=== PATIENT | male | born 1950 | race Caucasian/White ===

== ENCOUNTER → 2016-07-04 | Outpatient (CLI) | payer OTHER ==
[2016-07-04 14:18] LABS: ALT/SGPT 39 U/L (12-78); AST/SGOT 19 U/L (15-37); BLOOD UREA NITROGEN 15 mg/dl (7-18); BUN/CREATININE RATIO 15.9 (10-20); CALCIUM 9.5 mg/dl (8.5-10.1); CARBON DIOXIDE 29 mmol/L (21-32); CHLORIDE 103 mmol/L (98-107); CREATININE 0.92 mg/dl (0.60-1.40); GLUCOSE 145 mg/dl (70-99); POTASSIUM 3.9 mmol/L (3.5-5.1); SODIUM 138 mmol/L (136-145)
[2016-07-04 14:21] LABS: ALB/GLOB RATIO 1.3 (0.9-2); ALKALINE PHOSPHATASE 90 U/L (45-117); CHOLESTEROL 151 mg/dl (0-200); CHOLESTEROL/HDL RATIO 4.6; HDL CHOLESTEROL 33 mg/dl; LDL CHOLESTEROL CALCULATED 83 mg/dl; TRIGLYCERIDES 177 mg/dl (0-150); VERY LOW DENSITY LIPOPROT CALC 35 mg/dl
[2016-07-04 15:00] LABS: ESTIMATED AVERAGE GLUCOSE 143 mg/dl; HA1C FLAG Normal (Normal)
--- NOTE | 2016-07-09 12:24 | CODING QUERY MEDICAL NECESSITY ---
SUPPORTING DIAGNOSIS NEEDED A supporting diagnosis is required for the test/procedure performed on this patient in order for us to be reimbursed by the patient's insurance. Please provide a supporting diagnosis for the following test/procedure listed below next to the test name along with your signature. *If there is no additional diagnosis for this patient that would support the following test/procedure please document that below next to the test/procedure. Test(s)/Procedure(s) that require a supporting diagnosis: DOS 07/04 * Hba1c DIAGNOSIS: * Lipids DIAGNOSIS: Provider Signature: Date: Thank you Breann Quesada [facility] Information Management Once completed, please kindly fax back to [phone] For questions please call [phone]
== END | disposition home or self-care (01) ==
LOC: C.LABBC 10:52
PROVIDERS: ATTEND Internal Medicine
DX: J45.909 Unspecified asthma, uncomplicated (principal); E11.9 Type 2 diabetes mellitus without complications; E78.5 Hyperlipidemia, unspecified

== ENCOUNTER → 2016-08-23 | Outpatient (CLI) | payer OTHER ==
[~2016-08-23] MED LIST: GADAVIST IV PRN
--- NOTE | 2016-08-23 09:17 | DIAGNOSTIC IMAGING REPORT ---
MRI OF THE BRAIN WITHOUT AND WITH IV CONTRAST CLINICAL HISTORY: Asymmetric sensorineural hearing loss. LEFT-SIDED COMPARISON STUDY: No previous studies for comparison. TECHNIQUE: MRI of the brain was performed from the vertex to the skull base utilizing various T1 and T2 weighted sequences. Following the IV administration of 13.5 mL of Gadavist contrast, additional enhanced images were obtained. FINDINGS: Sagittal T1, axial diffusion, proton density and T2 weighted axial, coronal FLAIR, and pre and post axial T1-weighted images were acquired. These were supplemented with post gadolinium coronal T1 weighted images. No intra or extra-axial mass lesions are visualized. Axial diffusion-weighted images reveal no evidence of acute or subacute infarction. There is no evidence of ventricular dilatation. Proton density T2-weighted and FLAIR images reveal no significant intraparenchymal signal abnormalities. There are no abnormal flow voids. There is no evidence of pathologic enhancement. The 7th and 8th nerve complexes appear normal. There is no pathologic enhancement. IMPRESSION: Normal MRI of the brain for age. Electronically signed by: Venkata Amato M.D. 08/23/2016 9:16 AM Dictated Date/Time: 08/23/2016 9:03 AM
== END | disposition home or self-care (01) ==
LOC: C.MRIBC 07:50
DX: H90.42 Sensorineural hearing loss, unilateral, left ear, with unrestricted hearing on the contralateral side (principal)

== ENCOUNTER → 2017-01-04 | Outpatient (CLI) | payer OTHER ==
[2017-01-04 14:43] LABS: ALT/SGPT 35 U/L (12-78); BLOOD UREA NITROGEN 15 mg/dl (7-18); BUN/CREATININE RATIO 16.8 (10-20); CALCIUM 9.3 mg/dl (8.5-10.1); CARBON DIOXIDE 28 mmol/L (21-32); CHLORIDE 103 mmol/L (98-107); CHOLESTEROL 145 mg/dl (0-200); GLUCOSE 143 mg/dl (70-99); POTASSIUM 4.1 mmol/L (3.5-5.1); SODIUM 138 mmol/L (136-145)
[2017-01-04 14:47] LABS: ALB/GLOB RATIO 1.2 (0.9-2); ALKALINE PHOSPHATASE 80 U/L (45-117); AST/SGOT 22 U/L (15-37); CHOLESTEROL/HDL RATIO 4.7; HDL CHOLESTEROL 31 mg/dl; LDL CHOLESTEROL CALCULATED 77 mg/dl; PROSTATE SPECIFIC ANTIGEN 0.327 ng/ml (0.000-4.000); TRIGLYCERIDES 183 mg/dl (0-150); VERY LOW DENSITY LIPOPROT CALC 37 mg/dl
[2017-01-04 15:07] LABS: ESTIMATED AVERAGE GLUCOSE 146 mg/dl; HA1C FLAG Normal (Normal)
--- NOTE | 2017-01-10 13:25 | CODING QUERY MEDICAL NECESSITY ---
SUPPORTING DIAGNOSIS NEEDED A supporting diagnosis is required for the test/procedure performed on this patient in order for us to be reimbursed by the patient's insurance. Please provide a supporting diagnosis for the following test/procedure listed below next to the test name along with your signature. *If there is no additional diagnosis for this patient that would support the following test/procedure please document that below next to the test/procedure. Test(s)/Procedure(s) that require a supporting diagnosis: * HEMOGLOBIN A1C DIAGNOSIS: * PSA DIAGNOSIS: Provider Signature: Date: Thank you Lorraine Lebron [employer] Information Management Once completed, please kindly fax back to [phone] For questions please call [phone]
== END | disposition home or self-care (01) ==
LOC: C.LABBC 09:17
PROVIDERS: ATTEND Internal Medicine
DX: J45.909 Unspecified asthma, uncomplicated (principal); E11.9 Type 2 diabetes mellitus without complications; Z12.5 Encounter for screening for malignant neoplasm of prostate

== ENCOUNTER → 2017-08-16 | Outpatient (CLI) | payer OTHER ==
[2017-08-16 11:00] LABS: BASO % 0.4 %; BASO ABS # 0.04 K/uL (0-0.2); EOS % 2.3 %; EOS ABS # 0.21 K/uL (0-0.5); HEMATOCRIT 42.7 % (42-52); HEMOGLOBIN 15.5 g/dL (14.0-18.0); IG# 0.02 K/uL (0.00-0.02); LYMPH % 27.7 %; LYMPH ABS # 2.49 K/uL (1.2-3.4); MEAN CELL VOLUME 85.7 fL (80-100); MEAN CORPUSCULAR HEMOGLOBIN 31.1 pg (25-34); MEAN CORPUSCULAR HGB CONC 36.3 g/dl (32-36); MONO % 7.4 %; MONO ABS # 0.67 K/uL (0.11-0.59); NEUT ABS # 5.57 K/uL (1.4-6.5); PLATELET COUNT 211 K/uL (130-400); RED CELL DISTRIBUTION WIDTH CV 12.8 % (11.5-14.5); RED CELL DISTRIBUTION WIDTH SD 40.1 fL (36.4-46.3)
[2017-08-16 11:07] LABS: ALT/SGPT 46 U/L (12-78); AST/SGOT 20 U/L (15-37); BLOOD UREA NITROGEN 17 mg/dl (7-18); CARBON DIOXIDE 26 mmol/L (21-32); CREATININE 0.96 mg/dl (0.60-1.40); GLUCOSE 147 mg/dl (70-99); POTASSIUM 4.1 mmol/L (3.5-5.1); SODIUM 137 mmol/L (136-145)
[2017-08-16 11:10] LABS: ALKALINE PHOSPHATASE 89 U/L (45-117); CHOLESTEROL 129 mg/dl (0-200); LDL CHOLESTEROL CALCULATED 72 mg/dl; TOTAL PROTEIN 7.6 gm/dl (6.4-8.2)
[2017-08-16 11:35] LABS: HEMOGLOBIN A1C 6.7 % (4.5-5.6)
== END | disposition home or self-care (01) ==
LOC: C.LABBC 08:54
PROVIDERS: ATTEND Physician Assistant Medical
DX: E11.9 Type 2 diabetes mellitus without complications (principal); I10 Essential (primary) hypertension; E78.5 Hyperlipidemia, unspecified

== ENCOUNTER → 2017-11-13 | Outpatient (CLI) | payer OTHER ==
--- NOTE | 2017-11-13 16:19 | DIAGNOSTIC IMAGING REPORT ---
TWO VIEW CHEST CLINICAL HISTORY: Cough and chest congestion. FINDINGS: PA and lateral chest radiographs are obtained. No prior studies are available for comparison at the time of dictation. The heart is enlarged and there is atherosclerotic calcification of the thoracic aorta. The pulmonary vasculature is noncongested. Nonspecific interstitial thickening is likely chronic. There is mild elevation of the right hemidiaphragm and bibasilar atelectasis. No airspace consolidation is seen typical for pneumonia and there is no pleural effusion. There is biapical scarring, asymmetrically greater on the right. There is no pneumothorax. The skeletal structures are osteopenic. Degenerative change is noted throughout the thoracic spine. IMPRESSION: 1. Cardiac enlargement with no acute cardiopulmonary abnormality. 2. There is asymmetric right apical density/scarring as compared to the left. Follow-up with a contrast-enhanced chest CT is recommended for further assessment and to exclude apical mass lesion. Electronically signed by: Yony Sinha M.D. 11/13/2017 4:18 PM Dictated Date/Time: 11/13/2017 4:16 PM
== END | disposition home or self-care (01) ==
LOC: C.RADBC 15:34
PROVIDERS: ATTEND Nurse Practitioner Adult Health
DX: J45.909 Unspecified asthma, uncomplicated (principal); R05 Cough; I51.7 Cardiomegaly

== ENCOUNTER → 2018-02-10 | Outpatient (CLI) | payer OTHER ==
[2018-02-10 10:57] LABS: BASO % 0.6 %; BASO ABS # 0.05 K/uL (0-0.2); EOS % 2.2 %; HEMATOCRIT 44.2 % (42-52); HEMOGLOBIN 15.5 g/dL (14.0-18.0); IG# 0.02 K/uL (0.00-0.02); LYMPH % 23.4 %; LYMPH ABS # 2.12 K/uL (1.2-3.4); MEAN CELL VOLUME 86.3 fL (80-100); MEAN CORPUSCULAR HEMOGLOBIN 30.3 pg (25-34); MEAN CORPUSCULAR HGB CONC 35.1 g/dl (32-36); MONO % 8.1 %; MONO ABS # 0.73 K/uL (0.11-0.59); NEUT % 65.5 %; NEUT ABS # 5.93 K/uL (1.4-6.5); PLATELET COUNT 245 K/uL (130-400); RED CELL DISTRIBUTION WIDTH CV 12.7 % (11.5-14.5); RED CELL DISTRIBUTION WIDTH SD 40.6 fL (36.4-46.3); WHITE BLOOD COUNT 9.05 K/uL (4.8-10.8)
[2018-02-10 11:34] LABS: ALBUMIN 3.9 gm/dl (3.4-5.0); ALKALINE PHOSPHATASE 86 U/L (45-117); ALT/SGPT 36 U/L (12-78); AST/SGOT 18 U/L (15-37); BLOOD UREA NITROGEN 14 mg/dl (7-18); CALCIUM 8.8 mg/dl (8.5-10.1); CARBON DIOXIDE 26 mmol/L (21-32); CHOLESTEROL 118 mg/dl (0-200); CREATININE 0.85 mg/dl (0.60-1.40); GLUCOSE 146 mg/dl (70-99); LDL CHOLESTEROL CALCULATED 52 mg/dl; POTASSIUM 3.9 mmol/L (3.5-5.1); SODIUM 135 mmol/L (136-145); TOTAL PROTEIN 7.4 gm/dl (6.4-8.2)
[2018-02-10 11:38] LABS: HEMOGLOBIN A1C 6.7 % (4.5-5.6)
== END | disposition home or self-care (01) ==
LOC: C.LABBC 09:02
PROVIDERS: ATTEND Internal Medicine
DX: E11.9 Type 2 diabetes mellitus without complications (principal); I10 Essential (primary) hypertension; E78.5 Hyperlipidemia, unspecified; Z11.59 Encounter for screening for other viral diseases

== ENCOUNTER 2020-02-10 14:04 | Inpatient (IN) ==
[2020-02-10] MEDS ORDERED: DEXAMETHASONE SOD INJ 10 MG/ML VIAL IV ONE (14:11)
[2020-02-10] MEDS ORDERED: LORazepam 1 MG/2 ML VIAL IV STA (14:12)
[2020-02-10 14:33] LABS: Basophils # (auto) 0.03 K/uL (0-0.2); Basophils % (auto) 0.3 %; Hematocrit (blood only) 43.6 % (42-52); Hemoglobin 15.3 g/dL (14.0-18.0); Immature Granulocytes # (auto) 0.02 K/uL (0.00-0.02); Immature Granulocytes % (auto) 0.2 %; Lymphocytes # (auto) 1.59 K/uL (1.2-3.4); Lymphocytes % (auto) 15.4 %; Mean Corpuscular Hemoglobin 30.7 pg (25-34); Mean Corpuscular Hgb Conc 35.1 g/dL (32-36); Mean Corpuscular Volume 87.6 fL (80-100); Mean Platelet Volume 9.1 fL (7.4-10.4); Monocytes # (auto) 0.19 K/uL (0.11-0.59); Monocytes % (auto) 1.8 %; Neutrophils # (auto) 8.51 K/uL (1.4-6.5); Neutrophils % (auto) 82.3 %; Platelet Count 309 K/uL (130-400); RDW Coefficient of Variation 12.9 % (11.5-14.5); RDW Standard Deviation 41.5 fL (36.4-46.3); Red Blood Count 4.98 M/uL (4.7-6.1); White Blood Count 10.34 K/uL (4.8-10.8)
--- NOTE | 2020-02-10 14:36 | Emergency Department Note ---
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 I received a prehospital notification medic command call about this patient. The patient apparently started having seizure activity in his left upper extremity and left face at approximately 130 today. The patient denies having any headache or falls. He has been having left upper extremity weakness over the last few months and had an outpatient MRI by his primary care physician which showed a mass in the right parietal lobe. There was vasogenic edema and the patient was started on Decadron. He took his last dose of Decadron this morning. He is set to see a neurosurgeon at [facility] next week for possible work-up. The patient started noticing uncontrollable seizure activity with his left upper extremity and left face. The seizure has been ongoing since onset at 1:30 PM. He is noticing no chest pain or difficulty breathing. The patient was not started on an antiseizure medication. The patient symptoms are mildly improved upon arrival as he received 1 mg of Ativan prior to arrival. The patient has no history of previous brain tumor. He has no known metastatic disease but does have a history of malignant melanoma in the past. ROS: See above HPI for pertinent positives & negatives. A total of 10 systems reviewed and were otherwise negative. PAST MEDICAL HISTORY: See Below PAST SURGICAL HISTORY: See Below FAMILY HISTORY: See Below SOCIAL HISTORY: See Below HOME MEDICATIONS: See Below ALLERGIES: See Below VITALS: See Below PHYSICAL EXAMINATION: GENERAL: The patient is awake and alert. He is somewhat anxious appearing. He is actively seizing with his left upper extremity and left face. EYES: The conjunctivae are clear. The pupils are round and reactive. EARS, NOSE, MOUTH AND THROAT: The nose is without any evidence of any deformity. Mucous membranes are moist. NECK: The neck is nontender and supple. RESPIRATORY: Normal respiratory effort is noted there is no evidence of wheezing rhonchi or rales CARDIOVASCULAR: Tachycardic rate with regular rhythm was noted. There was no definite murmur. GASTROINTESTINAL: The abdomen is soft. Abdomen is nontender. MUSCULOSKELETAL/EXTREMITIES: There is no evidence of gross deformity full range of motion is noted in the hips and shoulders. SKIN: There is no obvious evidence of any rash. There are no petechiae, pallor or cyanosis noted. NEUROLOGIC: Patient is awake alert and oriented x3 strength is symmetric patellar reflexes are 2+ bilaterally MEDICAL DECISION MAKING: The patient is a 69-year-old male who presented to the emergency department for an evaluation of seizure. The patient was diagnosed yesterday with an intracranial mass with associated cerebral edema. He was started on Decadron and scheduled for follow-up with neurosurgery at [facility]. Unfortunately the patient developed a seizure episode this evening. The seizure was focal and limited to the left side of the face and the left upper extremity. The seizure was ongoing for many hours. He was treated with multiple antiseizure medications at multiple times. I discussed the patient's laboratory and radiographic studies with him. At the patient's request I did discuss this case with the neurosurgical group at [facility]. At this time and I do not feel the patient would require emergent transfer for neurosurgery but they did feel the patient seizure should be more controlled and then the patient can follow-up as an outpatient for neurosurgical intervention unless her another problem would arise. CT did not reveal any signs of intracranial bleeding at this time. For this reason I discussed this case with the [facility] hospitalist as well as the [facility] neurologist. They will follow along with the patient for further management. Triage Nursing notes reviewed. Prior medical records reviewed Vital Signs: reviewed and remarkable for elevated blood pressure. Differential diagnosis: Epilepsy, infection, hypoglycemia, electrolyte abnormalities, cardiac sources, intracerebral event, trauma, toxicologic, neurologic, syncope, as well as other pathologies. ER treatment provided: See below Diagnostics interpreted by me: ECG: EKG was obtained in the emergency department. My interpretation is normal sinus rhythm at 100 bpm. There is no ectopy. Incomplete right bundle branch block pattern was noted. This was compared to a tracing from December 27, 2018. No significant changes were noted. Cardiac Monitoring: An order was placed for continuous cardiac monitoring. The monitor shows a rate of 105 with sinus tach rhythm. Laboratory studies: As stated above and show below. Imaging studies: See below Consultation(s): 1650: I discussed this case with Dr. Bullard who is on for neurosurgery at [facility]. 1744: I discussed this case with Dr. Rivera. He will evaluate patient in consultation. 1809: I discussed this case with Dr. Otoole. He will evaluate the patient in the emergency department for further inpatient management and disposition. ED COURSE: Procedures: none PDMP:reviewed and no issues Critical Care: I have personally spent greater than 60 minutes of critical care time in the direct management of this patient. This includes bedside care, interpretation of diagnostic studies, and testing, discussion with consultants, patient, and family members, and other required patient management activities. This 60 minutes is in excess of all separately billable procedures. Past Med/Surg History Medical History History of melanoma Hx of skin cancer, basal cell Tubular adenoma of colon Surgical History Anal fistula REPAIRED History of colonoscopy History of tonsillectomy History of tooth extraction Family History Mother Family history of diabetes mellitus Alzheimer disease Metastatic lung cancer (metastasis from lung to other site) Father Lung disease FH: deafness or hearing loss Brother Lung disease Denies family history of Ovarian cancer Prostate cancer Breast cancer Lung cancer Colorectal cancer Social History Smoking Status: Never smoker Second Hand Exposure: No; Hx Alcohol Use: Yes Alcohol type: beer and hard liquor Hx Substance Use: No Preferred Language: Lebanese Communication Ability: Effective Visual Impairment: Limited Hearing Ability: Use of Hearing Aid 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 Beliefs That Will Affect Care: None marital status: Current Living Situation: Spouse Current Living Situation Comment: 44 years 2019 current occupational status: retired 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 Feels Safe at Home: Yes Childhood Exposure to Second-Hand Smoke: Yes Dental Care, Regularly: Yes Physical Activity Frequency: Does not Exercise Seatbelt Use: always Sunscreen Use: Yes Allergies Allergies Allergy/AdvReac Type Severity Reaction Status Date / Time grass pollen Allergy Mild Verified 02/10/20 15:05 cat dander AdvReac Intermediate Hives Verified 02/10/20 15:05 dog dander AdvReac Intermediate WELTS Verified 02/10/20 15:05 dexamethasone AdvReac Seizure Unverified 02/10/20 15:10 Home Meds Home Medications Medication Instructions Recorded Confirmed albuterol sulfate 90 mcg/actuation 2 puffs INH Q6H PRN 10/07/19 02/10/20 aerosol inhaler amlodipine 5 mg tablet 2.5 mg PO QAM tab 02/03/20 02/10/20 cinnamon bark 500 mg capsule 1,000 mg PO QAM cap 02/09/20 02/10/20 aspirin [Aspirin Low Dose] 81 mg PO QAM 02/10/20 02/10/20 Previous Rx's Medication Instructions Recorded metformin 500 mg tablet 1,000 mg PO BID #360 tab 02/16/19 lisinopril 20 mg tablet 20 mg PO QAM #90 tab 11/03/19 lisinopril 20 1 tab PO QAM #90 tab 11/03/19 mg-hydrochlorothiazide 25 mg tablet potassium chloride 20 mEq 20 meq PO DAILY #90 tab 11/03/19 tablet,extended release dexamethasone 4 mg tablet 4 mg PO DAILY #30 tab 02/09/20 Results & Data (ED) Vital Signs Vital Signs - 24 hr 02/10/20 14:05 02/10/20 14:08 02/10/20 14:14 Temperature 37.0 C Temperature Source Oral Pulse Rate 142 H 139 H 138 H Pulse Rate from SpO2 Sensor 141 H 138 H Respiratory Rate 20 37 H 33 H Respiratory Effort / Characteristics Non-Labored Respiratory Depth Normal Blood Pressure 173/112 H 173/112 H 190/100 H Blood Pressure Mean 132 125 127 Pulse Oximetry 94 95 96 Oxygen Delivery Method Room Air Room Air Room Air Oxygen Flow Rate Sepsis Recent Fever Within 48 Hours No Sepsis New/Unexplained Change in Mental Status N/A Sepsis Action Taken by Nursing No Action Required 02/10/20 14:15 02/10/20 14:21 02/10/20 14:26 Temperature Temperature Source Pulse Rate 138 H 128 H Pulse Rate from SpO2 Sensor 138 H 130 H Respiratory Rate 37 H 32 H Respiratory Effort / Characteristics Respiratory Depth Blood Pressure Blood Pressure Mean Pulse Oximetry 96 95 Oxygen Delivery Method Room Air Room Air Room Air Oxygen Flow Rate Sepsis Recent Fever Within 48 Hours Sepsis New/Unexplained Change in Mental Status Sepsis Action Taken by Nursing 02/10/20 14:30 02/10/20 14:40 02/10/20 14:51 Temperature Temperature Source Pulse Rate 122 H 120 H 116 H Pulse Rate from SpO2 Sensor 123 H 120 H 116 H Respiratory Rate 33 H 21 27 H Respiratory Effort / Characteristics Respiratory Depth Blood Pressure Blood Pressure Mean Pulse Oximetry 94 94 92 Oxygen Delivery Method Room Air Room Air Room Air Oxygen Flow Rate Sepsis Recent Fever Within 48 Hours Sepsis New/Unexplained Change in Mental Status Sepsis Action Taken by Nursing 02/10/20 15:00 02/10/20 15:19 02/10/20 15:21 Temperature Temperature Source Pulse Rate 111 H 104 H 105 H Pulse Rate from SpO2 Sensor 111 H 104 H 105 H Respiratory Rate 22 Respiratory Effort / Characteristics Respiratory Depth Blood Pressure 122/69 117/67 Blood Pressure Mean 84 105 Pulse Oximetry 92 90 93 Oxygen Delivery Method Room Air Room Air Room Air Oxygen Flow Rate Sepsis Recent Fever Within 48 Hours Sepsis New/Unexplained Change in Mental Status Sepsis Action Taken by Nursing 02/10/20 15:30 02/10/20 15:40 02/10/20 15:45 Temperature Temperature Source Pulse Rate 107 H 109 H 106 H Pulse Rate from SpO2 Sensor 110 H 109 H 106 H Respiratory Rate Respiratory Effort / Characteristics Respiratory Depth Blood Pressure 141/74 H 133/67 Blood Pressure Mean 96 94 Pulse Oximetry 93 92 92 Oxygen Delivery Method Room Air Room Air Room Air Oxygen Flow Rate Sepsis Recent Fever Within 48 Hours Sepsis New/Unexplained Change in Mental Status Sepsis Action Taken by Nursing 02/10/20 15:51 02/10/20 15:55 02/10/20 16:00 Temperature Temperature Source Pulse Rate 104 H 97 H Pulse Rate from SpO2 Sensor 104 H 97 H Respiratory Rate Respiratory Effort / Characteristics Respiratory Depth Blood Pressure 124/78 Blood Pressure Mean 100 Pulse Oximetry 95 96 Oxygen Delivery Method Room Air Nasal Cannula Nasal Cannula Oxygen Flow Rate 2 2 Sepsis Recent Fever Within 48 Hours Sepsis New/Unexplained Change in Mental Status Sepsis Action Taken by Nursing 02/10/20 16:02 02/10/20 16:10 02/10/20 16:15 Temperature Temperature Source Pulse Rate 98 H 99 H 103 H Pulse Rate from SpO2 Sensor 99 H 98 H 102 H Respiratory Rate Respiratory Effort / Characteristics Respiratory Depth Blood Pressure 140/74 Blood Pressure Mean 85 Pulse Oximetry 98 97 98 Oxygen Delivery Method Nasal Cannula Nasal Cannula Nasal Cannula Oxygen Flow Rate 2 2 2 Sepsis Recent Fever Within 48 Hours Sepsis New/Unexplained Change in Mental Status Sepsis Action Taken by Nursing 02/10/20 16:20 02/10/20 16:30 02/10/20 16:31 Temperature Temperature Source Pulse Rate 100 H 101 H 101 H Pulse Rate from SpO2 Sensor 100 H 101 H 101 H Respiratory Rate Respiratory Effort / Characteristics Respiratory Depth Blood Pressure 122/70 Blood Pressure Mean 82 Pulse Oximetry 97 98 98 Oxygen Delivery Method Nasal Cannula Nasal Cannula Nasal Cannula Oxygen Flow Rate 2 2 2 Sepsis Recent Fever Within 48 Hours Sepsis New/Unexplained Change in Mental Status Sepsis Action Taken by Nursing 02/10/20 16:40 02/10/20 16:45 02/10/20 16:50 Temperature Temperature Source Pulse Rate 101 H 101 H 101 H Pulse Rate from SpO2 Sensor 101 H 102 H 101 H Respiratory Rate Respiratory Effort / Characteristics Respiratory Depth Blood Pressure 135/72 Blood Pressure Mean 104 Pulse Oximetry 98 97 98 Oxygen Delivery Method Nasal Cannula Nasal Cannula Nasal Cannula Oxygen Flow Rate 2 2 2 Sepsis Recent Fever Within 48 Hours Sepsis New/Unexplained Change in Mental Status Sepsis Action Taken by Nursing 02/10/20 17:00 02/10/20 17:01 02/10/20 17:10 Temperature Temperature Source Pulse Rate 105 H 99 H 102 H Pulse Rate from SpO2 Sensor 104 H 99 H 102 H Respiratory Rate Respiratory Effort / Characteristics Respiratory Depth Blood Pressure 140/67 Blood Pressure Mean 74 Pulse Oximetry 98 98 98 Oxygen Delivery Method Nasal Cannula Nasal Cannula Nasal Cannula Oxygen Flow Rate 2 2 2 Sepsis Recent Fever Within 48 Hours Sepsis New/Unexplained Change in Mental Status Sepsis Action Taken by Nursing 02/10/20 17:15 02/10/20 17:20 02/10/20 17:30 Temperature Temperature Source Pulse Rate 101 H 99 H 103 H Pulse Rate from SpO2 Sensor 102 H 100 H 103 H Respiratory Rate Respiratory Effort / Characteristics Respiratory Depth Blood Pressure 142/69 H 151/80 H Blood Pressure Mean 105 99 Pulse Oximetry 98 98 99 Oxygen Delivery Method Nasal Cannula Nasal Cannula Nasal Cannula Oxygen Flow Rate 2 2 2 Sepsis Recent Fever Within 48 Hours Sepsis New/Unexplained Change in Mental Status Sepsis Action Taken by Nursing 02/10/20 17:31 02/10/20 17:40 02/10/20 17:45 Temperature Temperature Source Pulse Rate 97 H 98 H 102 H Pulse Rate from SpO2 Sensor 97 H 99 H 101 H Respiratory Rate Respiratory Effort / Characteristics Respiratory Depth Blood Pressure 131/78 Blood Pressure Mean 92 Pulse Oximetry 98 98 98 Oxygen Delivery Method Nasal Cannula Nasal Cannula Nasal Cannula Oxygen Flow Rate 2 2 2 Sepsis Recent Fever Within 48 Hours Sepsis New/Unexplained Change in Mental Status Sepsis Action Taken by Nursing 02/10/20 17:50 02/10/20 18:00 02/10/20 18:01 Temperature Temperature Source Pulse Rate 99 H 99 H 99 H Pulse Rate from SpO2 Sensor 98 H 99 H 99 H Respiratory Rate Respiratory Effort / Characteristics Respiratory Depth Blood Pressure 136/85 Blood Pressure Mean 113 Pulse Oximetry 98 99 99 Oxygen Delivery Method Nasal Cannula Nasal Cannula Nasal Cannula Oxygen Flow Rate 2 2 2 Sepsis Recent Fever Within 48 Hours Sepsis New/Unexplained Change in Mental Status Sepsis Action Taken by Nursing 02/10/20 18:10 02/10/20 18:16 02/10/20 18:20 Temperature Temperature Source Pulse Rate 99 H 100 H 97 H Pulse Rate from SpO2 Sensor 99 H 100 H 97 H Respiratory Rate Respiratory Effort / Characteristics Respiratory Depth Blood Pressure 131/69 Blood Pressure Mean 81 Pulse Oximetry 99 99 99 Oxygen Delivery Method Nasal Cannula Nasal Cannula Nasal Cannula Oxygen Flow Rate 2 2 2 Sepsis Recent Fever Within 48 Hours Sepsis New/Unexplained Change in Mental Status Sepsis Action Taken by Nursing 02/10/20 18:30 02/10/20 18:41 02/10/20 18:45 Temperature Temperature Source Pulse Rate 98 H 99 H 95 H Pulse Rate from SpO2 Sensor 98 H 102 H 96 H Respiratory Rate Respiratory Effort / Characteristics Respiratory Depth Blood Pressure 139/71 134/87 Blood Pressure Mean 100 107 Pulse Oximetry 99 100 99 Oxygen Delivery Method Nasal Cannula Nasal Cannula Nasal Cannula Oxygen Flow Rate 2 2 2 Sepsis Recent Fever Within 48 Hours Sepsis New/Unexplained Change in Mental Status Sepsis Action Taken by Nursing 02/10/20 18:50 02/10/20 19:00 02/10/20 19:11 Temperature Temperature Source Pulse Rate 96 H 92 H 91 H Pulse Rate from SpO2 Sensor 95 H 92 H 92 H Respiratory Rate Respiratory Effort / Characteristics Respiratory Depth Blood Pressure 129/69 Blood Pressure Mean 94 Pulse Oximetry 99 99 98 Oxygen Delivery Method Nasal Cannula Nasal Cannula Nasal Cannula Oxygen Flow Rate 2 2 2 Sepsis Recent Fever Within 48 Hours Sepsis New/Unexplained Change in Mental Status Sepsis Action Taken by Nursing 02/10/20 19:15 02/10/20 19:20 02/10/20 19:30 Temperature Temperature Source Pulse Rate 91 H 91 H 92 H Pulse Rate from SpO2 Sensor 92 H 91 H 91 H Respiratory Rate Respiratory Effort / Characteristics Respiratory Depth Blood Pressure 120/62 118/62 Blood Pressure Mean 90 94 Pulse Oximetry 99 99 98 Oxygen Delivery Method Nasal Cannula Nasal Cannula Nasal Cannula Oxygen Flow Rate 2 2 2 Sepsis Recent Fever Within 48 Hours Sepsis New/Unexplained Change in Mental Status Sepsis Action Taken by Nursing 02/10/20 19:41 02/10/20 19:45 02/10/20 19:50 Temperature Temperature Source Pulse Rate 105 H 104 H 103 H Pulse Rate from SpO2 Sensor 105 H 103 H 103 H Respiratory Rate Respiratory Effort / Characteristics Respiratory Depth Blood Pressure 140/85 Blood Pressure Mean 103 Pulse Oximetry 98 100 99 Oxygen Delivery Method Nasal Cannula Nasal Cannula Nasal Cannula Oxygen Flow Rate 2 2 2 Sepsis Recent Fever Within 48 Hours Sepsis New/Unexplained Change in Mental Status Sepsis Action Taken by Nursing 02/10/20 20:00 Temperature Temperature Source Pulse Rate 93 H Pulse Rate from SpO2 Sensor 93 H Respiratory Rate Respiratory Effort / Characteristics Respiratory Depth Blood Pressure 145/79 H Blood Pressure Mean 110 Pulse Oximetry 99 Oxygen Delivery Method Nasal Cannula Oxygen Flow Rate 2 Sepsis Recent Fever Within 48 Hours Sepsis New/Unexplained Change in Mental Status Sepsis Action Taken by Residential Medications Current Medication List: was personally reviewed by me Laboratory Data Attestation: I reviewed the patient's lab results. Result diagrams: 02/10/20 14:20 02/10/20 14:20 Lab Results 02/10/20 02/10/20 02/10/20 Range/Units 14:20 14:20 14:20 WBC 10.34 (4.8-10.8) K/uL RBC 4.98 (4.7-6.1) M/uL Hgb 15.3 (14.0-18.0) g/dL Hct 43.6 (42-52) % MCV 87.6 (80-100) fL MCH 30.7 (25-34) pg MCHC 35.1 (32-36) g/dL RDW Std Deviation 41.5 (36.4-46.3) fL RDW Coeff of Vicki 12.9 (11.5-14.5) % Plt Count 309 (130-400) K/uL MPV 9.1 (7.4-10.4) fL Immature Gran % (Auto) 0.2 % Neut % (Auto) 82.3 % Lymph % (Auto) 15.4 % [place] % (Auto) 1.8 % Eos % (Auto) 0.0 % Baso % (Auto) 0.3 % Neut # (Auto) 8.51 H (1.4-6.5) K/uL Lymph # (Auto) 1.59 (1.2-3.4) K/uL [place] # (Auto) 0.19 (0.11-0.59) K/uL Eos # (Auto) 0.00 (0-0.5) K/uL Baso # (Auto) 0.03 (0-0.2) K/uL Immature Gran # (Auto) 0.02 (0.00-0.02) K/uL PT 10.8 (9.0-12.0) Seconds INR 1.0 (0.9-1.1) APTT 25.1 (21.0-31.0) Seconds PTT Ratio 0.9 Sodium 136 (136-145) mmol/L Potassium 4.2 (3.5-5.1) mmol/L Chloride 102 (98-107) mmol/L Carbon Dioxide 20 L (21-32) mmol/L Anion Gap 14.0 H (3-11) BUN 23 H (7-18) mg/dl Creatinine 1.45 H (0.6-1.4) mg/dl Est Cr Clr Drug Dosing 63.9 ml/min Est GFR ( Amer) 56.1 Est GFR (Non-Af Amer) 48.4 BUN/Creatinine Ratio 15.7 (10-20) Glucose 189 H (70-99) mg/dl Calcium 9.9 (8.5-10.1) mg/dl Magnesium 1.9 (1.8-2.4) mg/dl Total Bilirubin 0.6 (0.2-1) mg/dl AST 15 (15-37) U/L ALT 25 (12-78) U/L Alkaline Phosphatase 77 (45-117) U/L Troponin I < 0.015 (0-0.045) ng/ml Total Protein 7.9 (6.4-8.2) gm/dl Albumin 4.4 (3.4-5.0) gm/dl Globulin 3.5 (2.5-4.0) gm/dl Albumin/Globulin Ratio 1.2 (0.9-2) TSH 0.574 (0.300-4.500) uIu/ml Administered Medications Discontinued Medications Dexamethasone (Dexamethasone Sod Inj 10 Mg/Ml Vial) 10 mg IV NOW ONE Stop: 02/10/20 14:12 Last Admin: 02/10/20 14:42 Dose: 10 mg Documented by: [id number] Levetiracetam 2,000 mg/ Sodium (Chloride) 270 mls @ 999 mls/hr IV NOW STA Stop: 02/10/20 14:27 Last Infusion: 02/10/20 14:44 Dose: 0 mls/hr Documented by: [id number] Admin: 02/10/20 14:23 Dose: 999 mls/hr Documented by: [id number] Lorazepam (Ativan) 1 mg in 2 mls @ 2 mls/min IV NOW STA Stop: 02/10/20 14:13 Last Admin: 02/10/20 14:43 Dose: 2 mls/min Documented by: [id number] Valproic Acid 2,000 mg/ (Dextrose) 70 mls @ 55 mls/hr IV NOW STA Stop: 02/10/20 16:24 Last Infusion: 02/10/20 16:52 Dose: 0 mls/hr Documented by: [id number] Admin: 02/10/20 15:29 Dose: 55 mls/hr Documented by: [id number] Sodium Chloride (Nss 1000ml) 500 mls @ 999 mls/hr IV .Q31M ONE Stop: 02/10/20 16:33 Last Infusion: 02/10/20 17:23 Dose: 0 mls/hr Documented by: [id number] Admin: 02/10/20 16:42 Dose: 999 mls/hr Documented by: [id number] Valproic Acid 1,000 mg/ (Dextrose) 60 mls @ 55 mls/hr IV NOW STA Stop: 02/10/20 19:03 Last Infusion: 02/10/20 19:53 Dose: 0 mls/hr Documented by: [id number] Admin: 02/10/20 18:19 Dose: 55 mls/hr Documented by: [id number] Levetiracetam 2,000 mg/ Sodium (Chloride) 270 mls @ 999 mls/hr IV NOW STA Stop: 02/10/20 18:14 Last Infusion: 02/10/20 18:36 Dose: 0 mls/hr Documented by: [id number] Admin: 02/10/20 18:19 Dose: 999 mls/hr Documented by: [id number] Imaging Data Radiologist's Impression: HEAD CT NONCONTRAST CT DOSE: 614.27 mGy.cm HISTORY: Seizure. TECHNIQUE: Multiaxial CT images of the head were performed without the use of intravenous contrast. Automated exposure control was utilized for this study. A dose lowering technique was utilized adhering to the principles of ALARA. Comparison: Brain MRI 02/09/2020. Findings: The paranasal sinuses and mastoid air cells are clear. The calvarium and skull base are intact. Redemonstration of the 2.5 cm right parietal lobe mass best seen on axial image 23. There is mild surrounding the second edema. No significant slight shift. The ventricles are normal in size. No hematoma or acute infarct identified. Impression: 1. No significant change in the 2.5 cm right parietal lobe mass with surrounding vasogenic edema. No midline shift. 2. No acute infarct or intracranial hemorrhage identified. ACT 112: Negative or not required by law. Electronically signed by: Matt Tran M.D. 02/10/2020 3:27 PM Dictated: 02/10/20 1523 Transcribed: 02/10/20 1523 XR chest 1V portable HISTORY: 69 years-old Male weakness acute weakness with seizure COMPARISON: Chest radiograph and CTA chest 12/28/2018 TECHNIQUE: Portable AP view of the chest FINDINGS: Cardiac silhouette is enlarged. No pneumothorax, pleural effusion or overt pulmonary edema. Mild chronic interstitial coarsening of the lung bases. Degenerative changes of the shoulders and spine. IMPRESSION: No acute process. ACT 112: Negative or not required by law. The above report was generated using voice recognition software. It may contain grammatical, syntax or spelling errors. Electronically signed by: Edwin Lion M.D. 02/10/2020 3:30 PM Dictated: 02/10/20 1529 Transcribed: 02/10/20 1529 Blood Pressure Blood Pressure Findings: Elevated blood pressure Blood Pressure Disposition: further management by hospitalist Discharge Plan Visit Data Chief Complaint: Seizure ED Provider: Warren Burgess Discharge Problem: Cerebral mass, Cerebral edema, Partial motor seizures Patient Disposition: Being Evaluated by Hospitalist Condition: Good Forms Stand Alone Forms: [facility] Prescriptions Prescriptions: No Action metformin 500 mg tablet 1,000 mg PO BID Qty: 360 RF: 3 albuterol sulfate [ProAir HFA] 90 mcg/actuation HFA aerosol inhaler 2 puffs INH Q6H PRN (Reason: Shortness Of Breath) RF: 0 lisinopril-hydrochlorothiazide 20-25 mg tablet 1 tab PO QAM Qty: 90 RF: 3 lisinopril 20 mg tablet 20 mg PO QAM Qty: 90 RF: 3 potassium chloride 20 mEq tablet extended release 20 meq PO DAILY Qty: 90 RF: 3 dexamethasone [Decadron] 4 mg tablet 4 mg PO DAILY Qty: 30 RF: 3 amlodipine 5 mg tablet 2.5 mg PO QAM RF: 0 cinnamon bark 500 mg capsule 1,000 mg PO QAM RF: 0 aspirin [Aspirin Low Dose] 81 mg Tablet,Delayed Release (Dr/Ec) 81 mg PO QAM RF: 0 Referrals Referrals: Isaac Branham MD [Primary Care Provider] -
[2020-02-10 14:46] LABS: Partial Thromboplastin Ratio 0.9; Partial Thromboplastin Time 25.1 Seconds (21.0-31.0); Prothrombin Time 10.8 Seconds (9.0-12.0)
[2020-02-10 14:53] LABS: Alanine Aminotransferase 25 U/L (12-78); Albumin Level 4.4 gm/dl (3.4-5.0); Aspartate Aminotransferase 15 U/L (15-37); BUN Creatinine Ratio 15.7 (10-20); Blood Urea Nitrogen 23 mg/dl (7-18); Calcium 9.9 mg/dl (8.5-10.1); Carbon Dioxide 20 mmol/L (21-32); Chloride 102 mmol/L (98-107); Creatinine Clr Calc Pharmacy 63.9 ml/min; Est GFR (African American) 56.1; Est GFR (Non-African American) 48.4; Glucose 189 mg/dl (70-99); Magnesium 1.9 mg/dl (1.8-2.4); Potassium 4.2 mmol/L (3.5-5.1); Sodium 136 mmol/L (136-145)
[2020-02-10 15:04] LABS: Albumin Globulin Ratio 1.2 (0.9-2); Alkaline Phosphatase 77 U/L (45-117); Bilirubin,Total 0.6 mg/dl (0.2-1); Globulin 3.5 gm/dl (2.5-4.0); Thyroid Stimulating Hormone 0.574 uIu/ml (0.300-4.500); Total Protein 7.9 gm/dl (6.4-8.2); Troponin I < 0.015 ng/ml (0-0.045)
[2020-02-10] MEDS ORDERED: DEXTROSE 5% IV STA (15:08)
[2020-02-10] MEDS ORDERED: VALPROATE SOD IV STA (15:08)
--- NOTE | 2020-02-10 15:28 | CT Scan Report ---
HEAD CT NONCONTRAST CT DOSE: 614.27 mGy.cm HISTORY: Seizure. TECHNIQUE: Multiaxial CT images of the head were performed without the use of intravenous contrast. A utomated exposure control was utilized for this study. A dose lowering technique was utilized adheri ng to the principles of ALARA. Comparison: Brain MRI 02/09/2020. Findings: The paranasal sinuses and mastoid air cells are clear. The calvarium and skull base are int act. Redemonstration of the 2.5 cm right parietal lobe mass best seen on axial image 23. There is mil d surrounding the second edema. No significant slight shift. The ventricles are normal in size. No he matoma or acute infarct identified. Impression: 1. No significant change in the 2.5 cm right parietal lobe mass with surrounding vasogenic edema. No midline shift. 2. No acute infarct or intracranial hemorrhage identified. ACT 112: Negative or not required by law. Electronically signed by: Matt Tran M.D. 02/10/2020 3:27 PM
--- NOTE | 2020-02-10 15:32 | XRay Report ---
XR chest 1V portable HISTORY: 69 years-old Male weakness acute weakness with seizure COMPARISON: Chest radiograph and CTA chest 12/28/2018 TECHNIQUE: Portable AP view of the chest FINDINGS: Cardiac silhouette is enlarged. No pneumothorax, pleural effusion or overt pulmonary edema. 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 Degenerative changes of the shoulders and spine. IMPRESSION: No acute process. ACT 112: Negative or not required by law. The above report was generated using voice recognition software. It may contain grammatical, syntax o r spelling errors. Electronically signed by: Edwin Lion M.D. 02/10/2020 3:30 PM
[2020-02-10] MEDS ORDERED: SODIUM CHLORIDE 0.9% 1000ML 500 ML IV ONE (16:03)
--- NOTE | 2020-02-10 16:34 | Electrocardiogram Report ---
Test Reason : Blood Pressure : / mmHG Vent. Rate : 100 BPM Atrial Rate : 100 BPM P-R Int : 184 ms QRS Dur : 094 ms QT Int : 348 ms P-R-T Axes : 063 006 039 degrees QTc Int : 448 ms Normal sinus rhythm Low voltage QRS Borderline ECG When compared with ECG of 27-DEC-2018 23:52, No significant change was found Confirmed by Warren Daniel ([id number]) on 02/10/2020 4:34:22 PM Referred By: REFERRED SELF Confirmed By:Warren Daniel
[2020-02-10] MEDS ORDERED: VALPROATE SOD 1,000 MG in DEXTROSE 5% 50 ML IV STA (17:58)
[2020-02-10] MEDS ORDERED: LACTATED RINGER'S 1,000 ML IV ONE (19:32)
[2020-02-10] MEDS ORDERED: ACETAMINOPHEN 325 MG TAB PO PRN (21:27)
[2020-02-10] MEDS ORDERED: ALBUTEROL HFA 8 GM INHALER INH PRN (21:41)
--- NOTE | 2020-02-10 22:02 | History & Physical Report ---
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 Focal seizure activity did not break with x2 1mg Ativan IV (one given prior to ER), Keppra 2g IV and valproate 2g IV. Ongoing seizure activity therefore additional 2g Keppra IV given with 1g IV valproate. No ongoing seizure activity when seen. No acute intracranial hemorrhage on CT. Continue anti-seizure medication with Keppra 1g BID + Valproate 500mg Q6H (approx 15mg/kg) Consult neurology (2) Cerebral mass: Cause of focal partial seizures as above Decadron 10mg (3) Cerebral edema: Decadron as above (4) Asthma: No current exacerbation ALbuterol PRN (5) Elevated serum creatinine: IV fluids overnight. Repeat BMP with AM labs (6) Type 2 diabetes mellitus: HbA1C with AM labs Novolog correction and carb coverage (7) Hypertension: Elevated earlier in ER but now appears much better controlled with seizure activity. Will hold HCTZ given elevated Cr as above. Continue lisinopril 40mg PO daily and amlodipine 2.5mg PO daily Admission and Anticipated Discharge Date Admission Date: February 10, 2020 History of Present Illness Chief Complaint: Focal motor seizure Primary Care Provider: Isaac Branham MD Lonnie Rincon is a 69 year old right handed male who presents to the ER with ongoing focal seizure-like activity in his left hand and face since 1:30pm today. 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 The only symptom he was having that prompted this evaluation was curling of his left hand fingers which he could overcome but would continue to do this at rest. After the MRI results he was started on 4mg PO Decadron which he took the first dose of this morning. He was not on any anti-seizure medication prior to today. At 1:30pm he was fully conscious but could not stop his left arm from shaking uncontrollably. The left side of his face then twitched uncontrollably. Prior to arrival in ER he received 1mg Ativan IV with improvement in his symptoms but ongoing seizure like activity. In the ER he had additional Ativan 1mg IV and loaded with Keppra 2g IV and valproate 2g IV. Despite this he had ongoing seizure activity therefore additional 2g Keppra IV given with 1g IV valproate. When admitted the patient had no ongoing seizure activity. CT head showed no intracranial hemorrhage. Dr Burgess discussed with neurosurgery @ [place] and did not feel emergent transfer was required at this time and [facility] neurology and recommend admission under medicine for improved seizure control. He has a notable history of malignant melanoma in the past. Allergies Allergy/AdvReac Type Severity Reaction Status Date / Time grass pollen Allergy Mild Verified 02/10/20 15:05 cat dander AdvReac Intermediate Hives Verified 02/10/20 15:05 dog dander AdvReac Intermediate WELTS Verified 02/10/20 15:05 dexamethasone AdvReac Seizure Unverified 02/10/20 15:10 Home Medications Home Medications Medication Instructions Recorded Confirmed Type metformin 500 mg tablet 1,000 mg PO BID #360 tab 02/16/19 02/10/20 Rx albuterol sulfate 90 mcg/actuation 2 puffs INH Q6H PRN 10/07/19 02/10/20 History aerosol inhaler lisinopril 20 mg tablet 20 mg PO QAM #90 tab 11/03/19 02/10/20 Rx lisinopril 20 1 tab PO QAM #90 tab 11/03/19 02/10/20 Rx mg-hydrochlorothiazide 25 mg tablet potassium chloride 20 mEq 20 meq PO DAILY #90 tab 11/03/19 02/10/20 Rx tablet,extended release amlodipine 5 mg tablet 2.5 mg PO QAM tab 02/03/20 02/10/20 History cinnamon bark 500 mg capsule 1,000 mg PO QAM cap 02/09/20 02/10/20 History dexamethasone 4 mg tablet 4 mg PO DAILY #30 tab 02/09/20 02/10/20 Rx aspirin [Aspirin Low Dose] 81 mg PO QAM 02/10/20 02/10/20 History Past Med/Surg History Medical History Asthma Dyslipidemia History of melanoma Hx of skin cancer, basal cell Hypertension Tubular adenoma of colon Type 2 diabetes mellitus Surgical History Anal fistula REPAIRED History of colonoscopy History of tonsillectomy History of tooth extraction Family History Mother , age 84 of metastatic lung cancer Family history of diabetes mellitus Alzheimer disease Metastatic lung cancer (metastasis from lung to other site) Father , age 85 of "failure to thrive" Lung disease FH: deafness or hearing loss Brother Lung disease Denies family history of Ovarian cancer Prostate cancer Breast cancer Lung cancer Colorectal cancer Social History Smoking Status: Never smoker Second Hand Exposure: No; Do You Dip or Chew Tobacco: No; Tobacco Cessation Education Requested by Patient: No Hx Alcohol Use: Yes Alcohol type: beer Alcohol Intake Frequency Comment: 1-2 beers per week Hx Substance Use: No Preferred Language: P[place] Communication Ability: Effective Visual Impairment: Limited Hearing Ability: Use of Hearing Aid [employer] Information [employer] Officer Required: No Beliefs That Will Affect Care: None marital status: Current Living Situation: Spouse Current Living Situation Comment: House current occupational status: 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59 Feels Safe at Home: Yes Safety Concerns: Feels Safe At This Time Childhood Exposure to Second-Hand Smoke: Yes Dental Care, Regularly: Yes Physical Activity Frequency: Does not Exercise Seatbelt Use: always Sunscreen Use: Yes Review of Systems Review of Systems: All systems reviewed & are unremarkable except as noted in HPI & below Physical Exam Constitutional: well developed, well nourished and + obese; no acute distress Eyes: PERRL, conjunctivae normal, anicteric sclerae ENMT: external ear and nose normal, oropharynx normal Neck: trachea midline, no thyromegaly Respiratory: normal respiratory effort, lungs clear to auscultation Cardiovascular: RRR, no murmur, no edema Gastrointestinal (Abdomen): normal bowel sounds, soft, nontender, no hepatosplenomegaly Musculoskeletal: no cyanosis or clubbing, extremities motor strength 5/5 Skin: no rashes, warm and dry Neurologic: moves all extremities, + focal motor deficit (Left hand/finger generalized weakness 3/5, left elbow extension 3/5) and awake (to voice); not confused Speech / Cognition: normal speech Motor/Sensory: + pronator drift (left sided, unable to fully extend his arm); no tremor Cranial Nerves: PERRL, EOM intact bilaterally, normal hearing, able to rotate head bilaterally, able to elevate shoulders bilaterally, no nystagmus and symmetric palate elevation; + abnormal facial strength (left eyelid dropping when he becomes more tired) Psychiatric: A+Ox3, euthymic affect Genitourinary: no CVA tenderness Lymphatic: no cervical or axillary lymphadenopathy Results & Data Results & Data ([facility]) Vital Signs (Past 12 Hours) Vital Signs Temp Pulse Pulse Resp BP BP Pulse Ox 02/10/20 20:58 36.4 C L 94 H 18 149/76 H 100 02/10/20 20:30 92 H 147/75 H 98 02/10/20 20:20 95 H 98 02/10/20 20:15 96 H 146/73 H 99 02/10/20 20:11 97 H 98 02/10/20 20:00 93 H 145/79 H 99 02/10/20 19:50 103 H 99 02/10/20 19:45 104 H 140/85 100 02/10/20 19:41 105 H 98 02/10/20 19:30 92 H 118/62 98 02/10/20 19:20 91 H 99 02/10/20 19:15 91 H 120/62 99 02/10/20 19:11 91 H 98 02/10/20 19:00 92 H 129/69 99 02/10/20 18:50 96 H 99 02/10/20 18:45 95 H 134/87 99 02/10/20 18:41 99 H 100 02/10/20 18:30 98 H 139/71 99 02/10/20 18:20 97 H 99 02/10/20 18:16 100 H 131/69 99 02/10/20 18:10 99 H 99 02/10/20 18:01 99 H 99 20 18:00 99 H 136/85 99 02/10/20 17:50 99 H 98 20 17:45 102 H 131/78 98 02/10/20 17:40 98 H 98 02/10/20 17:31 97 H 98 02/10/20 17:30 103 H 151/80 H 99 02/10/20 17:20 99 H 98 02/10/20 17:15 101 H 142/69 H 98 02/10/20 17:10 102 H 98 02/10/20 17:01 99 H 98 02/10/20 17:00 105 H 140/67 98 02/10/20 16:50 101 H 98 02/10/20 16:45 101 H 135/72 97 02/10/20 16:40 101 H 98 02/10/20 16:31 101 H 98 02/10/20 16:30 101 H 122/70 98 02/10/20 16:20 100 H 97 02/10/20 16:15 103 H 140/74 98 02/10/20 16:10 99 H 97 02/10/20 16:02 98 H 98 02/10/20 16:00 97 H 124/78 96 02/10/20 15:51 104 H 95 02/10/20 15:45 106 H 133/67 92 02/10/20 15:40 109 H 92 02/10/20 15:30 107 H 141/74 H 93 02/10/20 15:21 105 H 93 02/10/20 15:19 104 H 117/67 90 02/10/20 15:00 111 H 22 122/69 92 02/10/20 14:51 116 H 27 H 92 02/10/20 14:40 120 H 21 94 02/10/20 14:30 122 H 33 H 94 02/10/20 14:21 128 H 32 H 95 02/10/20 14:15 138 H 37 H 96 02/10/20 14:14 138 H 33 H 190/100 H 96 02/10/20 14:08 139 H 37 H 173/112 H 95 02/10/20 14:05 37.0 C 142 H 20 173/112 H 94 Diagnostic Findings XR chest 1V portable IMPRESSION: No acute process. HEAD CT NONCONTRAST Impression: 1. No significant change in the 2.5 cm right parietal lobe mass with surrounding vasogenic edema. No midline shift. 2. No acute infarct or intracranial hemorrhage identified. ECG Indication: altered mental status Rate (beats per minute): 100 Rhythm: normal sinus Findings: no acute ischemic change Comparison ECG Date: from (December 27/2019) Code Status & VTE Plan Code Status Full VTE Prophylaxis Plan VTE Prophylaxis will be ordered: Yes PG Care Time/CCT Total # of Minutes Spent Total Time Spent with Patient: Total time spent is greater than 50% in coordination of care (as documented) at patient's floor/unit and/or counseling patient: Coding Level of Care Code 10406 Initial Inpt Care Lvl 3 Diagnoses Partial motor seizures G40.109 Cerebral mass G93.89 Cerebral edema G93.6 Asthma J45.909 Elevated serum creatinine R79.89 Type 2 diabetes mellitus E11.9 Hypertension I10
[2020-02-10] MEDS ORDERED: LORazepam 1 MG/2 ML VIAL IV PRN (22:06)
[2020-02-10] MEDS ORDERED: CARBOHYDRATES FOR HYPOGLYCEMIA PO PRN (22:15)
[2020-02-10] MEDS ORDERED: GLUCAGON FOR INJ 1 MG VIAL SQ PRN (22:15)
[2020-02-10] MEDS ORDERED: GLUCOSE 40% GEL 15 GM TUBE PO PRN (22:15)
[2020-02-10] MEDS ORDERED: DEXTROSE 50% 50 ML SYRINGE IV PRN (22:15)
[2020-02-10] MEDS ORDERED: GLUCOSE 10 TABS/TUBE PO PRN (22:15)
[2020-02-10] MEDS: LACTATED RINGER'S 1,000 ML IV SCH (22:53)
[2020-02-10] MEDS: DEXAMETHASONE SOD PHOSPHATE 4 MG in SYRINGE 0 ML IV SCH (22:53)
[2020-02-10] MEDS: VALPROATE SOD 500 MG in DEXTROSE 5% 50 ML IV SCH (23:03)
[2020-02-11 01:19] LABS: Appearance Urine Cloudy (Clear); Bacteria Urine Automated Negative (Negative); Bilirubin Urine Negative (Negative); Blood Urine Negative (Negative); Color Urine Yellow; Glucose Urine UA Negative (Negative); Ketones Urine 2+ (Negative); Leukocyte Esterase Urine Negative (Negative); Nitrite Urine Negative (Negative); Protein Urine 1+ (Negative); RBC Urine Automated 0-4 /hpf (0-4); Specific Gravity Urine 1.024 (1.000-1.030); Urobilinogen Urine Negative (Negative)
[2020-02-11] MEDS: DEXAMETHASONE SOD PHOSPHATE 4 MG in SYRINGE 0 ML IV SCH ×4 (04:00→23:16)
[2020-02-11] MEDS: LACTATED RINGER'S 1,000 ML IV SCH ×3 (05:22→21:11)
[2020-02-11] MEDS: VALPROATE SOD 500 MG in DEXTROSE 5% 50 ML IV SCH ×3 (05:27→18:40)
[2020-02-11 05:59] LABS: Basophils # (auto) 0.01 K/uL (0-0.2); Basophils % (auto) 0.1 %; Hematocrit (blood only) 41.3 % (42-52); Hemoglobin 14.3 g/dL (14.0-18.0); Immature Granulocytes # (auto) 0.02 K/uL (0.00-0.02); Immature Granulocytes % (auto) 0.2 %; Lymphocytes # (auto) 1.38 K/uL (1.2-3.4); Lymphocytes % (auto) 10.4 %; Mean Corpuscular Hemoglobin 30.6 pg (25-34); Mean Corpuscular Hgb Conc 34.6 g/dL (32-36); Mean Corpuscular Volume 88.2 fL (80-100); Monocytes % (auto) 2.3 %; Neutrophils # (auto) 11.58 K/uL (1.4-6.5); Platelet Count 241 K/uL (130-400); RDW Standard Deviation 41.4 fL (36.4-46.3); Red Blood Count 4.68 M/uL (4.7-6.1); White Blood Count 13.29 K/uL (4.8-10.8)
[2020-02-11 06:40] LABS: BUN Creatinine Ratio 21.5 (10-20); Calcium 9.1 mg/dl (8.5-10.1); Creatinine Clr Calc Pharmacy 78.9 ml/min; Est GFR (African American) 72.8; Est GFR (Non-African American) 62.8
[2020-02-11 07:25] LABS: Estimated Average Glucose 111 mg/dl; Hemoglobin A1C 5.5 % (4.5-5.6)
--- NOTE | 2020-02-11 08:04 | Neurology Consultation ---
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 This morning his seizures are controlled on valproic acid, levetiracetam, and intermittent small doses of IV Ativan. He is therefore neurologically stabilized. On examination this morning he has significant weakness of the left upper extremity ( distal greater than proximal) with sensory deficits in that limb of a similar pattern. He has no other focal deficits on examination currently. He has been on Decadron since yesterday morning. The patient has longstanding history of hypertension and diabetes. His blood pressure was markedly elevated which could add to cerebral irritation and lower seizure threshold. Blood pressure is 139/76 currently. Recommendations: 1. Continue IV valproic acid 500 mg q.6 hours. This can be converted to p.o. depending on his clinical course and adjust according to his level. 2. Check a Depakote level today. 3. continue levetiracetam for now. I would give 500 mg IV Q 6 hours, but if convert to p.o. then 1 g twice a day is reasonable. Eventually he should be able to be controlled on monotherapy but he should stay on both in the short-t erm. 4. Continue Decadron as ordered. 5. this patient needs to see a neurosurgeon and I would transfer him today to a [facility] for this care . 6. Avoid excessive lorazepam usage. Use the anticonvulsants ordered, following levels and adjusting accordingly, instead of benzodiazepines which will give him more significant mental status changes. Fortunately, his mental status is good currently. Overall, I spent a total of 70 minutes with this case including review of records, review of MRI films, direct evaluation of patient at bedside, and discussion of the case with the patient and RN at bedside as well as Dr. Jackson including differential diagnosis and treatment options. History of Present Illness Reason for Consultation: Patient is a 69-year-old, who I was asked to see at the request of Dr. Otoole, for neurologic consultation regarding seizures and brain mass Requesting Physician: Dr. Otoole Attending Physician: Linwood Jackson, DO History of Present Illness this patient has a 10 year history of diabetes and hypertension. He also has a history of skin cancers including melanoma and basal cell. The patient says he was doing well until approximately a week ago ( he claims that prior to week ago he was doing fine ). Patient noted clumsiness and weakness of the left hand which slowly became a left arm weakness. There was numbness and dysesthesias in the left upper extremity a little worse in the hand than the upper arm. He was not having any numbness or tingling in the face, he had no facial droop, and he had no weakness or numbness in the left leg. Right side was normal. He had no headache or mentation issue. He had no dizziness were gait disturbance. There was no incontinence of urine. He saw his primary care physician on February 02 who decided to obtain MRI of the brain and cervical spine with and without contrast. On February 08 MRI of the cervical spine without contrast showed multilevel degenerative disc and bone with some relatives narrowing at C3-4 and C5-6 without cord impingement. I reviewed these films. MRI of the brain with without contrast February 08 revealed a 25 mm enhancing right parietal mass with surrounding edema. He had no other abnormalities seen and I reviewed these MRI films. He was started on Decadron 4 mg a day and took his 1st dose at 0700 on February 09. Starting around 1330 he noted left hand twitching which progressed up his arm and some left face twitching. It did not involve the leg. There was increased weakness in the left arm. He was perfectly awake and alert and knew what was going on. He had no speech issues or balance problems. EMS was called and was given 1 mg of Ativan on route to the hospital. This helped his twitching. He arrived to the emergency room on February 09 at 1405 with a temperature of 37.0, pulse of 140, respiratory rate 20, blood pressure 173/112, and O2 saturation 94%. Clinically , he had twitching in seizure activity noted in the left face and left upper extremity. Left upper extremity was weak. He was alert and had no other focal neurologic findings. CBC was unremarkable. Chem profile noted a creatinine of 1.45, glucose of 189, and TSH of 0.5. CT scan of the head revealed a 2.5 cm parietal mass with edema and no hemorrhage. Chest x-ray was unremarkable. In the emergency room he ended up being given a total of 2 g IV levetiracetam and 2 g IV valproic acid. This dampen his seizure activity considerably but he still had some occasional twitching in the evening. He did well overnight and around 0500 this morning ( February 10) he had some very mild coarse twitching of his left upper extremity and face. He was given 1 mg of Ativan IV by the nurse. This stops the activity and has had none since. I saw the patient between 0730 and 0800. He had no seizure activity at all. He felt a little tired but was otherwise without headache, pain, dizziness, face numbness, leg numbness or weakness, or incontinence. His left upper extremity is weak and numb particularly in the hand. Allergies Allergy/AdvReac Type Severity Reaction Status Date / Time grass pollen Allergy Mild Verified 02/10/20 15:05 cat dander AdvReac Intermediate Hives Verified 02/10/20 15:05 dog dander AdvReac Intermediate WELTS Verified 02/10/20 15:05 dexamethasone AdvReac Seizure Unverified 02/10/20 15:10 Home Medications Home Medications Medication Instructions Recorded Confirmed Type metformin 500 mg tablet 1,000 mg PO BID #360 tab 02/16/19 02/10/20 Rx albuterol sulfate 90 mcg/actuation 2 puffs INH Q6H PRN 10/07/19 02/10/20 History aerosol inhaler lisinopril 20 mg tablet 20 mg PO QAM #90 tab 11/03/19 02/10/20 Rx lisinopril 20 1 tab PO QAM #90 tab 11/03/19 02/10/20 Rx mg-hydrochlorothiazide 25 mg tablet potassium chloride 20 mEq 20 meq PO DAILY #90 tab 11/03/19 02/10/20 Rx tablet,extended release amlodipine 5 mg tablet 2.5 mg PO QAM tab 02/03/20 02/10/20 History cinnamon bark 500 mg capsule 1,000 mg PO QAM cap 02/09/20 02/10/20 History dexamethasone 4 mg tablet 4 mg PO DAILY #30 tab 02/09/20 02/10/20 Rx aspirin [Aspirin Low Dose] 81 mg PO QAM 02/10/20 02/10/20 History Patient History Medical History Asthma Dyslipidemia History of melanoma Hx of skin cancer, basal cell Hypertension Tubular adenoma of colon Type 2 diabetes mellitus Surgical History Anal fistula REPAIRED History of colonoscopy History of tonsillectomy History of tooth extraction Family History Mother , age 84 of metastatic lung cancer Family history of diabetes mellitus Alzheimer disease Metastatic lung cancer (metastasis from lung to other site) Father , age 85 of "failure to thrive" Lung disease FH: deafness or hearing loss Brother Lung disease Denies family history of Ovarian cancer Prostate cancer Breast cancer Lung cancer Colorectal cancer Social History Smoking Status: Never smoker Second Hand Exposure: No; Do You Dip or Chew Tobacco: No; Tobacco Cessation Education Requested by Patient: No Hx Alcohol Use: Yes Alcohol type: beer Alcohol Intake Frequency Comment: 1-2 beers per week Hx Substance Use: No Preferred Language: German Communication Ability: Effective Visual Impairment: Limited Hearing Ability: Use of Hearing Aid Soda Worker Required: No Beliefs That Will Affect Care: None marital status: Current Living Situation: Spouse Current Living Situation Comment: House current occupational status: 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59 Feels Safe at Home: Yes Safety Concerns: Feels Safe At This Time Childhood Exposure to Second-Hand Smoke: Yes Dental Care, Regularly: Yes Physical Activity Frequency: Does not Exercise Seatbelt Use: always Sunscreen Use: Yes Review of Systems Constitutional: + fatigue; no fever and no weakness Eyes: no diplopia, no eye pain and no worsening vision Ear, Nose, Mouth, Throat: + hearing loss; no ear pain, no tinnitus, no dizziness, no hoarseness and no dysphagia Respiratory: no cough and no dyspnea Cardiovascular: no chest pain, no palpitations and no lightheadedness Gastrointestinal: no abdominal pain, no nausea and no vomiting Genitourinary: no dysuria and no urinary incontinence Musculoskeletal: no back pain, no neck pain, no radicular pain, no joint pain and no myalgia Integumentary: + lesions; no rash Neurologic: + localized weakness, + numbness and + abnormal movements; no gait abnormality, no generalized weakness, no tingling, no tremor(s), no headache(s), no abnormal speech, no confusion and no memory loss Psychiatric: no depression, no irritability, no anxiety, no difficulty concentrating, no confusion and no hallucinations Endocrine: no fatigue and no flushing Hematologic / Lymphatic: no easy bleeding and no easy bruising Allergy / Immunological: no urticaria and no problem reported Exam (Neuro) Physical Exam: The patient is right-handed. The patient is awake, alert, and attentive. Speech is normal without any aphasia or dysarthria. he can name objects, repeat phrases, and has normal spontaneous speech. despite given Ativan several hours ago, Mentation and thought processes are intact, with orientation to person, place and time, and normal fund of knowledge. Attention and concentration are normal. Mood and affect are normal and appropriate. General appearance and grooming are normal. Short and long-term memory are intact to conversation. The discs are sharp with positive venous pulsations bilaterally. There are no exudates, hemorrhages, or blood vessel changes seen. Pupils are 4 mm bilaterally and reactive to light. Extraocular eye muscles are intact without nystagmus. Visual acuity and visual colon seem normal grossly to confrontation. There are no deficits to sensation in the face in all 3 distributions of the fifth cranial nerve bilaterally. Corneal reflexes are positive bilaterally. Fa cial strength and symmetry was normal bilaterally. Hearing is mildly impaired bilaterally. Palate moves well without asymmetry. There is normal sternocleidomastoid and trapezius (shoulder shrug) strength bilaterally. Tongue is midline with good strength bilaterally. Neck has a full range of motion without discomfort. There are no cervical bruits bilaterally. There are no cranial or ocular bruits. Heart is without murmur. There is a regular rhythm and rate. Cervical, thoracic, and lumbar spine are nontender to palpation. Gait is not tested but stance sitting up in bed is good. With outstretched arms there is a considerable drift on the left. There are no resting, postural, or action tremors. there is no seizure activity of the face or left upper extremity. There is no ataxia with finger to nose testing. There is significant decreased facility in the left hand. No other abnormal involuntary movements are noted. The right side is normal. strength is 4/5 in the deltoid, biceps, and triceps in the left arm. Automation Test Engineer, finger extension, and wrist flexion and extension are 2/5 On the right. Motor strength is 5/5 diffusely in the right upper extremity including deltoids, bicep s, triceps, brachioradialis, wrist flexors and extensors, risk mgr, and intrinsic hand muscles. Motor strength is 5/5 diffusely in the legs bilaterally including hip flexors, quadriceps, hamstrings, gastrocnemius, tibialis anterior, tibialis posterior, and Peroneii muscles. Toe extensors are normal and there is good bulk in the extensor digitorum brevis muscles bilaterally. The left upper extremity has decreased tone. The other limbs have normal tone. There is no atrophy noted in the muscles. Muscle bulk is normal, there is no tenderness to palpation, no myotonia to percussion, and no fasciculations seen. Sensory examination is decrease to pin and touch in the left upper extremity worse distally than proximally. The left face and leg are spared. The left body is spared. The right side is normal. Reflexes are 2/4 in the biceps, triceps, brachioradialis, quadriceps, and Achilles tendons bilaterally. There is no clonus bilaterally. Toes are downgoing with plantar stimulation bilaterally. Peripheral pulses are present and of normal quality distally in all 4 limbs. There is no peripheral edema noted in the limbs. Results & Data ([facility]) Vital Signs (Past 12 Hours) Vital Signs Temp Pulse Pulse Resp BP BP Pulse Ox 02/11/20 07:55 36.7 C 88 18 139/76 99 02/11/20 03:53 36.8 C 96 H 20 142/76 H 97 02/10/20 23:03 36.5 C 94 H 18 146/77 H 99 02/10/20 20:58 36.4 C L 94 H 18 149/76 H 100 02/10/20 20:30 92 H 147/75 H 98 02/10/20 20:20 95 H 98 02/10/20 20:15 96 H 146/73 H 99 02/10/20 20:11 97 H 98 Diagnostic Findings MRI OF THE BRAIN WITHOUT AND WITH IV CONTRAST CLINICAL HISTORY: R20.2 - Paresthesia of skin COMPARISON STUDY: August 23, 2016 TECHNIQUE: MRI of the brain was performed from the vertex to the skull base utilizing various T1 and T2 weighted sequences. Following the IV administration of 12 mL of Gadavist contrast, additional enhanced images were obtained. FINDINGS: Sagittal T1, axial diffusion, proton density and T2 weighted axial, coronal FLAIR, and pre and post axial T1-weighted images were acquired. These were supplemented with post gadolinium coronal T1 weighted images. There is a 25 mm right parietal lobe enhancing mass with surrounding vasogenic edema. No additional enhancing lesions are visualized. Axial diffusion-weighted images reveal no evidence of acute or subacute infarction. There is no evidence of ventricular dilatation. Proton density T2-weighted and FLAIR images reveal vasogenic edema surrounding the right parietal lobe mass. There are no abnormal flow voids. There is intense enhancement of a 25 mm right parietal lobe mass. No additional enhancing lesions are visualized. IMPRESSION: 1. Interval development of a 25 mm enhancing right parietal lobe mass with surrounding vasogenic edema. This lesion should be presumed neoplastic (high- grade glioma versus metastatic disease) until proven otherwise. 2. No additional mass lesions identified 3. No evidence of acute or subacute infarction ACT 112: Negative or not required by law. Electronically signed by: Venkata Amato M.D. 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
[2020-02-11] MEDS: INSULIN ASPART 100 UNITS/ML 3 ML PEN SC SCH ×4 (08:05→21:08)
[2020-02-11] MEDS: lisinopriL 40 MG TAB PO SCH (08:08)
[2020-02-11] MEDS: AMLODIPINE BESYLATE 5 MG TAB PO SCH (08:09)
[2020-02-11] MEDS: ASPIRIN 81 MG ECTAB PO SCH (08:09)
[2020-02-11] MEDS: POTASSIUM CHLORIDE 20 MEQ TABCR PO SCH (08:13)
[2020-02-11] MEDS ORDERED: lisinopriL 20 MG TAB PO SCH (09:00)
[2020-02-11] MEDS ORDERED: levETIRAcetam 1,000 MG in 0.9 % SODIUM CHLORIDE 100 ML IV SCH (09:00)
[2020-02-11] MEDS ORDERED: LISINOPRIL/HCTZ 20/25MG 1 TAB PO SCH (09:00)
[2020-02-11] MEDS ORDERED: CINNAMON BARK 1000 MG PO SCH (09:00)
--- NOTE | 2020-02-11 16:00 | Hospitalist Progress Note ---
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 Focal seizure activity did not break with x2 1mg Ativan IV (one given prior to ER), Keppra 2g IV and valproate 2g IV. Ongoing seizure activity therefore additional 2g Keppra IV given with 1g IV valproate. No ongoing seizure activity since he was loaded with anti-convulsants No acute intracranial hemorrhage on CT. Continue anti-seizure medication with Keppra 1g BID + Valproate 500mg Q6H (approx 15mg/kg) Consult neurology, appreciate their input, agrees with dosing of Keppra and Valproic acid, (2) Cerebral mass: Cause of focal partial seizures as above Decadron 4 q6 mass seen on MRI outpatient, 25mm with edema in right parietal lobe plan to stabilize patient over the weekend, if he is doing well, discharge to home for follow up at [facility]surgery on Saturday (3) Cerebral edema: Decadron as above (4) Asthma: No current exacerbation ALbuterol PRN (5) Elevated serum creatinine: IV fluids overnight. Repeat BMP with AM labs (6) Type 2 diabetes mellitus: HbA1C with AM labs Novolog correction and carb coverage (7) Hypertension: Elevated earlier in ER but now appears much better controlled with seizure activity. Will hold HCTZ given elevated Cr as above. Continue lisinopril 40mg PO daily and amlodipine 2.5mg PO daily Admission and Anticipated Discharge Date Admission Date: February 10, 2020 Subjective patient doing well this morning, was a little drowsy after Ativan for some left hand twitching he has some weakness in the left hand and arm he is slightly confused at times but for the most part he knows what is going on his is at the bedside, we discussed placing a call to [facility] to discuss the situation talked with Dr. Rivera with neurology, he recommended to continue decadron, Keppra, Valproic acid he recommended trying to transfer patient I placed a call to [facility] to discuss plan, what they would recommend surgeon said that if patient was transferred down he would just be in the hospital on anti epileptics until stable and then discharged with follow up no need for emergent transfer plan will be to watch patient 24-48 hours more, if stable on anti-epileptics then d/c to home he will follow up with Dr. Stanford at [facility] on Saturday talked with patient and his about this plan, they are in agreement Review of Systems Review of Systems: All systems reviewed & are unremarkable except as noted in Subjective Constitutional: + weakness; no fever, no sweats and no fatigue Respiratory: no cough and no dyspnea Cardiovascular: no chest pain, no syncope and no edema Gastrointestinal: no abdominal pain, no nausea, no vomiting, no constipation and no diarrhea/loose stools Musculoskeletal: + joint pain Neurologic: + localized weakness (left arm), + paresthesia (left arm and hand), + seizure-like activity (yesterday, none tody) and + confusion; no syncope, no headache(s), no abnormal speech and no memory loss Psychiatric: as per Subjective / HPI Physical Exam Constitutional: WD/WN, vitals as above Eyes: PERRL, conjunctivae normal, anicteric sclerae ENMT: external ear and nose normal, oropharynx normal Neck: trachea midline, no thyromegaly Respiratory: normal respiratory effort, lungs clear to auscultation Cardiovascular: RRR, no murmur, no edema Gastrointestinal (Abdomen): normal bowel sounds, soft, nontender, no hepatos plenomegaly Musculoskeletal: Head/Neck/Chest: normocephalic, head atraumatic and neck supple Extremities: extremities normal to inspection and + abnormal strength (left arm/hand 4 out of 5); full ROM of extremities and no joint enlargement Skin: no rashes, warm and dry Neurologic: patellar DTR's 2+ bilat, sensation intact and PERRL, EOMI, accommodation nl, no face palsy, no dysarthria Psychiatric: A+Ox3, euthymic affect Lymphatic: no cervical or axillary lymphadenopathy Results & Data Results & Data ([facility]) Vital Signs (Past 12 Hours) Vital Signs Temp Pulse Pulse Resp BP Pulse Ox 02/11/20 15:22 36.5 C 91 H 17 139/73 94 02/11/20 11:51 36.8 C 93 H 16 135/71 98 02/11/20 08:00 92 H 02/11/20 07:55 36.7 C 88 18 139/76 99 Laboratory Results Laboratory Results - last 24 hr 02/11/20 02/11/20 02/11/20 01:00 05:41 05:41 WBC 13.29 H RBC 4.68 L Hgb 14.3 Hct 41.3 L MCV 88.2 MCH 30.6 MCHC 34.6 RDW Std Deviation 41.4 RDW Coeff of Vicki 13.0 Plt Count 241 MPV 9.0 Immature Gran % (Auto) 0.2 Neut % (Auto) 87.0 Lymph % (Auto) 10.4 [place] % (Auto) 2.3 Eos % (Auto) 0.0 Baso % (Auto) 0.1 Neut # (Auto) 11.58 H Lymph # (Auto) 1.38 [place] # (Auto) 0.30 Eos # (Auto) 0.00 Baso # (Auto) 0.01 Immature Gran # (Auto) 0.02 Sodium Potassium Chloride Carbon Dioxide Anion Gap BUN Creatinine Est Cr Clr Drug Dosing Est GFR ( Amer) Est GFR (Non-Af Amer) BUN/Creatinine Ratio Glucose POC Glucose Estimat Average Glucose 111 Hemoglobin A1c 5.5 Calcium Urine Color Yellow Urine Appearance Cloudy A Urine pH 5.0 Ur Specific [place] 1.024 Urine Protein 1+ H Urine Glucose (UA) Negative Urine Ketones 2+ H Urine Blood Negative Urine Nitrite Negative Urine Bilirubin Negative Urine Urobilinogen Negative Ur Leukocyte Esterase Negative Urine WBC (Auto) 1-5 Urine RBC (Auto) 0-4 U Hyaline Cast (Auto) 5-10 H U Epithel Cells (Auto) 5-10 H Urine Bacteria (Auto) Negative 02/11/20 02/11/20 02/11/20 05:41 07:38 11:34 WBC RBC Hgb Hct MCV MCH MCHC RDW Std Deviation RDW Coeff of Vicki Plt Count MPV Immature Gran % (Auto) Neut % (Auto) Lymph % (Auto) [place] % (Auto) Eos % (Auto) Baso % (Auto) Neut # (Auto) Lymph # (Auto) [place] # (Auto) Eos # (Auto) Baso # (Auto) Immature Gran # (Auto) Sodium 141 Potassium 4.0 Chloride 108 H Carbon Dioxide 22 Anion Gap 11.0 BUN 25 H Creatinine 1.17 Est Cr Clr Drug Dosing 78.9 Est GFR ( Amer) 72.8 Est GFR (Non-Af Amer) 62.8 BUN/Creatinine Ratio 21.5 H Glucose 148 H POC Glucose 163 H 144 H Estimat Average Glucose Hemoglobin A1c Calcium 9.1 Urine Color Urine Appearance Urine pH Ur Specific [place] Urine Protein Urine Glucose (UA) Urine Ketones Urine Blood Urine Nitrite Urine Bilirubin Urine Urobilinogen Ur Leukocyte Esterase Urine WBC (Auto) Urine RBC (Auto) U Hyaline Cast (Auto) U Epithel Cells (Auto) Urine Bacteria (Auto) Medications Administered Current Inpatient Medications Acetaminophen (Acetaminophen 325 Mg Tab) 650 mg PO Q4H PRN PRN Reason: Pain or Fever Stop: 03/11/20 21:26 Albuterol (Albuterol Hfa 8 Gm Inhaler) 2 puffs INH Q6H PRN PRN Reason: Shortness Of Breath Stop: 03/11/20 21:40 Amlodipine Besylate (Amlodipine Besylate 5 Mg Tab) [facility] Stop: 03/12/20 08:59 Last Admin: 02/11/20 08:09 Dose: 2.5 mg Documented by: Aspirin (Aspirin 81 Mg Ectab) 81 mg PO QAM [facility] Stop: 03/12/20 08:59 Last Admin: 02/11/20 08:09 Dose: 81 mg Documented by: Dextrose (Dextrose 50% 50 Ml Syringe) 25 - 50 ml IV UD PRN; Protocol PRN Reason: Hypoglycemia Protocol Stop: 03/11/20 22:14 Glucagon (Glucagon For Inj 1 Mg Vial) 1 mg SQ UD PRN; Protocol PRN Reason: Hypoglycemia Protocol Stop: 03/11/20 22:14 Glucose (Glucose 10 Tabs/Tube) 4 - 8 tabs PO UD PRN; Protocol PRN Reason: Hypoglycemia Protocol Stop: 03/11/20 22:14 Glucose (Glucose 40% Gel 15 Gm Tube) 15 - 30 gm PO UD PRN; Protocol PRN Reason: Hypoglycemia Protocol Stop: 03/11/20 22:14 Lorazepam (Ativan) 1 mg in 2 mls @ 0.5 mls/min IV UD PRN PRN Reason: Seizure activity > 4 mins Stop: 03/11/20 22:05 Last Admin: 02/11/20 05:18 Dose: 0.5 mls/min Documented by: Dexamethasone Sodium Phosphate (4 mg/ Syringe) 1 mls @ 1 mls/min IV Q6H [facility] Stop: 03/11/20 22:29 Last Admin: 02/11/20 11:39 Dose: 1 mls/min Documented by: Lactated Ringer's (Lr) 1,000 mls @ 100 mls/hr IV .Q10H [facility] Stop: 03/11/20 22:29 Last Admin: 02/11/20 11:37 Dose: 100 mls/hr Documented by: Valproic Acid 500 mg/ Dextrose 55 mls @ 55 mls/hr IV Q6H [facility] Stop: 03/12/20 00:00 Last Infusion: 02/11/20 12:51 Dose: Infused Documented by: Insulin Aspart (Insulin Aspart 100 Units/Ml 3 Ml Pen) 0 units SC ACHS [facility] Stop: 03/12/20 07:29 Last Admin: 02/11/20 11:37 Dose: 4 units Documented by: Levetiracetam (Levetiracetam 500 Mg Tab) 1,000 mg PO BID [facility] Stop: 03/12/20 20:59 Lisinopril (Lisinopril 40 Mg Tab) 40 mg PO QAM [facility] Stop: 03/12/20 08:59 Last Admin: 02/11/20 08:08 Dose: 40 mg Documented by: Miscellaneous (Carbohydrates For Hypoglycemia ) 15 - 30 gm PO UD PRN PRN Reason: Hypoglycemia Protocol Stop: 03/11/20 22:14 Potassium Chloride (Potassium Chloride 20 Meq Tabcr) 20 meq PO DAILY [facility] Stop: 03/12/20 08:59 Last Admin: 02/11/20 08:13 Dose: 20 meq Documented by: PG Care Time/CCT Total # of Minutes Spent Total Time Spent: 44 Total Time Spent with Patient: Total time spent is greater than 50% in coordination of care (as documented) at patient's floor/unit and/or counseling patient: 30 minutes total on hold and then speaking with neurosurgery at [facility] three separate visits with patient and his spoke with Dr Rivera twice Coding Level of Care Code 15774 Subseq Hosp Care Lvl 3 Diagnoses Partial motor seizures G40.109 Cerebral mass G93.89 Cerebral edema G93.6 Asthma J45.909 Elevated serum creatinine R79.89 Type 2 diabetes mellitus E11.9 Hypertension I10
[2020-02-11] MEDS: levETIRAcetam 500 MG TAB PO SCH (20:25)
[2020-02-12] MEDS: VALPROATE SOD 500 MG in DEXTROSE 5% 50 ML IV SCH ×3 (01:00→12:54)
[2020-02-12] MEDS: DEXAMETHASONE SOD PHOSPHATE 4 MG in SYRINGE 0 ML IV SCH ×4 (05:00→22:30)
[2020-02-12] MEDS: lisinopriL 40 MG TAB PO SCH (08:03)
[2020-02-12] MEDS: levETIRAcetam 500 MG TAB PO SCH ×2 (08:03→20:08)
[2020-02-12] MEDS: AMLODIPINE BESYLATE 5 MG TAB PO SCH (08:03)
[2020-02-12] MEDS: ASPIRIN 81 MG ECTAB PO SCH (08:04)
[2020-02-12] MEDS: INSULIN ASPART 100 UNITS/ML 3 ML PEN SC SCH ×4 (08:04→20:09)
[2020-02-12] MEDS: POTASSIUM CHLORIDE 20 MEQ TABCR PO SCH (08:10)
--- NOTE | 2020-02-12 10:22 | Neurology Progress Note ---
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 he has had no seizures over the last 24 hours on IV valproic acid and oral levetiracetam. He is also on dexamethasone. On examination this morning he has weakness of the left upper extremity ( distal greater than proximal) With mild improvement compared to yesterday. He has no other focal deficits on examination currently. The patient has longstanding history of hypertension and diabetes. His blood pressure was markedly elevated which could add to cerebral irritation and lower seizure threshold. Blood pressure is 139/76 currently. Recommendations: 1. check a trough valproic acid level later this morning. Adjust IV valproic acid accordingly and convert to p.o. 2. Check a Depakote level each morning 3. continue levetiracetam 1000 milligrams p.o. b.i.d.. Eventually he should be able to be controlled on monotherapy but he should stay on both in the short- term. 4. Continue Decadron as ordered. 5. Apparently the patient is going to be seeing a neurosurgeon early next week. 6. Avoid excessive lorazepam usage. Use the anticonvulsants ordered, following levels and adjusting accordingly, instead of benzodiazepines which will give him more significant mental status changes. Fortunately, his mental status is good currently. Overall, I spent a total of 35 minutes with this case including review of records, review of MRI films, direct evaluation of patient at bedside, and discussion of the case with the patient and RN at bedside as well as Dr. Jackson including differential diagnosis and treatment options. Admission and Anticipated Discharge Date Admission Date: February 10, 2020 Subjective pain or headaches. He has had no further twitches or seizures since in the hospital. Nursing reports no seizures. Blood pressure is 148/76. Results & Data ([facility]) Vital Signs (Past 12 Hours) Vital Signs Temp Pulse Pulse Resp BP Pulse Ox 02/12/20 07:40 36.8 C 70 18 148/76 H 96 02/12/20 04:00 37.0 C 86 19 146/76 H 97 02/12/20 00:00 69 02/11/20 23:32 36.9 C 74 19 136/66 94 Exam (Neuro) Physical Exam: He is sitting up in the chair and moving his left upper extremity but better than yesterday. Extraocular eye muscles are intact without nystagmus. There is no facial droop. He stance is good in the chair and coordination is normal in right arm. There is no tremor or ataxia bilaterally. Strength is 4/5 diffusely in the left arm. The right arm and both legs are 5/5. 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
--- NOTE | 2020-02-12 19:48 | Hospitalist Progress Note ---
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 Focal seizure activity did not break with x2 1mg Ativan IV (one given prior to ER), Keppra 2g IV and valproate 2g IV. Ongoing seizure activity therefore additional 2g Keppra IV given with 1g IV valproate. No ongoing seizure activity since he was loaded with anti-convulsants, seizure free for nearly 48 hours No acute intracranial hemorrhage on CT. convert Keppra to 1gm PO BID, Depakote delayed release 750mg BID Decadron 4mg PO TID starting tomorrow monitor for any breakthrough seizure activity over the weekend, make sure he is stable prior to discharge, plan for Saturday (2) Cerebral mass: Cause of focal partial seizures as above Decadron 4 q6 -- convert to 4mg PO TID mass seen on MRI outpatient, 25mm with edema in right parietal lobe plan to stabilize patient over the weekend, if he is doing well, discharge to home for follow up at [facility] on Saturday (3) Cerebral edema: Decadron as above (4) Asthma: No current exacerbation ALbuterol PRN (5) Elevated serum creatinine: IV fluids overnight. Repeat BMP with AM labs (6) Type 2 diabetes mellitus: HbA1C with AM labs Novolog correction and carb coverage (7) Hypertension: Elevated earlier in ER but now appears much better controlled with seizure activity. Will hold HCTZ Continue lisinopril 40mg PO daily and amlodipine 2.5mg PO daily Admission and Anticipated Discharge Date Admission Date: February 10, 2020 Subjective patient doing well, no focal seizure activity since admission still very weak and poor coordination in left hand and arm but a little better than yesterday eating well, ambulating with walker no chest pain, no dyspnea, no fever/chills, no nausea, no headache discussed with Dr. Rivera, will get stat depakote level -- 80 which is normal, therapeutic on Keppra 1000mg BID, will change Depakote to PO and Dexamethasone to PO updated patient and at the bedside, established plan, will keep patient in hospital over the weekend to make sure he is okay will establish that he is stable on oral medications plan to d/c to home on Saturday as long as he is stable and follow up closely with neurosurgery at [facility] Saturday Review of Systems Review of Systems: All systems reviewed & are unremarkable except as noted in Subjective Neurologic: + localized weakness (left hand/arm), + tingling, + paresthesia (left hand/arm) and + lack of coordination (left hand); no seizure-like activity, no headache(s) and no confusion Physical Exam Constitutional: WD/WN, vitals as above Eyes: PERRL, conjunctivae normal, anicteric sclerae ENMT: external ear and nose normal, oropharynx normal Neck: trachea midline, no thyromegaly Respiratory: normal respiratory effort, lungs clear to auscultation Cardiovascular: RRR, no murmur, no edema Gastrointestinal (Abdomen): normal bowel sounds, soft, nontender, no hepatosplenomegaly Musculoskeletal: Head/Neck/Chest: normocephalic, head atraumatic and neck supple Extremities: extremities normal to inspection and + abnormal strength (left arm/hand 4 out of 5); full ROM of extremities and no joint enlargement Skin: no rashes, warm and dry Neurologic: CN's II-XI intact bilaterally, deep tendon reflexes 2+ bilaterally, + focal motor deficit (left hand weak, left arm weak) and awake Motor/Sensory: no tremor Coordination: + abnormal [id number] test (left hand) Psychiatric: A+Ox3, euthymic affect Lymphatic: no cervical or axillary lymphadenopathy Results & Data Results & Data ([facility]) Vital Signs (Past 12 Hours) Vital Signs Temp Pulse Pulse Resp BP Pulse Ox 02/12/20 19:39 36.6 C 76 19 151/70 H 96 02/12/20 15:26 36.5 C 72 19 142/77 H 98 02/12/20 12:09 36.9 C 71 20 155/74 H 95 02/12/20 08:00 86 Laboratory Results Laboratory Results - last 24 hr 02/11/20 02/12/20 02/12/20 20:54 07:20 11:31 POC Glucose 157 H 150 H 170 H Valproic Acid 02/12/20 02/12/20 12:00 16:24 POC Glucose 141 H Valproic Acid 80 Medications Administered Current Inpatient Medications Acetaminophen (Acetaminophen 325 Mg Tab) 650 mg PO Q4H PRN PRN Reason: Pain or Fever Stop: 03/11/20 21:26 Albuterol (Albuterol Hfa 8 Gm Inhaler) 2 puffs INH Q6H PRN PRN Reason: Shortness Of Breath Stop: 03/11/20 21:40 Amlodipine Besylate (Amlodipine Besylate 5 Mg Tab) 2.5 mg PO QAM [facility] Stop: 03/12/20 08:59 Last Admin: 02/12/20 08:03 Dose: 2.5 mg Documented by: Aspirin (Aspirin 81 Mg Ectab) 81 mg PO QAM [facility] Stop: 03/12/20 08:59 Last Admin: 02/12/20 08:04 Dose: 81 mg Documented by: Dexamethasone (Dexamethasone 4 Mg Tab) 4 mg PO TID [facility] Stop: 03/14/20 08:59 Dextrose (Dextrose 50% 50 Ml Syringe) 25 - 50 ml IV UD PRN; Protocol PRN Reason: Hypoglycemia Protocol Stop: 03/11/20 22:14 Divalproex Sodium (Divalproex Delay Release 250 Mg Tabec) 750 mg PO Q12 EMD Stop: 03/13/20 20:59 Glucagon (Glucagon For Inj 1 Mg Vial) 1 mg SQ UD PRN; Protocol PRN Reason: Hypoglycemia Protocol Stop: 03/11/20 22:14 Glucose (Glucose 10 Tabs/Tube) 4 - 8 tabs PO UD PRN; Protocol PRN Reason: Hypoglycemia Protocol Stop: 03/11/20 22:14 Glucose (Glucose 40% Gel 15 Gm Tube) 15 - 30 gm PO UD PRN; Protocol PRN Reason: Hypoglycemia Protocol Stop: 03/11/20 22:14 Lorazepam (Ativan) 1 mg in 2 mls @ 0.5 mls/min IV UD PRN PRN Reason: Seizure activity > 4 mins Stop: 03/11/20 22:05 Last Admin: 02/11/20 05:18 Dose: 0.5 mls/min Documented by: Dexamethasone Sodium Phosphate (4 mg/ Syringe) 1 mls @ 1 mls/min IV Q6H [facility] Stop: 02/12/20 23:59 Last Admin: 02/12/20 16:49 Dose: 1 mls/min Documented by: Insulin Aspart (Insulin Aspart 100 Units/Ml 3 Ml Pen) 0 units SC ACHS [facility] Stop: 03/12/20 07:29 Last Admin: 02/12/20 16:49 Dose: 3 units Documented by: Levetiracetam (Levetiracetam 500 Mg Tab) 1,000 mg PO BID [facility] Stop: 03/12/20 20:59 Last Admin: 02/12/20 08:03 Dose: 1,000 mg Documented by: Lisinopril (Lisinopril 40 Mg Tab) 40 mg PO QAM [facility] Stop: 03/12/20 08:59 Last Admin: 02/12/20 08:03 Dose: 40 mg Documented by: Miscellaneous (Carbohydrates For Hypoglycemia ) 15 - 30 gm PO UD PRN PRN Reason: Hypoglycemia Protocol Stop: 03/11/20 22:14 Potassium Chloride (Potassium Chloride 20 Meq Tabcr) 20 meq PO DAILY [facility] Stop: 03/12/20 08:59 Last Admin: 02/12/20 08:10 Dose: 20 meq Documented by: PG Care Time/CCT Total # of Minutes Spent Total Time Spent: 37 Total Time Spent with Patient: Total time spent is greater than 50% in coordination of care (as documented) at patient's floor/unit and/or counseling patient: two separate discussions with Dr. Rivera two visits to patient's room, first with patient and then with patient and his reviewed chart, labs discussed dosing with pharmacy over the phone for Depakote Coding Level of Care Code 74801 Subseq Hosp Care Lvl 3 Diagnoses Partial motor seizures G40.109 Cerebral mass G93.89 Cerebral edema G93.6 Asthma J45.909 Elevated serum creatinine R79.89 Type 2 diabetes mellitus E11.9 Hypertension I10
[2020-02-12] MEDS: DIVALPROEX DELAY RELEASE 250 MG TABEC PO SCH (20:08)
[2020-02-13 07:27] LABS: Hematocrit (blood only) 42.3 % (42-52); Hemoglobin 14.5 g/dL (14.0-18.0); Mean Corpuscular Hemoglobin 31.2 pg (25-34); Mean Corpuscular Hgb Conc 34.3 g/dL (32-36); Platelet Count 242 K/uL (130-400); RDW Coefficient of Variation 13.1 % (11.5-14.5); RDW Standard Deviation 43.6 fL (36.4-46.3); Red Blood Count 4.65 M/uL (4.7-6.1); White Blood Count 16.19 K/uL (4.8-10.8)
[2020-02-13 07:42] LABS: BUN Creatinine Ratio 25.8 (10-20); Calcium 9.2 mg/dl (8.5-10.1); Est GFR (African American) 77.6; Est GFR (Non-African American) 66.9; Potassium 4.3 mmol/L (3.5-5.1)
[2020-02-13] MEDS: INSULIN ASPART 100 UNITS/ML 3 ML PEN SC SCH ×4 (08:00→20:15)
[2020-02-13] MEDS: AMLODIPINE BESYLATE 5 MG TAB PO SCH (08:03)
[2020-02-13] MEDS: DIVALPROEX DELAY RELEASE 250 MG TABEC PO SCH ×2 (08:03→20:15)
[2020-02-13] MEDS: ASPIRIN 81 MG ECTAB PO SCH (08:03)
[2020-02-13] MEDS: lisinopriL 40 MG TAB PO SCH (08:03)
[2020-02-13] MEDS: dexAMETHasone 4 MG TAB PO SCH ×3 (08:03→20:15)
[2020-02-13] MEDS: levETIRAcetam 500 MG TAB PO SCH ×2 (08:03→20:15)
[2020-02-13] MEDS: POTASSIUM CHLORIDE 20 MEQ TABCR PO SCH (10:58)
--- NOTE | 2020-02-13 11:41 | Hospitalist Progress Note ---
Date of Service February 13, 2020 Assessment & Plan (1) 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 Focal seizure activity did not break with x2 1mg Ativan IV (one given prior to ER), Keppra 2g IV and valproate 2g IV. Ongoing seizure activity therefore additional 2g Keppra IV given with 1g IV valproate. No ongoing seizure activity since he was loaded with anti-convulsants, seizure free for nearly 48 hours No acute intracranial hemorrhage on CT. 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 Cause of focal partial seizures as above Decadron 4 q6 -- convert to 4mg PO TID mass seen on MRI outpatient, 25mm with edema in right parietal lobe plan to stabilize patient over the weekend, if he is doing well, discharge to home for follow up at [facility] Neurosurgery on Saturday (3) Cerebral edema: Decadron as above (4) Asthma: No current exacerbation ALbuterol PRN (5) Elevated serum creatinine: IV fluids, Cr is down to 1.1 so it is improved stop fluids (6) Type 2 diabetes mellitus: [facility] monitor for hyperglycemia with Decadron use (7) Hypertension: Elevated earlier in ER but now appears much better controlled with seizure activity. Will hold HCTZ Continue lisinopril 40mg PO daily and amlodipine 2.5mg PO daily Admission and Anticipated Discharge Date Admission Date: February 10, 2020 Subjective patient doing well he said he had two brief episodes of left hand shaking this morning, did not last long he said that the RN helped him back to bed and when he straightened out the arm the shaking went away he is eating well, making urine did well with therapy, ambulated in the room without a walker I told he and his that I am okay with him walking in the hallway with the walker, want to stay active reviewed labs, WBC up with steroids, Cr is normal, electrolytes stable Review of Systems Review of Systems: All systems reviewed & are unremarkable except as noted in Subjective Neurologic: + localized weakness (left hand), + paresthesia (left hand) and + lack of coordination (left hand); no seizure-like activity Physical Exam Constitutional: WD/WN, vitals as above Eyes: PERRL, conjunctivae normal, anicteric sclerae ENMT: external ear and nose normal, oropharynx normal Neck: trachea midline, no thyromegaly Respiratory: normal respiratory effort, lungs clear to auscultation Cardiovascular: RRR, no murmur, no edema Gastrointestinal (Abdomen): normal bowel sounds, soft, nontender, no hepatosplenomegaly Musculoskeletal: Head/Neck/Chest: normocephalic, head atraumatic and neck supple Extremities: extremities normal to inspection and + abnormal strength (left arm/hand 4 out of 5); full ROM of extremities and no joint enlargement Skin: no rashes, warm and dry Neurologic: patellar DTR's 2+ bilat, sensation intact and PERRL, EOMI, acco mmodation nl, no face palsy, no dysarthria CN's II-XI intact bilaterally, deep tendon reflexes 2+ bilaterally, + focal motor deficit (left hand weak, left arm weak) and awake Motor/Sensory: no tremor Coordination: + abnormal [id number] test (left hand) Psychiatric: A+Ox3, euthymic affect Lymphatic: no cervical or axillary lymphadenopathy Results & Data Results & Data ([facility]) Vital Signs (Past 12 Hours) Vital Signs Temp Pulse Pulse Resp BP Pulse Ox 02/13/20 11:32 36.6 C 64 18 142/71 H 94 02/13/20 07:50 36.9 C 59 L 71 20 145/78 H 94 02/13/20 04:16 36.5 C 81 16 146/74 H 95 02/13/20 00:00 63 Laboratory Results Laboratory Results - last 24 hr 02/12/20 02/12/20 02/12/20 12:00 16:24 20:06 WBC RBC Hgb Hct MCV MCH MCHC RDW Std Deviation RDW Coeff of Vicki Plt Count MPV Sodium Potassium Chloride Carbon Dioxide Anion Gap BUN Creatinine Est Cr Clr Drug Dosing Est GFR ( Amer) Est GFR (Non-Af Amer) BUN/Creatinine Ratio Glucose POC Glucose 141 H 178 H Calcium Valproic Acid 80 02/13/20 02/13/20 02/13/20 07:12 07:12 07:21 WBC 16.19 H RBC 4.65 L Hgb 14.5 Hct 42.3 MCV 91.0 MCH 31.2 MCHC 34.3 RDW Std Deviation 43.6 RDW Coeff of Vicki 13.1 Plt Count 242 MPV 9.0 Sodium 140 Potassium 4.3 Chloride 105 Carbon Dioxide 28 Anion Gap 6.0 BUN 29 H Creatinine 1.11 Est Cr Clr Drug Dosing 84.0 Est GFR ( Amer) 77.6 Est GFR (Non-Af Amer) 66.9 BUN/Creatinine Ratio 25.8 H Glucose 140 H POC Glucose 129 H Calcium 9.2 Valproic Acid 02/13/20 11:33 WBC RBC Hgb Hct MCV MCH MCHC RDW Std Deviation RDW Coeff of Vicki Plt Count MPV Sodium Potassium Chloride Carbon Dioxide Anion Gap BUN Creatinine Est Cr Clr Drug Dosing Est GFR ( Amer) Est GFR (Non-Af Amer) BUN/Creatinine Ratio Glucose POC Glucose 157 H Calcium Valproic Acid Medications Administered Current Inpatient Medications Acetaminophen (Acetaminophen 325 Mg Tab) 650 mg PO Q4H PRN PRN Reason: Pain or Fever Stop: 03/11/20 21:26 Albuterol (Albuterol Hfa 8 Gm Inhaler) 2 puffs INH Q6H PRN PRN Reason: Shortness Of Breath Stop: 03/11/20 21:40 Amlodipine Besylate (Amlodipine Besylate 5 Mg Tab) 2.5 mg PO QAM [facility] Stop: 03/12/20 08:59 Last Admin: 02/13/20 08:03 Dose: 2.5 mg Documented by: Aspirin (Aspirin 81 Mg Ectab) 81 mg PO QAM [facility] Stop: 03/12/20 08:59 Last Admin: 02/13/20 08:03 Dose: 81 mg Documented by: Dexamethasone (Dexamethasone 4 Mg Tab) 4 mg PO TID [facility] Stop: 03/14/20 08:59 Last Admin: 02/13/20 08:03 Dose: 4 mg Documented by: Dextrose (Dextrose 50% 50 Ml Syringe) 25 - 50 ml IV UD PRN; Protocol PRN Reason: Hypoglycemia Protocol Stop: 03/11/20 22:14 Divalproex Sodium (Divalproex Delay Release 250 Mg Tabec) 750 mg PO Q12 [facility] Stop: 03/13/20 20:59 Last Admin: 02/13/20 08:03 Dose: 750 mg Documented by: Glucagon (Glucagon For Inj 1 Mg Vial) 1 mg SQ UD PRN; Protocol PRN Reason: Hypoglycemia Protocol Stop: 03/11/20 22:14 Glucose (Glucose 10 Tabs/Tube) 4 - 8 tabs PO UD PRN; Protocol PRN Reason: Hypoglycemia Protocol Stop: 03/11/20 22:14 Glucose (Glucose 40% Gel 15 Gm Tube) 15 - 30 gm PO UD PRN; Protocol PRN Reason: Hypoglycemia Protocol Stop: 03/11/20 22:14 Lorazepam (Ativan) 1 mg in 2 mls @ 0.5 mls/min IV UD PRN PRN Reason: Seizure activity > 4 mins Stop: 03/11/20 22:05 Last Admin: 02/11/20 05:18 Dose: 0.5 mls/min Documented by: Insulin Aspart (Insulin Aspart 100 Units/Ml 3 Ml Pen) 0 units SC ACHS [facility] Stop: 03/12/20 07:29 Last Admin: 02/13/20 08:00 Dose: 2 units Documented by: Levetiracetam (Levetiracetam 500 Mg Tab) 1,000 mg PO BID [facility] Stop: 03/12/20 20:59 Last Admin: 02/13/20 08:03 Dose: 1,000 mg Documented by: Lisinopril (Lisinopril 40 Mg Tab) 40 mg PO QAM [facility] Stop: 03/12/20 08:59 Last Admin: 02/13/20 08:03 Dose: 40 mg Documented by: Miscellaneous (Carbohydrates For Hypoglycemia ) 15 - 30 gm PO UD PRN PRN Reason: Hypoglycemia Protocol Stop: 03/11/20 22:14 Potassium Chloride (Potassium Chloride 20 Meq Tabcr) 20 meq PO DAILY [facility] Stop: 03/12/20 08:59 Last Admin: 02/13/20 10:58 Dose: 20 meq Documented by: PG Care Time/CCT Total # of Minutes Spent Total Time Spent with Patient: Total time spent is greater than 50% in coordination of care (as documented) at patient's floor/unit and/or counseling patient: Coding Level of Care Code 99195 Subseq Hosp Care Lvl 2 Diagnoses Partial motor seizures G40.109 Cerebral mass G93.89 Cerebral edema G93.6 Asthma J45.909 Elevated serum creatinine R79.89 Type 2 diabetes mellitus E11.9 Hypertension I10
[2020-02-14] MEDS: INSULIN ASPART 100 UNITS/ML 3 ML PEN SC SCH ×2 (08:12→12:38)
[2020-02-14] MEDS: ASPIRIN 81 MG ECTAB PO SCH (08:13)
[2020-02-14] MEDS: levETIRAcetam 500 MG TAB PO SCH (08:13)
[2020-02-14] MEDS: DIVALPROEX DELAY RELEASE 250 MG TABEC PO SCH (08:13)
[2020-02-14] MEDS: AMLODIPINE BESYLATE 5 MG TAB PO SCH (08:13)
[2020-02-14] MEDS: dexAMETHasone 4 MG TAB PO SCH (08:14)
[2020-02-14] MEDS: lisinopriL 40 MG TAB PO SCH (08:14)
--- NOTE | 2020-02-14 09:35 | Neurology Progress Note ---
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 Although he has had no overt or prolonged seizures over the last 48 hours on oral levetiracetam and Depakote, he has had some occasional twitches involuntarily of the left hand yesterday. He is also on dexamethasone. Depakote level was 74. On examination this morning he has weakness and numbness of the left upper extremity (distal greater than proximal), improved compared to 48 hours ago. He has no other focal deficits on examination currently. The patient has longstanding history of hypertension and diabetes. His blood pressure was markedly elevated which could add to cerebral irritation and lower seizure threshold. Recommendations: 1. Increase Depakote to 1000 mg p.o. twice daily. 2. Check a Depakote level later this week 3. Continue levetiracetam 1000 milligrams p.o. b.i.d.. Eventually he should be able to be controlled on monotherapy but he should stay on both in the short- term. 4. Continue Decadron as ordered. 5. Apparently the patient is going to be seeing a neurosurgeon at [place] early next week. 6. I can follow up as an outpatient after he sees neurosurgery at [place]. Overall, I spent a total of 35 minutes with this case including review of records, direct evaluation of patient at bedside, and discussion of the case with the patient and RN at bedside as well as Dr. Jackson including differential diagnosis and treatment options. Admission and Anticipated Discharge Date Admission Date: February 10, 2020 Subjective The patient had a few "twitches" in his left upper extremity / hand yesterday on a sporadic basis. These did not persist. The RN did not witness any but did note that once it happened when the patient had a blood pressure cuff on his arm. The patient has had no abnormal involuntary movements this morning. When I entered the room, he was getting occupational therapy and doing much better with his left hand. He still has some dysesthesias / numbness in his left upper extremity and hand as before. He does not have any symptoms in his legs, right arm, or face bilaterally. Blood pressure is 143/68. White count is elevated but he is on Decadron. Depakote level was 74 yesterday. Results & Data ([facility]) Vital Signs (Past 12 Hours) Vital Signs Temp Pulse Pulse Resp BP BP Pulse Ox 02/14/20 08:04 36.5 C 66 22 143/68 H 96 02/14/20 06:59 62 02/14/20 04:38 36.8 C 73 20 165/86 H 97 02/13/20 23:35 58 L 02/13/20 23:24 36.4 C L 65 18 137/72 96 Exam (Neuro) Physical Exam: He is awake and alert. Speech is without aphasia or dysarthria. Mood is normal and affect is appropriate. He is pleasant and cooperative and is thought processes seem reasonable to conversation. Extraocular eye muscles are intact without nystagmus. There is no facial droop. Sensation is normal in the face bilaterally. Tongue is midline. With outstretched arms, there is drift on the left. He has decreased facility on the left but not as prominent as it was 2 days ago. He is much more dextrous that he was previous and can now brain picker items with his left hand. Strength is considered 4/5 proximally and distally. Leg strength is 5/5 diffusely as is the right upper extremity. Sensory examination reveals some decrease sensation to pin and touch diffusely in the left hand and forearm. 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
[2020-02-14] MEDS: POTASSIUM CHLORIDE 20 MEQ TABCR PO SCH (10:40)
--- NOTE | 2020-02-14 11:49 | Discharge Summary ---
Date of Service February 14, 2020 Admission HPI Per Admitting Provider Lonnie Rincon is a 69 year old right handed male who presents to the ER with ongoing focal seizure-like activity in his left hand and face since 1:30pm today. 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 The only symptom he was having that prompted this evaluation was curling of his left hand fingers which he could overcome but would continue to do this at rest. After the MRI results he was started on 4mg PO Decadron which he took the first dose of this morning. He was not on any anti-seizure medication prior to today. At 1:30pm he was fully conscious but could not stop his left arm from shaking uncontrollably. The left side of his face then twitched uncontrollably. Prior to arrival in ER he received 1mg Ativan IV with improvement in his symptoms but ongoing seizure like activity. In the ER he had additional Ativan 1mg IV and loaded with Keppra 2g IV and valproate 2g IV. Despite this he had ongoing seizure activity therefore additional 2g Keppra IV given with 1g IV valproate. When admitted the patient had no ongoing seizure activity. CT head showed no intracranial hemorrhage. Dr Burgess discussed with neurosurgery @ [place] and did not feel emergent transfer was required at this time and [facility] [place] and recommend admission under medicine for improved seizure control. He has a notable history of malignant melanoma in the past. 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, causing focal seizure of left upper extremity Discharge Exam Constitutional WD/WN, vitals as above Eyes PERRL, conjunctivae normal, anicteric sclerae ENMT external ear and nose normal, oropharynx normal Neck trachea midline, no thyromegaly Respiratory normal respiratory effort, lungs clear to auscultation Cardiovascular RRR, no murmur, no edema Gastrointestinal (Abdomen) normal bowel sounds, soft, nontender, no hepatosplenomegaly Musculoskeletal Head/Neck/Chest: normocephalic, head atraumatic and neck supple Extremities: extremities normal to inspection and + abnormal strength (left arm/hand 4 out of 5); full ROM of extremities and no joint enlargement Skin no rashes, warm and dry Neurologic patellar DTR's 2+ bilat, sensation intact and PERRL, EOMI, accommodation nl, no face palsy, no dysarthria CN's II-XI intact bilaterally, deep tendon reflexes 2+ bilaterally, + focal motor deficit (left hand weak, left arm weak) and awake Motor/Sensory: no tremor Coordination: + abnormal [id number] test (left hand) Psychiatric A+Ox3, euthymic affect Lymphatic no cervical or axillary lymphadenopathy Discharge Data Allergies Allergy/AdvReac Type Severity Reaction Status Date / Time grass pollen Allergy Mild Verified 02/10/20 15:05 cat dander AdvReac Intermediate Hives Verified 02/10/20 15:05 dog dander AdvReac Intermediate WELTS Verified 02/10/20 15:05 Consultations 02/10/20 18:04 Consult Neurology Stat ED Decision to Admit Stat Ordered Studies 02/10/20 14:11 CT head/brain wo con Stat Hospital Course (1) 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 Focal seizure activity did not break with x2 1mg Ativan IV (one given prior to ER), Keppra 2g IV and valproate 2g IV. Ongoing seizure activity therefore additional 2g Keppra IV given with 1g IV valproate. No ongoing seizure activity since he was loaded with anti-convulsants, seizure free for nearly 72 hours No acute intracranial hemorrhage on CT. 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 Stanford (3) Cerebral edema: Decadron as above (4) Asthma: No current exacerbation ALbuterol PRN (5) Elevated serum creatinine: IV fluids, Cr is down to 1.1 so it is improved stop fluids (6) Type 2 diabetes mellitus: [employer] monitor for hyperglycemia with Decadron use (7) Hypertension: Elevated earlier in ER but now appears much better controlled with seizure activity. Continue lisinopril 40mg PO daily and amlodipine 2.5mg PO daily Total Time Total Time Spent Total Time Spent (In Minutes): 35 minutes Total Time Includes: Examination of the Patient, Discharge Planning, Medication Reconciliation, Communication With Other Providers (Dr. Rivera, neurology) and Other (long discussion with patient's at the bedside) Discharge Plan Discharge Items Patient Disposition: Home - Self-Care Reason For Visit: BRAIN MASS, PARTIAL SEIZURES Discharge Diagnosis: Right parietal lobe 2.5cm mass with edema Partial focal seizure of left upper extremity Condition on Discharge: Good Goals: continue Keppra and Depakote to control seizure activity continue Decadron to control swelling around tumor follow up closely with neurosurgery at [place] tomorrow Activity: Per Instructions section Bathing: No limitations Sexual Activity: Wait until after follow-up appointment Exercise/Sports: As tolerated Exercise Comment: ok to walk, nothing more strenuous Driving/Machine Use: no driving at all with brain tumor and seizures Weightbearing: Full weightbearing Non-emergency contact: Primary Care Provider and Surgeon Call non-emergency contact if: you have any medication questions and your symptoms worsen Follow-up/Referrals: Isaac Branham MD [Primary Care Provider] - (one week) Diet: Carb Consistent or DM2 Addtl Attending Provider Instructions: Medications: - KEPPRA: 1000mg twice a day, continue to take until told to stop by neurosurgery - DEPAKOTE: 1000mg twice a day, continue to take until told to stop by neurosurgery - DECADRON: 4mg twice a day to control brain swelling Right parietal brain tumor causing partial focal seizures seizures controlled on Keppra and Depakote and Decadron follow up closely with neurosurgery tomorrow in [place] keep active but no strenuous activity, no driving stay well hydrated and well nourished Pending Studies at Discharge: No Stand-Alone Forms: [email or web address], Smoking Cessation Medications and DC Order Prescriptions: New levetiracetam [Keppra] 500 mg Tablet 1,000 mg PO BID 30 Days Qty: 120 RF: 1 divalproex [Depakote] 500 mg tablet,delayed release (DR/EC) 1,000 mg PO Q12H 30 Days Qty: 120 RF: 1 Continued metformin 500 mg tablet 1,000 mg PO BID Qty: 360 RF: 3 albuterol sulfate [ProAir HFA] 90 mcg/actuation HFA aerosol inhaler 2 puffs INH Q6H PRN (Reason: Shortness Of Breath) RF: 0 lisinopril-hydrochlorothiazide 20-25 mg tablet 1 tab PO QAM Qty: 90 RF: 3 lisinopril 20 mg tablet 20 mg PO QAM Qty: 90 RF: 3 potassium chloride 20 mEq tablet extended release 20 meq PO DAILY Qty: 90 RF: 3 amlodipine 5 mg tablet 2.5 mg PO QAM RF: 0 cinnamon bark 500 mg capsule 1,000 mg PO QAM RF: 0 aspirin [Aspirin Low Dose] 81 mg Tablet,Delayed Release (Dr/Ec) 81 mg PO QAM RF: 0 Changed dexamethasone [Decadron] 4 mg tablet 4 mg PO BID 30 Days Qty: 60 RF: 3 Discharge Orders: Discharge Order (Routine); Ordered 02/14/20 Ordered By: Linwood Wong/Other Patient Handouts: Anatomy of the Brain, What Is a Partial Seizure?, Medicines for Partial Seizures, Partial Seizures: Know What to Do, Partial Seizures: Staying Healthy Admission Data Admit Date/Time: 02/10/20 19:35 Attending Provider: Linwood Jackson Admit Provider: Oscar Otoole Primary Care Provider: Isaac Branham Other Providers: Benny Rivera ; Oscar Otoole Other Interventions: Discharge Summary Assessment (RN) Last Done: 02/14/20 12:43 Coding Level of Care Code D/C Day Management >30 mins Diagnoses Partial motor seizures G40.109 Cerebral mass G93.89 Cerebral edema G93.6 Asthma J45.909 Elevated serum creatinine R79.89 Type 2 diabetes mellitus E11.9 Hypertension I10
== END 2020-02-14 13:52 | disposition home or self-care (01) | DRG 54 ==
LOC: ED 14:04 → 2E 19:35 → SUATTDRO 19:35 → 2E 20:21

== ENCOUNTER 2020-03-11 03:57 | Observation (INO) ==
[2020-03-11] MEDS ORDERED: LORazepam 1 MG/2 ML VIAL IV STA (04:15)
--- NOTE | 2020-03-11 04:25 | Emergency Department Note ---
Impression & Plan Focal seizure, Acute dehydration ED Provider Note NAME: TD DAVILA AGE: 69 SEX: M ARRIVES VIA: Ambulance INFORMANT: Patient his ED PROVIDER(S): Eli Zee DO CHIEF COMPLAINT: Focal seizure PLAN: Disposition: Admitted to the [facility]ist service Condition: Stable MEDICAL DECISION MAKING: This is a 69-year-old male patient who presents to the emergency department with a focal seizure. The patient underwent neurosurgery at [place] on February 22 for glioblastoma. The patient has done well since that time. Prior to going to [facility], the patient developed a twitching in his left thigh and a rhythmic motion to his left forearm and hand which is consistent with his pr evious focal seizures. Laboratory testing here reveals some evidence of dehydration. Depakote level was therapeutic. Keppra level is pending. The patient was scheduled to have outpatient follow-up at the [facility] on Saturday with oncology to start chemotherapy and radiation. I discussed the case with the [facility]ist and they will evaluate for further management. Triage Nursing notes reviewed and agree them. Additional history obtained from the patient's who is at the bedside Prior medical records reviewed Vital Signs: reviewed and unremarkable Differential diagnosis: Intracranial hemorrhage status post neurosurgery; recurrent seizure; electrolyte abnormality; status epilepticus ER treatment provided: IV Ativan x2 Diagnostics interpreted by me: ECG: Normal sinus rhythm at a rate of 82. There is no ST segment elevation or signs of ischemia. There is no ectopy Cardiac Monitoring: None Laboratory studies: See below Imaging studies: As per stat rad CT head: Impression: No evidence of intracranial hemorrhage. There is evidence of right parietal craniotomy. Postoperative pneumocephalus seen over the right parietal lobe, at the site of the previously seen focal parietal lesion. HPI: 69/M arrives for evaluation of focal seizure. The patient was laying in bed when he developed and are about his left arm. He then noted that his left eye began to twitch and he started to have rhythmic movement of his left forearm and hand which is consistent with his typical focal seizure to the left upper extremity. The patient was diagnosed with a brain tumor in January and underwent surgical resection on February 22 at [place]. ROS: See above HPI for pertinent positives & negatives. A total of 10 systems reviewed and were otherwise negative. PAST MEDICAL HISTORY:Glioblastoma PAST SURGICAL HISTORY:See Below FAMILY HISTORY:See Below SOCIAL HISTORY:See Below HOME MEDICATIONS:See list ALLERGIES:See list VITALS:See Below PHYSICAL EXAMINATION: HEENT: Head -normocephalic with surgical incision noted to the right side of his scalp. Pupils are equal, round, and reactive to light. Extraocular eye muscles are intact and sclera are anicteric. Ears - bilaterally patent canals with noninjected tympanic membranes and no evidence of hemotympanum. Nose - moist nasal mucosa without discharge. Mouth - moist buccal mucosa. Oropharynx is nonerythematous and there is no tonsillar exudate or edema noted. Neck: Supple; no JVD, nuchal rigidity, cervical lymphadenopathy. Heart: Regular rate and rhythm. There is a normal S1 and S2 with no murmurs, clicks, or gallops appreciated. Lungs: Clear to auscultation bilaterally with no wheezes, rales, or rhonchi. Abdomen: Soft, completely nontender, nondistended, with good bowel sounds. There are no palpable pulsatile masses or hepatosplenomegaly. There is no guarding, rigidity, or rebound noted. Extremities: No evidence of cyanosis, clubbing, or edema. There are easily palpable peripheral pulses. Neuro:The patient is awake and alert, oriented to day, time, and place. Muscle strength is 5/5 in all 4 extremities. The patient has a rhythmic movement to his left upper extremity at the elbow. He also has twitching of the left eye ED COURSE:0405: The patient was evaluated in room before. A complete history and physical was performed. An order was placed for continuous cardiac monitoring. The patient was in a normal sinus rhythm at a rate of 86. Seizure precautions were taken. A twelve-lead EKG was obtained. The patient was given a milligram of IV Ativan Patient's med list was reviewed. 0515: The patient was reevaluated at this time and continues to have slight movement to the left forearm. The left eye is no longer twitching. The patient will receive an additional 0.5 mg of IV Ativan. The patient will receive IV normal saline solution 0530: I reviewed the results of the CT scan and laboratory studies with the nickie ent and his . I discussed the case with the [facility] hospitalist and they will evaluate for further management. Eli Zee DO Past Med/Surg History Medical History (Updated 03/11/20 @ 06:10 by Eli Zee DO) Asthma Dyslipidemia History of melanoma Hx of skin cancer, basal cell Hypertension Tubular adenoma of colon Type 2 diabetes mellitus Surgical History Anal fistula REPAIRED History of colonoscopy History of tonsillectomy History of tooth extraction Family History Mother , age 84 of metastatic lung cancer Family history of diabetes mellitus Alzheimer disease Metastatic lung cancer (metastasis from lung to other site) Father , age 85 of "failure to thrive" Lung disease FH: deafness or hearing loss Brother Lung disease Denies family history of Ovarian cancer Prostate cancer Breast cancer Lung cancer Colorectal cancer Social History Smoking Status: Never smoker Second Hand Exposure: No; Hx Alcohol Use: Yes Alcohol type: beer Alcohol Intake Frequency Comment: 1-2 beers per week Hx Substance Use: No Preferred Language: [place] Citizen Communication Ability: Effective Visual Impairment: Limited Hearing Ability: Use of Hearing Aid Review Manager Required: No Beliefs That Will Affect Care: None marital status: Current Living Situation: Spouse Current Living Situation Comment: House current occupational status: 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59 Feels Safe at Home: Yes Childhood Exposure to Second-Hand Smoke: Yes Dental Care, Regularly: Yes Physical Activity Frequency: Does not Exercise Seatbelt Use: always Sunscreen Use: Yes Allergies Allergies Allergy/AdvReac Type Severity Reaction Status Date / Time grass pollen Allergy Mild Congested Verified 03/11/20 04:23 cat dander AdvReac Intermediate Hives Verified 03/11/20 04:23 dog dander AdvReac Intermediate WELTS Verified 03/11/20 04:23 Home Meds Home Medications Medication Instructions Recorded Confirmed albuterol sulfate 90 mcg/actuation 2 puffs INH Q6H PRN 10/07/19 03/11/20 aerosol inhaler amlodipine 5 mg tablet 2.5 mg PO QAM tab 02/03/20 03/11/20 cinnamon bark 500 mg capsule 1,000 mg PO QAM cap 02/09/20 03/11/20 cholecalciferol (vitamin D3) 50 50 mcg PO DAILY 02/18/20 03/11/20 mcg (2,000 unit) capsule acetaminophen 325 mg capsule 325 mg PO Q4H PRN 02/26/20 03/11/20 famotidine 20 mg tablet 20 mg PO BID 02/26/20 03/11/20 potassium chloride 20 mEq 20 meq PO BID 02/26/20 03/11/20 tablet,extended release dexamethasone 2 mg tablet See Rx Instructions PO .COMPLEX 03/03/20 03/11/20 Previous Rx's Medication Instructions Recorded metformin 500 mg tablet 1,000 mg PO BID #360 tab 02/16/19 lisinopril 20 mg tablet 20 mg PO QAM #90 tab 11/03/19 lisinopril 20 1 tab PO QAM #90 tab 11/03/19 mg-hydrochlorothiazide 25 mg tablet divalproex [Depakote] 1,000 mg PO Q12H 30 Days #120 tab 02/14/20 levetiracetam [Keppra] 1,000 mg PO BID 30 Days #120 tab 02/14/20 Results & Data (ED) Vital Signs Vital Signs - 24 hr 03/11/20 04:12 03/11/20 04:30 03/11/20 05:02 Temperature 36.6 C Temperature Source Oral Pulse Rate 89 86 76 Pulse Rate from SpO2 Sensor 80 76 Respiratory Rate 17 17 14 Respiratory Effort / Characteristics Non-Labored Spontaneous Respiratory Depth Normal Blood Pressure 145/76 H 108/62 Blood Pressure Mean 99 76 Pulse Oximetry 95 94 93 Oxygen Delivery Method Room Air Room Air Room Air Sepsis New/Unexplained Change in Mental Status N/A Sepsis Action Taken by Nursing No Action Required 03/11/20 05:03 03/11/20 05:30 03/11/20 06:00 Temperature Temperature Source Pulse Rate 75 78 74 Pulse Rate from SpO2 Sensor 75 78 74 Respiratory Rate 14 19 19 Respiratory Effort / Characteristics Respiratory Depth Blood Pressure 108/66 Blood Pressure Mean 96 Pulse Oximetry 93 95 98 Oxygen Delivery Method Room Air Room Air Room Air Sepsis New/Unexplained Change in Mental Status Sepsis Action Taken by Nursing Laboratory Data Result diagrams: 03/11/20 04:25 03/11/20 04:25 Lab Results 03/11/20 03/11/20 03/11/20 Range/Units 04:25 04:25 04:25 WBC 10.78 (4.8-10.8) K/uL RBC 4.65 L (4.7-6.1) M/uL Hgb 14.2 (14.0-18.0) g/dL Hct 40.9 L (42-52) % MCV 88.0 (80-100) fL MCH 30.5 (25-34) pg MCHC 34.7 (32-36) g/dL RDW Std Deviation 42.0 (36.4-46.3) fL RDW Coeff of Vicki 13.2 (11.5-14.5) % Plt Count 143 (130-400) K/uL MPV 8.2 (7.4-10.4) fL Immature Gran % (Auto) 0.6 % Neut % (Auto) 74.7 % Lymph % (Auto) 15.2 % Leake % (Auto) 8.7 % Eos % (Auto) 0.7 % Baso % (Auto) 0.1 % Neut # (Auto) 8.04 H (1.4-6.5) K/uL Lymph # (Auto) 1.64 (1.2-3.4) K/uL Leake # (Auto) 0.94 H (0.11-0.59) K/uL Eos # (Auto) 0.08 (0-0.5) K/uL Baso # (Auto) 0.01 (0-0.2) K/uL Immature Gran # (Auto) 0.07 H (0.00-0.02) K/uL Sodium 134 L (136-145) mmol/L Potassium 4.6 (3.5-5.1) mmol/L Chloride 97 L (98-107) mmol/L Carbon Dioxide 30 (21-32) mmol/L Anion Gap 7.0 (3-11) BUN 32 H (7-18) mg/dl Creatinine 0.85 (0.6-1.4) mg/dl Est Cr Clr Drug Dosing 106.4 ml/min Est GFR ( Amer) 102.3 Est GFR (Non-Af Amer) 88.3 BUN/Creatinine Ratio 37.4 H (10-20) Glucose 99 (70-99) mg/dl Calcium 8.8 (8.5-10.1) mg/dl Total Bilirubin 0.4 (0.2-1) mg/dl AST 17 (15-37) U/L ALT 47 (12-78) U/L Alkaline Phosphatase 39 L (45-117) U/L Total Protein 6.1 L (6.4-8.2) gm/dl Albumin 3.1 L (3.4-5.0) gm/dl Globulin 3.0 (2.5-4.0) gm/dl Albumin/Globulin Ratio 1.0 (0.9-2) Valproic Acid 84 (50-100) mcg/ml Administered Medications Discontinued Medications Lorazepam (Ativan) 1 mg in 2 mls @ 2 mls/min IV NOW STA Stop: 03/11/20 04:16 Last Admin: 03/11/20 04:18 Dose: 2 mls/min Documented by: [id number] Sodium Chloride (Nss) 500 mls @ 999 mls/hr IV .Q31M ONE Stop: 03/11/20 05:45 Last Infusion: 03/11/20 05:59 Dose: 0 mls/hr Documented by: [id number] Admin: 03/11/20 05:21 Dose: 999 mls/hr Documented by: [id number] Lorazepam (Ativan) 0.5 mg in 1 mls @ 1 mls/min IV NOW STA Stop: 03/11/20 05:16 Last Admin: 03/11/20 05:24 Dose: 1 mls/min Documented by: [id number] Discharge Plan Visit Data Chief Complaint: Seizure ED Provider: Eli Zee Discharge Problem: Focal seizure, Acute dehydration Forms Stand Alone Forms: [facility] Prescriptions Prescriptions: No Action metformin 500 mg tablet 1,000 mg PO BID Qty: 360 RF: 3 albuterol sulfate [ProAir HFA] 90 mcg/actuation HFA aerosol inhaler 2 puffs INH Q6H PRN (Reason: Shortness Of Breath) RF: 0 lisinopril-hydrochlorothiazide 20-25 mg tablet 1 tab PO QAM Qty: 90 RF: 3 lisinopril 20 mg tablet 20 mg PO QAM Qty: 90 RF: 3 amlodipine 5 mg tablet 2.5 mg PO QAM RF: 0 cholecalciferol (vitamin D3) 50 mcg (2,000 unit) capsule 50 mcg PO DAILY RF: 0 potassium chloride 20 mEq tablet extended release 20 meq PO BID RF: 0 acetaminophen 325 mg capsule 325 mg PO Q4H PRN (Reason: Pain) RF: 0 famotidine 20 mg tablet 20 mg PO BID RF: 0 dexamethasone 2 mg tablet See Rx Instructions PO .COMPLEX RF: 0 cinnamon bark 500 mg capsule 1,000 mg PO QAM RF: 0 levetiracetam [Keppra] 500 mg Tablet 1,000 mg PO BID 30 Days Qty: 120 RF: 1 divalproex [Depakote] 500 mg tablet,delayed release (DR/EC) 1,000 mg PO Q12H 30 Days Qty: 120 RF: 1
[2020-03-11 04:53] LABS: Basophils # (auto) 0.01 K/uL (0-0.2); Basophils % (auto) 0.1 %; Eosinophils # (auto) 0.08 K/uL (0-0.5); Eosinophils % (auto) 0.7 %; Hematocrit (blood only) 40.9 % (42-52); Hemoglobin 14.2 g/dL (14.0-18.0); Immature Granulocytes # (auto) 0.07 K/uL (0.00-0.02); Immature Granulocytes % (auto) 0.6 %; Lymphocytes # (auto) 1.64 K/uL (1.2-3.4); Lymphocytes % (auto) 15.2 %; Mean Corpuscular Hemoglobin 30.5 pg (25-34); Mean Corpuscular Hgb Conc 34.7 g/dL (32-36); Mean Platelet Volume 8.2 fL (7.4-10.4); Monocytes # (auto) 0.94 K/uL (0.11-0.59); Monocytes % (auto) 8.7 %; Neutrophils # (auto) 8.04 K/uL (1.4-6.5); Neutrophils % (auto) 74.7 %; Platelet Count 143 K/uL (130-400); RDW Coefficient of Variation 13.2 % (11.5-14.5); Red Blood Count 4.65 M/uL (4.7-6.1); White Blood Count 10.78 K/uL (4.8-10.8)
[2020-03-11 05:11] LABS: Albumin Level 3.1 gm/dl (3.4-5.0); BUN Creatinine Ratio 37.4 (10-20); Calcium 8.8 mg/dl (8.5-10.1); Creatinine Clr Calc Pharmacy 106.4 ml/min; Est GFR (African American) 102.3; Est GFR (Non-African American) 88.3; Potassium 4.6 mmol/L (3.5-5.1)
[2020-03-11 05:14] LABS: Bilirubin,Total 0.4 mg/dl (0.2-1); Total Protein 6.1 gm/dl (6.4-8.2)
[2020-03-11] MEDS ORDERED: LORazepam 0.5 MG/1 ML VIAL IV STA (05:15)
[2020-03-11] MEDS ORDERED: SODIUM CHLORIDE 0.9% 500 ML IV ONE (05:15)
[2020-03-11] MEDS ORDERED: LORazepam 1 MG/2 ML VIAL IV PRN (06:07)
--- NOTE | 2020-03-11 06:14 | History & Physical Report ---
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 every 12 hours, with therapeutic valproic acid level of 84. Continue levetiracetam 1000 mg p.o. twice daily, with level pending. CT of brain does not suggest any acute process such as edema or hemorrhage. We will order an EEG. We will order an MRI of the brain with and without contrast, once seizure activity is under better control for better imaging Change Decadron from 2 mg p.o. twice daily to 4 mg IV every 12 hours, for possible edema and for adrenal insufficiency Lorazepam 1 mg IV every 15 minutes as needed seizure activity to a maximum dose of 3. We will consult neurology. Present on Admission?: Yes (2) Cerebral mass: Patient family reports that this was a glioblastoma. We have no records yet from [facility] regarding specific procedure and diagnosis. We will consult Dr. Nichole from radiation oncology, whom the patient has an appoi ntment with in 4 days. His reports that he used to be starting a oral chemotherapy, the night before radiation treatment. Present on Admission?: Yes (3) Hypertension: The patient is relatively hypotensive at this time with systolic 104. We will hold lisinopril/HCTZ, lisinopril and amlodipine. Present on Admission?: Yes (4) Type 2 diabetes mellitus: Hold metformin Place on Accu-Cheks before meals and at bedtime with NovoLog coverage for scale Present on Admission?: Yes History of Present Illness Chief Complaint: The patient presents to the emergency department with a recurrence of his focal left sided facial and left upper extremity seizures, that began after he had gotten up to go the bathroom at 230 this morning Primary Care Provider: Isaac Branham MD The patient is a 69-year-old male with a past medical history including refractory simple partial seizure with motor dysfunction, dyslipidemia, diabetes mellitus type 2, hypertension, asthma, glioblastoma status post surgery, cerebral edema and pulmonary nodules. Patient was initially admitted to [facility] from 02/09-02/13 after having an outpatient MRI with intracranial mass suspected to be high-grade glioma versus metastatic disease. During that admission he was placed on Keppra and Depakote for seizure control. He underwent gamma knife radiosurgery to the lesion at [facility], and had not had any seizure activity since that time until today. He does have a pending appointment with radiation oncology next week at [facility]. In the emergency department tonight, he was given a total of 1/2 mg of Ativan IV, with improvement in his left facial spasm and left arm twitching. Allergies Allergy/AdvReac Type Severity Reaction Status Date / Time grass pollen Allergy Mild Congested Verified 03/11/20 04:23 cat dander AdvReac Intermediate Hives Verified 03/11/20 04:23 dog dander AdvReac Intermediate WELTS Verified 03/11/20 04:23 Home Medications Home Medications Medication Instructions Recorded Confirmed Type metformin 500 mg tablet 1,000 mg PO BID #360 tab 02/16/19 03/11/20 Rx albuterol sulfate 90 mcg/actuation 2 puffs INH Q6H PRN 10/07/19 03/11/20 History aerosol inhaler lisinopril 20 mg tablet 20 mg PO QAM #90 tab 11/03/19 03/11/20 Rx lisinopril 20 1 tab PO QAM #90 tab 11/03/19 03/11/20 Rx mg-hydrochlorothiazide 25 mg tablet amlodipine 5 mg tablet 2.5 mg PO QAM tab 02/03/20 03/11/20 History cinnamon bark 500 mg capsule 1,000 mg PO QAM cap 02/09/20 03/11/20 History divalproex [Depakote] 1,000 mg PO Q12H 30 Days #120 tab 02/14/20 03/11/20 Rx levetiracetam [Keppra] 1,000 mg PO BID 30 Days #120 tab 02/14/20 03/11/20 Rx cholecalciferol (vitamin D3) 50 50 mcg PO DAILY 02/18/20 03/11/20 History mcg (2,000 unit) capsule acetaminophen 325 mg capsule 325 mg PO Q4H PRN 02/26/20 03/11/20 History famotidine 20 mg tablet 20 mg PO BID 02/26/20 03/11/20 History potassium chloride 20 mEq 20 meq PO BID 02/26/20 03/11/20 History tablet,extended release dexamethasone 2 mg tablet See Rx Instructions PO .COMPLEX 03/03/20 03/11/20 History Past Med/Surg History Medical History (Updated 03/11/20 @ 06:10 by Eli Zee DO) Asthma Dyslipidemia History of melanoma Hx of skin cancer, basal cell Hypertension Tubular adenoma of colon Type 2 diabetes mellitus Surgical History Anal fistula REPAIRED History of colonoscopy History of tonsillectomy History of tooth extraction Family History Mother , age 84 of metastatic lung cancer Family history of diabetes mellitus Alzheimer disease Metastatic lung cancer (metastasis from lung to other site) Father , age 85 of "failure to thrive" Lung disease FH: deafness or hearing loss Brother Lung disease Denies family history of Ovarian cancer Prostate cancer Breast cancer Lung cancer Colorectal cancer Social History Smoking Status: Never smoker Second Hand Exposure: No; Hx Alcohol Use: Yes Alcohol type: beer Alcohol Intake Frequency Comment: 1-2 beers per week Hx Substance Use: No Preferred Language: [place] Communication Ability: Effective Visual Impairment: Limited Hearing Ability: Use of Hearing Aid Can Filling And Closing Machine Tender Required: No Beliefs That Will Affect Care: None marital status: Current Living Situation: Spouse Current Living Situation Comment: House 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 occupational status: 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59 Feels Safe at Home: Yes Childhood Exposure to Second-Hand Smoke: Yes Dental Care, Regularly: Yes Physical Activity Frequency: Does not Exercise Seatbelt Use: always Sunscreen Use: Yes Review of Systems Review of Systems: The patient denies chest pain, palpitations, shortness of breath, dyspnea on exertion, cough, lower extremity swelling, sore throat, fevers, chills, sweats, nausea, vomiting, diarrhea , constipation, abdominal pain, pelvic pain, blood in urine or stool, dysuria, urinary frequency or urgency, rash, abnormal bruising or bleeding, generalized arthralgias or myalgias, back or neck pain, or night sweats. The review of systems is otherwise negative other than for that already noted above, and at least 10 systems have been reviewed. Physical Exam Physical Exam: The patient is awake, alert and oriented 3, has well-healing incision right parieto-occipital area, lying in bed, with episodic left sided facial spasm and left arm twitching. HEENT--PERRL, EOMI, mucous membranes and oropharynx dry. Neck--supple. No JVD. No bruits. Thyroid normal, trachea midline, no adenopathy. Heart--normal S1 and S2. No murmurs, rubs or gallops. Lungs--clear bilaterally, no respiratory distress, no accessory muscle use. Abdomen--normal bowel sounds and soft. Nontender. Nondistended. Extremities--no cyanosis or clubbing. No edema. Dermatologic--normal skin turgor, normal color, no abnormal lymph nodes, no rash. Neurologic--examination limited by seizure activity Rheumatologic--limited exam Psychiatric--normal affect. Results & Data Results & Data ([facility]) Vital Signs (Past 12 Hours) Vital Signs Temp Pulse Resp BP Pulse Ox 03/11/20 06:00 74 19 108/66 98 03/11/20 05:30 78 19 95 03/11/20 05:03 75 14 93 03/11/20 05:02 76 14 108/62 93 03/11/20 04:30 86 17 94 03/11/20 04:12 97.9 F 89 17 145/76 H 95 Laboratory Results Laboratory Results WBC 10.78 K/uL (4.8-10.8) 03/11/20 04:25 RBC 4.65 M/uL (4.7-6.1) L 03/11/20 04:25 Hgb 14.2 g/dL (14.0-18.0) 03/11/20 04:25 Hct 40.9 % (42-52) L 03/11/20 04:25 MCV 88.0 fL (80-100) 03/11/20 04:25 MCH 30.5 pg (25-34) 03/11/20 04:25 MCHC 34.7 g/dL (32-36) 03/11/20 04:25 RDW Std Deviation 42.0 fL (36.4-46.3) 03/11/20 04:25 RDW Coeff of Vicki 13.2 % (11.5-14.5) 03/11/20 04:25 Plt Count 143 K/uL (130-400) 03/11/20 04:25 MPV 8.2 fL (7.4-10.4) 03/11/20 04:25 Immature Gran % (Auto) 0.6 % 03/11/20 04:25 Neut % (Auto) 74.7 % 03/11/20 04:25 Lymph % (Auto) 15.2 % 03/11/20 04:25 Louisa % (Auto) 8.7 % 03/11/20 04:25 Eos % (Auto) 0.7 % 03/11/20 04:25 Baso % (Auto) 0.1 % 03/11/20 04:25 Neut # (Auto) 8.04 K/uL (1.4-6.5) H 03/11/20 04:25 Lymph # (Auto) 1.64 K/uL (1.2-3.4) 03/11/20 04:25 Louisa # (Auto) 0.94 K/uL (0.11-0.59) H 03/11/20 04:25 Eos # (Auto) 0.08 K/uL (0-0.5) 03/11/20 04:25 Baso # (Auto) 0.01 K/uL (0-0.2) 03/11/20 04:25 Immature Gran # (Auto) 0.07 K/uL (0.00-0.02) H 03/11/20 04:25 Sodium 134 mmol/L (136-145) L 03/11/20 04:25 Potassium 4.6 mmol/L (3.5-5.1) 03/11/20 04:25 Chloride 97 mmol/L (98-107) L 03/11/20 04:25 Carbon Dioxide 30 mmol/L (21-32) 03/11/20 04:25 Anion Gap 7.0 (3-11) 03/11/20 04:25 BUN 32 mg/dl (7-18) H 03/11/20 04:25 Creatinine 0.85 mg/dl (0.6-1.4) 03/11/20 04:25 Est Cr Clr Drug Dosing 106.4 ml/min 03/11/20 04:25 Est GFR ( Amer) 102.3 03/11/20 04:25 Est GFR (Non-Af Amer) 88.3 03/11/20 04:25 BUN/Creatinine Ratio 37.4 (10-20) H 03/11/20 04:25 Glucose 99 mg/dl (70-99) 03/11/20 04:25 Calcium 8.8 mg/dl (8.5-10.1) 03/11/20 04:25 Total Bilirubin 0.4 mg/dl (0.2-1) 03/11/20 04:25 AST 17 U/L (15-37) 03/11/20 04:25 ALT 47 U/L (12-78) 03/11/20 04:25 Alkaline Phosphatase 39 U/L (45-117) L 03/11/20 04:25 Total Protein 6.1 gm/dl (6.4-8.2) L 03/11/20 04:25 Albumin 3.1 gm/dl (3.4-5.0) L 03/11/20 04:25 Globulin 3.0 gm/dl (2.5-4.0) 03/11/20 04:25 Albumin/Globulin Ratio 1.0 (0.9-2) 03/11/20 04:25 Valproic Acid 84 mcg/ml (50-100) 03/11/20 04:25 Diagnostic Findings [facility] Patient: TD DAVILA (Male) : 48 Status: ER Date: 03/11/20 05:01 Room #: History: HAD TUMOR IN BRAIN REMOVED 02-23-20, NOW IS HAVING SEIZURE LIKE ACTIVITY TWITCH IN LEFT EYE AND LEFT ARM SPASM R/O BLEED Slices: 66 Priors: Tech: Buck Nieto @ [phone] Exams: CT HEAD Contrast: Accession Numbers: [id number] Preliminary Findings Only See Final Report For Complete Findings CT HEAD: Impression: No evidence of intracranial hemorrhage There is evidence of right parietal craniotomy. Postoperative pneumocephalus seen over the right parietal lobe, at the site of the previously seen focal parietal lesion. Radiologist: Almas Corado MD Study ready at 05:06 and initial results transmitted at 05:11 *This report constitutes a preliminary interpretation only. Non-acute findings felt to be unrelated to the clinical presentation may not be discussed in this report. The study will be interpreted and a final report will be generated by the local Radiologist the following shift. To reach the hospital radiology department call [phone]. If a discrepancy is found between the preliminary and final interpretations of this study, please notify us via our Client Portal at [email or web address] can also fax this report with a description of the discrepancy, or include the final report, to our daytime fax number [phone].If faxing, please indicate the severity of discrepancy using one of the following categories: [ ] 1 - Agree/Informational [ ] 2 - Unlikely to Affect Management [ ] 3 - Possible Eventual Change of Management [ ] 4 - Probable Immediate Change of Management For all other patient related information, please fax us at [phone]. 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
[2020-03-11] MEDS ORDERED: DEXAMETHASONE SOD INJ 4 MG/ML VIAL IV STA (06:29)
[2020-03-11] MEDS: DIVALPROEX DELAY RELEASE 500 MG TAB PO SCH ×3 (06:35→20:53)
--- NOTE | 2020-03-11 06:58 | CT Scan Report ---
CT head/brain wo con CLINICAL HISTORY: Seizure-like activity. Patient status post surgery for intracranial neoplasm resect ion COMPARISON STUDY: February 10, 2020 TECHNIQUE: Axial CT of the brain is performed from the vertex to the skull base. IV contrast was not administered for this examination. A dose lowering technique was utilized adhering to the principles of ALARA. CT DOSE: 614.27 mGy.cm FINDINGS: There are postsurgical changes of a right parietal craniotomy. There is a gas collection subjacent to the surgical site which is felt to be postsurgical. This is likely extra-axial. There is a focus of right parietal encephalomalacia likely related to the biopsy. There is no evidence of acute hemorrhag e. There is minimal right hemispheric edema with subtle cortical effacement, likely postsurgical. There are patchy white matter hypodensities likely on a small vessel basis. There is no evidence of pathologic ventricular dilatation. There is no evidence of acute sinusitis IMPRESSION: Postsurgical changes status post right parietal craniotomy and tumor resection. Postopera tive gas is subjacent to the craniotomy site. ACT 112: Negative or not required by law. Electronically signed by: Venkata Amato M.D. 03/11/2020 6:57 AM
[2020-03-11] MEDS ORDERED: GLUCOSE 40% GEL 15 GM TUBE PO PRN (07:15)
[2020-03-11] MEDS ORDERED: GLUCOSE 10 TABS/TUBE PO PRN (07:15)
[2020-03-11] MEDS ORDERED: ONDANSETRON INJ 2 MG/ML 2 ML VIAL IV PRN (07:15)
[2020-03-11] MEDS ORDERED: GLUCAGON FOR INJ 1 MG VIAL SQ PRN (07:15)
[2020-03-11] MEDS ORDERED: CARBOHYDRATES FOR HYPOGLYCEMIA PO PRN (07:15)
[2020-03-11] MEDS ORDERED: ACETAMINOPHEN 325 MG TAB PO PRN (07:15)
[2020-03-11] MEDS ORDERED: DEXTROSE 50% 50 ML SYRINGE IV PRN (07:15)
[2020-03-11] MEDS ORDERED: SODIUM CHLORIDE 0.9% 1000ML 1,000 ML IV SCH (07:15)
[2020-03-11] MEDS: FAMOTIDINE 20 MG TAB PO SCH ×2 (08:22→20:52)
[2020-03-11] MEDS: CHOLECALCIFEROL 1,000 UNITS 25 MCG TAB PO SCH (08:22)
[2020-03-11] MEDS: POTASSIUM CHLORIDE 20 MEQ TABCR PO SCH (08:23)
--- NOTE | 2020-03-11 08:43 | Electrocardiogram Report ---
Test Reason : Blood Pressure : / mmHG Vent. Rate : 082 BPM Atrial Rate : 082 BPM P-R Int : 154 ms QRS Dur : 084 ms QT Int : 346 ms P-R-T Axes : 020 -06 031 degrees QTc Int : 404 ms Sinus rhythm with Premature atrial complexes Otherwise normal ECG When compared with ECG of 10-FEB-2020 15:51, Premature atrial complexes are now Present Confirmed by Ye Chamberlain ([id number]) on 03/11/2020 8:43:21 AM Referred By: REFERRED SELF Confirmed By:Ye Chamberlain
[2020-03-11] MEDS ORDERED: levETIRAcetam 500 MG TAB PO SCH (09:00)
[2020-03-11] MEDS: INSULIN ASPART 100 UNITS/ML 3 ML PEN SC SCH ×4 (09:22→21:16)
[2020-03-11] MEDS ORDERED: levETIRAcetam 500 MG in 0.9 % SODIUM CHLORIDE 100 ML IV STA (09:27)
--- NOTE | 2020-03-11 10:06 | Radiation OncologyConsultation ---
Date of Consultation March 11, 2020 Assessment & Plan (1) Glioblastoma multiforme of brain: Assessment: Mr. Rincon is a 69-year-old gentleman who presents with glioblastoma of the right frontoparietal region of the brain status post subtotal resection by Dr. Stanford. The patient has been seen by Dr. Gonzalez from neuro-oncology who is recommended adjuvant chemotherapy and radiation therapy followed by further chemotherapy. The patient was planned to be seen in the outpatient setting however he was admitted to the hospital due to seizure activity. I am now seeing the patient in the inpatient setting to discuss the role of radiation therapy. Recommendation: Conventional fractionated radiation therapy (30 fractions) with concurrent chemotherapy. Plan: 1. CT simulation for treatment planning for radiation therapy in the outpatient setting. Patient's will be called to schedule appointment. 2. Coordinate chemotherapy with radiation therapy. 3. Neurology inpatient consultation recommendations appreciated. 4. Continue all other primary medical management as per primary team. 5. Patient and family encouraged to call us with any further questions or concerns. Rationale/Explanation of Treatment: I explained the indications, alternatives, benefits, risks and side effects of external beam radiation therapy. I explain the most common side effects including but not limited to skin erythema, skin break down, hair loss, radiation necrosis, fatigue, short-term memory loss, decreased neurocognitive performance, cerebral edema, hearing loss, damage to cochlea structures, seizures, loss of sensory and or motor function. I explained the treatment planning process and what to expect before during and after treatment. The patient understands and would be willing to consent to treatment. The patient and had multiple questions which were answered to their full satisfaction. Thank you for allowing us to participate in the care of this patient. This chart was completed in part utilizing mth sense Speech Voice Recognition software. Attempts were made to minimize the grammatical errors, random word insertions, pronoun errors and incomplete sentences. Any formal questions or concerns about the content, text or information contained within the body of this dictation should be directly addressed to the provider for clarification. Bernardino Nichole MD Department of Radiation Oncology [facility] Present on Admission?: Yes History of Present Illness Attending Physician: Linwood Jackson, DO History of Present Illness 01/2020. Patient presents with weakness in the left hand as well as numbness. Patient does have previous history of melanoma. 02/09/2020. MRI brain. IMPRESSION: 1. Interval development of a 25 mm enhancing right parietal lobe mass with surrounding vasogenic edema. This lesion should be presumed neoplastic (high-grade glioma versus metastatic disease) until proven otherwise. 2. No additional mass lesions identified. 3. No evidence of acute or subacute infarction. 02/10/2020. CT of head. Impression: 1. No significant change in the 2.5 cm right parietal lobe mass with surrounding vasogenic edema. No midline shift. 2. No acute infarct or intracranial hemorrhage identified. 02/15/2020. CT of chest/abdomen/pelvis. Impression: There is a 6 mm nodule in the right middle lobe. This is indeterminate and unlikely to be the cause of metastatic brain disease. This require short-term follow-up in [address] evidence of malignancy within the chest, abdomen or pelvis. 02/23/2020. Right frontal craniotomy with subtotal resection of right parietal tumor by Dr. Stanford. Glioblastoma, WHO grade IV. 03/11/2020. Patient admitted to hospital due to seizure activity. 03/11/2020. CT of head. IMPRESSION: Postsurgical changes status post right parietal craniotomy and tumor resection. Postoperative gas is subjacent to the craniotomy site. According to patient and , patient was seen by Dr. Gonzalez from neuro- oncology who recommended definitive chemotherapy and radiation therapy followed by adjuvant chemotherapy. Currently, the patient is doing better overall. He has no significant complaints at this point. Allergies Allergy/AdvReac Type Severity Reaction Status Date / Time grass pollen Allergy Mild Congested Verified 03/11/20 04:23 cat dander AdvReac Intermediate Hives Verified 03/11/20 04:23 dog dander AdvReac Intermediate WELTS Verified 03/11/20 04:23 Home Medications Home Medications Medication Instructions Recorded Confirmed Type metformin 500 mg tablet 1,000 mg PO BID #360 tab 02/16/19 03/11/20 Rx albuterol sulfate 90 mcg/actuation 2 puffs INH Q6H PRN 10/07/19 03/11/20 History aerosol inhaler lisinopril 20 mg tablet 20 mg PO QAM #90 tab 11/03/19 03/11/20 Rx lisinopril 20 1 tab PO QAM #90 tab 11/03/19 03/11/20 Rx mg-hydrochlorothiazide 25 mg tablet amlodipine 5 mg tablet 2.5 mg PO QAM tab 02/03/20 03/11/20 History cinnamon bark 500 mg capsule 1,000 mg PO QAM cap 02/09/20 03/11/20 History divalproex [Depakote] 1,000 mg PO Q12H 30 Days #120 tab 02/14/20 03/11/20 Rx levetiracetam [Keppra] 1,000 mg PO BID 30 Days #120 tab 02/14/20 03/11/20 Rx cholecalciferol (vitamin D3) 50 50 mcg PO DAILY 02/18/20 03/11/20 History mcg (2,000 unit) capsule acetaminophen 325 mg capsule 325 mg PO Q4H PRN 02/26/20 03/11/20 History famotidine 20 mg tablet 20 mg PO BID 02/26/20 03/11/20 History potassium chloride 20 mEq 20 meq PO BID 02/26/20 03/11/20 History tablet,extended release dexamethasone 2 mg tablet See Rx Instructions PO .COMPLEX 03/03/20 03/11/20 History Patient History Medical History (Updated 03/11/20 @ 10:19 by Bernardino Nichole MD) Asthma Dyslipidemia Glioblastoma multiforme of brain History of melanoma Hx of skin cancer, basal cell Hypertension Tubular adenoma of colon Type 2 diabetes mellitus Surgical History Anal fistula REPAIRED History of colonoscopy History of tonsillectomy History of tooth extraction Family History Mother , age 84 of metastatic lung cancer Family history of diabetes mellitus Alzheimer disease Metastatic lung cancer (metastasis from lung to other site) Father , age 85 of "failure to thrive" Lung disease FH: deafness or hearing loss Brother Lung disease Denies family history of Ovarian cancer Prostate cancer Breast cancer Lung cancer Colorectal cancer Social History Smoking Status: Never smoker Second Hand Exposure: No; Hx Alcohol Use: Yes Alcohol type: beer Alcohol Intake Frequency Comment: 1-2 beers per week Hx Substance Use: No Preferred Language: Frisian Communication Ability: Effective Visual Impairment: Limited Hearing Ability: Use of Hearing Aid Lockstitch Waistline Joiner Required: No Beliefs That Will Affect Care: None marital status: Current Living Situation: Spouse Current Living Situation Comment: House 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 Incision is well-healed. Neck: trachea midline, no thyromegaly Respiratory: normal respiratory effort, lungs clear to auscultation Cardiovascular: RRR, no murmur, no edema Gastrointestinal (Abdomen): normal bowel sounds, soft, nontender, no hepatosplenomegaly Musculoskeletal: no cyanosis or clubbing, extremities motor strength 5/5 Skin: no rashes, warm and dry Neurologic: patellar DTR's 2+ bilat, sensation intact and PERRL, EOMI, accommodation nl, no face palsy, no dysarthria Psychiatric: A+Ox3, euthymic affect Time Spent Attending I spent 15 minutes in preparation for this consultation including reviewing all the clinical records, reviewing laboratory studies, pathology reports and imaging results. I spent 35 minutes with direct face to face interaction with the patient and/or family including performing a physical exam and answering all questions. I spent 10 minutes documenting this patient's visit.
--- NOTE | 2020-03-11 13:02 | Neurology Consultation ---
Date of Consultation March 11, 2020 Assessment & Plan (1) Glioblastoma multiforme of brain: (2) Focal seizure: Lonnie Rincon is a 69 yo man w/ PMH of asthma, HTN, HLD, DM, colon cancer, h/o melanoma and BC skin cancer, and recent diagnosis of GBM after new onset seizures s/p craniotomy with resection on 02/23/20 with decadron taper/tylenol and oxy for pain management and depakote/keppra for ongoing seizure prophylaxis. Neurology consulted for recurrence of left facial/LUE focal motor seizures. # Focal motor seizure: possibly c/b focal status that improved with ativan and increased keppra - AEDs: keppra increased to 1500mg bid, continue depakote 1000mg bid - recommend prescription for ativan 1mg PO prn for to be taken for seizures that last longer than 5 minutes or for 2 or more seizures in 24 hours - if seizures recur in the future, load vimpat 200mg IV and start vimpat 100mg bid - sent for UA to r/o infectious source of breakthrough seizure - recommend re-check of valproic acid (free and total levels) and ammonia in 2 weeks prior to follow up appt - f/u with neurology (ETIENNE Benites) in 2-3 weeks to check in on seizure control Thank you for this interesting consult. Plan of care discussed with primary team. Please call or text with questions. History of Present Illness Attending Physician: Linwood Jackson, DO History of Present Illness Lonnie Rincon is a 69 yo man w/ PMH of asthma, HTN, HLD, DM, colon cancer, h/o melanoma and BC skin cancer, and recent diagnosis of GBM after new onset seizures s/p craniotomy with resection on 02/23/20 with decadron taper/tylenol and oxy for pain management and depakote/keppra for ongoing seizure prophylaxis. Neurology consulted for recurrence of left facial/LUE focal motor seizures. He presented to the ED initially after developing his typical focal motor seizure involving left eye twitching and rhythmic movements of the left hand and forearm. In the ED, he was afebrile, BP 145/76, heart rate 89, respiratory rate 17, satting 95% on room air. Labs show WBC 10.78, hemoglobin 14.2, platelets 143, sodium low 134, potassium 4.6, chloride low at 97, BUN elevated 32, creatinine 0.5, glucose 99, LFTs within normal, albumin mildly low at 3.1, total Depakote level 84. Keppra level pending. Imaging independently reviewed. CT head shows right parietal craniotomy site with expected postoperative pneumocephalus and trace residual tumor versus right posterior frontal stroke, trace vasogenic edema. EEG showed stimulus induced generalized discharges and expected changes from GBM. On examination today, reports that he was in his normal state of health until approximately 2:21 PM on 03/10 when he had acute onset of left hand and forearm twitching associated with new onset of left eye and neck twitching. She tried to massage his hand with no improvement. After 1 hour of ongoing twitching, she called the outside neurologist who recommended presentation to the ED. Reports that he received Ativan in the ambulance as well as in the ED, with ongoing twitching noted until this morning after increased dose of Keppra. He was loaded with an extra 500mg IV keppra and keppra dose increased to 1500mg bid. Denies any recent cough, cold, fever, dysuria or other infectious symptoms. Denies any missed doses of medication or sleep deprivation. reports that he does not have loss of consciousness with seizures, will have a sensory aura prior to the event, seizures usually last 1 to 2 minutes and self terminate, and there is no associated tongue biting/automatisms/loss of bowel or bladder. He follows with [facility] neuro-[facility]. Allergies Allergy/AdvReac Type Severity Reaction Status Date / Time grass pollen Allergy Mild Congested Verified 03/11/20 04:23 cat dander AdvReac Intermediate Hives Verified 03/11/20 04:23 dog dander AdvReac Intermediate WELTS Verified 03/11/20 04:23 Home Medications Home Medications Medication Instructions Recorded Confirmed Type metformin 500 mg tablet 1,000 mg PO BID #360 tab 02/16/19 03/11/20 Rx albuterol sulfate 90 mcg/actuation 2 puffs INH Q6H PRN 10/07/19 03/11/20 History aerosol inhaler lisinopril 20 mg tablet 20 mg PO QAM #90 tab 11/03/19 03/11/20 Rx lisinopril 20 1 tab PO QAM #90 tab 05/12/20 09/18/20 Rx mg-hydrochlorothiazide 25 mg tablet amlodipine 5 mg tablet 2.5 mg PO QAM tab 02/03/20 03/11/20 History cinnamon bark 500 mg capsule 1,000 mg PO QAM cap 02/09/20 03/11/20 History divalproex [Depakote] 1,000 mg PO Q12H 30 Days #120 tab 02/14/20 03/11/20 Rx levetiracetam [Keppra] 1,000 mg PO BID 30 Days #120 tab 02/14/20 03/11/20 Rx cholecalciferol (vitamin D3) 50 50 mcg PO DAILY 02/18/20 03/11/20 History mcg (2,000 unit) capsule acetaminophen 325 mg capsule 325 mg PO Q4H PRN 02/26/20 03/11/20 History famotidine 20 mg tablet 20 mg PO BID 02/26/20 03/11/20 History potassium chloride 20 mEq 20 meq PO BID 02/26/20 03/11/20 History tablet,extended release dexamethasone 2 mg tablet See Rx Instructions PO .COMPLEX 03/03/20 03/11/20 History Patient History Medical History Asthma Dyslipidemia Glioblastoma multiforme of brain History of melanoma Hx of skin cancer, basal cell Hypertension Tubular adenoma of colon Type 2 diabetes mellitus Surgical History Anal fistula REPAIRED History of colonoscopy History of tonsillectomy History of tooth extraction Family History Mother , age 84 of metastatic lung cancer Family history of diabetes mellitus Alzheimer disease Metastatic lung cancer (metastasis from lung to other site) Father , age 85 of "failure to thrive" Lung disease FH: deafness or hearing loss Brother Lung disease Denies family history of Ovarian cancer Prostate cancer Breast cancer Lung cancer Colorectal cancer Social History Smoking Status: Never smoker Second Hand Exposure: No; Hx Alcohol Use: Yes Alcohol type: beer Alcohol Intake Frequency Comment: 1-2 beers per week Hx Substance Use: No Preferred Language: Mosotho Communication Ability: Effective Visual Impairment: Limited Hearing Ability: Use of Hearing Aid [employer] Required: No Beliefs That Will Affect Care: None marital status: Current Living Situation: Spouse Current Living Situation Comment: House 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 Exam (Neuro) Physical Exam: General Exam: GEN: NAD, sitting in chair. HEENT: No conjunctival injection, no rhinorrhea. CV: RRR, no peripheral edema PULM: Nonlabored respirations on room air. Neuro Exam: MS: Awake and Alert. Oriented to person, place, and date. Speech fluent and appropriate without dysarthria or paraphasic errors. Language intact including naming, comprehension, repetition. Cognition and memory grossly intact. Attention intact. No neglect. CN: Visual colon full. No extinction to double simultaneous stimuli. No optic disc edema on fundoscopic exam. PERRLA OU. EOMI without nystagmus. Facial sensation intact to LT. Facial muscles full and symmetric. Hearing intact to conversation. Uvula midline with symmetric palatal elevation. Shoulder shrug nor mal. Tongue midline. MOTOR: Normal bulk and tone. No pronator drift. RUE strength 5/5 at deltoids, biceps, triceps, wrist flexors and extensors, and hand grasp. LUE strength 5/5 at deltoids, biceps, triceps, 4/5 wrist flexors and extensors, and 4/5 hand grasp. BLE strength 5/5 at iliopsoas, hamstrings, quadriceps, tibialis anterior, and gastrocnemius bilaterally. REFLEXES: 1+ at biceps, triceps, brachioradialis, 1+ patella and absent Achilles bilaterally. Flexor plantar responses bilaterally. SENSORY: Intact to LT without extinction to double simultaneous stimuli. Vibration intact throughout. COORDINATION: No dysmetria or ataxia on [id number] bilaterally (difficult to perform in LUE 2/2 baseline weakness). Normal Prabhu in RUE, difficulty performing finger taps in left hand. GAIT: Normal gait and arm swing. Normal Romberg. Results & Data ([facility]) Vital Signs (Past 12 Hours) Vital Signs Temp Pulse Pulse Resp BP BP Pulse Ox 03/11/20 10:54 36.6 C 72 20 105/67 94 03/11/20 06:56 36.6 C 76 18 113/72 95 03/11/20 06:30 70 12 95 03/11/20 06:01 74 18 96 03/11/20 06:00 74 19 108/66 98 03/11/20 05:30 78 19 95 03/11/20 05:03 75 14 93 03/11/20 05:02 76 14 108/62 93 03/11/20 04:30 86 17 94 03/11/20 04:12 36.6 C 89 17 145/76 H 95 PG Care Time/CCT Total # of Minutes Spent Total Time Spent with Patient: Total time spent is greater than 50% in coordination of care (as documented) at patient's floor/unit and/or counseling patient: Coding Level of Care Code 09286 Initial Inpt Care Lvl 3 Diagnoses Glioblastoma multiforme of brain C71.9 Focal seizure R56.9
[2020-03-11] MEDS ORDERED: Nursing to Pharmacy Communication SCH (14:00)
--- NOTE | 2020-03-11 14:18 | Electroencephalogram ---
EEG Procedure Note Date of Service March 11, 2020 Start / End Times Start Time: 7:19am End Time: 7:39am Referring Physician Dereje Pereira History seizure Home Medication List Home Medications Medication Instructions Recorded Confirmed Type metformin 500 mg tablet 1,000 mg PO BID #360 tab 02/16/19 03/11/20 Rx albuterol sulfate 90 mcg/actuation 2 puffs INH Q6H PRN 10/07/19 03/11/20 History aerosol inhaler lisinopril 20 mg tablet 20 mg PO QAM #90 tab 11/03/19 03/11/20 Rx lisinopril 20 1 tab PO QAM #90 tab 11/03/19 03/11/20 Rx mg-hydrochlorothiazide 25 mg tablet amlodipine 5 mg tablet 2.5 mg PO QAM tab 02/03/20 03/11/20 History cinnamon bark 500 mg capsule 1,000 mg PO QAM cap 02/09/20 03/11/20 History divalproex [Depakote] 1,000 mg PO Q12H 30 Days #120 tab 02/14/20 03/11/20 Rx levetiracetam [Keppra] 1,000 mg PO BID 30 Days #120 tab 02/14/20 03/11/20 Rx cholecalciferol (vitamin D3) 50 50 mcg PO DAILY 02/18/20 03/11/20 History mcg (2,000 unit) capsule acetaminophen 325 mg capsule 325 mg PO Q4H PRN 02/26/20 03/11/20 History famotidine 20 mg tablet 20 mg PO BID 02/26/20 03/11/20 History potassium chloride 20 mEq 20 meq PO BID 02/26/20 03/11/20 History tablet,extended release dexamethasone 2 mg tablet See Rx Instructions PO .COMPLEX 03/03/20 03/11/20 History Inpatient Medication List Divalproex Sodium (Divalproex Delay Release 500 Mg Tab) 500 mg PO Q12 MED Stop: 04/10/20 06:29 Last Admin: 03/11/20 06:35 Dose: 500 mg Documented by: [id number] Famotidine (Famotidine 20 Mg Tab) 20 mg PO BID MED Stop: 04/10/20 08:59 Last Admin: 03/11/20 08:22 Dose: 20 mg Documented by: [id number] Sodium Chloride (Nss 1000ml) 1,000 mls @ 80 mls/hr IV .[id number] MED Stop: 04/10/20 07:14 Last Admin: 03/11/20 08:35 Dose: 80 mls/hr Documented by: [id number] Potassium Chloride (Potassium Chloride 20 Meq Tabcr) 20 meq PO DAILY MED Stop: 04/10/20 08:59 Last Admin: 03/11/20 08:23 Dose: 20 meq Documented by: [id number] Vitamin D (Cholecalciferol 1,000 Units 25 Mcg Tab) 2,000 units PO DAILY MED Stop: 04/10/20 08:59 Last Admin: 03/11/20 08:22 Dose: 2,000 units Documented by: [id number] Discontinued Medications Dexamethasone (Dexamethasone Sod Inj 4 Mg/Ml Vial) 4 mg IV ONE STA Stop: 03/11/20 06:30 Last Admin: 03/11/20 06:38 Dose: 4 mg Documented by: [id number] Lorazepam (Ativan) 1 mg in 2 mls @ 2 mls/min IV NOW STA Stop: 03/11/20 04:16 Last Admin: 03/11/20 04:18 Dose: 2 mls/min Documented by: [id number] Sodium Chloride (Nss) 500 mls @ 999 mls/hr IV .Q31M ONE Stop: 03/11/20 05:45 Last Infusion: 03/11/20 05:59 Dose: 0 mls/hr Documented by: [id number] Admin: 03/11/20 05:21 Dose: 999 mls/hr Documented by: [id number] Lorazepam (Ativan) 0.5 mg in 1 mls @ 1 mls/min IV NOW STA Stop: 03/11/20 05:16 Last Admin: 03/11/20 05:24 Dose: 1 mls/min Documented by: [id number] Levetiracetam 500 mg/ Sodium (Chloride) 105 mls @ 440 mls/hr IV NOW STA Stop: 03/11/20 09:41 Last Infusion: 03/11/20 10:31 Dose: 0 mls/hr Documented by: [id number] Admin: 03/11/20 10:04 Dose: 440 mls/hr Documented by: [id number] Insulin Aspart (Insulin Aspart 100 Units/Ml 3 Ml Pen) 0 units SC Q6 MED Stop: 04/10/20 07:29 Last Admin: 03/11/20 12:18 Dose: 4 units Documented by: [id number] Cosigned by: [id number] Admin: 03/11/20 09:22 Dose: Not Given Documented by: [id number] Cosigned by: [id number] Levetiracetam (Levetiracetam 500 Mg Tab) 1,000 mg PO BID MED Stop: 04/10/20 08:59 Last Admin: 03/11/20 08:22 Dose: 1,000 mg Documented by: [id number] Description This is a 21 electrode EEG with a single channel dedicated to limited EKG. The electrodes were placed in accordance with the International 10-20 system. History: GBM c/b focal motor seizure Rx: depakote, keppra, ativan Start/Stop: 7:19am/7:39am Attending reading: Amie Lomeli EEG Description: EEG background: Background showed symmetric alpha rhythm with occasional left parietal focal slowing. +breach rhythm present. A brief poorly formed 8-9 Hz posterior dominant rhythm was observed. The EEG is continuous. There is elsa iability and reactivity present. Activation and reactivity: Photic stimulation performed without any abnormalities noted. No photic driving observed. Hyperventilation was not performed. Sleep: Patient was briefly drowsy. Stages I and II of sleep were recorded with normal vertex waves and sleep spindles noted. Epileptiform discharges: No epileptiform discharges were observed. Rhythmic and periodic patterns: Frequent stimulus-induced generalized 1 Hz spike and wave discharges lasting 1-8 seconds in duration in relation to a stimulus Seizures: No definitive EEG correlate noted with left facial/arm twitching noted (did have twitches without any clear change to the EEG background) Impression: This was an abnormal EEG given stimulus induced generalized discharges and focal slowing, likely 2/2 known GBM with recent resection. No clear seizures or epileptiform discharges were seen. [facility] EEG Procedure Codes Indication for Procedure (1) Glioblastoma multiforme of brain: (2) Focal seizure: Neurology Neurology: [id number] EEG include record awake & sleepy
--- NOTE | 2020-03-11 16:02 | History & Physical Bridge Note ---
Date of Service March 11, 2020 History & Physical Bridge Note I have examined the patient, reviewed the History & Physical and in the interval since the performance of the History & Physical I have noted the following changes of clinical significance: no further seizure activity, patient feels weak overall discussed with Dr. Lomeli, she recommends increasing Keppra to 1500mg BID, gave 500mg IV this morning could discharge to home tomorrow with a PRN Ativan will aske PT/OT to see him discussed with his , most likely for home tomorrow
[2020-03-11 16:36] LABS: Appearance Urine Clear (Clear); Bilirubin Urine Negative (Negative); Blood Urine Negative (Negative); Color Urine Yellow; Glucose Urine UA Negative (Negative); Ketones Urine Trace (Negative); Leukocyte Esterase Urine Negative (Negative); Nitrite Urine Negative (Negative); Protein Urine Negative (Negative); Specific Gravity Urine 1.012 (1.000-1.030); Urobilinogen Urine Negative (Negative); pH Urine 6.5 (4.5-7.5)
[2020-03-11] MEDS: dexAMETHasone 4 MG in SYRINGE 0 ML IV SCH (17:11)
[2020-03-11] MEDS: levETIRAcetam 500 MG TAB PO SCH (20:53)
[2020-03-12] MEDS: DIVALPROEX DELAY RELEASE 500 MG TAB PO SCH ×3 (05:34→08:09)
[2020-03-12] MEDS: dexAMETHasone 4 MG in SYRINGE 0 ML IV SCH (05:34)
[2020-03-12 07:01] LABS: Estimated Average Glucose 131 mg/dl; Hemoglobin A1C 6.2 % (4.5-5.6)
[2020-03-12 07:25] VITALS: TEMP 97.3
[2020-03-12] MEDS: INSULIN ASPART 100 UNITS/ML 3 ML PEN SC SCH ×2 (08:03→12:01)
[2020-03-12] MEDS: POTASSIUM CHLORIDE 20 MEQ TABCR PO SCH (08:07)
[2020-03-12] MEDS: FAMOTIDINE 20 MG TAB PO SCH (08:07)
[2020-03-12] MEDS: CHOLECALCIFEROL 1,000 UNITS 25 MCG TAB PO SCH (08:08)
[2020-03-12] MEDS: levETIRAcetam 500 MG TAB PO SCH (08:08)
[2020-03-12 11:14] VITALS: BP 115/68; PULSE 66; O2SAT 95
--- NOTE | 2020-03-12 14:38 | Discharge Summary ---
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 Patient was initially admitted to [facility] from 02/09-02/13 after having an outpatient MRI with intracranial mass suspected to be high-grade glioma versus metastatic disease. During that admission he was placed on Keppra and Depakote for seizure control. He underwent gamma knife radiosurgery to the lesion at [facility], and had not had any seizure activity since that time until today. He does have a pending appointment with radiation oncology next week at [facility]. In the emergency department tonight, he was given a total of 1/2 mg of Ativan IV, with improvement in his left facial spasm and left arm twitching. Principal Diagnosis seizure Discharge Exam Constitutional WD/WN, vitals as above Respiratory normal respiratory effort, lungs clear to auscultation Cardiovascular RRR, no murmur, no edema Gastrointestinal (Abdomen) normal bowel sounds, soft, nontender, no hepatosplenomegaly Musculoskeletal no cyanosis or clubbing, extremities motor strength 5/5 Skin no rashes, warm and dry Neurologic CN's II-XI intact bilaterally, moves all extremities and awake left arm and left facial twitching, weak left hand grasp Psychiatric A+Ox3, euthymic affect Discharge Data Allergies Allergy/AdvReac Type Severity Reaction Status Date / Time grass pollen Allergy Mild Congested Verified 03/11/20 04:23 cat dander AdvReac Intermediate Hives Verified 03/11/20 04:23 dog dander AdvReac Intermediate WELTS Verified 03/11/20 04:23 Consultations 03/11/20 05:33 ED Decision to Admit Stat 03/11/20 06:51 Consult Radiation Oncology Routine 03/11/20 07:15 Consult Case Management - Discharge Planning Routine Consult Neurology Routine Ordered Studies 03/11/20 04:17 CT head/brain wo con Urgent Hospital Course (1) Refractory simple partial seizure with motor dysfunction: Continue divalproex 1000 mg p.o. every 12 hours, with therapeutic valproic acid level of 84. Continue levetiracetam 1000 mg p.o. twice daily, with level pending. CT of brain does not suggest any acute process such as edema or hemorrhage. Abnormal EEG given stimulus induced generalized discharges and focal slowing, likely 2/2 known GBM with recent resection. No clear seizures or epileptiform discharges were seen Changed Decadron from 2 mg p.o. twice daily to 4 mg IV every 12 hours, for possible edema and for adrenal insufficiency - return to 2mg for home Lorazepam 1 mg IV every 15 minutes as needed seizure activity to a maximum dose of 3. Consulted neurology - discussed ongoing left sided twitching with neurology - could add Vimpat but this may be sedating with his other medications. Additional changes to regimen should be made by neuro oncologist to avoid interactions wtih chemo. Patient and in agreement that his symptoms are tolerable and so are ok with holding off on adding anything further. Additionally, as there was no seizure activity on EEG these symptoms may be sequelae of his surgery rather than true seizure activity. Please see Dr. Lomeli's note if adding Vimpat is needed when following up outpatient. (2) Cerebral mass: Patient family reports that this was a glioblastoma. Per discharge note from [facility] patient had a resection and biopsy on 02/[address] Nichole from radiation oncology - will follow up on Saturday for CT His reports that he used to be starting a oral chemotherapy, the night before radiation treatment. (3) Hypertension: BPs acceptable Can resume home lisinopril/HCTZ but will dc amlodipine for lower normal pressures. (4) Type 2 diabetes mellitus: Resume metformin at discharge Placed on Accu-Cheks before meals and at bedtime with NovoLog coverage for scale Total Time Total Time Spent Total Time Spent (In Minutes): greater than 30 minutes Discharge Plan Discharge Items Patient Disposition: Home - Self-Care Reason For Visit: SEIZURE ACTIVITY, S/P GLIOBLASTOMA SURGERY Discharge Diagnosis: Focal motor seizure Glioblastoma s/p surgical resection Condition on Discharge: Good Goals: control seizures with increased Keppra and Ativan as needed follow up with neurology in 2-3 weeks follow up with radiation oncology next week Activity: Resume your previous activity Driving/Machine Use: no driving Weightbearing: Full weightbearing Non-emergency contact: Primary Care Provider and Neurologist Call non-emergency contact if: you have any medication questions and your symptoms worsen Follow-up/Referrals: Isaac Branham MD [Primary Care Provider] - (one week) Bernardino Nichole MD [Physician] - (next week) Case,Meri Villatoro PA-C [Physician Log Marker] - (2-3 weeks) Diet: Carb Consistent or DM2 Addtl Attending Provider Instructions: Medications: - KEPPRA: increased to 1500mg twice a day, new script sent - LORAZEPAM: 1mg tablet, take as need for seizures lasting longer than 5 minutes OR two seizures in 24 hour period Focal seizure in setting of recent surgery for glioblastoma EEG was abnormal with findings likely due to glioblastoma with recent resection. No clear seizures or epileptiform discharges were seen Dr. Lomeli recommends increasing Keppra to 1500mg twice a day use Ativan as needed continue Decadron at 2mg twice a day follow up with neurology clinic in 2-3 weeks if you have repeated seizures that do not respond to Ativan or happening frequently you can return to hospital Pending Studies at Discharge: No Stand-Alone Forms: [facility], Smoking Cessation Medications and DC Order Prescriptions: New levetiracetam [Keppra] 500 mg Tablet 1,500 mg PO BID 30 Days Qty: 180 RF: 3 lorazepam [Ativan] 1 mg tablet 1 mg PO DAILY PRN (Reason: seizure activity) Qty: 30 RF: 0 Continued metformin 500 mg tablet 1,000 mg PO BID Qty: 360 RF: 3 albuterol sulfate [ProAir HFA] 90 mcg/actuation HFA aerosol inhaler 2 puffs INH Q6H PRN (Reason: Shortness Of Breath) RF: 0 lisinopril-hydrochlorothiazide 20-25 mg tablet 1 tab PO QAM Qty: 90 RF: 3 lisinopril 20 mg tablet 20 mg PO QAM Qty: 90 RF: 3 amlodipine 5 mg tablet 2.5 mg PO QAM RF: 0 cholecalciferol (vitamin D3) 50 mcg (2,000 unit) capsule 50 mcg PO DAILY RF: 0 potassium chloride 20 mEq tablet extended release 20 meq PO BID RF: 0 acetaminophen 325 mg capsule 325 mg PO Q4H PRN (Reason: Pain) RF: 0 famotidine 20 mg tablet 20 mg PO BID RF: 0 dexamethasone 2 mg tablet See Rx Instructions PO .COMPLEX RF: 0 cinnamon bark 500 mg capsule 1,000 mg PO QAM RF: 0 divalproex [Depakote] 500 mg tablet,delayed release (DR/EC) 1,000 mg PO Q12H 30 Days Qty: 120 RF: 1 Discontinued levetiracetam [Keppra] 500 mg Tablet 1,000 mg PO BID 30 Days Qty: 120 RF: 1 Discharge Orders: Discharge Order (Routine); Ordered 03/12/20 Ordered By: Marge Wong/Other Patient Handouts: Managing Type 2 Diabetes Admission Data Admit Date/Time: 03/11/20 06:07 Attending Provider: Linwood Jackson Admit Provider: Dereje Pereira Primary Care Provider: Isaac Branham Other Providers: Dereje Pereira ; Bernardino Nichole ; Benny Rivera ; [facility] Other Interventions: Discharge Summary Assessment (RN) Last Done: 03/12/20 15:37 Supervising Physician Co-Signing Physician Notes Patient seen and examined within 24 hours of discharge. I agree with the discharge summary by Marge COOK. I have reviewed the chart including labs, imaging and plans for discharge. patient doing better, having some twitching of left arm and left face may not constitute a seizure at all, possible that neurons that innervate the left upper extremity and left face were partially removed with surgery - Focal seizure, breakthrough discharge home on increased dose of Keppra 1500mg BID and Depakote 1000mg BID use Ativan PRN for seizure > 5 minutes or two seizures in 24 hours follow up with neurology - Glioblastoma, s/p resection follow up with radiation oncology this week continue Decadron 2mg PO BID Coding Level of Care Code D/C Day Management >30 mins Diagnoses Refractory simple partial seizure with motor dysfunction G40.119 Cerebral mass G93.89 Hypertension I10 Type 2 diabetes mellitus E11.9
== END 2020-03-12 15:30 | disposition home or self-care (01) ==
LOC: ED 03:57 → 2E 06:07 → SUATTDRO 06:07 → INTOOBSV 06:07 → 2E 06:40

== ENCOUNTER 2020-07-21 01:24 | Inpatient (IN) ==
[2020-07-21] MEDS ORDERED: ONDANSETRON INJ 2 MG/ML 2 ML VIAL ONE (02:11)
[2020-07-21 03:11] LABS: Eosinophils # (auto) 0.01 K/uL (0-0.5); Eosinophils % (auto) 0.3 %; Hematocrit (blood only) 37.4 % (42-52); Immature Granulocytes # (auto) 0.02 K/uL (0.00-0.02); Immature Granulocytes % (auto) 0.5 %; Lymphocytes # (auto) 0.16 K/uL (1.2-3.4); Lymphocytes % (auto) 4.4 %; Mean Corpuscular Hgb Conc 34.8 g/dL (32-36); Mean Corpuscular Volume 97.9 fL (80-100); Mean Platelet Volume 8.4 fL (7.4-10.4); Monocytes # (auto) 0.03 K/uL (0.11-0.59); Monocytes % (auto) 0.8 %; Neutrophils # (auto) 3.43 K/uL (1.4-6.5); Platelet Count 144 K/uL (130-400); RDW Coefficient of Variation 14.8 % (11.5-14.5); RDW Standard Deviation 52.7 fL (36.4-46.3); Red Blood Count 3.82 M/uL (4.7-6.1); White Blood Count 3.65 K/uL (4.8-10.8)
[2020-07-21 03:15] LABS: iSTAT Creatinine 0.6 mg/dl (0.6-1.3); iSTAT Hemoglobin 11.9 g/dl (14.0-18.0); iSTAT Ionized Calcium 1.17 mmol/l (1.12-1.32); iSTAT Potassium 3.2 mmol/L (3.3-5.0)
--- NOTE | 2020-07-21 03:22 | Emergency Department Note ---
History of Present Illness General Chief complaint: Shortness of Breath/Dyspnea Stated complaint: SHORT OF BREATH Time Seen by Provider: 07/21/20 01:35 Source: patient and family Mode of arrival: EMS Limitations: altered mental status History of Present Illness Provider complaint: Shortness of breath Onset (ago): hour(s) 3 Exacerbated By: + movement Associated symptoms: + confusion, + nausea/vomiting and + shortness of breath; no cough and no fever/chills This is a 70-year-old male who presents via EMS from home after complaining of shortness of breath earlier in the evening to his . Patient states he has a history of asthma and did try his inhaler. Patient denies use of oxygen at home. Patient denies any recent cough or cold symptoms. Patient states he is currently taking chemotherapy for a brain tumor. Patient denies any swelling in his legs. Patient denies any history of heart problems. Patient states this is the second cycle of this chemotherapy. He denies having any trouble breathing during the first cycle of the same medication. Patient denies any known sick contacts or exposure to coronavirus. He states his is not sick. Patient is a difficult historian, gets distracted during questioning and forgets the question or his train of thought. Patient intermittently mumbling. EMS stated on their arrival patient's oxygen saturations were in the 80s so he was placed on 2 L via nasal cannula and came up into the low 90s. Patient did vomit once for EMS in route, and vomited once here on arrival. I did discuss with the patient's condition and what happened at home. She states he seemed in his usual state of health earlier today, and then this jade briceño began complaining of shortness of breath. She states she did try giving him his inhaler at home and that did not seem to help so she contacted 911. She states he does not wear home oxygen. She states his mild confusion and difficulty concentrating is normal for him taking this current chemotherapy cycle and he had this previously. She states that has been unchanged. She denies that he has had any headaches, fevers, vomiting, diarrhea. She denies he has any other cardiac history or history of congestive heart failure. He states his oncologist is at [facility]. Pt seen during a time of high acuity and national emergency pandemic while wearing PPE. Home Medications Medication Instructions Recorded Confirmed Type albuterol sulfate 90 mcg/actuation 2 puffs INH Q6H PRN 10/07/19 07/21/20 History aerosol inhaler cinnamon bark 500 mg capsule 1,000 mg PO QAM cap 02/09/20 07/21/20 History cholecalciferol (vitamin D3) 50 50 mcg PO DAILY 02/18/20 07/21/20 History mcg (2,000 unit) capsule levetiracetam [Keppra] 1,500 mg PO BID 30 Days #180 tab 03/11/20 07/21/20 Rx lorazepam 1 mg tablet 1 mg PO DAILY PRN tab 04/04/20 07/21/20 History metformin 500 mg tablet 1,000 mg PO BID #360 tab 04/11/20 07/21/20 Rx rivaroxaban 10 mg tablet 10 mg PO DAILY #45 tab 05/10/20 07/21/20 Rx amlodipine 2.5 mg tablet 2.5 mg PO QAM #90 tab 05/11/20 07/21/20 Rx clonazepam 0.5 mg tablet 0.5 mg PO BID tab 05/11/20 07/21/20 History dexamethasone 2 mg tablet 2 mg PO QAM tab 05/11/20 07/21/20 History nystatin-triamcinolone 100,000 1 applic TOPICAL BID #30 g 05/11/20 07/21/20 Rx unit/g-0.1 % topical cream lisinopril 40 mg tablet 40 mg PO QAM #90 tab 07/04/20 07/21/20 Rx ondansetron HCl 8 mg PO Q8 PRN 07/21/20 07/21/20 History potassium chloride 20 meq PO DAILY 07/21/20 07/21/20 History Allergies Allergy/AdvReac Type Severity Reaction Status Date / Time grass pollen Allergy Mild Congested Verified 07/21/20 01:37 cat dander AdvReac Intermediate Hives Verified 07/21/20 01:37 dog dander AdvReac Intermediate WELTS Verified 07/21/20 01:37 Past Med/Surg History Medical History (Updated 07/21/20 @ 06:33 by Nadia De La Vega DO) Acute dehydration Asthma Deep vein thrombosis (DVT) of left lower extremity Dyslipidemia Focal seizure Glioblastoma multiforme of brain History of melanoma Hx of skin cancer, basal cell Hypertension Superficial thrombophlebitis Tubular adenoma of colon Type 2 diabetes mellitus Surgical History Anal fistula REPAIRED H/O brain surgery Sherine 01/23/2020 History of colonoscopy History of tonsillectomy History of tooth extraction Family History Mother , age 84 of metastatic lung cancer Family history of diabetes mellitus Alzheimer disease Metastatic lung cancer (metastasis from lung to other site) Father , age 85 of "failure to thrive" Lung disease FH: deafness or hearing loss Brother Lung disease Denies family history of Ovarian cancer Prostate cancer Breast cancer Lung cancer Colorectal cancer Social History Smoking Status: Never smoker Second Hand Exposure: No; Hx Alcohol Use: Yes Alcohol type: beer Alcohol Intake Frequency: 2-4 x/Month Alcohol Intake Frequency Comment: 1-2 beers per week Hx Substance Use: No Preferred Language: Romansh Communication Ability: Effective Visual Impairment: Limited Hearing Ability: Use of Hearing Aid Camera Technician Required: No Beliefs That Will Affect Care: None marital status: Current Living Situation: Spouse Current Living Situation Comment: House current occupational status: retired 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 and A total of 10 systems reviewed and were otherwise negative Physical Exam Vital Signs Vital Signs - 24 hr 07/21/20 01:33 07/21/20 01:36 07/21/20 01:38 Temperature 37.3 C Temperature Source Oral Pulse Rate 145 H 143 H 144 H Pulse Rate from SpO2 Sensor 145 H Respiratory Rate 6 L 22 16 Respiratory Effort / Characteristics Non-Labored Spontaneous Respiratory Depth Normal Respiratory Pattern Regular Blood Pressure 104/57 L 104/57 L Blood Pressure Mean 72 72 Pulse Oximetry 92 93 Oxygen Delivery Method Nasal Cannula Oxygen Flow Rate 3 Sepsis Recent Fever Within 48 Hours No Sepsis New/Unexplained Change in Mental Status No Sepsis Action Taken by Nursing Physician Notified Oxygen Flow Rate - Titration Pulse Oximetry Post Tiitration 07/21/20 01:40 07/21/20 01:42 07/21/20 01:50 Temperature Temperature Source Pulse Rate 143 H 135 H Pulse Rate from SpO2 Sensor 143 H 135 H Respiratory Rate 3 L 10 L Respiratory Effort / Characteristics Respiratory Depth Respiratory Pattern Blood Pressure Blood Pressure Mean Pulse Oximetry 93 93 94 Oxygen Delivery Method Nasal Cannula Oxygen Flow Rate 3 Sepsis Recent Fever Within 48 Hours Sepsis New/Unexplained Change in Mental Status Sepsis Action Taken by Nursing Oxygen Flow Rate - Titration 3 Pulse Oximetry Post Tiitration 93 07/21/20 02:00 07/21/20 02:10 07/21/20 02:20 Temperature Temperature Source Pulse Rate 126 H 150 H 128 H Pulse Rate from SpO2 Sensor 127 H 150 H 128 H Respiratory Rate 5 L 23 15 Respiratory Effort / Characteristics Respiratory Depth Respiratory Pattern Blood Pressure Blood Pressure Mean Pulse Oximetry 92 93 93 Oxygen Delivery Method Oxygen Flow Rate Sepsis Recent Fever Within 48 Hours Sepsis New/Unexplained Change in Mental Status Sepsis Action Taken by Nursing Oxygen Flow Rate - Titration Pulse Oximetry Post Tiitration 07/21/20 02:24 07/21/20 02:30 07/21/20 02:35 Temperature Temperature Source Pulse Rate 122 H 113 H 96 H Pulse Rate from SpO2 Sensor 122 H 113 H 96 H Respiratory Rate 15 18 21 Respiratory Effort / Characteristics Respiratory Depth Respiratory Pattern Blood Pressure 87/45 L 52/35 L Blood Pressure Mean 59 40 Pulse Oximetry 93 93 93 Oxygen Delivery Method Oxygen Flow Rate Sepsis Recent Fever Within 48 Hours Sepsis New/Unexplained Change in Mental Status Sepsis Action Taken by Nursing Oxygen Flow Rate - Titration Pulse Oximetry Post Tiitration 07/21/20 02:37 07/21/20 02:40 07/21/20 02:42 Temperature Temperature Source Pulse Rate 97 H 99 H 97 H Pulse Rate from SpO2 Sensor 98 H 97 H 98 H Respiratory Rate 25 H 21 13 Respiratory Effort / Characteristics Respiratory Depth Respiratory Pattern Blood Pressure 59/36 L 66/40 L Blood Pressure Mean 43 48 Pulse Oximetry 93 94 93 Oxygen Delivery Method Oxygen Flow Rate Sepsis Recent Fever Within 48 Hours Sepsis New/Unexplained Change in Mental Status Sepsis Action Taken by Nursing Oxygen Flow Rate - Titration Pulse Oximetry Post Tiitration 07/21/20 02:46 07/21/20 02:50 07/21/20 02:58 Temperature Temperature Source Pulse Rate 101 H 104 H 112 H Pulse Rate from SpO2 Sensor 101 H 105 H 112 H Respiratory Rate 23 20 21 Respiratory Effort / Characteristics Respiratory Depth Respiratory Pattern Blood Pressure 70/39 L 69/33 L 105/55 L Blood Pressure Mean 49 45 71 Pulse Oximetry 93 95 95 Oxygen Delivery Method Oxygen Flow Rate Sepsis Recent Fever Within 48 Hours Sepsis New/Unexplained Change in Mental Status Sepsis Action Taken by Nursing Oxygen Flow Rate - Titration Pulse Oximetry Post Tiitration 07/21/20 03:00 07/21/20 03:01 07/21/20 03:17 Temperature Temperature Source Pulse Rate 113 H 113 H 116 H Pulse Rate from SpO2 Sensor 113 H 114 H 115 H Respiratory Rate 19 20 18 Respiratory Effort / Characteristics Respiratory Depth Respiratory Pattern Blood Pressure 98/51 L Blood Pressure Mean 66 Pulse Oximetry 95 95 95 Oxygen Delivery Method Oxygen Flow Rate Sepsis Recent Fever Within 48 Hours Sepsis New/Unexplained Change in Mental Status Sepsis Action Taken by Nursing Oxygen Flow Rate - Titration Pulse Oximetry Post Tiitration 07/21/20 03:18 07/21/20 03:20 07/21/20 03:30 Temperature Temperature Source Pulse Rate 117 H 116 H 117 H Pulse Rate from SpO2 Sensor 117 H 117 H 117 H Respiratory Rate 17 34 H 16 Respiratory Effort / Characteristics Respiratory Depth Respiratory Pattern Blood Pressure 97/57 L 100/48 L Blood Pressure Mean 70 65 Pulse Oximetry 99 98 99 Oxygen Delivery Method Oxygen Flow Rate Sepsis Recent Fever Within 48 Hours Sepsis New/Unexplained Change in Mental Status Sepsis Action Taken by Nursing Oxygen Flow Rate - Titration Pulse Oximetry Post Tiitration 07/21/20 03:31 07/21/20 03:40 07/21/20 03:50 Temperature Temperature Source Pulse Rate 119 H 116 H 121 H Pulse Rate from SpO2 Sensor 119 H 116 H 120 H Respiratory Rate 22 20 33 H Respiratory Effort / Characteristics Respiratory Depth Respiratory Pattern Blood Pressure Blood Pressure Mean Pulse Oximetry 99 100 100 Oxygen Delivery Method Oxygen Flow Rate Sepsis Recent Fever Within 48 Hours Sepsis New/Unexplained Change in Mental Status Sepsis Action Taken by Nursing Oxygen Flow Rate - Titration Pulse Oximetry Post Tiitration 07/21/20 04:00 07/21/20 04:10 07/21/20 04:20 Temperature Temperature Source Pulse Rate 117 H 116 H 116 H Pulse Rate from SpO2 Sensor 117 H 115 H 115 H Respiratory Rate 31 H 15 25 H Respiratory Effort / Characteristics Respiratory Depth Respiratory Pattern Blood Pressure 103/48 L Blood Pressure Mean 66 Pulse Oximetry 100 100 100 Oxygen Delivery Method Oxygen Flow Rate Sepsis Recent Fever Within 48 Hours Sepsis New/Unexplained Change in Mental Status Sepsis Action Taken by Nursing Oxygen Flow Rate - Titration Pulse Oximetry Post Tiitration 07/21/20 04:30 07/21/20 04:40 07/21/20 05:00 Temperature Temperature Source Pulse Rate 114 H 115 H 109 H Pulse Rate from SpO2 Sensor 114 H 114 H 110 H Respiratory Rate 20 33 H 9 L Respiratory Effort / Characteristics Respiratory Depth Respiratory Pattern Blood Pressure 95/50 L 100/58 L Blood Pressure Mean 65 72 Pulse Oximetry 100 100 100 Oxygen Delivery Method Oxygen Flow Rate Sepsis Recent Fever Within 48 Hours Sepsis New/Unexplained Change in Mental Status Sepsis Action Taken by Nursing Oxygen Flow Rate - Titration Pulse Oximetry Post Tiitration 07/21/20 05:09 07/21/20 05:11 07/21/20 05:20 Temperature Temperature Source Pulse Rate 111 H 109 H 107 H Pulse Rate from SpO2 Sensor 111 H 110 H 107 H Respiratory Rate 29 H 20 33 H Respiratory Effort / Characteristics Respiratory Depth Respiratory Pattern Blood Pressure 111/69 Blood Pressure Mean 83 Pulse Oximetry 98 99 99 Oxygen Delivery Method Oxygen Flow Rate Sepsis Recent Fever Within 48 Hours Sepsis New/Unexplained Change in Mental Status Sepsis Action Taken by Nursing Oxygen Flow Rate - Titration Pulse Oximetry Post Tiitration 07/21/20 05:30 07/21/20 05:31 07/21/20 05:40 Temperature Temperature Source Pulse Rate 114 H 110 H 109 H Pulse Rate from SpO2 Sensor 114 H 110 H 110 H Respiratory Rate 5 L 8 L 19 Respiratory Effort / Characteristics Respiratory Depth Respiratory Pattern Blood Pressure 100/55 L Blood Pressure Mean 70 Pulse Oximetry 97 97 98 Oxygen Delivery Method Oxygen Flow Rate Sepsis Recent Fever Within 48 Hours Sepsis New/Unexplained Change in Mental Status Sepsis Action Taken by Nursing Oxygen Flow Rate - Titration Pulse Oximetry Post Tiitration GENERAL: alert, unwell appearing, well nourished, no distress, non-toxic EYE EXAM: normal conjunctiva, PERRL and EOM's grossly intact OROPHARYNX: no exudate, no erythema, lips, buccal mucosa, and tongue normal and mucous membranes are moist NECK: supple, no nuchal rigidity, no adenopathy, non-tender LUNGS: Clear to auscultation. Normal chest wall mechanics, no w/r/r HEART: no murmurs, S1 normal and S2 normal, sinus tachycardia on telemetry at 135 ABDOMEN: abdomen soft, non-tender, normo-active bowel sounds, no masses, no rebound or guarding. BACK: Back is symmetrical on inspection and there is no deformity, no midline tenderness, no CVA tenderness. SKIN: no rashes and no bruising UPPER EXTREMITIES: upper extremities are grossly normal. FROM, nml pulses b/l. LOWER EXTREMITIES: No pitting edema. FROM, nml pulses b/l. NEURO EXAM: Patient is awake, can provide some questions of orientation, however confused to timing and chronology of events cranial nerves II-XII grossly intact, normal speech, no gross weakness of arms, no gross weakness of legs. Gross sensation intact. Course Course 015: BP now lower. IVF opened to bolus. 2010: BP much lower, additional IV fluids hung. Patient still arousable and will answer simple questions, no cyanosis or mottling noted, heart rate improved to the upper 90s. 0235: Multiple attempts to obtain an improved BP with fluids running, patient still hypotensive although still awake and will answer simple questions. Portable chest x-ray performed at bedside given patient too unstable to go to CT. 0302: Blood pressure now improved, will attempt to send patient for CT. 0327: Pt still answers simple questions, SBP upper 90's. No hypoxia. 0425: Updated , Ivette. 0511: Discussed with Dr. Pereira. Administered Medications Sodium Chloride (Nss) 500 mls @ 125 mls/hr IV .Q4H MED Stop: 08/20/20 01:59 Last Admin: 07/21/20 04:06 Dose: Not Given Documented by: [id number] Discontinued Medications Cefepime HCl (Maxipime) 2,000 mg in 20 mls @ 5 mls/min IV NOW STA Stop: 07/21/20 03:30 Last Admin: 07/21/20 04:05 Dose: 5 mls/min Documented by: [id number] Sodium Chloride (Nss 1000ml) 2,000 mls @ 999 mls/hr IV .Q2H1M ONE Stop: 07/21/20 05:27 Last Infusion: 07/21/20 05:02 Dose: 0 mls/hr Documented by: [id number] Admin: 07/21/20 03:32 Dose: 999 mls/hr Documented by: [id number] Magnesium Sulfate/Dextrose (Magnesium Sulfate / D5w) 1 gm in 100 mls @ 100 mls/hr IV Q1H MED Stop: 07/21/20 05:48 Last Infusion: 07/21/20 05:25 Dose: 0 mls/hr Documented by: [id number] Admin: 07/21/20 04:05 Dose: 100 mls/hr Documented by: [id number] Ioversol (Optiray 320 125ml) 125 ml IV ONCE ONE Stop: 07/21/20 04:38 Last Admin: 07/21/20 04:37 Dose: 100 ml Documented by: [id number] Ondansetron HCl (Ondansetron Inj 2 Mg/Ml 2 Ml Vial) Confirm Administered Dose 4 mg .ROUTE .STK-MED ONE Stop: 07/21/20 02:12 Last Admin: 07/21/20 04:05 Dose: Not Given Documented by: [id number] Medical Decision Making Differential Diagnosis Differential diagnoses includes but is not limited to pneumonia, bronchitis, COPD/Asthma exacerbation, pneumothorax, pulmonary embolism, congestive heart failure, acute coronary syndrome Medical Records Attestation: I reviewed the patient's medical records. Home Medications Current Medication List: was personally reviewed by me Laboratory Data Attestation: I reviewed the patient's lab results. Result diagrams: 07/21/20 01:44 07/21/20 01:44 Lab Results 07/21/20 07/21/20 07/21/20 Range/Units 01:44 01:44 01:44 WBC 3.65 L (4.8-10.8) K/uL RBC 3.82 L (4.7-6.1) M/uL Hgb 13.0 L (14.0-18.0) g/dL POC Hgb (14.0-18.0) g/dl Hct 37.4 L (42-52) % POC Hct (42-52) % MCV 97.9 (80-100) fL MCH 34.0 (25-34) pg MCHC 34.8 (32-36) g/dL RDW Std Deviation 52.7 H (36.4-46.3) fL RDW Coeff of Vicki 14.8 H (11.5-14.5) % Plt Count 144 (130-400) K/uL MPV 8.4 (7.4-10.4) fL Immature Gran % (Auto) 0.5 % Neut % (Auto) 94.0 % Lymph % (Auto) 4.4 % [place] % (Auto) 0.8 % Eos % (Auto) 0.3 % Baso % (Auto) 0.0 % Neut # (Auto) 3.43 (1.4-6.5) K/uL Lymph # (Auto) 0.16 L (1.2-3.4) K/uL [place] # (Auto) 0.03 L (0.11-0.59) K/uL Eos # (Auto) 0.01 (0-0.5) K/uL Baso # (Auto) 0.00 (0-0.2) K/uL Immature Gran # (Auto) 0.02 (0.00-0.02) K/uL PT 10.7 (9.0-12.0) Seconds INR 1.0 (0.9-1.1) POC Sodium (135-144) mmol/L Sodium (136-145) mmol/L POC Potassium (3.3-5.0) mmol/L Potassium (3.5-5.1) mmol/L POC Chloride (101-112) mmol/L Chloride (98-107) mmol/L Carbon Dioxide (21-32) mmol/L POC Total CO2 (24-31) mmol/L Anion Gap (3-11) POC Anion Gap (16-25) mmol/L POC BUN (7-18) mg/dl BUN (7-18) mg/dl Creatinine (0.6-1.4) mg/dl POC Creatinine (0.6-1.3) mg/dl Est Cr Clr Drug Dosing ml/min Est GFR ( Amer) Est GFR (Non-Af Amer) BUN/Creatinine Ratio (10-20) Glucose (70-99) mg/dl POC Glucose (other) (70-99) mg/dl Lactate (0.4-2.0) mmol/L Calcium (8.5-10.1) mg/dl POC Ioniz Calcium Claudia (1.12-1.32) mmol/l Magnesium (1.8-2.4) mg/dl Total Bilirubin (0.2-1) mg/dl AST (15-37) U/L ALT (12-78) U/L Alkaline Phosphatase (45-117) U/L Troponin I (0-0.045) ng/ml NT-Pro-B Natriuret Pep (0-900) pg/ml Total Protein (6.4-8.2) gm/dl Albumin (3.4-5.0) gm/dl Globulin (2.5-4.0) gm/dl Albumin/Globulin Ratio (0.9-2) Procalcitonin 1.01 H (0-0.5) ng/ml TSH (0.300-4.500) uIu/ml SARS-CoV-2, RNA, NAAT (NEGATIVE) 07/21/20 07/21/20 07/21/20 Range/Units 01:44 02:14 02:23 WBC (4.8-10.8) K/uL RBC (4.7-6.1) M/uL Hgb (14.0-18.0) g/dL POC Hgb (14.0-18.0) g/dl Hct (42-52) % POC Hct (42-52) % MCV (80-100) fL MCH (25-34) pg MCHC (32-36) g/dL RDW Std Deviation (36.4-46.3) fL RDW Coeff of Vicki (11.5-14.5) % Plt Count (130-400) K/uL MPV (7.4-10.4) fL Immature Gran % (Auto) % Neut % (Auto) % Lymph % (Auto) % [place] % (Auto) % Eos % (Auto) % Baso % (Auto) % Neut # (Auto) (1.4-6.5) K/uL Lymph # (Auto) (1.2-3.4) K/uL [place] # (Auto) (0.11-0.59) K/uL Eos # (Auto) (0-0.5) K/uL Baso # (Auto) (0-0.2) K/uL Immature Gran # (Auto) (0.00-0.02) K/uL PT (9.0-12.0) Seconds INR (0.9-1.1) POC Sodium (135-144) mmol/L Sodium 145 (136-145) mmol/L POC Potassium (3.3-5.0) mmol/L Potassium 3.3 L (3.5-5.1) mmol/L POC Chloride (101-112) mmol/L Chloride 110 H (98-107) mmol/L Carbon Dioxide 28 (21-32) mmol/L POC Total CO2 (24-31) mmol/L Anion Gap 7.0 (3-11) POC Anion Gap (16-25) mmol/L POC BUN (7-18) mg/dl BUN 19 H (7-18) mg/dl Creatinine 0.78 (0.6-1.4) mg/dl POC Creatinine (0.6-1.3) mg/dl Est Cr Clr Drug Dosing 114.6 ml/min Est GFR ( Amer) 105.3 Est GFR (Non-Af Amer) 90.8 BUN/Creatinine Ratio 24.0 H (10-20) Glucose 118 H (70-99) mg/dl POC Glucose (other) (70-99) mg/dl Lactate 2.9 H* (0.4-2.0) mmol/L Calcium 9.2 (8.5-10.1) mg/dl POC Ioniz Calcium Claudia (1.12-1.32) mmol/l Magnesium 1.3 L (1.8-2.4) mg/dl Total Bilirubin 0.7 (0.2-1) mg/dl AST 10 L (15-37) U/L ALT 28 (12-78) U/L Alkaline Phosphatase 51 (45-117) U/L Troponin I < 0.015 (0-0.045) ng/ml NT-Pro-B Natriuret Pep 32 (0-900) pg/ml Total Protein 6.1 L (6.4-8.2) gm/dl Albumin 3.4 (3.4-5.0) gm/dl Globulin 2.7 (2.5-4.0) gm/dl Albumin/Globulin Ratio 1.3 (0.9-2) Procalcitonin (0-0.5) ng/ml TSH 3.420 (0.300-4.500) uIu/ml SARS-CoV-2, RNA, NAAT NEGATIVE (NEGATIVE) 07/21/20 Range/Units 03:03 WBC (4.8-10.8) K/uL RBC (4.7-6.1) M/uL Hgb (14.0-18.0) g/dL POC Hgb 11.9 L (14.0-18.0) g/dl Hct (42-52) % POC Hct 35 L (42-52) % MCV (80-100) fL MCH (25-34) pg MCHC (32-36) g/dL RDW Std Deviation (36.4-46.3) fL RDW Coeff of Vicki (11.5-14.5) % Plt Count (130-400) K/uL MPV (7.4-10.4) fL Immature Gran % (Auto) % Neut % (Auto) % Lymph % (Auto) % [place] % (Auto) % Eos % (Auto) % Baso % (Auto) % Neut # (Auto) (1.4-6.5) K/uL Lymph # (Auto) (1.2-3.4) K/uL [place] # (Auto) (0.11-0.59) K/uL Eos # (Auto) (0-0.5) K/uL Baso # (Auto) (0-0.2) K/uL Immature Gran # (Auto) (0.00-0.02) K/uL PT (9.0-12.0) Seconds INR (0.9-1.1) POC Sodium 143 (135-144) mmol/L Sodium (136-145) mmol/L POC Potassium 3.2 L (3.3-5.0) mmol/L Potassium (3.5-5.1) mmol/L POC Chloride 103 (101-112) mmol/L Chloride (98-107) mmol/L Carbon Dioxide (21-32) mmol/L POC Total CO2 28 (24-31) mmol/L Anion Gap (3-11) POC Anion Gap 16.0 (16-25) mmol/L POC BUN 19 H (7-18) mg/dl BUN (7-18) mg/dl Creatinine (0.6-1.4) mg/dl POC Creatinine 0.6 (0.6-1.3) mg/dl Est Cr Clr Drug Dosing ml/min Est GFR ( Amer) Est GFR (Non-Af Amer) BUN/Creatinine Ratio (10-20) Glucose (70-99) mg/dl POC Glucose (other) 112 H (70-99) mg/dl Lactate (0.4-2.0) mmol/L Calcium (8.5-10.1) mg/dl POC Ioniz Calcium Claudia 1.17 (1.12-1.32) mmol/l Magnesium (1.8-2.4) mg/dl Total Bilirubin (0.2-1) mg/dl AST (15-37) U/L ALT (12-78) U/L Alkaline Phosphatase (45-117) U/L Troponin I (0-0.045) ng/ml NT-Pro-B Natriuret Pep (0-900) pg/ml Total Protein (6.4-8.2) gm/dl Albumin (3.4-5.0) gm/dl Globulin (2.5-4.0) gm/dl Albumin/Globulin Ratio (0.9-2) Procalcitonin (0-0.5) ng/ml TSH (0.300-4.500) uIu/ml SARS-CoV-2, RNA, NAAT (NEGATIVE) Imaging Data Radiologist's Impression: CTA chest: The pulmonary arterial tree is well opacified with contrast. There is mild motion artifact affecting the lower lobe branches. No pulmonary emboli are identified. The thoracic aorta is nondilated. There is no aneurysm or dissection. Heart size is upper normal. No pericardial effusion is seen. No mediastinal or axillary lymphadenopathy or mass is seen. Scattered linear densities are seen in both lung bases most consistent with subsegmental atelectasis. No pneumothorax or pleural effusion is seen. Moderate multilevel osteophytosis throughout the thoracic spine. Limited images of the upper abdomen appear unremarkable. Radiologist: Quincy Vaughn MD CT HEAD: Comparison to March 11, 2020. Previous right posterior parietal 4.7 cm craniotomy. There is no skull fracture or scalp hematoma. The paranasal sinuses and mastoid air cells are normal. There is an oval approximately 4.7 x 3.7 cm slightly hyperdense rapidly recurrent mass lesion in the right parietal lobe with several areas of cystic necrosis centrally measuring up to 1.7 cm. There is surrounding vasogenic edema with some local mass-effect but no midline shift. Mild periventricular white matter lucency consistent with chronic small vessel disease. No acute large vessel infarct or intracranial hemorrhage is seen. Radiologist: Quincy Vaughn MD CT abdomen pelvis without contrast: There is a small mild bibasilar atelectasis. The stomach is partially distended with gas and fluid with nondilated. There is a moderate amount of stool throughout the colon which is nondilated. The appendix is normal. No acute inflammatory changes are seen involving the bowel. The liver, gallbladder, spleen, pancreas, adrenal glands, and kidneys appear nonacute. The urinary bladder is partially filled with contrast. Mild to moderate multilevel degenerative changes are seen throughout the thoracic and lumbar spine. No acute fracture or destructive bone lesion is seen. Radiologist: Quincy Vaughn MD MDM Narrative This is a 70-year-old male who presents via EMS due to concern for abrupt onset of shortness of breath and hypoxia. Patient has a complicated past medical history including prior malignancy for which she is currently taking chemotherapy. Patient denied fevers. Patient ill-appearing on arrival here, wa s significantly tachycardic, not appear to have any significant increased work of breathing or retractions. Other than the tachycardia patient initially stable, labs are drawn and sent, and well initially waiting to get patient over for CT imaging to rule out pulmonary pathology or PE, patient became abruptly hypotensive. IV fluids were opened up that had been initially started at maintenance. Repeat pressures were attempted. Patient did not have any cyanosis, mottling, or altered mentation during these episodes. Patient's heart rate came down into the upper 90s over he was still hypotensive. IV fluids were hung, we did attempt to check a blood pressure manually, and then tried to place it on the forearm. Patient did have pedal pulses throughout, which made me suspicious that the measured blood pressure on the monitor was in error. Chest x-ray performed at bedside did not reveal any acute etiology of the hypotension. Eventually blood pressure with volume repletion did improve and patient was stable enough for CT. Additional labs came back including elevated lactic acid and elevated procalcitonin. I did call and update the patient's . Patient was able to maintain blood pressures including a map of 65 or better with additional IV fluids. IV antibiotics were ordered. After follow-up phone call to the again, we added additional imaging due to unclear etiology. No evidence of neutropenic fever, no clear etiology of his abrupt shortness of breath and hypoxia this evening. While patient's head CT is abnormal on review of EMR, patient had an outpatient MRI recently and was seen on July 18 by Sherine who is been managing his glioblastoma. They are aware of the recurrence and changes. Patient has had no other change in mentation no complaints of headaches, no recurrent fevers or dizziness per the . I do not feel patient has meningitis/encephalitis, or other HEEL CASER etiology of sepsis. Patient's CT of the abdomen and pelvis was reassuring also. Patient did receive a total of 30 mL/KG of IV fluids in the emergency department based on ideal bod y weight. Patient's magnesium was also repleted in the emergency room. Patient is already on antiepileptics as well as dexamethasone due to the known brain mass. An order was placed for continuous cardiac monitoring. The monitor shows a rate of _112_ with __sinus tachycardia_ rhythm. Impression & Plan Acute dyspnea, Glioblastoma multiforme of brain, Hypoxia, Tachycardia, Sepsis, Hypomagnesemia Discharge Plan Visit Data Chief Complaint: Shortness of Breath/Dyspnea Stated Complaint: SHORT OF BREATH ED Provider: Nadia De La Vega Discharge Problem: Acute dyspnea, Glioblastoma multiforme of brain, Hypoxia, Tachycardia, Sepsis, Hypomagnesemia Forms Stand Alone Forms: My [facility] Prescriptions Prescriptions: No Action lorazepam [Ativan] 1 mg tablet 1 mg PO DAILY PRN (Reason: seizure activity) RF: 0 clonazepam 0.5 mg tablet 0.5 mg PO BID RF: 0 metformin 500 mg tablet 1,000 mg PO BID Qty: 360 RF: 3 Xarelto 10 mg tablet 10 mg PO DAILY Qty: 45 RF: 0 lisinopril 40 mg tablet 40 mg PO QAM Qty: 90 RF: 3 albuterol sulfate [ProAir HFA] 90 mcg/actuation HFA aerosol inhaler 2 puffs INH Q6H PRN (Reason: Shortness Of Breath) RF: 0 cholecalciferol (vitamin D3) 50 mcg (2,000 unit) capsule 50 mcg PO DAILY RF: 0 dexamethasone 2 mg tablet 2 mg PO QAM RF: 0 amlodipine 2.5 mg tablet 2.5 mg PO QAM Qty: 90 RF: 3 nystatin-triamcinolone 100,000-0.1 unit/g-% cream 1 applic topical BID Qty: 30 RF: 0 cinnamon bark 500 mg capsule 1,000 mg PO QAM RF: 0 levetiracetam [Keppra] 500 mg Tablet 1,500 mg PO BID 30 Days Qty: 180 RF: 3 potassium chloride 20 mEq tablet extended release 20 meq PO DAILY RF: 0 ondansetron HCl 8 mg tablet 8 mg PO Q8 PRN (Reason: Nausea And Vomiting) RF: 0 Discharge Problem: Sepsis Qualifiers: Sepsis type: sepsis due to unspecified organism Sepsis acute organ dysfunction status: with acute organ dysfunction Severe sepsis acute organ dysfunction type: acute respiratory failure Acute respiratory failure type: with hypoxia Severe sepsis shock status: without septic shock Qualified Code(s): A41.9 - Sepsis, unspecified organism
[2020-07-21] MEDS ORDERED: CEFEPIME 2,000 MG/20 ML VIAL IV STA (03:27)
[2020-07-21] MEDS ORDERED: SODIUM CHLORIDE 0.9% 1000ML 2,000 ML IV ONE (03:27)
[2020-07-21 03:38] LABS: Alanine Aminotransferase 28 U/L (12-78); Albumin Globulin Ratio 1.3 (0.9-2); Albumin Level 3.4 gm/dl (3.4-5.0); Alkaline Phosphatase 51 U/L (45-117); Aspartate Aminotransferase 10 U/L (15-37); Bilirubin,Total 0.7 mg/dl (0.2-1); Blood Urea Nitrogen 19 mg/dl (7-18); Calcium 9.2 mg/dl (8.5-10.1); Carbon Dioxide 28 mmol/L (21-32); Chloride 110 mmol/L (98-107); Creatinine Clr Calc Pharmacy 114.6 ml/min; Est GFR (African American) 105.3; Est GFR (Non-African American) 90.8; Globulin 2.7 gm/dl (2.5-4.0); Glucose 118 mg/dl (70-99); Magnesium 1.3 mg/dl (1.8-2.4); NT Pro B Type Natriuretic Pept 32 pg/ml (0-900); Potassium 3.3 mmol/L (3.5-5.1); Sodium 145 mmol/L (136-145); Total Protein 6.1 gm/dl (6.4-8.2); Troponin I < 0.015 ng/ml (0-0.045)
[2020-07-21 03:57] LABS: Prothrombin Time 10.7 Seconds (9.0-12.0)
[2020-07-21] MEDS: MAGNESIUM SULFATE / D5W 1 GM/100 ML BAG IV SCH ×2 (04:05→06:36)
[2020-07-21] MEDS: SODIUM CHLORIDE 0.9% 500 ML IV SCH ×3 (04:06→10:33)
[2020-07-21] MEDS ORDERED: OPTIRAY 320 125ml IV ONE (04:37)
[2020-07-21] MEDS ORDERED: ALBUT/IPRATROP 3MG/0.5MG NEB 3 ML VIAL NEB PRN (05:38)
--- NOTE | 2020-07-21 05:40 | History & Physical Report ---
Date of Service July 21, 2020 Assessment & Plan (1) Septic shock: Septic shock/severe dehydration- NPO Admit to monitored bed Received 2 L normal saline in the ED with improvement in blood pressure. Place on NSS + KCl 20 mEq at 1 1 50 mils per hour Empiric treatment with vancomycin IV and Zosyn IV. Follow blood cultures. No obvious source of infection at this time Patient was COVID-19 negative in the ED Present on Admission?: Yes (2) Dehydration, severe: See above Present on Admission?: Yes (3) Glioblastoma multiforme of brain: Patient was on his first day of his second round of oral chemo. Present on Admission?: Yes (4) Type 2 diabetes mellitus: Hold Metformin. NPO Place of on Accu-Cheks before meals and at bedtime/every 6 hours with NovoLog coverage per scale Present on Admission?: Yes (5) Hypertension: Hold amlodipine, lisinopril and potassium chloride due to hypotension Present on Admission?: Yes (6) Asthma: We will have Duonebs every 4 hours while awake and every 2 hours when necessary. 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 twice daily. If unable to take p.o., will need to convert IV Present on Admission?: Yes (8) Deep vein thrombosis (DVT) of left lower extremity: Continue Xarelto. If unable to take oral meds, started on therapeutic Lovenox Present on Admission?: Yes History of Present Illness Chief Complaint: Patient presents to the emergency department with the complaint of acute onset of shortness of breath, dyspnea on exertion, nausea and vomiting and per his confusion earlier in the evening. Primary Care Provider: Isaac Branham MD In the emergency department,The patient is a 70-year-old male with a past medical history including superficial thrombophlebitis, anxiety, glioblastoma multiforme of brain, weakness of left upper extremity, refractory simple partial seizure with motor dysfunction, dyslipidemia, diabetes mellitus type 2, hypertension, asthma, left asymmetrical SNHL and pulmonary nodules. The patient had completed his first 5-day oral course of chemotherapy for his glioblastoma multiforme, then was off for 20 days, and then began his first day of second round of chemotherapy last evening. Patient reports that he did have some intolerance of the first round of chemotherapy, but found it difficult to explain. Upon arrival to the emergency department, the patient was found to be in sinus tachycardia with a heart rate up to 119, and he became hypotensive, with systolic blood pressure to as low as 52/35. He did respond to 2 L of normal saline, to a present pressure of 100/58. His tachycardia did improve downward to a heart rate of 109. Allergies Allergy/AdvReac Type Severity Reaction Status Date / Time grass pollen Allergy Mild Congested Verified 07/21/20 01:37 cat dander AdvReac Intermediate Hives Verified 07/21/20 01:37 dog dander AdvReac Intermediate WELTS Verified 07/21/20 01:37 Home Medications Medication Instructions Recorded Confirmed Type albuterol sulfate 90 mcg/actuation 2 puffs INH Q6H PRN 10/07/19 07/21/20 History aerosol inhaler cinnamon bark 500 mg capsule 1,000 mg PO QAM cap 02/09/20 07/21/20 History cholecalciferol (vitamin D3) 50 50 mcg PO DAILY 02/18/20 07/21/20 History mcg (2,000 unit) capsule levetiracetam [Keppra] 1,500 mg PO BID 30 Days #180 tab 03/11/20 07/21/20 Rx lorazepam 1 mg tablet 1 mg PO DAILY PRN tab 04/04/20 07/21/20 History metformin 500 mg tablet 1,000 mg PO BID #360 tab 04/11/20 07/21/20 Rx rivaroxaban 10 mg tablet 10 mg PO DAILY #45 tab 05/10/20 07/21/20 Rx amlodipine 2.5 mg tablet 2.5 mg PO QAM #90 tab 05/11/20 07/21/20 Rx clonazepam 0.5 mg tablet 0.5 mg PO BID tab 05/11/20 07/21/20 History dexamethasone 2 mg tablet 2 mg PO QAM tab 05/11/20 07/21/20 History nystatin-triamcinolone 100,000 1 applic TOPICAL BID #30 g 05/11/20 07/21/20 Rx unit/g-0.1 % topical cream lisinopril 40 mg tablet 40 mg PO QAM #90 tab 07/04/20 07/21/20 Rx ondansetron HCl 8 mg PO Q8 PRN 07/21/20 07/21/20 History potassium chloride 20 meq PO DAILY 07/21/20 07/21/20 History Past Med/Surg History Medical History Acute dehydration Asthma Dyslipidemia Focal seizure Glioblastoma multiforme of brain History of melanoma Hx of skin cancer, basal cell Hypertension Superficial thrombophlebitis Tubular adenoma of colon Type 2 diabetes mellitus Surgical History Anal fistula REPAIRED H/O brain surgery [place] 01/23/2020 History of colonoscopy History of tonsillectomy History of tooth extraction Family History Mother , age 84 of metastatic lung cancer Family history of diabetes mellitus Alzheimer disease Metastatic lung cancer (metastasis from lung to other site) Father , age 85 of "failure to thrive" Lung disease FH: deafness or hearing loss Brother Lung disease Denies family history of Ovarian cancer Prostate cancer Breast cancer Lung cancer Colorectal cancer Social History Smoking Status: Never smoker Second Hand Exposure: No; Hx Alcohol Use: Yes Alcohol type: beer Alcohol Intake Frequency: 2-4 x/Month Alcohol Intake Frequency Comment: 1-2 beers per week Hx Substance Use: No Preferred Language: Pakistani Communication Ability: Effective Visual Impairment: Limited Hearing Ability: Use of Hearing Aid Revival Clerk Required: No Beliefs That Will Affect Care: None marital status: Current Living Situation: Spouse Current Living Situation Comment: House current occupational status: retired 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 Physical Exam Physical Exam: The patient is awake, intermittently lethargic, difficulty with speech due to severe dry mouth, normocephalic and atraumatic, lying in bed and in no acute distress. HEENT--PERRL, EOMI, mucous membranes and oropharynx very dry. Neck--supple. No JVD. No bruits. Thyroid normal, trachea midline, no adenopathy. Heart--tachycardic and regular. No murmurs, rubs or gallops. Lungs--decreased breath sounds throughout. No respiratory distress, no accessory muscle use. Abdomen--normal bowel sounds and soft. Nontender. Nondistended. Morbidly obese Extremities--no cyanosis or clubbing. No edema. Dermatologic--normal skin turgor, normal color, no abnormal lymph nodes, no rash. Neurologic--cranial nerves II through XII grossly intact. Rheumatologic--limited exam Psychiatric--intermittently lethargic. Results & Data Results & Data ([facility]) Vital Signs (Past 12 Hours) Vital Signs Temp Pulse Resp BP Pulse Ox 07/21/20 05:00 109 H 9 L 100/58 L 100 07/21/20 04:40 115 H 33 H 100 07/21/20 04:30 114 H 20 95/50 L 100 07/21/20 04:20 116 H 25 H 100 07/21/20 04:10 116 H 15 100 07/21/20 04:00 117 H 31 H 103/48 L 100 07/21/20 03:50 121 H 33 H 100 07/21/20 03:40 116 H 20 100 07/21/20 03:31 119 H 22 99 07/21/20 03:30 117 H 16 100/48 L 99 07/21/20 03:20 116 H 34 H 98 07/21/20 03:18 117 H 17 97/57 L 99 07/21/20 03:17 116 H 18 95 07/21/20 03:01 113 H 20 95 07/21/20 03:00 113 H 19 98/51 L 95 07/21/20 02:58 112 H 21 105/55 L 95 07/21/20 02:50 104 H 20 69/33 L 95 07/21/20 02:46 101 H 23 70/39 L 93 07/21/20 02:42 97 H 13 66/40 L 93 07/21/20 02:40 99 H 21 94 07/21/20 02:37 97 H 25 H 59/36 L 93 07/21/20 02:35 96 H 21 52/35 L 93 07/21/20 02:30 113 H 18 93 07/21/20 02:24 122 H 15 87/45 L 93 07/21/20 02:20 128 H 15 93 07/21/20 02:10 150 H 23 93 07/21/20 02:00 126 H 5 L 92 07/21/20 01:50 135 H 10 L 94 07/21/20 01:42 93 07/21/20 01:40 143 H 3 L 93 07/21/20 01:38 144 H 16 07/21/20 01:36 99.1 F 143 H 22 104/57 L 93 07/21/20 01:33 145 H 6 L 104/57 L 92 Laboratory Results Laboratory Results WBC 3.65 K/uL (4.8-10.8) L 07/21/20 01:44 RBC 3.82 M/uL (4.7-6.1) L 07/21/20 01:44 Hgb 13.0 g/dL (14.0-18.0) L 07/21/20 01:44 POC Hgb 11.9 g/dl (14.0-18.0) L 07/21/20 03:03 Hct 37.4 % (42-52) L 07/21/20 01:44 POC Hct 35 % (42-52) L 07/21/20 03:03 MCV 97.9 fL (80-100) 07/21/20 01:44 MCH 34.0 pg (25-34) 07/21/20 01:44 MCHC 34.8 g/dL (32-36) 07/21/20 01:44 RDW Std Deviation 52.7 fL (36.4-46.3) H 07/21/20 01:44 RDW Coeff of Vicki 14.8 % (11.5-14.5) H 07/21/20 01:44 Plt Count 144 K/uL (130-400) 07/21/20 01:44 MPV 8.4 fL (7.4-10.4) 07/21/20 01:44 Immature Gran % (Auto) 0.5 % 07/21/20 01:44 Neut % (Auto) 94.0 % 07/21/20 01:44 Lymph % (Auto) 4.4 % 07/21/20 01:44 Platte % (Auto) 0.8 % 07/21/20 01:44 Eos % (Auto) 0.3 % 07/21/20 01:44 Baso % (Auto) 0.0 % 07/21/20 01:44 Neut # (Auto) 3.43 K/uL (1.4-6.5) 07/21/20 01:44 Lymph # (Auto) 0.16 K/uL (1.2-3.4) L 07/21/20 01:44 Platte # (Auto) 0.03 K/uL (0.11-0.59) L 07/21/20 01:44 Eos # (Auto) 0.01 K/uL (0-0.5) 07/21/20 01:44 Baso # (Auto) 0.00 K/uL (0-0.2) 07/21/20 01:44 Immature Gran # (Auto) 0.02 K/uL (0.00-0.02) 07/21/20 01:44 PT 10.7 Seconds (9.0-12.0) 07/21/20 01:44 INR 1.0 (0.9-1.1) 07/21/20 01:44 POC Sodium 143 mmol/L (135-144) 07/21/20 03:03 Sodium 145 mmol/L (136-145) 07/21/20 01:44 POC Potassium 3.2 mmol/L (3.3-5.0) L 07/21/20 03:03 Potassium 3.3 mmol/L (3.5-5.1) L 07/21/20 01:44 POC Chloride 103 mmol/L (101-112) 07/21/20 03:03 Chloride 110 mmol/L (98-107) H 07/21/20 01:44 Carbon Dioxide 28 mmol/L (21-32) 07/21/20 01:44 POC Total CO2 28 mmol/L (24-31) 07/21/20 03:03 Anion Gap 7.0 (3-11) 07/21/20 01:44 POC Anion Gap 16.0 mmol/L (16-25) 07/21/20 03:03 POC BUN 19 mg/dl (7-18) H 07/21/20 03:03 BUN 19 mg/dl (7-18) H 07/21/20 01:44 Creatinine 0.78 mg/dl (0.6-1.4) 07/21/20 01:44 POC Creatinine 0.6 mg/dl (0.6-1.3) 07/21/20 03:03 Est Cr Clr Drug Dosing 114.6 ml/min 07/21/20 01:44 Est GFR ( Amer) 105.3 07/21/20 01:44 Est GFR (Non-Af Amer) 90.8 07/21/20 01:44 BUN/Creatinine Ratio 24.0 (10-20) H 07/21/20 01:44 Glucose 118 mg/dl (70-99) H 07/21/20 01:44 POC Glucose (other) 112 mg/dl (70-99) H 07/21/20 03:03 Lactate 2.9 mmol/L (0.4-2.0) H* 07/21/20 02:23 Calcium 9.2 mg/dl (8.5-10.1) 07/21/20 01:44 POC Ioniz Calcium Claudia 1.17 mmol/l (1.12-1.32) 07/21/20 03:03 Magnesium 1.3 mg/dl (1.8-2.4) L 07/21/20 01:44 Total Bilirubin 0.7 mg/dl (0.2-1) 07/21/20 01:44 AST 10 U/L (15-37) L 07/21/20 01:44 ALT 28 U/L (12-78) 07/21/20 01:44 Alkaline Phosphatase 51 U/L (45-117) 07/21/20 01:44 Troponin I < 0.015 ng/ml (0-0.045) 07/21/20 01:44 NT-Pro-B Natriuret Pep 32 pg/ml (0-900) 07/21/20 01:44 Total Protein 6.1 gm/dl (6.4-8.2) L 07/21/20 01:44 Albumin 3.4 gm/dl (3.4-5.0) 07/21/20 01:44 Globulin 2.7 gm/dl (2.5-4.0) 07/21/20 01:44 Albumin/Globulin Ratio 1.3 (0.9-2) 07/21/20 01:44 Procalcitonin 1.01 ng/ml (0-0.5) H 07/21/20 01:44 TSH 3.420 uIu/ml (0.300-4.500) 07/21/20 01:44 SARS-CoV-2, RNA, NAAT NEGATIVE (NEGATIVE) 07/21/20 02:14 Code Status & VTE Plan Code Status Full code VTE Prophylaxis Plan VTE Prophylaxis will be ordered: Yes PG Care Time/CCT Total # of Minutes Spent Total Time Spent with Patient: Total time spent is greater than 50% in coordination of care (as documented) at patient's floor/unit and/or counseling patient: Coding Level of Care Code 31027 Initial Inpt Care Lvl 3 Diagnoses Septic shock A41.9; R65.21 Dehydration, severe E86.0 Glioblastoma multiforme of brain C71.9 Type 2 diabetes mellitus E11.9 Hypertension I10 Asthma J45.909 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
[2020-07-21] MEDS ORDERED: SODIUM CHLORIDE 0.9% 1000ML 1,000 ML IV ONE (06:31)
--- NOTE | 2020-07-21 07:29 | XRay Report ---
XR chest 1V portable CLINICAL HISTORY: Shortness of breath. COMPARISON STUDY: Chest CT December 28, 2018. Chest radiograph February 10, 2020. FINDINGS: Lung volumes are diminished. There is no pneumothorax. No pleural effusion is present. Biba silar opacities are present. There is no evidence for pulmonary edema. Cardiomegaly is again noted. IMPRESSION: 1. Low lung volumes with bibasilar opacities suggestive of atelectasis. 2. Cardiomegaly. ACT 112: Negative or not required by law. Electronically signed by: Steven Santos M.D. 07/21/2020 7:27 AM
--- NOTE | 2020-07-21 07:31 | CT Scan Report ---
HEAD CT NONCONTRAST CT DOSE: 614.27 mGy.cm HISTORY: sepsis, recent brain tumor TECHNIQUE: Multiaxial CT images of the head were performed without the use of intravenous contrast. A utomated exposure control was utilized for this study. A dose lowering technique was utilized adheri ng to the principles of ALARA. Comparison: Head CT 03/11/2020. Findings: The paranasal sinuses and mastoid air cells are clear. Evidence for prior right parietal cr aniotomy. Deep to the craniotomy site there is a 4.3 x 3.1 cm slightly hyperdense lesion with central necrosis/hypodensity. There is moderate surrounding vasogenic edema. This is concerning for recurren t mass. There is mild mass effect along the right lateral ventricle. No significant midline shift. No hematoma or acute infarct. Increased density along the tentorium is likely due to the prior contrast -enhanced CT. Impression: A 4.3 x 3.1 cm hyperdense right parietal lesion with central necrosis versus hypodensity. There is mo derate surrounding vasogenic edema. This is concerning for recurrent/residual mass. ACT 112: Negative or not required by law. Electronically signed by: Matt Tran M.D. 07/21/2020 7:30 AM
--- NOTE | 2020-07-21 07:34 | CT Scan Report ---
CT ANGIOGRAPHY OF THE CHEST, PULMONARY EMBOLUS PROTOCOL CLINICAL HISTORY: Shortness of breath. Evaluate for pulmonary embolus. COMPARISON STUDY: Chest CT December 28, 2018. Chest radiograph performed earlier today. TECHNIQUE: Following IV administration of 100 mL of Optiray-320, helical axial images of the chest we re obtained utilizing the pulmonary embolus protocol. Maximal intensity projections and sagittal and coronal reformats were viewed on an independent 3D workstation. IV contrast was administered withou t complication. Automated exposure control was utilized for the study. A dose lowering technique wa s utilized adhering to the principles of ALARA. FINDINGS: No pulmonary emboli are identified although the segmental and subsegmental pulmonary arter ies within the lower lobes are suboptimally assessed due to respiratory motion. There is mild cardiom egaly. There is no pericardial effusion. There is no thoracic aortic dissection. No enlarged thoracic lymph nodes are present. Lungs are suboptimally assessed given respiratory motion. Lower lung opacit ies favor atelectasis. A 5 mm right middle lobe nodule on image 111 of 281 is unchanged from earlier exams. This is benign given stability. Central airways are patent. IMPRESSION: 1. No pulmonary emboli identified although segmental and subsegmental pulmonary arteries within the l ower lobes suboptimally assessed due to respiratory motion. 2. Cardiomegaly. 3. Subpleural opacities suggestive of atelectasis. ACT 112: Negative or not required by law. Electronically signed by: Steven Santos M.D. 07/21/2020 7:33 AM
--- NOTE | 2020-07-21 07:40 | CT Scan Report ---
CT OF THE ABDOMEN AND PELVIS WITHOUT CONTRAST CLINICAL HISTORY: Vomiting. COMPARISON STUDY: No previous studies for comparison. TECHNIQUE: Axial images of the abdomen and pelvis were obtained without IV contrast. Images were revi ewed in the axial, sagittal, and coronal planes. Automated exposure control was utilized for the ayaz dy. A dose lowering technique was utilized adhering to the principles of ALARA. FINDINGS: Subpleural opacities within the lower lungs favor atelectasis. Evaluation of the abdomen an d pelvis is suboptimal on this unenhanced examination. No pneumatosis, free air or portal venous gas is present. The liver, adrenal glands and pancreas are unremarkable. There is no biliary or pancreati c ductal dilatation. There is borderline splenomegaly. There is contrast within the collecting system s, ureters and bladder from recent contrast-enhanced chest CT. There is no hydronephrosis. A 1.2 cm r ight renal lesion favors a cyst. There is no evidence for a bowel obstruction. The appendix is normal . There is no lymphadenopathy. Colonic diverticulosis is noted without evidence for acute diverticuli tis. Apparent wall thickening of the ascending colon and proximal to mid transverse colon is likely d ue to underdistention. There is no ascites. No acute fracture or suspicious lesion is identified with in visualized skeletal structures. IMPRESSION: 1. No acute process within the abdomen or pelvis on unenhanced exam. 2. Apparent wall thickening of the ascending colon and proximal to mid transverse colon which is like ly due to underdistention. 2. No bowel obstruction. Colonic diverticulosis without evidence for acute diverticulitis. ACT 112: Negative or not required by law. Electronically signed by: Steven Santos M.D. 07/21/2020 7:38 AM
[2020-07-21] MEDS ORDERED: DEXAMETHASONE SOD INJ 10 MG/ML VIAL IV SCH (07:53)
[2020-07-21] MEDS ORDERED: POTASSIUM CHLORIDE / WTR 10 MEQ/100 ML PLCT IV STA (07:54)
[2020-07-21] MEDS ORDERED: ACETAMINOPHEN 325 MG TAB ONE (08:52)
[2020-07-21] MEDS ORDERED: NSS+KCL 20 MEQ 1000ML IV ONE (09:41)
[2020-07-21] MEDS ORDERED: ONDANSETRON INJ 2 MG/ML 2 ML VIAL IV PRN (10:20)
[2020-07-21] MEDS ORDERED: CARBOHYDRATES FOR HYPOGLYCEMIA PO PRN (10:20)
[2020-07-21] MEDS ORDERED: PIPERACILL/TAZOBAC CONSULT ACTIVE PRN (10:20)
[2020-07-21] MEDS ORDERED: GLUCOSE 10 TABS/TUBE PO PRN (10:20)
[2020-07-21] MEDS ORDERED: VANCOMYCIN CONSULT ACTIVE PRN (10:20)
[2020-07-21] MEDS ORDERED: ACETAMINOPHEN 325 MG TAB PO PRN (10:20)
[2020-07-21] MEDS ORDERED: DEXTROSE 50% 50 ML SYRINGE IV PRN (10:20)
[2020-07-21] MEDS ORDERED: GLUCAGON FOR INJ 1 MG VIAL SQ PRN (10:20)
[2020-07-21] MEDS ORDERED: GLUCOSE 40% GEL 15 GM TUBE PO PRN (10:20)
--- NOTE | 2020-07-21 10:24 | Electrocardiogram Report ---
Test Reason : Blood Pressure : / mmHG Vent. Rate : 145 BPM Atrial Rate : 145 BPM P-R Int : 122 ms QRS Dur : 082 ms QT Int : 356 ms P-R-T Axes : -10 -17 022 degrees QTc Int : 552 ms Poor data quality, interpretation may be adversely affected Sinus tachycardia Cannot rule out Inferior infarct , age undetermined Poor R wave progression, consider anterior VT vs. lead placement vs. LVH Abnormal ECG Confirmed by Caesar Mart ([id number]) on 07/21/2020 10:23:41 AM Referred By: REFERRED SELF Confirmed By:Kilo Mart
[2020-07-21] MEDS ORDERED: levETIRAcetam 500 MG TAB PO ONE (10:45)
[2020-07-21] MEDS ORDERED: VANCOMYCIN HCL IV ONE (10:45)
[2020-07-21] MEDS ORDERED: SODIUM CHLORIDE 0.9% IV ONE (10:45)
[2020-07-21] MEDS ORDERED: PIPERACILLIN/TAZOBACTAM 4.5 GM in DEXTROSE 5% 100 ML IV ONE (10:45)
[2020-07-21] MEDS ORDERED: RIVAROXABAN 10 MG TABLET PO ONE (10:45)
[2020-07-21] MEDS ORDERED: INSULIN ASPART 100 UNITS/ML 3 ML PEN SC ONE (10:45)
--- NOTE | 2020-07-21 11:08 | Pharmacy Report ---
Pharmacy Abx Dose Short Note - Date of Service July 21, 2020 - Assessment & Plan Assessment 70 year old M receiving vancomycin/Zosyn for treatment of empiric sepsis Day # 1 of antimicrobial therapy. Plan Vancomycin * vancomycin 3000 mg IV x 1 (25 mg/kg) then 1750 mg IV (17 mg/kg) q12 hours * population pharmacokinetics suggest half-life of 8-8.7 hours with elimination constant of 0.08 hr-1 * extended interval due to body habitus and potential to accumulate. * no trough ordered as empiric indication Zosyn * Zosyn 4.5 gm IV x 1 then 4.5 gm IV q8 hours per extended infusion Pharmacy will continue to follow and will adjust dose/frequency as necessary. Thank you.
[2020-07-21] MEDS: NSS + 20MEQ KCL 20 MEQ/1,000 ML BAG IV SCH ×2 (11:17→16:43)
[2020-07-21] MEDS: POTASSIUM CHLORIDE / WTR 10 MEQ/100 ML PLCT IV SCH ×2 (11:17→12:47)
[2020-07-21 12:21] LABS: Appearance Urine Clear (Clear); Bacteria Urine Automated Negative (Negative); Bilirubin Urine Negative (Negative); Blood Urine Negative (Negative); Color Urine Yellow; Epithelial Cell Urine Auto 20-30 /lpf (0-5); Glucose Urine UA Negative (Negative); Ketones Urine Trace (Negative); Leukocyte Esterase Urine Negative (Negative); Nitrite Urine Negative (Negative); Protein Urine 1+ (Negative); RBC Urine Automated 0-4 /hpf (0-4); Specific Gravity Urine > 1.045 (1.000-1.030); Urobilinogen Urine Negative (Negative)
[2020-07-21] MEDS: INSULIN ASPART 100 UNITS/ML 3 ML PEN SC SCH ×3 (12:50→22:28)
[2020-07-21] MEDS: DEXAMETHASONE SOD PHOSPHATE 6 MG in SYRINGE 0 ML IV SCH ×2 (14:01→20:23)
[2020-07-21] MEDS: PIPERACILLIN/TAZOBACTAM 4.5 GM in DEXTROSE 5% 100 ML IV SCH (17:04)
--- NOTE | 2020-07-21 17:57 | History & Physical Bridge Note ---
Date of Service July 21, 2020 History & Physical Bridge Note I have examined the patient, reviewed the History & Physical and in the interval since the performance of the History & Physical I have noted the following changes of clinical significance: Pt seen and examined, chart reviewed and discussed his care with his on the phone. Pt was drowsy when I saw him but was weaned down on his O2 throughout the day. BPs were extremely low in the ER and I changed his status to PCU prior to coming up to the floor. Pt denies headache or lightheadedness, no CP or SOB, was comfortable. Was diagonal in the bed and had some trouble repositioning. Has chronic LUE weakness as per Neurosurgery notes and as per . He denies any further nausea, no abd pain, no diarrhea. reports patient just started back on his temozolomide again last night around 11:00 along with Zofran. Shortly afterwards, he developed severe shaking chills and then some shortness of breath and sneezing. She gave him albuterol and called for an ambulance. They attempted to get an EKG but he was shaking too much to get one. They reported he did not have a fever, his pulse ox was in the 80s and his heart rate was in the 140s. He vomited one time in the ambulance on the way to the hospital and then again in the ER and his blood pressure was in the 50s systolic. The patient's reports that after he started the temozolomide a month ago, he had very similar chills but did not vomit and did not have any shortness of breath with it. Patient's also reports that he was discontinued from his Xarelto just a few weeks ago. She also reports that he has had difficulty weaning off dexamethasone that he has been on since January. This was due to severe fatigue and weakness along with some falls. Most recently he had been going down by half milligram every 3 weeks and was recently decreased to 1 mg daily. He denies any dysuria or difficulty with urination. Vitals reviewed Gen: Drowsy but answered questions appropriately and followed commands, oriented x3, NAD HEENT: Anicteric sclerae, EOMI CV: RRR no mgr nl S1S2 Pulm: Mild crackles at the bases Abd: +BS soft NT ND no masses or hernias Ext: No edema Skin: No rashes, warm/dry Neuro: Decreased strength 4/5 in left upper extremity Laboratory values reviewed, imaging reviewed ECG reviewed 70-year-old male with history of glioblastoma multiforme status post surgical excision and chemo radiation, partial seizures, hypertension, asthma, DM 2, here with acute hypotension, possible septic shock, versus shock from reaction to drug and adrenal insufficiency. -Continue with IV fluids -Give stress dose steroids with IV dexamethasone -Continue empiric antibiotics and follow cultures -We will ReachOut to his neurosurgical physician Dr. Gonzalez at [facility], , option #2 tomorrow for further guidance Hold home temozolomide -Follow CBC as this drug is known for causing significant drops in blood counts -Discontinue Xarelto as he is no longer on this -Add back his clonazepam 0.25 mg p.o. twice daily as he is on this for seizure p revention
[2020-07-21] MEDS: clonazePAM 0.25 MG TAB PO SCH (20:23)
[2020-07-21] MEDS: levETIRAcetam 500 MG TAB PO SCH (20:24)
[2020-07-22] MEDS: VANCOMYCIN HCL 1,750 MG in SODIUM CHLORIDE 0.9% 500 ML IV SCH ×3 (00:24→22:52)
[2020-07-22] MEDS: NSS + 20MEQ KCL 20 MEQ/1,000 ML BAG IV SCH ×3 (02:22→15:49)
[2020-07-22] MEDS: PIPERACILLIN/TAZOBACTAM 4.5 GM in DEXTROSE 5% 100 ML IV SCH ×4 (02:23→23:41)
[2020-07-22] MEDS: DEXAMETHASONE SOD PHOSPHATE 6 MG in SYRINGE 0 ML IV SCH ×4 (03:30→20:28)
[2020-07-22 07:09] LABS: Hemoglobin 10.7 g/dL (14.0-18.0); Immature Granulocytes # (auto) 0.01 K/uL (0.00-0.02); Immature Granulocytes % (auto) 0.1 %; Lymphocytes # (auto) 0.28 K/uL (1.2-3.4); Lymphocytes % (auto) 3.9 %; Mean Corpuscular Hgb Conc 34.5 g/dL (32-36); Mean Corpuscular Volume 98.4 fL (80-100); Mean Platelet Volume 8.4 fL (7.4-10.4); Monocytes # (auto) 0.13 K/uL (0.11-0.59); Monocytes % (auto) 1.8 %; Neutrophils # (auto) 6.75 K/uL (1.4-6.5); Neutrophils % (auto) 94.2 %; Platelet Count 107 K/uL (130-400); RDW Coefficient of Variation 14.7 % (11.5-14.5); RDW Standard Deviation 52.6 fL (36.4-46.3); Red Blood Count 3.15 M/uL (4.7-6.1); White Blood Count 7.17 K/uL (4.8-10.8)
[2020-07-22 07:40] LABS: Albumin Level 2.8 gm/dl (3.4-5.0); BUN Creatinine Ratio 19.6 (10-20); Calcium 8.8 mg/dl (8.5-10.1); Creatinine Clr Calc Pharmacy 127.6 ml/min; Est GFR (African American) 110.7; Est GFR (Non-African American) 95.5
[2020-07-22 07:43] LABS: Albumin Globulin Ratio 1.1 (0.9-2); Bilirubin,Total 0.6 mg/dl (0.2-1); Globulin 2.7 gm/dl (2.5-4.0); Total Protein 5.5 gm/dl (6.4-8.2)
[2020-07-22] MEDS: levETIRAcetam 500 MG TAB PO SCH ×2 (08:00→20:27)
[2020-07-22] MEDS: INSULIN ASPART 100 UNITS/ML 3 ML PEN SC SCH ×5 (08:11→20:54)
[2020-07-22] MEDS: clonazePAM 0.25 MG TAB PO SCH ×2 (08:11→20:29)
[2020-07-22 08:31] LABS: Estimated Average Glucose 105 mg/dl; Hemoglobin A1C 5.3 % (4.5-5.6)
[2020-07-22 08:34] LABS: Potassium 4.4 mmol/L (3.5-5.1)
[2020-07-22] MEDS ORDERED: RIVAROXABAN 10 MG TABLET PO SCH (09:00)
[2020-07-22] MEDS ORDERED: INSULIN GLARGINE SOLOSTAR 100 UNITS/ML 3 ML PEN SC SCH (09:15)
[2020-07-22] MEDS ORDERED: POLYETHYLENE (MIRALAX) 17 GM PACK PO PRN (10:15)
--- NOTE | 2020-07-22 10:17 | Hospitalist Progress Note ---
Date of Service July 22, 2020 Assessment & Plan (1) Septic shock: 70-year-old male with history of glioblastoma multiforme status post surgical excision and chemo radiation, partial seizures, hypertension, asthma, DM 2, here with acute hypotension, possible septic shock, versus shock from reaction to drug and adrenal insufficiency. Presented with presumed septic shock, unknown source versus reaction to temozolomide with profound hypotension which is not typical reaction to this drug. Also some component of dehydration from recent round of chemotherapy. Blood pressure in the 50s systolic upon arrival along with shaking chills at home. He did also have some shortness of breath and remains mildly hypoxic. The patient's reports that after he started the temozolomide a month ago, he had very similar chills but did not vomit and did not have any shortness of breath with it. She also reports that he has had difficulty weaning off dexamethasone that he has been on since January. This was due to severe fatigue and weakness along with some falls. Most recently he had been going down by half milligram every 3 weeks and was recently decreased to 1 mg daily. With a history of DVT-CT angiogram chest ordered and negative for PE, with atelectasis Covid-19 is negative Admitted and given copious volume resuscitation with crystalloid-BPs are now better Also given stress dose steroids with IV dexamethasone-reduce for tomorrow to every 12 hours -Continue empiric therapy with IV Zosyn and vancomycin while awaiting blood culture results-no growth today -Continue IV fluids but decrease the rate today to 100 mL/h -We will Reach Out to his neurosurgical physician Dr. Gonzalez at [facility], , option #2 for further guidance if still here on Saturday -Hold home temozolomide -Follow CBC as this drug is known for causing significant drops in blood counts (2) Glioblastoma multiforme of brain: Patient was on his first day of his second round of oral chemo with temozolomide Holding temozolomide as above Follow-up with neuro oncology Status post radiation as well (3) Type 2 diabetes mellitus: Hold Metformin. With significant hyperglycemia secondary to IV Decadron Tighten down NovoLog sliding scale and add Lantus 8 units once daily (4) Hypertension: Hypotensive upon admission -Continue to hold amlodipine, lisinopril and potassium chloride (5) Asthma: With mild acute respiratory failure with hypoxia secondary to atelectasis and possibly asthma -Continue we will have Duonebs every 4 hours while awake and every 2 hours when necessary. 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 twice daily Added back his clonazepam 0.25 mg p.o. twice daily as he is on this for seizure prevention-this was held initially for hypotension lethargy (7) Deep vein thrombosis (DVT) of left lower extremity: resolved and was a superficial clot off Xarelto (8) Acute respiratory failure with hypoxia: As above DVT prophylaxis-received 1 dose of Xarelto but will convert to just Lovenox once daily Continued stay on PCU Admission and Anticipated Discharge Date Admission Date: July 21, 2020 Subjective Patient much improved today, more alert and interactive. Is eating. Denies chest pain or shortness of breath, no cough, no abdominal pains. No diarrhea. Blood pressures are much improved. He denies headache. Telemetry with normal sinus rhythm with rates in the 70s to 80s. No bowel movement no bleeding from anywhere. Review of Systems Review of Systems: All systems reviewed & are unremarkable except as noted in HPI & below Physical Exam Constitutional: WD/WN, vitals as above Eyes: + anicteric sclerae ENMT: external ear and nose normal, oropharynx normal Neck: trachea midline, no thyromegaly Respiratory: normal respiratory effort Auscultation: + crackles (At the bases); no wheezes Cardiovascular: RRR, no murmur, no edema Chest (Breasts): Chest: normal inspection of chest Gastrointestinal (Abdomen): normal bowel sounds, soft, nontender, no hepatosplenomegaly Musculoskeletal: Extremities: extremities normal to inspection; no cyanosis and no clubbing Skin: no rashes, warm and dry Neurologic: moves all extremities, + focal motor deficit (4/5 strength in left upper extremity) and awake; not confused Psychiatric: A+Ox3, euthymic affect Lymphatic: no lymphedema Results & Data Results & Data ([facility]) Vital Signs (Past 12 Hours) Vital Signs Temp Pulse Pulse Resp BP Pulse Ox 07/22/20 07:59 36.9 C 76 18 114/69 97 07/22/20 04:36 36.4 C L 84 18 112/65 99 07/22/20 01:39 84 07/21/20 23:30 36.3 C L 93 H 16 105/60 98 Laboratory Results Labs reviewed PG Care Time/CCT Total # of Minutes Spent Total Time Spent with Patient: Total time spent is greater than 50% in coordination of care (as documented) at patient's floor/unit and/or counseling patient: Coding Level of Care Code 86786 Subseq Hosp Care Lvl 3 Diagnoses Septic shock A41.9; R65.21 Glioblastoma multiforme of brain C71.9 Type 2 diabetes mellitus E11.9 Hypertension I10 Asthma J45.909 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
--- NOTE | 2020-07-22 12:03 | XCELERA ---
[id number] \\[id number]
[2020-07-22] MEDS: INSULIN GLARGINE SOLOSTAR 100 UNITS/ML 3 ML PEN SC SCH (20:52)
[2020-07-23] MEDS: NSS + 20MEQ KCL 20 MEQ/1,000 ML BAG IV SCH (02:13)
[2020-07-23 06:28] LABS: Hematocrit (blood only) 31.1 % (42-52); Hemoglobin 10.5 g/dL (14.0-18.0); Immature Granulocytes # (auto) 0.02 K/uL (0.00-0.02); Immature Granulocytes % (auto) 0.3 %; Lymphocytes # (auto) 0.38 K/uL (1.2-3.4); Lymphocytes % (auto) 5.2 %; Mean Corpuscular Hemoglobin 33.1 pg (25-34); Mean Corpuscular Hgb Conc 33.8 g/dL (32-36); Mean Corpuscular Volume 98.1 fL (80-100); Monocytes # (auto) 0.29 K/uL (0.11-0.59); Neutrophils # (auto) 6.59 K/uL (1.4-6.5); Neutrophils % (auto) 90.5 %; Platelet Count 143 K/uL (130-400); RDW Coefficient of Variation 14.5 % (11.5-14.5); RDW Standard Deviation 52.3 fL (36.4-46.3); Red Blood Count 3.17 M/uL (4.7-6.1); White Blood Count 7.28 K/uL (4.8-10.8)
[2020-07-23 07:06] LABS: Albumin Level 2.7 gm/dl (3.4-5.0); BUN Creatinine Ratio 33.2 (10-20); Calcium 8.6 mg/dl (8.5-10.1); Creatinine Clr Calc Pharmacy 166.5 ml/min; Est GFR (African American) 122.4; Est GFR (Non-African American) 105.6; Magnesium 2.1 mg/dl (1.8-2.4); Potassium 4.4 mmol/L (3.5-5.1)
[2020-07-23 07:08] LABS: Bilirubin,Total 0.4 mg/dl (0.2-1); Globulin 2.8 gm/dl (2.5-4.0); Total Protein 5.5 gm/dl (6.4-8.2)
[2020-07-23] MEDS: INSULIN ASPART 100 UNITS/ML 3 ML PEN SC SCH ×4 (07:56→21:00)
[2020-07-23] MEDS: INSULIN GLARGINE SOLOSTAR 100 UNITS/ML 3 ML PEN SC SCH ×2 (07:57→21:00)
[2020-07-23] MEDS: clonazePAM 0.25 MG TAB PO SCH ×2 (07:59→20:43)
[2020-07-23] MEDS: PIPERACILLIN/TAZOBACTAM 4.5 GM in DEXTROSE 5% 100 ML IV SCH (07:59)
[2020-07-23] MEDS: levETIRAcetam 500 MG TAB PO SCH ×2 (08:00→20:43)
[2020-07-23] MEDS: DEXAMETHASONE SOD PHOSPHATE 6 MG in SYRINGE 0 ML IV SCH (08:00)
[2020-07-23] MEDS ORDERED: INSULIN GLARGINE SOLOSTAR 100 UNITS/ML 3 ML PEN SC ONE (08:15)
[2020-07-23] MEDS: ENOXAPARIN INJ 40 MG/0.4 ML SYR SQ SCH (10:14)
[2020-07-23] MEDS: VANCOMYCIN HCL 1,750 MG in SODIUM CHLORIDE 0.9% 500 ML IV SCH (11:15)
--- NOTE | 2020-07-23 11:45 | Hospitalist Progress Note ---
Date of Service July 23, 2020 Assessment & Plan (1) Septic shock: 70-year-old male with history of glioblastoma multiforme status post surgical excision and chemo radiation, partial seizures, hypertension, asthma, DM 2, here with acute hypotension, possible septic shock, versus shock from reaction to drug and adrenal insufficiency. Presented with presumed septic shock, unknown source versus reaction to temozolomide with profound hypotension which is not typical reaction to this drug. Also likely with a component of dehydration from recent round of chemotherapy. Blood pressure in the 50s systolic upon arrival along with shaking chills at home. He did also have some shortness of breath and remains mildly hypoxic. The patient's reports that after he started the temozolomide a month ago, he had very similar chills but did not vomit and did not have any shortness of breath with it. She also reports that he has had difficulty weaning off dexamethasone that he has been on since January. This was due to severe fatigue and weakness along with some falls. Most recently he had been going down by half milligram every 3 weeks and was recently decreased to 1 mg daily. With a history of DVT- a CT angiogram chest ordered and negative for PE, with atelectasis Covid-19 is negative Admitted and given copious volume resuscitation with crystalloid-BPs are now better Also given stress dose steroids with IV dexamethasone-reduce to once daily today -received empiric therapy with IV Zosyn and vancomycin while awaiting blood culture results-no growth today at 48 hour sabrina--> ok to dc abx -dc IVFs, is tolerating po -We will reach out to his neurosurgical physician Dr. Gonzalez at [facility], , option #2 for further guidance if still here on Saturday -Hold home temozolomide -Follow CBC as this drug is known for causing significant drops in blood counts (2) Glioblastoma multiforme of brain: Patient was on his first day of his second round of oral chemo with temozolomide Holding temozolomide as above Follow-up with neuro oncology Status post radiation as well (3) Type 2 diabetes mellitus: Hold Metformin. With significant hyperglycemia secondary to IV Decadron Tighten down NovoLog sliding scale and increase Lantus to 10 units bid -decreasing decadron dose today (4) Hypertension: Hypotensive upon admission, now normotensive after copious IVFs and stress dose steroids -Continue to hold amlodipine, lisinopril and potassium chloride (5) Asthma: With mild acute respiratory failure with hypoxia secondary to atelectasis and possibly asthma -Continue we will have Duonebs every 4 hours while awake and every 2 hours when necessary. 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 twice daily -continue clonazepam 0.25 mg p.o. twice daily as he is on this for seizure prevention-this was held initially for hypotension lethargy (7) Deep vein thrombosis (DVT) of left lower extremity: resolved and was a superficial clot off Xarelto (8) Acute respiratory failure with hypoxia: As above DVT prophylaxis-received 1 dose of Xarelto on admission and then convert to just Lovenox once daily Continued stay on PCU, slowly improving. VERY WEAK but plans on going home with home health perhaps 1-2 days Admission and Anticipated Discharge Date Admission Date: July 21, 2020 Subjective Pt feeling well today, still very weak when he worked with PT. Denies any CP or SOB, no overnight events. Denies nausea or vomiting, no BM in 3 days. Tele with NSR 60-70s, PACs, PVCs Review of Systems Review of Systems: All systems reviewed & are unremarkable except as noted in HPI & below Physical Exam Constitutional: WD/WN, vitals as above Eyes: + anicteric sclerae Neck: trachea midline, no thyromegaly Respiratory: normal respiratory effort, lungs clear to auscultation normal respiratory effort Cardiovascular: RRR, no murmur, no edema Chest (Breasts): Chest: normal inspection of chest Gastrointestinal (Abdomen): normal bowel sounds, soft, nontender, no hepatosplenomegaly Musculoskeletal: Extremities: extremities normal to inspection; no cyanosis and no clubbing Skin: no rashes, warm and dry Neurologic: moves all extremities, + focal motor deficit (4/5 strength in left upper extremity) and awake; not confused Psychiatric: A+Ox3, euthymic affect Lymphatic: no lymphedema Results & Data Results & Data ([facility]) Vital Signs (Past 12 Hours) Vital Signs Temp Pulse Pulse Pulse Resp BP Pulse Ox 07/23/20 10:02 77 07/23/20 09:51 78 112/77 07/23/20 08:07 36.5 C 70 20 162/68 H 98 07/23/20 04:00 37.3 C 74 18 119/74 95 07/22/20 23:55 70 07/22/20 23:37 36.6 C 71 17 117/73 98 Laboratory Results 07/23/20 07/23/20 07/23/20 Range/Units 11:34 07:25 05:21 WBC (4.8-10.8) K/uL RBC (4.7-6.1) M/uL Hgb (14.0-18.0) g/dL Hct (42-52) % MCV (80-100) fL MCH (25-34) pg MCHC (32-36) g/dL RDW Std Deviation (36.4-46.3) fL RDW Coeff of Vicki (11.5-14.5) % Plt Count (130-400) K/uL MPV (7.4-10.4) fL Immature Gran % (Auto) % Neut % (Auto) % Lymph % (Auto) % Hunt % (Auto) % Eos % (Auto) % Baso % (Auto) % Neut # (Auto) (1.4-6.5) K/uL Lymph # (Auto) (1.2-3.4) K/uL Hunt # (Auto) (0.11-0.59) K/uL Eos # (Auto) (0-0.5) K/uL Baso # (Auto) (0-0.2) K/uL Immature Gran # (Auto) (0.00-0.02) K/uL Sodium 144 (136-145) mmol/L Potassium 4.4 (3.5-5.1) mmol/L Chloride 114 H (98-107) mmol/L Carbon Dioxide 28 (21-32) mmol/L Anion Gap 2.0 L (3-11) BUN 18 (7-18) mg/dl Creatinine 0.54 L (0.6-1.4) mg/dl Est Cr Clr Drug Dosing 166.5 ml/min Est GFR ( Amer) 122.4 Est GFR (Non-Af Amer) 105.6 BUN/Creatinine Ratio 33.2 H (10-20) Glucose 212 H (70-99) mg/dl POC Glucose 205 H 198 H (70-99) mg/dl Calcium 8.6 (8.5-10.1) mg/dl Magnesium 2.1 (1.8-2.4) mg/dl Total Bilirubin 0.4 (0.2-1) mg/dl AST 6 L (15-37) U/L ALT 21 (12-78) U/L Alkaline Phosphatase 38 L (45-117) U/L Total Protein 5.5 L (6.4-8.2) gm/dl Albumin 2.7 L (3.4-5.0) gm/dl Globulin 2.8 (2.5-4.0) gm/dl Albumin/Globulin Ratio 1.0 (0.9-2) 07/23/20 07/22/20 07/22/20 Range/Units 05:21 20:52 16:34 WBC 7.28 (4.8-10.8) K/uL RBC 3.17 L (4.7-6.1) M/uL Hgb 10.5 L (14.0-18.0) g/dL Hct 31.1 L (42-52) % MCV 98.1 (80-100) fL MCH 33.1 (25-34) pg MCHC 33.8 (32-36) g/dL RDW Std Deviation 52.3 H (36.4-46.3) fL RDW Coeff of Vicki 14.5 (11.5-14.5) % Plt Count 143 (130-400) K/uL MPV 9.0 (7.4-10.4) fL Immature Gran % (Auto) 0.3 % Neut % (Auto) 90.5 % Lymph % (Auto) 5.2 % Hunt % (Auto) 4.0 % Eos % (Auto) 0.0 % Baso % (Auto) 0.0 % Neut # (Auto) 6.59 H (1.4-6.5) K/uL Lymph # (Auto) 0.38 L (1.2-3.4) K/uL Hunt # (Auto) 0.29 (0.11-0.59) K/uL Eos # (Auto) 0.00 (0-0.5) K/uL Baso # (Auto) 0.00 (0-0.2) K/uL Immature Gran # (Auto) 0.02 (0.00-0.02) K/uL Sodium (136-145) mmol/L Potassium (3.5-5.1) mmol/L Chloride (98-107) mmol/L Carbon Dioxide (21-32) mmol/L Anion Gap (3-11) BUN (7-18) mg/dl Creatinine (0.6-1.4) mg/dl Est Cr Clr Drug Dosing ml/min Est GFR ( Amer) Est GFR (Non-Af Amer) BUN/Creatinine Ratio (10-20) Glucose (70-99) mg/dl POC Glucose 254 H 267 H (70-99) mg/dl Calcium (8.5-10.1) mg/dl Magnesium (1.8-2.4) mg/dl Total Bilirubin (0.2-1) mg/dl AST (15-37) U/L ALT (12-78) U/L Alkaline Phosphatase (45-117) U/L Total Protein (6.4-8.2) gm/dl Albumin (3.4-5.0) gm/dl Globulin (2.5-4.0) gm/dl Albumin/Globulin Ratio (0.9-2) PG Care Time/CCT Total # of Minutes Spent Total Time Spent with Patient: Total time spent is greater than 50% in coordination of care (as documented) at patient's floor/unit and/or counseling patient: Coding Level of Care Code 11601 Subseq Hosp Care Lvl 3 Diagnoses Septic shock A41.9; R65.21 Glioblastoma multiforme of brain C71.9 Type 2 diabetes mellitus E11.9 Hypertension I10 Asthma J45.909 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
[2020-07-24 06:08] LABS: Hematocrit (blood only) 33.6 % (42-52); Hemoglobin 11.4 g/dL (14.0-18.0); Immature Granulocytes # (auto) 0.01 K/uL (0.00-0.02); Immature Granulocytes % (auto) 0.2 %; Lymphocytes # (auto) 0.53 K/uL (1.2-3.4); Lymphocytes % (auto) 8.5 %; Mean Corpuscular Hemoglobin 33.5 pg (25-34); Mean Corpuscular Hgb Conc 33.9 g/dL (32-36); Mean Corpuscular Volume 98.8 fL (80-100); Mean Platelet Volume 8.7 fL (7.4-10.4); Monocytes # (auto) 0.43 K/uL (0.11-0.59); Monocytes % (auto) 6.9 %; Neutrophils % (auto) 84.4 %; Platelet Count 158 K/uL (130-400); RDW Coefficient of Variation 14.7 % (11.5-14.5); RDW Standard Deviation 53.1 fL (36.4-46.3); White Blood Count 6.27 K/uL (4.8-10.8)
[2020-07-24 06:42] LABS: Albumin Level 2.8 gm/dl (3.4-5.0); Calcium 8.8 mg/dl (8.5-10.1); Creatinine Clr Calc Pharmacy 171.6 ml/min; Est GFR (African American) 123.4; Est GFR (Non-African American) 106.5; Magnesium 2.1 mg/dl (1.8-2.4); Potassium 4.1 mmol/L (3.5-5.1)
[2020-07-24 06:48] LABS: Bilirubin,Total 0.4 mg/dl (0.2-1); Globulin 2.7 gm/dl (2.5-4.0); Total Protein 5.5 gm/dl (6.4-8.2)
[2020-07-24] MEDS: clonazePAM 0.25 MG TAB PO SCH ×2 (07:52→21:04)
[2020-07-24] MEDS: levETIRAcetam 500 MG TAB PO SCH ×2 (07:53→21:04)
[2020-07-24] MEDS: ENOXAPARIN INJ 40 MG/0.4 ML SYR SQ SCH (07:53)
[2020-07-24] MEDS: INSULIN ASPART 100 UNITS/ML 3 ML PEN SC SCH ×4 (07:54→21:07)
[2020-07-24] MEDS: INSULIN GLARGINE SOLOSTAR 100 UNITS/ML 3 ML PEN SC SCH (08:00)
[2020-07-24] MEDS ORDERED: DEXAMETHASONE SOD PHOSPHATE 6 MG in SYRINGE 0 ML IV SCH (09:00)
--- NOTE | 2020-07-24 12:11 | Hospitalist Progress Note ---
Date of Service July 24, 2020 Assessment & Plan (1) Shock: 70-year-old male with history of glioblastoma multiforme status post surgical excision and chemo radiation, partial seizures, hypertension, asthma, DM 2, here with acute hypotension, possible septic shock, versus shock from reaction to drug and adrenal insufficiency. Presented with presumed septic shock, unknown source versus reaction to temozolomide with profound hypotension which is not typical reaction to this drug. Also likely with a component of dehydration from recent round of chemotherapy. Blood pressure in the 50s systolic upon arrival along with shaking chills at home. He did also have some shortness of breath and was mildly hypoxic. The patient's reports that after he started the temozolomide a month ago, he had very similar chills but did not vomit and did not have any shortness of breath with it. She also reports that he has had difficulty weaning off dexamethasone that he has been on since January. This was due to severe fatigue and weakness along with some falls. Most recently he had been going down by half milligram every 3 weeks and was recently decreased to 1 mg daily. With a history of DVT- a CT angiogram chest ordered and negative for PE, with atelectasis Covid-19 is negative CXR without PNA UA no infection Blood cultures no growth Admitted and given copious volume resuscitation with crystalloid-BPs are now much improved Also given stress dose steroids with IV dexamethasone-reduce to 4mg daily now of Decadron -received empiric therapy with IV Zosyn and vancomycin while awaiting blood culture results-no growth at 48 hour sabrina--> dc abx -dc'd IVFs, is tolerating po -can reach out to his neurosurgical physician Dr. Gonzalez at [facility], , option #2 if needed but will send DISCHARGE SUMMARY to him -Hold home temozolomide and f/u with Neuro-Oncology team to determine if should continue this treatment -Follow CBC as this drug is known for causing significant drops in blood counts (2) Glioblastoma multiforme of brain: Patient was on his first day of his second round of oral chemo with temozolomide Holding temozolomide as above Follow-up with neuro oncology Status post radiation as well Causing partial complex seizures and LUE weakness (3) Type 2 diabetes mellitus: Hold Metformin. With significant hyperglycemia secondary to IV Decadron now improving with weaning Decadron and increasing insulin Continue NovoLog sliding scale and decrease Lantus back down to 10 units qAM as Decadron dose going down -decreasing decadron dose today (4) Hypertension: Hypotensive upon admission, now normotensive after copious IVFs and stress dose steroids -Continue to hold amlodipine, lisinopril and potassium chloride (5) Asthma: With mild acute respiratory failure with hypoxia secondary to atelectasis and possibly asthma -Continue we will have Duonebs every 4 hours while awake and every 2 hours when necessary. 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 twice daily -continue clonazepam 0.25 mg p.o. twice daily as he is on this for seizure prevention-this was held initially for hypotension lethargy (7) Deep vein thrombosis (DVT) of left lower extremity: resolved and was a superficial clot off Xarelto (8) Acute respiratory failure with hypoxia: As above DVT prophylaxis-received 1 dose of Xarelto on admission and then convert to just Lovenox once daily Transfer off PCU to Med/Surg floor--> slowly improving. VERY WEAK but plans on going to the [facility] hopefully on Saturday if approved Admission and Anticipated Discharge Date Admission Date: July 21, 2020 Subjective Pt doing very well. He is OOB to chair eating lunch when I saw him. Denies any lightheadedness, no CP/no SOB, remains off O2. No headache. Has not moved his bowels yet since being here. Tele with NSR, low 100s ST Review of Systems Review of Systems: All systems reviewed & are unremarkable except as noted in HPI & below Physical Exam Constitutional: WD/WN, vitals as above Eyes: + anicteric sclerae Neck: trachea midline, no thyromegaly Respiratory: normal respiratory effort, lungs clear to auscultation Cardiovascular: RRR, no murmur, no edema Chest (Breasts): Chest: normal inspection of chest Gastrointestinal (Abdomen): normal bowel sounds, soft, nontender, no hepatosplenomegaly Musculoskeletal: Extremities: extremities normal to inspection; no cyanosis and no clubbing Skin: no rashes, warm and dry Neurologic: moves all extremities, + focal motor deficit (4/5 strength in left upper extremity) and awake; not confused Psychiatric: A+Ox3, euthymic affect Lymphatic: no lymphedema Results & Data Results & Data ([facility]) Vital Signs (Past 12 Hours) Vital Signs Temp Pulse Resp BP Pulse Ox 07/24/20 08:00 36.4 C L 65 16 155/82 H 96 07/24/20 03:49 36.5 C 66 17 134/74 94 Laboratory Results 07/24/20 07/24/20 07/24/20 Range/Units 20:47 17:16 11:27 WBC (4.8-10.8) K/uL RBC (4.7-6.1) M/uL Hgb (14.0-18.0) g/dL Hct (42-52) % MCV (80-100) fL MCH (25-34) pg MCHC (32-36) g/dL RDW Std Deviation (36.4-46.3) fL RDW Coeff of Vicki (11.5-14.5) % Plt Count (130-400) K/uL MPV (7.4-10.4) fL Immature Gran % (Auto) % Neut % (Auto) % Lymph % (Auto) % Keith % (Auto) % Eos % (Auto) % Baso % (Auto) % Neut # (Auto) (1.4-6.5) K/uL Lymph # (Auto) (1.2-3.4) K/uL Keith # (Auto) (0.11-0.59) K/uL Eos # (Auto) (0-0.5) K/uL Baso # (Auto) (0-0.2) K/uL Immature Gran # (Auto) (0.00-0.02) K/uL Sodium (136-145) mmol/L Potassium (3.5-5.1) mmol/L Chloride (98-107) mmol/L Carbon Dioxide (21-32) mmol/L Anion Gap (3-11) BUN (7-18) mg/dl Creatinine (0.6-1.4) mg/dl Est Cr Clr Drug Dosing ml/min Est GFR ( Amer) Est GFR (Non-Af Amer) BUN/Creatinine Ratio (10-20) Glucose (70-99) mg/dl POC Glucose 235 H 198 H 193 H (70-99) mg/dl Calcium (8.5-10.1) mg/dl Magnesium (1.8-2.4) mg/dl Total Bilirubin (0.2-1) mg/dl AST (15-37) U/L ALT (12-78) U/L Alkaline Phosphatase (45-117) U/L Total Protein (6.4-8.2) gm/dl Albumin (3.4-5.0) gm/dl Globulin (2.5-4.0) gm/dl Albumin/Globulin Ratio (0.9-2) 07/24/20 07/24/20 07/24/20 Range/Units 07:38 05:17 05:17 WBC 6.27 (4.8-10.8) K/uL RBC 3.40 L (4.7-6.1) M/uL Hgb 11.4 L (14.0-18.0) g/dL Hct 33.6 L (42-52) % MCV 98.8 (80-100) fL MCH 33.5 (25-34) pg MCHC 33.9 (32-36) g/dL RDW Std Deviation 53.1 H (36.4-46.3) fL RDW Coeff of Vicki 14.7 H (11.5-14.5) % Plt Count 158 (130-400) K/uL MPV 8.7 (7.4-10.4) fL Immature Gran % (Auto) 0.2 % Neut % (Auto) 84.4 % Lymph % (Auto) 8.5 % Keith % (Auto) 6.9 % Eos % (Auto) 0.0 % Baso % (Auto) 0.0 % Neut # (Auto) 5.30 (1.4-6.5) K/uL Lymph # (Auto) 0.53 L (1.2-3.4) K/uL Keith # (Auto) 0.43 (0.11-0.59) K/uL Eos # (Auto) 0.00 (0-0.5) K/uL Baso # (Auto) 0.00 (0-0.2) K/uL Immature Gran # (Auto) 0.01 (0.00-0.02) K/uL Sodium 144 (136-145) mmol/L Potassium 4.1 (3.5-5.1) mmol/L Chloride 113 H (98-107) mmol/L Carbon Dioxide 29 (21-32) mmol/L Anion Gap 2.0 L (3-11) BUN 22 H (7-18) mg/dl Creatinine 0.53 L (0.6-1.4) mg/dl Est Cr Clr Drug Dosing 171.6 ml/min Est GFR ( Amer) 123.4 Est GFR (Non-Af Amer) 106.5 BUN/Creatinine Ratio 42.0 H (10-20) Glucose 152 H (70-99) mg/dl POC Glucose 136 H (70-99) mg/dl Calcium 8.8 (8.5-10.1) mg/dl Magnesium 2.1 (1.8-2.4) mg/dl Total Bilirubin 0.4 (0.2-1) mg/dl AST 4 L (15-37) U/L ALT 24 (12-78) U/L Alkaline Phosphatase 38 L (45-117) U/L Total Protein 5.5 L (6.4-8.2) gm/dl Albumin 2.8 L (3.4-5.0) gm/dl Globulin 2.7 (2.5-4.0) gm/dl Albumin/Globulin Ratio 1.0 (0.9-2) PG Care Time/CCT Total # of Minutes Spent Total Time Spent with Patient: Total time spent is greater than 50% in coordination of care (as documented) at patient's floor/unit and/or counseling patient: Coding Level of Care Code 27535 Subseq Hosp Care Lvl 3 Diagnoses Shock R57.9 Glioblastoma multiforme of brain C71.9 Type 2 diabetes mellitus E11.9 Hypertension I10 Asthma J45.909 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
[2020-07-24] MEDS: DOCUSATE SODIUM 100 MG CAP PO SCH ×2 (14:29→21:04)
[2020-07-24] MEDS: POLYETHYLENE (MIRALAX) 17 GM PACK PO SCH (14:29)
[2020-07-25 06:09] LABS: Basophils # (auto) 0.01 K/uL (0-0.2); Basophils % (auto) 0.2 %; Immature Granulocytes # (auto) 0.05 K/uL (0.00-0.02); Lymphocytes # (auto) 0.54 K/uL (1.2-3.4); Mean Corpuscular Hemoglobin 33.1 pg (25-34); Mean Corpuscular Hgb Conc 34.4 g/dL (32-36); Mean Corpuscular Volume 96.4 fL (80-100); Mean Platelet Volume 8.7 fL (7.4-10.4); Monocytes # (auto) 0.49 K/uL (0.11-0.59); Neutrophils % (auto) 77.8 %; Nucleated RBC # (auto) 0.05 K/uL (0-0); Nucleated RBC % (auto) 1.1 %; Platelet Count 146 K/uL (130-400); RDW Coefficient of Variation 14.5 % (11.5-14.5); RDW Standard Deviation 51.3 fL (36.4-46.3); Red Blood Count 3.32 M/uL (4.7-6.1); White Blood Count 4.89 K/uL (4.8-10.8)
[2020-07-25 06:51] LABS: BUN Creatinine Ratio 41.1 (10-20); Calcium 8.9 mg/dl (8.5-10.1); Creatinine Clr Calc Pharmacy 156.8 ml/min; Est GFR (African American) 118.9; Est GFR (Non-African American) 102.6; Potassium 3.8 mmol/L (3.5-5.1)
[2020-07-25] MEDS: ENOXAPARIN INJ 40 MG/0.4 ML SYR SQ SCH (08:44)
[2020-07-25] MEDS: dexAMETHasone 4 MG TAB PO SCH (08:44)
[2020-07-25] MEDS: DOCUSATE SODIUM 100 MG CAP PO SCH ×2 (08:44→20:59)
[2020-07-25] MEDS: CHOLECALCIFEROL 1,000 UNITS 25 MCG TAB PO SCH (08:44)
[2020-07-25] MEDS: levETIRAcetam 500 MG TAB PO SCH ×2 (08:44→20:59)
[2020-07-25] MEDS: INSULIN GLARGINE SOLOSTAR 100 UNITS/ML 3 ML PEN SC SCH (08:45)
[2020-07-25] MEDS: POLYETHYLENE (MIRALAX) 17 GM PACK PO SCH (08:45)
[2020-07-25] MEDS: INSULIN ASPART 100 UNITS/ML 3 ML PEN SC SCH ×4 (08:45→20:55)
[2020-07-25] MEDS: clonazePAM 0.25 MG TAB PO SCH ×2 (08:51→20:59)
--- NOTE | 2020-07-25 13:36 | Ultrasound Report ---
LEFT UPPER EXTREMITY VENOUS DOPPLER HISTORY: L arm weakness, edema, brain tumor; eval LUE DVT COMPARISON STUDY: None. FINDINGS: The left internal jugular vein is patent. There is normal flow within the left subclavian v ein. There is normal flow and compressibility within the left axillary, basilic, brachial, radial, an d visualized cephalic veins. Of note, the left ulnar vein is not well visualized due to the left uppe r extremity edema. IMPRESSION: No DVT within the visualized left upper extremity. ACT 112: Negative or not required by law. Electronically signed by: Matt Tran M.D. 07/25/2020 1:35 PM
--- NOTE | 2020-07-25 20:13 | Hospitalist Progress Note ---
Date of Service July 25, 2020 Assessment & Plan (1) Shock: Likely hypovolemic and addisonian. Shock resolved with fluids and stress-dose IV steroids. Sepsis never found - blood cultures negative. No evidence of obstructive shock from PE(s) - CTA chest negative. No cardiogenic shock. Patient's illness began in the midst of recent chemo as well as ongoing attempts at tapering his steroids. He was down to 1mg of dexamethasone just prior to admission. Was started on dexamethasone at the time of first diagnosis of his GBM in 2019. stated that prior attempts to wean his steroids were met with excessive fatigue which then led to re-escalation of steroids. BPs very normal at this time. Cont dexamethasone 4mg daily. Leave on this dose at d/c especially in light of ongoing brain edema surrounding GBM as seen on most recent CT head. (2) Glioblastoma multiforme of brain: Patient was on his first day of his second round of oral chemo with temozolomide at time of admission. Holding temozolomide. Follow-up with neuro oncology post-d/c. Status post radiation in the past. Follows with Dr. Goznalez, neurosurgery, at [facility] - [phone], option #2. Follow CBC - temozolomide can cause suppression of cell lines. (3) Type 2 diabetes mellitus: Hold Metformin. Cont basal-bolus insulins - control acceptable. (4) Hypertension: Have been holding amlodipine and lisinopril given shock at presentation. BPs starting to rise - reinitiate meds as needed. (5) Asthma: without exacerbation at this time. 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 twice daily Continue clonazepam 0.25 mg p.o. twice daily as he is on this for seizure prevention as well (7) Deep vein thrombosis (DVT) of left lower extremity: resolved and was a superficial clot off Xarelto (8) Lymphedema of left arm: Check doppler today of LUE - NO DVT. Consider compression sleeve as outpatient. Lymphedema 2nd to motor weakness due to GBM. (9) DVT prophylaxis: lovenox daily updated by phone today dispo - SNF for rehab Admission and Anticipated Discharge Date Admission Date: July 21, 2020 Subjective no issues overnight. sitting in chair, feeling good. left arm swelling/weakness - at baseline. no new complaints. still willing to attend rehab post-d/c. Review of Systems Constitutional: no fever, no chills and no anorexia Respiratory: no cough and no dyspnea Cardiovascular: no chest pain Gastrointestinal: no abdominal pain Physical Exam Constitutional: well developed, well nourished and + obese; no acute distress and no altered mental status ENMT: external ear and nose normal, oropharynx normal Respiratory: normal respiratory effort, lungs clear to auscultation Cardiovascular: Rate/Rhythm: regular rate and regular rhythm Heart Sounds: normal S1 and normal S2; no murmur Vessels: posterior tibial pulses present and dorsalis pedis pulses present; no JVD Extremities: + edema (<1+ b/l legs; 1+ left arm; no palpable cords left arm ) Gastrointestinal (Abdomen): normal bowel sounds, soft, nontender, no hepatosplenomegaly Neurologic: 3-4/5 strength left arm; strength right arm/legs 5/5 Psychiatric: A+Ox3, euthymic affect Results & Data Results & Data ([facility]) Vital Signs (Past 12 Hours) Vital Signs Temp Pulse Resp BP Pulse Ox 07/25/20 15:34 36.7 C 67 16 150/79 H 94 Laboratory Results Laboratory Results - last 24 hr 07/24/20 07/25/20 07/25/20 20:47 05:28 05:28 WBC 4.89 RBC 3.32 L Hgb 11.0 L Hct 32.0 L MCV 96.4 MCH 33.1 MCHC 34.4 RDW Std Deviation 51.3 H RDW Coeff of Vicki 14.5 Plt Count 146 MPV 8.7 Immature Gran % (Auto) 1.0 Neut % (Auto) 77.8 Lymph % (Auto) 11.0 [place] % (Auto) 10.0 Eos % (Auto) 0.0 Baso % (Auto) 0.2 Neut # (Auto) 3.80 Lymph # (Auto) 0.54 L [place] # (Auto) 0.49 Eos # (Auto) 0.00 Baso # (Auto) 0.01 Immature Gran # (Auto) 0.05 H Absolute Nucleated RBC 0.05 H Nucleated RBC % (auto) 1.1 Sodium 144 Potassium 3.8 Chloride 111 H Carbon Dioxide 29 Anion Gap 4.0 BUN 24 H Creatinine 0.58 L Est Cr Clr Drug Dosing 156.8 Est GFR ( Amer) 118.9 Est GFR (Non-Af Amer) 102.6 BUN/Creatinine Ratio 41.1 H Glucose 121 H POC Glucose 235 H Calcium 8.9 Magnesium 2.0 07/25/20 07/25/20 07/25/20 08:07 11:52 17:04 WBC RBC Hgb Hct MCV MCH MCHC RDW Std Deviation RDW Coeff of Vicki Plt Count MPV Immature Gran % (Auto) Neut % (Auto) Lymph % (Auto) [place] % (Auto) Eos % (Auto) Baso % (Auto) Neut # (Auto) Lymph # (Auto) [place] # (Auto) Eos # (Auto) Baso # (Auto) Immature Gran # (Auto) Absolute Nucleated RBC Nucleated RBC % (auto) Sodium Potassium Chloride Carbon Dioxide Anion Gap BUN Creatinine Est Cr Clr Drug Dosing Est GFR ( Amer) Est GFR (Non-Af Amer) BUN/Creatinine Ratio Glucose POC Glucose 109 H 124 H 182 H Calcium Magnesium PG Care Time/CCT Total # of Minutes Spent Total Time Spent with Patient: Total time spent is greater than 50% in coordination of care (as documented) at patient's floor/unit and/or counseling patient: Coding Level of Care Code 38635 Subseq Hosp Care Lvl 2 Diagnoses Shock R57.9 Glioblastoma multiforme of brain C71.9 Type 2 diabetes mellitus E11.9 Hypertension I10 Asthma J45.909 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
[2020-07-26] MEDS: POLYETHYLENE (MIRALAX) 17 GM PACK PO SCH (08:44)
[2020-07-26] MEDS: DOCUSATE SODIUM 100 MG CAP PO SCH ×2 (08:45→20:45)
[2020-07-26] MEDS: clonazePAM 0.25 MG TAB PO SCH ×2 (08:46→20:45)
[2020-07-26] MEDS: ENOXAPARIN INJ 40 MG/0.4 ML SYR SQ SCH (08:46)
[2020-07-26] MEDS: CHOLECALCIFEROL 1,000 UNITS 25 MCG TAB PO SCH (08:46)
[2020-07-26] MEDS: levETIRAcetam 500 MG TAB PO SCH ×2 (08:46→20:45)
[2020-07-26] MEDS: dexAMETHasone 4 MG TAB PO SCH (08:46)
[2020-07-26] MEDS: INSULIN GLARGINE SOLOSTAR 100 UNITS/ML 3 ML PEN SC SCH (08:47)
[2020-07-26] MEDS: INSULIN ASPART 100 UNITS/ML 3 ML PEN SC SCH ×4 (08:49→20:45)
--- NOTE | 2020-07-26 20:28 | Hospitalist Progress Note ---
Date of Service July 26, 2020 Assessment & Plan (1) Shock: Likely combination of hypovolemic and addisonian. Shock resolved with fluids and stress-dose IV steroids. Sepsis never found - blood cultures negative. No evidence of obstructive shock from PE(s) - CTA chest negative. No cardiogenic shock. Patient's illness began in the midst of recent chemo as well as ongoing attempts at tapering his steroids. He was down to 1mg of dexamethasone just prior to admission. Was started on dexamethasone at the time of first diagnosis of his GBM in 2019. stated that prior attempts to wean his steroids were met with excessive fatigue which then led to re-escalation of steroids. Cont dexamethasone 4mg daily. Leave on this dose at d/c especially in light of ongoing brain edema surrounding GBM as seen on most recent CT head. (2) Glioblastoma multiforme of brain: Patient was on his first day of his second round of oral chemo with temozolomide at time of admission. Holding temozolomide. Follow-up with neuro oncology post-d/c. Status post radiation in the past. Follows with Dr. Gonzalez, neurosurgery, at [facility] - [phone], option #2. Repeat CBC in am - temozolomide can cause suppression of cell lines. (3) Type 2 diabetes mellitus: Hold Metformin. Cont basal-bolus insulins - control acceptable. (4) Hypertension: Have been holding amlodipine and lisinopril given shock at presentation. Will likely need to restart 1 or both meds soon. (5) Asthma: without exacerbation at this time. 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 twice daily Continue clonazepam 0.25 mg p.o. twice daily as he is on this for seizure prevention as well (7) Deep vein thrombosis (DVT) of left lower extremity: resolved this was a superficial thrombosis only he remains off Xarelto (8) Lymphedema of left arm: Doppler of LUE negative for DVT yesterday. Consider compression sleeve as outpatient. Lymphedema 2nd to motor weakness due to GBM. (9) DVT prophylaxis: lovenox daily updated by phone yesterday dispo - SNF for rehab ([facility]) - social work assisting w/ this Admission and Anticipated Discharge Date Admission Date: July 21, 2020 Subjective no issues overnight or today. feels good. eating well. ambulating with assistance. no headache. left arm weakness unchanged. no left leg weakness. Review of Systems Respiratory: no dyspnea Cardiovascular: no chest pain Gastrointestinal: no abdominal pain Physical Exam Constitutional: well developed, well nourished and + obese; no acute distress and no altered mental status ENMT: external ear and nose normal, oropharynx normal Respiratory: normal respiratory effort, lungs clear to auscultation Cardiovascular: Rate/Rhythm: regular rate and regular rhythm Heart Sounds: normal S1 and normal S2; no murmur Vessels: posterior tibial pulses present and dorsalis pedis pulses present; no JVD Extremities: + edema (1+ left arm - no change) Gastrointestinal (Abdomen): normal bowel sounds, soft, nontender, no hepatosp lenomegaly Psychiatric: A+Ox3, euthymic affect Results & Data Results & Data ([facility]) Vital Signs (Past 12 Hours) Vital Signs Temp Pulse Resp BP Pulse Ox 07/26/20 15:13 37.0 C 78 18 150/87 H 95 PG Care Time/CCT Total # of Minutes Spent Total Time Spent with Patient: Total time spent is greater than 50% in coordination of care (as documented) at patient's floor/unit and/or counseling patient: Coding Level of Care Code 40072 Subseq Hosp Care Lvl 2 Diagnoses Shock R57.9 Glioblastoma multiforme of brain C71.9 Type 2 diabetes mellitus E11.9 Hypertension I10 Asthma J45.909 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
[2020-07-27 07:33] LABS: Hematocrit (blood only) 37.6 % (42-52); Hemoglobin 13.4 g/dL (14.0-18.0); Mean Corpuscular Hemoglobin 34.4 pg (25-34); Mean Corpuscular Hgb Conc 35.6 g/dL (32-36); Mean Corpuscular Volume 96.7 fL (80-100); Mean Platelet Volume 8.6 fL (7.4-10.4); Nucleated RBC # (auto) 0.03 K/uL (0-0); Nucleated RBC % (auto) 0.4 %; Platelet Count 156 K/uL (130-400); RDW Coefficient of Variation 14.8 % (11.5-14.5); RDW Standard Deviation 51.4 fL (36.4-46.3); Red Blood Count 3.89 M/uL (4.7-6.1)
[2020-07-27] MEDS: POLYETHYLENE (MIRALAX) 17 GM PACK PO SCH (07:57)
[2020-07-27] MEDS: DOCUSATE SODIUM 100 MG CAP PO SCH ×2 (07:57→20:50)
[2020-07-27] MEDS: ENOXAPARIN INJ 40 MG/0.4 ML SYR SQ SCH (07:57)
[2020-07-27] MEDS: levETIRAcetam 500 MG TAB PO SCH ×2 (07:58→20:50)
[2020-07-27] MEDS: clonazePAM 0.25 MG TAB PO SCH ×2 (07:58→20:49)
[2020-07-27] MEDS: CHOLECALCIFEROL 1,000 UNITS 25 MCG TAB PO SCH (07:58)
[2020-07-27] MEDS: dexAMETHasone 4 MG TAB PO SCH (07:58)
[2020-07-27 08:00] LABS: BUN Creatinine Ratio 27.3 (10-20); Calcium 9.4 mg/dl (8.5-10.1); Creatinine Clr Calc Pharmacy 154.1 ml/min; Est GFR (African American) 118.1; Est GFR (Non-African American) 101.9; Potassium 3.5 mmol/L (3.5-5.1)
[2020-07-27] MEDS: INSULIN GLARGINE SOLOSTAR 100 UNITS/ML 3 ML PEN SC SCH (09:00)
[2020-07-27] MEDS: INSULIN ASPART 100 UNITS/ML 3 ML PEN SC SCH ×4 (09:00→20:42)
[2020-07-27] MEDS ORDERED: amLODIPine BESYLATE 5 MG TAB PO ONE (10:00)
[2020-07-27] MEDS: lisinopril 40 MG TAB PO SCH (10:19)
--- NOTE | 2020-07-27 14:14 | Hospitalist Progress Note ---
Date of Service July 27, 2020 Assessment & Plan (1) Shock: Likely combination of hypovolemic and addisonian. Shock resolved with fluids and stress-dose IV steroids. Sepsis never found - blood cultures negative. No evidence of obstructive shock from PE(s) - CTA chest negative. No cardiogenic shock. Patient's illness began in the midst of recent chemo as well as ongoing attempts at tapering his steroids. He was down to 1mg of dexamethasone just prior to admission. Was started on dexamethasone at the time of first diagnosis of his GBM in 2019. stated that prior attempts to wean his steroids were met with excessive fatigue which then led to re-escalation of steroids. Cont dexamethasone 4mg daily. Leave on this dose at d/c especially in light of ongoing brain edema surrounding GBM as seen on most recent CT head. (2) Glioblastoma multiforme of brain: Patient was on his first day of his second round of oral chemo with temozolomide at time of admission. Holding temozolomide. Follow-up with neuro oncology post-d/c. Status post radiation in the past. Follows with Dr. Gonzalez, neurosurgery, at [facility] - , option #2. Serial CBC - temozolomide can cause suppression of cell lines. (3) Type 2 diabetes mellitus: Hold Metformin. Restart at discharge Cont basal-bolus insulins - control acceptable. (4) Hypertension: Restart amlodipine and lisinopril now that blood pressure has recovered. (5) Asthma: without exacerbation at this time. 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 twice daily Continue clonazepam 0.25 mg p.o. twice daily as he is on this for seizure prevention as well (7) Deep vein thrombosis (DVT) of left lower extremity: resolved this was a superficial thrombosis only he remains off Xarelto (8) Lymphedema of left arm: Doppler of LUE negative for DVT yesterday. Consider compression sleeve as outpatient. Lymphedema 2nd to motor weakness due to GBM. (9) DVT prophylaxis: lovenox daily dispo - SNF for rehab ([facility] when arrangements finalized Admission and Anticipated Discharge Date Admission Date: July 21, 2020 Subjective Alert and oriented. [place] catheter will be removed today. Awaiting final arrangements and bed availability for discharge to [facility]. Blood pressure has recovered and and is now actually running somewhat high. Amlodipine and lisinopril restarted. Review of Systems Review of Systems: Constitutional-no fever or chills ENT-no blurred vision, no double vision, no epistaxis, no sore throat Respiratory-no cough, no wheezing, no shortness of breath Cardiac-no palpitations, no chest pain, no syncope GI-no nausea, vomiting, diarrhea, melena, hematochezia -no urinary retention, no urinary incontinence, no dysuria, no hematuria Musculoskeletal-no joint pain, no muscle tenderness Skin-no bruising, no rashes, no pruritus Neuro-no isolated weakness, no paresthesia, no weakness Psych-no depression, no anxiety Physical Exam Physical Exam: General-alert and oriented x3, no fevers, no chills HEENT-head atraumatic and normocephalic, TMs intact bilaterally, pupils equal and reactive to light, extraocular muscles intact Neck-no lymphadenopathy or thyromegaly, trachea midline Chest-clear to auscultation percussion. No rales wheezing or rhonchi Cardiac-regular rate and rhythm, normal S1 and S2, no murmurs Abdomen-normal bowel sounds, nontender, no hepatosplenomegaly Extremities-no cyanosis, clubbing, or edema Neuro-cranial nerves II through XII intact, motor and sensory function within normal limits, strength symmetrical , no focal deficits Psych-normal affect, normal mood Results & Data Results & Data ([facility]) Vital Signs (Past 12 Hours) Vital Signs Temp Pulse Resp BP Pulse Ox 07/27/20 10:44 36.4 C L 82 19 155/78 H 95 Laboratory Results 07/27/20 06:57 07/27/20 06:57 PG Care Time/CCT Total # of Minutes Spent Total Time Spent with Patient: Total time spent is greater than 50% in coordination of care (as documented) at patient's floor/unit and/or counseling patient: Coding Level of Care Code 99369 Subseq Hosp Care Lvl 3 Diagnoses Shock R57.9 Glioblastoma multiforme of brain C71.9 Type 2 diabetes mellitus E11.9 Hypertension I10 Asthma J45.909 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
[2020-07-28 07:36] VITALS: BP 150/80; TEMP 97.7; O2SAT 95
[2020-07-28] MEDS: CHOLECALCIFEROL 1,000 UNITS 25 MCG TAB PO SCH (08:07)
[2020-07-28] MEDS: clonazePAM 0.25 MG TAB PO SCH (08:07)
[2020-07-28] MEDS: lisinopril 40 MG TAB PO SCH (08:07)
[2020-07-28] MEDS: levETIRAcetam 500 MG TAB PO SCH (08:07)
[2020-07-28] MEDS: ENOXAPARIN INJ 40 MG/0.4 ML SYR SQ SCH (08:08)
[2020-07-28] MEDS: POLYETHYLENE (MIRALAX) 17 GM PACK PO SCH (08:08)
[2020-07-28] MEDS: DOCUSATE SODIUM 100 MG CAP PO SCH (08:08)
[2020-07-28] MEDS: dexAMETHasone 4 MG TAB PO SCH (08:08)
[2020-07-28] MEDS ORDERED: amLODIPine BESYLATE 5 MG TAB PO SCH (09:00)
[2020-07-28] MEDS: INSULIN GLARGINE SOLOSTAR 100 UNITS/ML 3 ML PEN SC SCH (09:08)
[2020-07-28] MEDS: INSULIN ASPART 100 UNITS/ML 3 ML PEN SC SCH ×2 (09:08→12:37)
[2020-07-28] MEDS ORDERED: amLODIPine BESYLATE 5 MG TAB PO ONE (09:30)
--- NOTE | 2020-07-28 09:31 | Discharge Summary ---
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 The patient had completed his first 5-day oral course of chemotherapy for his glioblastoma multiforme, then was off for 20 days, and then began his first day of second round of chemotherapy last evening. Patient reports that he did have some intolerance of the first round of chemotherapy, but found it difficult to explain. Upon arrival to the emergency department, the patient was found to be in sinus tachycardia with a heart rate up to 119, and he became hypotensive, with systolic blood pressure to as low as 52/35. He did respond to 2 L of normal saline, to a present pressure of 100/58. His tachycardia did improve downward to a heart rate of 109. Principal Diagnosis Addisonian crisis Discharge Exam Constitutional WD/WN, vitals as above Eyes PERRL, conjunctivae normal, anicteric sclerae ENMT external ear and nose normal, oropharynx normal Neck trachea midline, no thyromegaly Respiratory normal respiratory effort, lungs clear to auscultation Cardiovascular RRR, no murmur, no edema Gastrointestinal (Abdomen) normal bowel sounds, soft, nontender, no hepatosplenomegaly Musculoskeletal no cyanosis or clubbing, extremities motor strength 5/5 Skin no rashes, warm and dry Neurologic CN's II-XI intact bilaterally Psychiatric A+Ox3, euthymic affect Discharge Data Allergies Allergy/AdvReac Type Severity Reaction Status Date / Time grass pollen Allergy Mild Congested Verified 07/21/20 01:37 cat dander AdvReac Intermediate Hives Verified 07/21/20 01:37 dog dander AdvReac Intermediate WELTS Verified 07/21/20 01:37 Consultations 07/21/20 05:11 ED Decision to Admit Stat 07/21/20 10:20 Consult Case Management - Discharge Planning Routine 07/23/20 19:13 Consult Case Management - Discharge Planning Routine Ordered Studies 07/21/20 03:59 CT angio chest PE protocol Urgent 07/21/20 04:23 CT abd pelvis wo con Urgent CT head/brain wo con Urgent 07/25/20 11:49 US venous doppler UE LT Routine Hospital Course (1) Shock: Likely combination of hypovolemic and addisonian. Shock resolved with fluids and stress-dose IV steroids. Sepsis never found - blood cultures negative. No evidence of obstructive shock from PE(s) - CTA chest negative. No cardiogenic shock. Patient's illness began in the midst of recent chemo as well as ongoing attempts at tapering his steroids. He was down to 1mg of dexamethasone just prior to admission. Was started on dexamethasone at the time of first diagnosis of his GBM in 2019. stated that prior attempts to wean his steroids were met with excessive fatigue which then led to re-escalation of steroids. Cont dexamethasone 4mg daily. Leave on this dose at d/c especially in light of ongoing brain edema surrounding GBM as seen on most recent CT head. (2) Glioblastoma multiforme of brain: Patient was on his first day of his second round of oral chemo with temozolomide at time of admission. Holding temozolomide. Follow-up with neuro oncology post-d/c. Status post radiation in the past. Follows with Dr. Gonzalez, neurosurgery, at [facility] - [phone], option #2. Serial CBC - temozolomide can cause suppression of cell lines. (3) Type 2 diabetes mellitus: Hold Metformin. Restart at discharge Cont basal-bolus insulins - control acceptable. (4) Hypertension: Restarted amlodipine and lisinopril now that blood pressure has recovered. Amlodipine up-titrated todat, 2/4 (5) Asthma: without exacerbation at this time. 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 twice daily Continue clonazepam 0.25 mg p.o. twice daily as he is on this for seizure prevention as well (7) Deep vein thrombosis (DVT) of left lower extremity: resolved this was a superficial thrombosis only he remains off Xarelto (8) Lymphedema of left arm: Doppler of LUE negative for DVT yesterday. Consider compression sleeve as outpatient. Lymphedema 2nd to motor weakness due to GBM. (9) DVT prophylaxis: lovenox daily dispo - SNF for rehab ([facility] ) today, 2/4 Total Time Total Time Spent Total Time Spent (In Minutes): 35 minutes Total Time Includes: Examination of the Patient, Discharge Planning and Med ication Reconciliation Discharge Plan Discharge Items Reason For Visit: SEPTIC SHOCK Follow-up/Referrals: Isaac Branham MD [Primary Care Provider] - Medications and DC Order Prescriptions: No Action lorazepam [Ativan] 1 mg tablet 1 mg PO DAILY PRN (Reason: seizure activity) RF: 0 clonazepam 0.5 mg tablet 0.25 mg PO BID RF: 0 metformin 500 mg tablet 1,000 mg PO BID Qty: 360 RF: 3 lisinopril 40 mg tablet 40 mg PO QAM Qty: 90 RF: 3 albuterol sulfate [ProAir HFA] 90 mcg/actuation HFA aerosol inhaler 2 puffs INH Q6H PRN (Reason: Shortness Of Breath) RF: 0 cholecalciferol (vitamin D3) 50 mcg (2,000 unit) capsule 50 mcg PO DAILY RF: 0 dexamethasone 2 mg tablet 1 mg PO QAM RF: 0 amlodipine 2.5 mg tablet 2.5 mg PO QAM Qty: 90 RF: 3 levetiracetam [Keppra] 500 mg Tablet 1,500 mg PO BID 30 Days Qty: 180 RF: 3 ondansetron HCl 8 mg tablet 8 mg PO Q8 PRN (Reason: Nausea And Vomiting) RF: 0 nystatin-triamcinolone 100,000-0.1 unit/g-% cream 1 applic topical BID PRN (Reason: yeast infection) RF: 0 Admission Data Admit Date/Time: 07/21/20 05:20 Attending Provider: Prashanth Painter Admit Provider: Dereje Pereira Primary Care Provider: Isaac Branham Other Providers: Rachel Manuel [place] ; Dereje Pereira Coding Level of Care Code D/C Day Management >30 mins Diagnoses Shock R57.9 Glioblastoma multiforme of brain C71.9 Type 2 diabetes mellitus E11.9 Hypertension I10 Asthma J45.909 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
[2020-07-28 11:12] VITALS: PULSE 71
[2020-07-29] MEDS ORDERED: amLODIPine BESYLATE 5 MG TAB PO SCH (09:00)
--- NOTE | 2020-08-09 13:05 | Coding Query ---
CODING QUERY To promote full compliance with coding requirements relating to patient care, provider participation is requested in all cases of gas operation manager uncertainty. Please assist us with the question(s) below: Coding Question(s): There is documentation on the Discharge Summary of, "Shock: Likely combination of hypovolemic and addisonian. Shock resolved with fluids and stress-dose IV steroids" and there is documentation on the H&P of severe Dehydration as well as Dehydration documented through the Progress Notes on 07/24/20, but no mention of Dehydration on the Discharge Summary. Please specify below, in your clinical opinion, regarding Hypovolemic Shock and Dehydration. ( x ) Hypovolemic Shock is likely due to severe Dehydration ( ) Hypovolemic Shock is due to Unknown ( ) Hypovolemic Shock is due to Other: Please Specify ( ) Hypovolemic Shock is Ruled-Out ( ) Dehydration is Ruled-Out Physician's Response(s): Thank you Beti Wells Principal Diagnosis: "that condition established after study, to be chiefly responsible for occasioning the admission of the patient to the hospital for care." Co-Existing Principal Diagnosis: "when two or more diagnoses equally meet the criteria for principal diagnosis as determined by the circumstances of admission, diagnostic work up, and/or therapy provided, and the Alphabetic Index, Tabular List, or another coding guideline does not provide sequencing direction, any one of the diagnoses may be sequenced first." "When the physician has documented what appears to be a current diagnosis in the body of the record, but has not included the diagnosis in the final diagnostic statement, the physician should be asked whether the diagnosis should be added." (Source Coding [facility] 2 QTR90. p3-4) ADRI
--- NOTE | 2020-08-09 13:09 | Coding Query ---
To promote full compliance with coding requirements relating to patient care, provider participation is requested in all cases of wet pour mixer uncertainty. Please assist us with the question(s) below: Coding Question(s): The diagnosis below was documented in the first Progress Note on 07/22/20 thru Progress Note on 07/24/20, with H&P documenting Hypoxia, then subsequently fell off all further documentation. Please indicate if it is still a possible diagnosis or ruled out. Physician's Response(s): Mild Acute Respiratory Failure with Hypoxia ( ) Diagnosed and POA ( ) Diagnosed and not POA ( x ) Ruled out ( ) Other (please specify) MTDD
== END 2020-07-28 13:45 | DRG 871 ==
LOC: ED 01:24 → 2S 05:20 → SUATTDRO 05:20 → 2S 09:03 → 3W 07-24 13:27

== ENCOUNTER 2020-09-23 04:45 | Inpatient (IN) ==
--- NOTE | 2020-09-23 05:04 | Emergency Department Note ---
Impression & Plan Vasogenic brain edema, Generalized weakness ED Provider Note Name: TD DAVILA Age: 70 Sex: M Arrives Via: Ambulance Informant: Patient, ED Provider: Pipe Bashir MD Chief Complaint: Weakness Impression: Vasogenic Brain Edema Generalized Weakness Medical Decision Makin yr old male with glioblastoma s/p resection, chemo, radiation who was on Decadron decreased to 1mg this week. He was at home doing well the last few days, evening having PT yesterday. Worsening weakness throughout the evening and to point where unable to stand up. EMS called to home to help him get up and he refused to come to ED. This morning still too weak to get up and EMS called and brought him to ED. He is too weak to sit up in ED though no focal weakness other than left arm which has been weak since surgery. No evidence of infection. Labs unremarkable. CXR OK. UA clear. No seizure like activity. No symptoms while sitting in bed. CT head read with increase in vasogenic edema. Given no other evidence of cause, would assume this is cause of her generalized weakness. His Oncologist at [place] was contacted and they advised Decadron 4mg and increase decadron to 1mg BID. Due to weakness will bring in for further management and hospitalist on board with plan. Prior Medical Record and Triage/Nursing Notes reviewed by Me Additional history obtained from chart Differentials:Infection, dehydration, metabolic abnormality, hypo/hyperglycemia, electrolyte disturbance, anemia, hypoxia, cardiac sources, intracerebral event, toxicologic, neurologic, as well as other pathologies. Vital Signs: reviewed and remarkable for no significant abnormalities Interventions: saline lock, decadron 4mg IV Labs:Reviewed and remarkable for no significant abnormalities Imaging:[facility] Radiologist interpretation reviewed by me: "CT HEAD: Direct comparison made to prior study of July 21, 2020. There is a complex partially cystic mass in the right parietal lobe. Soft tissue components are less evident than noted on prior study. There is surrounding vasogenic edema which appears more extensive than noted on the prior study. There is no associated deviation of midline structures or effacement of basilar cisterns. There are craniotomy defects suggesting previous biopsy were partial resection. Impression: Slight increase in the degree of vasogenic edema relative to the prior study Radiologist: Agustín Acosta MD" X ray results are stated below per my interpretation: Chest: 1 view: No infiltrate, no effusion, normal cardiac border. EKG:Per My Interpretation: Indication Generalized weakness: NSR 95 bpm, qtc 444. No Ectopy. No Ischemia. Compared to EKG 07/21/20, no significant changes. Cardiac/Tele Monitoring: Cardiac Monitoring: An Order was placed for continuous cardiac monitoring. The monitor shows a rate of 90 with a normal sinus rhythm. Consults:None Plan: Disposition: Hospitalization Referred to: PCP Condition: Good History of Present Illness:70 yr old male arrives for evaluation of generalized weakness. Patient with known glioblastoma s/p resection, chemo, radiation who was per him and doing well the last week to the point where decadron dosing had been trended down. He notes he had PT yesterday without issues. Worsening weakness over the evening and too weak to stand this morning when EMS arrived for second time to help him get up from bed. No medications taken for this. Nothing makes better nor worse. No fevers, chills, headache, neck pain, syncope, cp, sob, back pain, nausea, vomiting, abdominal pain, rashes nor other symptoms. He notes some leg swelling which has been improving and felt to have been due to eating corned beef over the weekend. States that this happened a few weeks ago as well though unclear etiology. Did have sepsis a few weeks ago as well though denies symptoms of infection other than some mild urinary urgency the last few days. ROS: See above HPI for pertinent positives & negatives. A total of 10 systems reviewed and were otherwise negative. Past Medical History:See Below Past Surgical History:See Below Family History:See Below Social History:See Below Home Medications:See Below Allergies:grass, cat, dog Vitals:Blood Pressure: 161/84, Pulse 94, RR 18, T 36.6C, O2 96% on RA Physical Exam: GENERAL: Patient is tired appearing and in minimal distress. Generalized w eakness requiring help with sitting up. EYES: No scleral icterus, unremarkable pupils. ENT: Mucous membranes moist, no nasal congestion. NECK: No masses appreciated, nomeningismus, trachea is midline. RESPIRATORY: No dyspnea. Clear to auscultation and equal bilaterally. No wheeze, no rhonchi. CARDIOVASCULAR: Regular rate and rhythm.No murmurs, rubs, gallops appreciated. GASTROINTESTINAL: Abdomen soft, non-tender, no peritonitis.Bowel sounds positive.No masses appreciated. BACK: No midline tenderness, no CVA tenderness EXTREMITIES: Intact slightly weak motion all extremities (other than left), no cyanosis, moderate pitting edema of ankles/feet. No calf TTP. NEUROLOGIC: Alert and oriented, no acute motor or sensory deficits, left arm/forearm/hand weakness (s.p brain surgery), cranial nerves grossly intact. SKIN: No rash, no jaundice, no diaphoresis. PSYCH: Appropriate GCS: 15 ED Course: Times/Reassessments: multiple, stable, no distress Pipe Bashir MD Past Med/Surg History Medical History Acute dehydration Asthma Dyslipidemia Focal seizure Glioblastoma multiforme of brain History of melanoma Hx of skin cancer, basal cell Hypertension Shock Superficial thrombophlebitis Tubular adenoma of colon Type 2 diabetes mellitus Surgical History Anal fistula REPAIRED H/O brain surgery [place] 01/23/2020 History of colonoscopy History of tonsillectomy History of tooth extraction Family History Mother , age 84 of metastatic lung cancer Family history of diabetes mellitus Alzheimer disease Metastatic lung cancer (metastasis from lung to other site) Father , age 85 of "failure to thrive" Lung disease FH: deafness or hearing loss Brother Lung disease Denies family history of Ovarian cancer Prostate cancer Breast cancer Lung cancer Colorectal cancer Social History Smoking Status: Never smoker Second Hand Exposure: No; Hx Alcohol Use: Yes Alcohol type: beer Alcohol Intake Frequency: 2-4 x/Month Alcohol Intake Frequency Comment: 1-2 beers per week Hx Substance Use: No Preferred Language: Ukrainian Communication Ability: Effective Visual Impairment: Limited Hearing Ability: Use of Hearing Aid Change Management Expert Required: No Beliefs That Will Affect Care: None marital status: Current Living Situation: Spouse Current Living Situation Comment: House current occupational status: retired 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 How many Children do You have: 0 Other Information That Helps Us Care for You: No other: retired age 59 Feels Safe at Home: Yes Safety Concerns: Feels Safe At This Time Childhood Exposure to Second-Hand Smoke: Yes caffeine: Yes Dental Care, Regularly: Yes Physical Activity Frequency: Does not Exercise Seatbelt Use: always Sunscreen Use: Yes Do you think of yourself as: straight/heterosexual Assistive Devices: Glasses Allergies Allergies Allergy/AdvReac Type Severity Reaction Status Date / Time grass pollen Allergy Mild Congested Verified 09/23/20 05:47 cat dander AdvReac Intermediate Hives Verified 09/23/20 05:47 dog dander AdvReac Intermediate WELTS Verified 09/23/20 05:47 Home Meds Home Medications Medication Instructions Recorded Confirmed albuterol sulfate 90 mcg/actuation 2 puffs INH Q6H PRN 10/07/19 09/23/20 aerosol inhaler cholecalciferol (vitamin D3) 50 50 mcg PO DAILY 02/18/20 09/23/20 mcg (2,000 unit) capsule nystatin-triamcinolone 1 applic TOPICAL BID PRN 07/21/20 09/23/20 ondansetron HCl 8 mg PO Q8 PRN 07/21/20 09/23/20 amlodipine 2.5 mg tablet 5 mg PO DAILY tab 09/06/20 09/23/20 Previous Rx's Medication Instructions Recorded metformin 500 mg tablet 1,000 mg PO BID #360 tab 04/11/20 lisinopril 40 mg tablet 40 mg PO QAM #90 tab 07/04/20 lorazepam [Ativan] 1 mg PO DAILY PRN 3 Days #3 tab 07/29/20 clonazepam 0.5 mg tablet 0.25 mg PO DAILY 30 Days #15 tab 08/31/20 dexamethasone 1 mg tablet See Rx Instructions PO DAILY #20 08/31/20 tab levetiracetam 100 mg/mL oral 1,500 mg PO BID #946 ml 08/31/20 solution Results & Data (ED) Vital Signs Vital Signs - 24 hr 09/23/20 07:30 09/23/20 08:00 Pulse Rate 82 Respiratory Rate 18 18 Blood Pressure 157/67 H 157/72 H Blood Pressure Mean 97 100 Laboratory Data Result diagrams: 09/23/20 05:03 09/23/20 05:03 Lab Results 09/23/20 09/23/20 09/23/20 Range/Units 05:03 05:03 05:03 WBC 7.74 (4.8-10.8) K/uL RBC 4.10 L (4.7-6.1) M/uL Hgb 13.8 L (14.0-18.0) g/dL Hct 39.8 L (42-52) % MCV 97.1 (80-100) fL MCH 33.7 (25-34) pg MCHC 34.7 (32-36) g/dL RDW Std Deviation 50.0 H (36.4-46.3) fL RDW Coeff of Vicki 14.1 (11.5-14.5) % Plt Count 147 (130-400) K/uL MPV 8.5 (7.4-10.4) fL Immature Gran % (Auto) 0.3 % Neut % (Auto) 72.5 % Lymph % (Auto) 16.3 % [place] % (Auto) 10.2 % Eos % (Auto) 0.6 % Baso % (Auto) 0.1 % Neut # (Auto) 5.61 (1.4-6.5) K/uL Lymph # (Auto) 1.26 (1.2-3.4) K/uL [place] # (Auto) 0.79 H (0.11-0.59) K/uL Eos # (Auto) 0.05 (0-0.5) K/uL Baso # (Auto) 0.01 (0-0.2) K/uL Immature Gran # (Auto) 0.02 (0.00-0.02) K/uL Sodium 145 (136-145) mmol/L Potassium 3.5 (3.5-5.1) mmol/L Chloride 110 H (98-107) mmol/L Carbon Dioxide 30 (21-32) mmol/L Anion Gap 5.0 (3-11) BUN 15 (7-18) mg/dl Creatinine 0.62 (0.6-1.4) mg/dl Est Cr Clr Drug Dosing 143.6 ml/min Est GFR ( Amer) 115.7 Est GFR (Non-Af Amer) 99.8 BUN/Creatinine Ratio 24.9 H (10-20) Glucose 99 (70-99) mg/dl Calcium 9.4 (8.5-10.1) mg/dl Magnesium 1.8 (1.8-2.4) mg/dl Total Bilirubin 0.6 (0.2-1) mg/dl Direct Bilirubin 0.2 (0-0.2) mg/dl AST 10 L (15-37) U/L ALT 31 (12-78) U/L Alkaline Phosphatase 54 (45-117) U/L Troponin I < 0.015 (0-0.045) ng/ml NT-Pro-B Natriuret Pep 18 (0-900) pg/ml Total Protein 6.7 (6.4-8.2) gm/dl Albumin 3.8 (3.4-5.0) gm/dl TSH 1.410 (0.300-4.500) uIu/ml Urine Color Yellow Urine Appearance Clear (Clear) Urine pH 6.0 (4.5-7.5) Ur Specific [place] 1.009 (1.000-1.030) Urine Protein Negative (Negative) Urine Glucose (UA) Negative (Negative) Urine Ketones Negative (Negative) Urine Blood 1+ H (Negative) Urine Nitrite Negative (Negative) Urine Bilirubin Negative (Negative) Urine Urobilinogen Negative (Negative) Ur Leukocyte Esterase Negative (Negative) Urine WBC (Auto) 0 (0-5) /hpf Urine RBC (Auto) 0-4 (0-4) /hpf U Hyaline Cast (Auto) 0 (0-5) /lpf U Epithel Cells (Auto) 0-5 (0-5) /lpf Urine Bacteria (Auto) Negative (Negative) COVID-19 Eval Order SARS-CoV-2 (PCR) (Negative) Influenza Type A (PCR) (Neg) Influenza Type B (PCR) (Neg) RSV (RT-PCR) (Neg) 09/23/20 09/23/20 Range/Units 05:03 05:03 WBC (4.8-10.8) K/uL RBC (4.7-6.1) M/uL Hgb (14.0-18.0) g/dL Hct (42-52) % MCV (80-100) fL MCH (25-34) pg MCHC (32-36) g/dL RDW Std Deviation (36.4-46.3) fL RDW Coeff of Vicki (11.5-14.5) % Plt Count (130-400) K/uL MPV (7.4-10.4) fL Immature Gran % (Auto) % Neut % (Auto) % Lymph % (Auto) % [place] % (Auto) % Eos % (Auto) % Baso % (Auto) % Neut # (Auto) (1.4-6.5) K/uL Lymph # (Auto) (1.2-3.4) K/uL [place] # (Auto) (0.11-0.59) K/uL Eos # (Auto) (0-0.5) K/uL Baso # (Auto) (0-0.2) K/uL Immature Gran # (Auto) (0.00-0.02) K/uL Sodium (136-145) mmol/L Potassium (3.5-5.1) mmol/L Chloride (98-107) mmol/L Carbon Dioxide (21-32) mmol/L Anion Gap (3-11) BUN (7-18) mg/dl Creatinine (0.6-1.4) mg/dl Est Cr Clr Drug Dosing ml/min Est GFR ( Amer) Est GFR (Non-Af Amer) BUN/Creatinine Ratio (10-20) Glucose (70-99) mg/dl Calcium (8.5-10.1) mg/dl Magnesium (1.8-2.4) mg/dl Total Bilirubin (0.2-1) mg/dl Direct Bilirubin (0-0.2) mg/dl AST (15-37) U/L ALT (12-78) U/L Alkaline Phosphatase (45-117) U/L Troponin I (0-0.045) ng/ml NT-Pro-B Natriuret Pep (0-900) pg/ml Total Protein (6.4-8.2) gm/dl Albumin (3.4-5.0) gm/dl TSH (0.300-4.500) uIu/ml Urine Color Urine Appearance (Clear) Urine pH (4.5-7.5) Ur Specific [place] (1.000-1.030) Urine Protein (Negative) Urine Glucose (UA) (Negative) Urine Ketones (Negative) Urine Blood (Negative) Urine Nitrite (Negative) Urine Bilirubin (Negative) Urine Urobilinogen (Negative) Ur Leukocyte Esterase (Negative) Urine WBC (Auto) (0-5) /hpf Urine RBC (Auto) (0-4) /hpf U Hyaline Cast (Auto) (0-5) /lpf U Epithel Cells (Auto) (0-5) /lpf Urine Bacteria (Auto) (Negative) COVID-19 Eval Order [facility]FluRsv at [facility] SARS-CoV-2 (PCR) NEGATIVE (Negative) Influenza Type A (PCR) Negative (Neg) Influenza Type B (PCR) Negative (Neg) RSV (RT-PCR) Negative (Neg) Administered Medications Amlodipine Besylate (Amlodipine Besylate 5 Mg Tab) 5 mg PO DAILY MED Stop: 10/23/20 09:14 Last Admin: 09/23/20 10:32 Dose: 5 mg Documented by: [id number] Clonazepam (Clonazepam 0.25 Mg Tab) 0.25 mg PO DAILY MED Stop: 10/23/20 09:14 Last Admin: 09/23/20 10:35 Dose: 0.25 mg Documented by: [id number] Dexamethasone (Dexamethasone 1 Mg Tab) 1 mg PO BID MED Stop: 10/23/20 20:59 Last Admin: 09/23/20 20:26 Dose: 1 mg Documented by: [id number] Heparin Sodium (Porcine) (Heparin Sod 5,000 Unit/0.5 Ml Vial) 5,000 units SQ Q8 MED Stop: 10/23/20 13:59 Last Admin: 09/24/20 05:21 Dose: 5,000 units Documented by: [id number] Admin: 09/23/20 20:27 Dose: 5,000 units Documented by: [id number] Admin: 09/23/20 15:36 Dose: 5,000 units Documented by: [id number] Insulin Aspart (Insulin Aspart 100 Units/Ml 3 Ml Pen) 0 units SC ACHS MED Stop: 10/23/20 11:29 Last Admin: 09/23/20 21:02 Dose: 2 units Documented by: [id number] Cosigned by: [id number] Admin: 09/23/20 18:36 Dose: 9 units Documented by: [id number] Cosigned by: [id number] Admin: 09/23/20 13:06 Dose: 8 units Documented by: [id number] Cosigned by: [id number] Lisinopril (Lisinopril 40 Mg Tab) 40 mg PO QAM MED Stop: 10/23/20 09:14 Last Admin: 09/23/20 10:32 Dose: 40 mg Documented by: [id number] Vitamin D (Cholecalciferol 1,000 Units 25 Mcg Tab) 2,000 units PO DAILY MED Stop: 10/23/20 09:44 Last Admin: 09/23/20 10:32 Dose: 2,000 units Documented by: [id number] Discontinued Medications Dexamethasone Sodium Phosphate (DexamethasonePf 10 Mg/Ml Vial) 4 mg IV NOW ONE Stop: 09/23/20 07:36 Last Admin: 09/23/20 07:47 Dose: 4 mg Documented by: [id number] Levetiracetam (Levetiracetam Oral Soln 100mg/Ml) 1,500 mg PO BID MED Stop: 09/23/20 23:59 Last Admin: 09/23/20 20:26 Dose: 1,500 mg Documented by: [id number] Admin: 09/23/20 10:33 Dose: 1,500 mg Documented by: [id number] Imaging Data Radiologist's Impression: Chest X-Ray 09/23/20 05:02 XR chest 1V portable CLINICAL HISTORY: generalized weakness COMPARISON STUDY: 07/21/2020 FINDINGS: The heart is mildly enlarged. There is no failure. There is no focal pulmonary consolidation. There are no pleural effusions.[ IMPRESSION: No active disease in the chest. ACT 112: Negative or not required by law. Electronically signed by: Venkata Amato M.D. 09/23/2020 6:[address] 09/23/20 05:02 CT head/brain wo con CLINICAL HISTORY: 70 years-old Male with acute generalized weakness, history brain tumor. Acute generalized weakness. TECHNIQUE: Multiple axial CT images of the head were obtained without contrast. A dose lowering technique was utilized adhering to the principles of ALARA. CT DOSE: 691.05 mGy.cm COMPARISON: Head CT 07/21/2020 FINDINGS: Postoperative changes of prior right parietal craniotomy. Postoperative changes suggestive of resection of the previously noted intra-axial mass of the right cerebral hemisphere. Encephalomalacia is now noted within this distribution with increased vasogenic edema resulting in partial effacement of the atria right lateral ventricle. Evaluation for residual disease is limited without the use of IV contrast. Calcifications of the falx cerebri. No acute intracranial hemorr florencia, midline shift, hydrocephalus, acute or subacute infarction identified. IMPRESSION: 1. No acute intracranial abnormality. 2. Postoperative changes of interval right parietal craniotomy with resection of the previously noted intra-axial mass. There is encephalomalacia with increased amount of vasogenic edema surrounding the operative bed. 3. Evaluation for residual disease is limited without the use of IV contrast. ACT 112: Negative or not required by law. The above report was generated using voice recognition software. It may contain grammatical, syntax or spelling errors. Electronically signed by: Edwin Lion M.D. 09/23/2020 6:38 AM Discharge Plan Visit Data Chief Complaint: Weakness Stated Complaint: can't stand up ED Provider: Pipe Bashir Discharge Problem: Vasogenic brain edema, Generalized weakness Patient Disposition: Admitted As Inpatient Discharge Instructions Interventions: ED Discharge Assessment Last Done: 09/23/20 09:09
[2020-09-23 05:11] LABS: Basophils # (auto) 0.01 K/uL (0-0.2); Basophils % (auto) 0.1 %; Eosinophils # (auto) 0.05 K/uL (0-0.5); Eosinophils % (auto) 0.6 %; Hematocrit (blood only) 39.8 % (42-52); Hemoglobin 13.8 g/dL (14.0-18.0); Immature Granulocytes # (auto) 0.02 K/uL (0.00-0.02); Immature Granulocytes % (auto) 0.3 %; Lymphocytes # (auto) 1.26 K/uL (1.2-3.4); Lymphocytes % (auto) 16.3 %; Mean Corpuscular Hemoglobin 33.7 pg (25-34); Mean Corpuscular Hgb Conc 34.7 g/dL (32-36); Mean Corpuscular Volume 97.1 fL (80-100); Mean Platelet Volume 8.5 fL (7.4-10.4); Monocytes # (auto) 0.79 K/uL (0.11-0.59); Monocytes % (auto) 10.2 %; Neutrophils # (auto) 5.61 K/uL (1.4-6.5); Neutrophils % (auto) 72.5 %; Platelet Count 147 K/uL (130-400); RDW Coefficient of Variation 14.1 % (11.5-14.5); White Blood Count 7.74 K/uL (4.8-10.8)
[2020-09-23 05:28] LABS: Alanine Aminotransferase 31 U/L (12-78); Albumin Level 3.8 gm/dl (3.4-5.0); Aspartate Aminotransferase 10 U/L (15-37); BUN Creatinine Ratio 24.9 (10-20); Bilirubin Direct 0.2 mg/dl (0-0.2); Blood Urea Nitrogen 15 mg/dl (7-18); Calcium 9.4 mg/dl (8.5-10.1); Carbon Dioxide 30 mmol/L (21-32); Chloride 110 mmol/L (98-107); Creatinine Clr Calc Pharmacy 143.6 ml/min; Est GFR (African American) 115.7; Est GFR (Non-African American) 99.8; Glucose 99 mg/dl (70-99); Magnesium 1.8 mg/dl (1.8-2.4); Potassium 3.5 mmol/L (3.5-5.1); Sodium 145 mmol/L (136-145)
[2020-09-23 05:39] LABS: Alkaline Phosphatase 54 U/L (45-117); Bilirubin,Total 0.6 mg/dl (0.2-1); NT Pro B Type Natriuretic Pept 18 pg/ml (0-900); Total Protein 6.7 gm/dl (6.4-8.2); Troponin I < 0.015 ng/ml (0-0.045)
[2020-09-23 05:56] LABS: Appearance Urine Clear (Clear); Bacteria Urine Automated Negative (Negative); Bilirubin Urine Negative (Negative); Blood Urine 1+ (Negative); Cast Urine Automated 0 /lpf (0-5); Color Urine Yellow; Epithelial Cell Urine Auto 0-5 /lpf (0-5); Glucose Urine UA Negative (Negative); Ketones Urine Negative (Negative); Leukocyte Esterase Urine Negative (Negative); Nitrite Urine Negative (Negative); Protein Urine Negative (Negative); RBC Urine Automated 0-4 /hpf (0-4); Specific Gravity Urine 1.009 (1.000-1.030); Urobilinogen Urine Negative (Negative); WBC Urine Automated 0 /hpf (0-5)
--- NOTE | 2020-09-23 06:40 | CT Scan Report ---
CT head/brain wo con CLINICAL HISTORY: 70 years-old Male with acute generalized weakness, history brain tumor. Acute gene ralized weakness. TECHNIQUE: Multiple axial CT images of the head were obtained without contrast. A dose lowering tech nique was utilized adhering to the principles of ALARA. CT DOSE: 691.05 mGy.cm COMPARISON: Head CT 07/21/2020 FINDINGS: Postoperative changes of prior right parietal craniotomy. Postoperative changes suggestive of resecti on of the previously noted intra-axial mass of the right cerebral hemisphere. Encephalomalacia is now noted within this distribution with increased vasogenic edema resulting in partial effacement of the atria right lateral ventricle. Evaluation for residual disease is limited without the use of IV cont rast. Calcifications of the falx cerebri. No acute intracranial hemorrhage, midline shift, hydrocepha rosetta, acute or subacute infarction identified. IMPRESSION: 1. No acute intracranial abnormality. 2. Postoperative changes of interval right parietal craniotomy with resection of the previously noted intra-axial mass. There is encephalomalacia with increased amount of vasogenic edema surrounding the operative bed. 3. Evaluation for residual disease is limited without the use of IV contrast. ACT 112: Negative or not required by law. The above report was generated using voice recognition software. It may contain grammatical, syntax o r spelling errors. Electronically signed by: Edwin Lion M.D. 09/23/2020 6:38 AM
[2020-09-23 06:51] LABS: Influenza A virus by PCR Negative (Neg); Influenza B virus by PCR Negative (Neg); RSV by PCR Negative (Neg); SARS CoV2 RNA(COVID-19) InHosp NEGATIVE (Negative)
--- NOTE | 2020-09-23 07:00 | XRay Report ---
XR chest 1V portable CLINICAL HISTORY: generalized weakness COMPARISON STUDY: 07/21/2020 FINDINGS: The heart is mildly enlarged. There is no failure. There is no focal pulmonary consolidatio n. There are no pleural effusions.[ IMPRESSION: No active disease in the chest. ACT 112: Negative or not required by law. Electronically signed by: Venkata Amato M.D. 09/23/2020 6:59 AM
[2020-09-23] MEDS ORDERED: dexAMETHasone**PF** 10 MG/ML VIAL IV ONE (07:35)
[2020-09-23] MEDS ORDERED: ONDANSETRON 4 MG OD TAB PO PRN (09:15)
[2020-09-23] MEDS ORDERED: LORazepam 1 MG TAB PO PRN (09:15)
[2020-09-23] MEDS ORDERED: NYSTATIN/TRIAMCIN CR 15 GM TUBE EXT PRN (09:15)
[2020-09-23] MEDS ORDERED: ONDANSETRON INJ 2 MG/ML 2 ML VIAL IV PRN (09:15)
[2020-09-23] MEDS ORDERED: POLYETHYLENE (MIRALAX) 17 GM PACK PO PRN (09:15)
[2020-09-23] MEDS ORDERED: ACETAMINOPHEN 325 MG TAB PO PRN (09:15)
[2020-09-23] MEDS ORDERED: ALBUTEROL HFA 8 GM INHALER INH PRN (09:31)
[2020-09-23] MEDS ORDERED: DEXTROSE 50% 50 ML SYRINGE IV PRN (09:45)
[2020-09-23] MEDS ORDERED: GLUCOSE 40% GEL 15 GM TUBE PO PRN (09:45)
[2020-09-23] MEDS ORDERED: GLUCAGON FOR INJ 1 MG VIAL IM PRN (09:45)
[2020-09-23] MEDS ORDERED: CARBOHYDRATES FOR HYPOGLYCEMIA PO PRN (09:45)
[2020-09-23] MEDS ORDERED: GLUCOSE 10 TABS/TUBE PO PRN (09:45)
[2020-09-23] MEDS: amLODIPine BESYLATE 5 MG TAB PO SCH (10:32)
[2020-09-23] MEDS: lisinopril 40 MG TAB PO SCH (10:32)
[2020-09-23] MEDS: CHOLECALCIFEROL 1,000 UNITS 25 MCG TAB PO SCH (10:32)
[2020-09-23] MEDS: levETIRAcetam ORAL SOLN 100MG/ML PO SCH ×2 (10:33→20:26)
[2020-09-23] MEDS: clonazePAM 0.25 MG TAB PO SCH (10:35)
[2020-09-23] MEDS: INSULIN ASPART 100 UNITS/ML 3 ML PEN SC SCH ×3 (13:06→21:02)
--- NOTE | 2020-09-23 13:21 | History & Physical Report ---
Date of Service September 23, 2020 Assessment & Plan (1) Generalized weakness: per his , he has a history of these episodes and gets better in about 1-2 days will treat the brain edema with Decadron 1mg PO BID consult PT/OT no signs of an infection that could have caused the weakness, electrolytes normal (2) Vasogenic brain edema: more edema than past scans neurosurgery at [facility] recommends 4mg IV on admission then 1mg PO BID will discharge on this dose continue Keppra 1500mg BID to prevent seizures (3) Type 2 diabetes mellitus: diabetic diet Novolog SS monitor sugars on Decadron (4) Hypertension: continue Norvasc and Lisinopril (5) Lymphedema of left arm: chronic issue, ever since the tumor presented with left arm weakness (6) Anxiety: mood stable continue Klonopin (7) Weakness of left upper extremity: Admission and Anticipated Discharge Date Admission Date: September 23, 2020 History of Present Illness Chief Complaint: I could not stand up Primary Care Provider: Isaac Branham MD 70 yo male with history of glioblastoma multiforme, s/p resection, presents to the ED early this morning due to profound weakness, he could not get out of bed and then could not get out of a chair. He has had several episodes like this in the past year. He initially presented in January 2020 with a focal seizure of his left arm and hand and was found to have a right sided brain tumor. He was placed on Keppra and Decadron and he followed up with neurosurgery at [facility]. He subsequently underwent right craniotomy and had the tumor resected, biopsy confirmed GBM. He has followed with [facility] as well as oncology. Earlier this year he was started on a 5 day course of temozolomide which completely wiped him out, he required hospitalization due to weakness. He then went to [facility] for rehab and was there for a short while and came home about 3 weeks ago. He has been doing well, no falls at home, no seizure activity. He has been doing PT/OT in the home, ambulated with a quad cane. He has been eating well, moving his bowels, making urine. Just yesterday he had OT in the home and he did very well, no issues with weakness. In the evening he could not get out of bed despite his best efforts. With his 's help he was able to sit at the edge of the bed and use the urinal. Later in the evening he could not get out of bed again. They called EMS and they were able to help his stand up and got him in a chair. Prior to the EMS leaving he made sure he could stand up on his own. However, they had to call EMS back to the home a second time when he was unable to stand up early in the morning. EMS brought him to the hospital. CT of the head showed some increased edema around the prior surgical excision site. CBC and BMP and CXR were normal. UA was negative for signs of infection. Dr. Ely spoke with neurosurgery at [facility], they recommended Decadron 4mg IV now and then start 1mg BID for the swelling. Allergies Allergy/AdvReac Type Severity Reaction Status Date / Time grass pollen Allergy Mild Congested Verified 09/23/20 05:47 cat dander AdvReac Intermediate Hives Verified 09/23/20 05:47 dog dander AdvReac Intermediate WELTS Verified 09/23/20 05:47 Home Medications Medication Instructions Recorded Confirmed Type albuterol sulfate 90 mcg/actuation 2 puffs INH Q6H PRN 10/07/19 09/23/20 History aerosol inhaler cholecalciferol (vitamin D3) 50 50 mcg PO DAILY 02/18/20 09/23/20 History mcg (2,000 unit) capsule metformin 500 mg tablet 1,000 mg PO BID #360 tab 04/11/20 09/23/20 Rx lisinopril 40 mg tablet 40 mg PO QAM #90 tab 07/04/20 09/23/20 Rx nystatin-triamcinolone 1 applic TOPICAL BID PRN 07/21/20 09/23/20 History ondansetron HCl 8 mg PO Q8 PRN 07/21/20 09/23/20 History lorazepam [Ativan] 1 mg PO DAILY PRN 3 Days #3 tab 07/29/20 09/23/20 Rx clonazepam 0.5 mg tablet 0.25 mg PO DAILY 30 Days #15 tab 08/31/20 09/23/20 Rx dexamethasone 1 mg tablet See Rx Instructions PO DAILY #20 08/31/20 09/23/20 Rx tab levetiracetam 100 mg/mL oral 1,500 mg PO BID #946 ml 08/31/20 09/23/20 Rx solution amlodipine 2.5 mg tablet 5 mg PO DAILY tab 09/06/20 09/23/20 History Past Med/Surg History Medical History Acute dehydration Asthma Dyslipidemia Focal seizure Glioblastoma multiforme of brain History of melanoma Hx of skin cancer, basal cell Hypertension Shock Superficial thrombophlebitis Tubular adenoma of colon Type 2 diabetes mellitus Surgical History Anal fistula REPAIRED H/O brain surgery [facility] 01/23/2020 History of colonoscopy History of tonsillectomy History of tooth extraction Family History Mother , age 84 of metastatic lung cancer Family history of diabetes mellitus Alzheimer disease Metastatic lung cancer (metastasis from lung to other site) Father , age 85 of "failure to thrive" Lung disease FH: deafness or hearing loss Brother Lung disease Denies family history of Ovarian cancer Prostate cancer Breast cancer Lung cancer Colorectal cancer Social History Smoking Status: Never smoker Second Hand Exposure: No; Hx Alcohol Use: Yes Alcohol type: beer Alcohol Intake Frequency: 2-4 x/Month Alcohol Intake Frequency Comment: 1-2 beers per week Hx Substance Use: No Preferred Language: Dutch Communication Ability: Effective Visual Impairment: Limited Hearing Ability: Use of Hearing Aid Ultrasound Applications Specialist Required: No Beliefs That Will Affect Care: None marital status: Current Living Situation: Spouse Current Living Situation Comment: House current occupational status: retired 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 How many Children do You have: 0 Other Information That Helps Us Care for You: No other: retired age 59 Feels Safe at Home: Yes Safety Concerns: Feels Safe At This Time Childhood Exposure to Second-Hand Smoke: Yes caffeine: Yes Dental Care, Regularly: Yes Physical Activity Frequency: Does not Exercise Seatbelt Use: always Sunscreen Use: Yes Do you think of yourself as: straight/heterosexual Assistive Devices: Glasses Review of Systems Review of Systems: All systems reviewed & are unremarkable except as noted in HPI & below Constitutional: + fatigue and + weakness; no fever, no chills and no sweats Respiratory: no cough and no dyspnea Cardiovascular: no chest pain, no palpitations, no syncope and no edema Gastrointestinal: no abdominal pain, no nausea, no vomiting, no constipation and no diarrhea/loose stools Musculoskeletal: + muscle weakness (most pronounced in legs); no back pain, no neck pain, no radicular pain, no joint pain and no myalgia Neurologic: + gait abnormality, + unsteadiness and + generalized weakness; no falls, no paralysis, no numbness, no seizure-like activity, no syncope, no headache(s) and no confusion Physical Exam Constitutional: well developed, + obese, cooperative and comfortable; no acute distress Eyes: PERRL, conjunctivae normal, anicteric sclerae ENMT: external ear and nose normal, oropharynx normal Neck: trachea midline, no thyromegaly Respiratory: normal respiratory effort, lungs clear to auscultation Cardiovascular: RRR, no murmur, no edema Gastrointestinal (Abdomen): normal bowel sounds, soft, nontender, no hepatosplenomegaly Musculoskeletal: Head/Neck/Chest: normocephalic, head atraumatic and neck supple Spine: thoracic spine normal to inspection and lumbar spine normal to inspection; normal cervical ROM and normal thoraco-lumbar ROM Extremities: + abnormal strength (weakness in legs); no cyanosis, no clubbing and no petechiae Skin: no rashes, warm and dry Neurologic: patellar DTR's 2+ bilat, sensation intact and PERRL, EOMI, accommodation nl, no face palsy, no dysarthria Psychiatric: A+Ox3, euthymic affect Lymphatic: no cervical or axillary lymphadenopathy Results & Data Results & Data ([facility]) Vital Signs (Past 12 Hours) Vital Signs Temp Pulse Resp BP Pulse Ox 09/23/20 09:00 84 18 154/74 H 09/23/20 08:00 18 157/72 H 09/23/20 07:30 82 18 157/67 H 09/23/20 06:00 94 H 18 161/84 H 09/23/20 05:31 96 H 20 96 09/23/20 05:30 98 H 14 184/79 H 97 09/23/20 05:00 98 H 33 H 09/23/20 04:56 36.6 C 93 H 18 160/88 H 98 09/23/20 04:53 99 H 18 97 09/23/20 04:49 97 H 15 160/88 H 96 Laboratory Results Laboratory Results - last 24 hr 09/23/20 09/23/20 09/23/20 05:03 05:03 05:03 WBC 7.74 RBC 4.10 L Hgb 13.8 L Hct 39.8 L MCV 97.1 MCH 33.7 MCHC 34.7 RDW Std Deviation 50.0 H RDW Coeff of Vicki 14.1 Plt Count 147 MPV 8.5 Immature Gran % (Auto) 0.3 Neut % (Auto) 72.5 Lymph % (Auto) 16.3 Spalding % (Auto) 10.2 Eos % (Auto) 0.6 Baso % (Auto) 0.1 Neut # (Auto) 5.61 Lymph # (Auto) 1.26 Spalding # (Auto) 0.79 H Eos # (Auto) 0.05 Baso # (Auto) 0.01 Immature Gran # (Auto) 0.02 Sodium 145 Potassium 3.5 Chloride 110 H Carbon Dioxide 30 Anion Gap 5.0 BUN 15 Creatinine 0.62 Est Cr Clr Drug Dosing 143.6 Est GFR ( Amer) 115.7 Est GFR (Non-Af Amer) 99.8 BUN/Creatinine Ratio 24.9 H Glucose 99 POC Glucose Calcium 9.4 Magnesium 1.8 Total Bilirubin 0.6 Direct Bilirubin 0.2 AST 10 L ALT 31 Alkaline Phosphatase 54 Troponin I < 0.015 NT-Pro-B Natriuret Pep 18 Total Protein 6.7 Albumin 3.8 TSH 1.410 Urine Color Yellow Urine Appearance Clear Urine pH 6.0 Ur Specific Lorenzo 1.009 Urine Protein Negative Urine Glucose (UA) Negative Urine Ketones Negative Urine Blood 1+ H Urine Nitrite Negative Urine Bilirubin Negative Urine Urobilinogen Negative Ur Leukocyte Esterase Negative Urine WBC (Auto) 0 Urine RBC (Auto) 0-4 U Hyaline Cast (Auto) 0 U Epithel Cells (Auto) 0-5 Urine Bacteria (Auto) Negative COVID-19 Eval Order SARS-CoV-2 (PCR) Influenza Type A (PCR) Influenza Type B (PCR) RSV (RT-PCR) 09/23/20 09/23/20 09/23/20 05:03 05:03 12:06 WBC RBC Hgb Hct MCV MCH MCHC RDW Std Deviation RDW Coeff of Vicki Plt Count MPV Immature Gran % (Auto) Neut % (Auto) Lymph % (Auto) Spalding % (Auto) Eos % (Auto) Baso % (Auto) Neut # (Auto) Lymph # (Auto) Spalding # (Auto) Eos # (Auto) Baso # (Auto) Immature Gran # (Auto) Sodium Potassium Chloride Carbon Dioxide Anion Gap BUN Creatinine Est Cr Clr Drug Dosing Est GFR ( Amer) Est GFR (Non-Af Amer) BUN/Creatinine Ratio Glucose POC Glucose 203 H Calcium Magnesium Total Bilirubin Direct Bilirubin AST ALT Alkaline Phosphatase Troponin I NT-Pro-B Natriuret Pep Total Protein Albumin TSH Urine Color Urine Appearance Urine pH Ur Specific Lorenzo Urine Protein Urine Glucose (UA) Urine Ketones Urine Blood Urine Nitrite Urine Bilirubin Urine Urobilinogen Ur Leukocyte Esterase Urine WBC (Auto) Urine RBC (Auto) U Hyaline Cast (Auto) U Epithel Cells (Auto) Urine Bacteria (Auto) COVID-19 Eval Order CovFluRsv at [facility] SARS-CoV-2 (PCR) NEGATIVE Influenza Type A (PCR) Negative Influenza Type B (PCR) Negative RSV (RT-PCR) Negative Diagnostic Findings CT head IMPRESSION: 1. No acute intracranial abnormality. 2. Postoperative changes of interval right parietal craniotomy with resection of the previously noted intra-axial mass. There is encephalomalacia with increased amount of vasogenic edema surrounding the operative bed. XR chest 1V portable IMPRESSION: No active disease in the chest. Code Status & VTE Plan VTE Prophylaxis Plan VTE Prophylaxis will be ordered: Yes PG Care Time/CCT Total # of Minutes Spent Total Time Spent with Patient: Total time spent is greater than 50% in coordination of care (as documented) at patient's floor/unit and/or counseling patient: Coding Level of Care Code 99765 OBS Care - Level 3 Diagnoses Generalized weakness R53.1 Vasogenic brain edema G93.6 Type 2 diabetes mellitus E11.9 Hypertension I10 Lymphedema of left arm I89.0 Anxiety F41.9 Weakness of left upper extremity R29.898
[2020-09-23] MEDS: HEPARIN SOD 5,000 UNIT/0.5 ML VIAL SQ SCH ×2 (15:36→20:27)
--- NOTE | 2020-09-23 16:10 | Electrocardiogram Report ---
Test Reason : Blood Pressure : / mmHG Vent. Rate : 095 BPM Atrial Rate : 095 BPM P-R Int : 164 ms QRS Dur : 084 ms QT Int : 354 ms P-R-T Axes : 044 -13 025 degrees QTc Int : 444 ms Poor data quality, interpretation may be adversely affected Normal sinus rhythm Possible Left atrial enlargement Borderline ECG When compared with ECG of 21-JUL-2020 01:36, Vent. rate has decreased BY 50 BPM Criteria for Anterior infarct are no longer Present Minimal criteria for Inferior infarct are no longer Present Confirmed by Warren Daniel ([id number]) on 09/23/2020 4:10:01 PM Referred By: REFERRED SELF Confirmed By:Warren Daniel
[2020-09-23] MEDS: dexAMETHasone 1 MG TAB PO SCH (20:26)
[2020-09-24] MEDS: HEPARIN SOD 5,000 UNIT/0.5 ML VIAL SQ SCH ×3 (05:21→20:44)
[2020-09-24] MEDS: clonazePAM 0.25 MG TAB PO SCH (07:56)
[2020-09-24] MEDS: lisinopril 40 MG TAB PO SCH (07:59)
[2020-09-24] MEDS: amLODIPine BESYLATE 5 MG TAB PO SCH (08:00)
[2020-09-24] MEDS: CHOLECALCIFEROL 1,000 UNITS 25 MCG TAB PO SCH (08:00)
[2020-09-24] MEDS: dexAMETHasone 1 MG TAB PO SCH ×2 (08:01→20:41)
[2020-09-24] MEDS: levETIRAcetam 500 MG TAB PO SCH ×2 (08:01→20:41)
[2020-09-24] MEDS: INSULIN ASPART 100 UNITS/ML 3 ML PEN SC SCH ×5 (09:21→20:41)
--- NOTE | 2020-09-24 15:28 | Hospitalist Progress Note ---
Date of Service September 24, 2020 Assessment & Plan (1) Generalized weakness: per his , he has a history of these episodes and gets better in about 1-2 days will treat the brain edema with Decadron 1mg PO BID consult PT/OT - OT saw him today, recommending [facility] for rehab again no signs of an infection that could have caused the weakness, electrolytes normal await PT evaluation (2) Vasogenic brain edema: more edema than past scans neurosurgery at [facility] recommends 4mg IV on admission then 1mg PO BID will discharge on this dose continue Keppra 1500mg BID to prevent seizures (3) Type 2 diabetes mellitus: diabetic diet Novolog SS monitor sugars on Decadron, all have been < 200 (4) Hypertension: continue Norvasc and Lisinopril (5) Lymphedema of left arm: chronic issue, ever since the tumor presented with left arm weakness (6) Anxiety: mood stable continue Klonopin (7) Weakness of left upper extremity: Admission and Anticipated Discharge Date Admission Date: September 23, 2020 Subjective patient feeling a little stronger today, but certainly not his strongest with OT he was able to sit at the edge of the bed but was contact guard, supe rvision as he started to lean left waiting on PT evaluation OT mentioned he may need [facility] again for rehab he is eating well, breathing well, no fever/chills, no chest pain, no seizure activity called his to provide update Review of Systems Review of Systems: All systems reviewed & are unremarkable except as noted in Subjective Physical Exam Constitutional: well developed, + obese, cooperative and comfortable; no acute distress Neck: trachea midline, no thyromegaly Respiratory: normal respiratory effort, lungs clear to auscultation Cardiovascular: RRR, no murmur, no edema Gastrointestinal (Abdomen): normal bowel sounds, soft, nontender, no hepatosplenomegaly Musculoskeletal: Head/Neck/Chest: normocephalic, head atraumatic and neck supple Spine: thoracic spine normal to inspection and lumbar spine normal to inspection; normal cervical ROM and normal thoraco-lumbar ROM Extremities: + abnormal strength (weakness in legs) and + muscle atrophy (left arm, left arm is flaccid, moves it with his right arm); no cyanosis, no clubbing and no petechiae Skin: no rashes, warm and dry Neurologic: patellar DTR's 2+ bilat, sensation intact and PERRL, EOMI, accommodation nl, no face palsy, no dysarthria moves all extremities (but very weak) and + focal motor deficit (left arm, chronic) Psychiatric: A+Ox3, euthymic affect Lymphatic: no cervical or axillary lymphadenopathy Results & Data Results & Data ([facility]) Vital Signs (Past 12 Hours) Vital Signs Temp Pulse Resp BP Pulse Ox 09/24/20 14:49 36.8 C 82 18 134/71 94 09/24/20 07:21 37.0 C 75 18 138/79 95 Laboratory Results Laboratory Results - last 24 hr 09/23/20 09/23/20 09/24/20 17:13 20:46 08:03 POC Glucose 199 H 195 H 123 H 09/24/20 11:56 POC Glucose 159 H Medications Administered Current Inpatient Medications Acetaminophen (Acetaminophen 325 Mg Tab) 650 mg PO Q4H PRN PRN Reason: pain/fever Stop: 10/23/20 09:14 Albuterol (Albuterol Hfa 8 Gm Inhaler) 2 puffs INH Q6H PRN PRN Reason: Shortness Of Breath Stop: 10/23/20 09:30 Amlodipine Besylate (Amlodipine Besylate 5 Mg Tab) 5 mg PO DAILY MED Stop: 10/23/20 09:14 Last Admin: 09/24/20 08:00 Dose: 5 mg Documented by: Clonazepam (Clonazepam 0.25 Mg Tab) 0.25 mg PO DAILY MED Stop: 10/23/20 09:14 Last Admin: 09/24/20 07:56 Dose: 0.25 mg Documented by: Dexamethasone (Dexamethasone 1 Mg Tab) 1 mg PO BID MED Stop: 10/23/20 20:59 Last Admin: 09/24/20 08:01 Dose: 1 mg Documented by: Dextrose (Dextrose 50% 50 Ml Syringe) 25 - 50 ml IV UD PRN; Protocol PRN Reason: Hypoglycemia Protocol Stop: 10/23/20 09:44 Glucagon (Glucagon For Inj 1 Mg Vial) 1 mg IM UD PRN; Protocol PRN Reason: Hypoglycemia Protocol Stop: 10/23/20 09:44 Glucose (Glucose 40% Gel 15 Gm Tube) 15 - 30 gm PO UD PRN; Protocol PRN Reason: Hypoglycemia Protocol Stop: 10/23/20 09:44 Glucose (Glucose 10 Tabs/Tube) 4 - 8 tabs PO UD PRN; Protocol PRN Reason: Hypoglycemia Protocol Stop: 10/23/20 09:44 Heparin Sodium (Porcine) (Heparin Sod 5,000 Unit/0.5 Ml Vial) 5,000 units SQ Q8 MED Stop: 10/23/20 13:59 Last Admin: 09/24/20 14:26 Dose: 5,000 units Documented by: Insulin Aspart (Insulin Aspart 100 Units/Ml 3 Ml Pen) 0 units SC ACHS [facility] Stop: 10/24/20 11:29 Last Admin: 09/24/20 13:14 Dose: 6 units Documented by: Levetiracetam (Levetiracetam 500 Mg Tab) 1,500 mg PO BID [facility] Stop: 10/24/20 08:59 Last Admin: 09/24/20 08:01 Dose: 1,500 mg Documented by: Lisinopril (Lisinopril 40 Mg Tab) 40 mg PO QAM [facility] Stop: 10/23/20 09:14 Last Admin: 09/24/20 07:59 Dose: 40 mg Documented by: Lorazepam (Lorazepam 1 Mg Tab) 1 mg PO DAILY PRN PRN Reason: seizure activity Stop: 10/23/20 09:14 Miscellaneous (Carbohydrates For Hypoglycemia ) 15 - 30 gm PO UD PRN PRN Reason: Hypoglycemia Treatment Stop: 10/23/20 09:44 Nystatin/Triamcinolone Acetonide (Nystatin/Triamcin Cr 15 Gm Tube) 1 appln EXT BID PRN PRN Reason: yeast infection Stop: 10/23/20 09:14 Ondansetron HCl (Ondansetron 4 Mg Od Tab) 8 mg PO Q8H PRN PRN Reason: Nausea And Vomiting Stop: 10/23/20 09:14 Ondansetron HCl (Ondansetron Inj 2 Mg/Ml 2 Ml Vial) 4 mg IV Q6H PRN PRN Reason: Nausea Stop: 10/23/20 09:14 Polyethylene Glycol (Polyethylene (Miralax) 17 Gm Pack) 17 gm PO DAILY PRN PRN Reason: Constipation Stop: 10/23/20 09:14 Vitamin D (Cholecalciferol 1,000 Units 25 Mcg Tab) 2,000 units PO DAILY MED Stop: 10/23/20 09:44 Last Admin: 09/24/20 08:00 Dose: 2,000 units Documented by: PG Care Time/CCT Total # of Minutes Spent Total Time Spent with Patient: Total time spent is greater than 50% in coordination of care (as documented) at patient's floor/unit and/or counseling patient: Coding Level of Care Code 64782 Subseq Hosp Care Lvl 2 Diagnoses Generalized weakness R53.1 Vasogenic brain edema G93.6 Type 2 diabetes mellitus E11.9 Hypertension I10 Lymphedema of left arm I89.0 Anxiety F41.9 Weakness of left upper extremity R29.898
[2020-09-25] MEDS: HEPARIN SOD 5,000 UNIT/0.5 ML VIAL SQ SCH ×3 (05:17→21:19)
[2020-09-25] MEDS: CHOLECALCIFEROL 1,000 UNITS 25 MCG TAB PO SCH (07:58)
[2020-09-25] MEDS: levETIRAcetam 500 MG TAB PO SCH ×2 (07:58→20:01)
[2020-09-25] MEDS: clonazePAM 0.25 MG TAB PO SCH (07:59)
[2020-09-25] MEDS: amLODIPine BESYLATE 5 MG TAB PO SCH (07:59)
[2020-09-25] MEDS: lisinopril 40 MG TAB PO SCH (07:59)
[2020-09-25] MEDS: dexAMETHasone 1 MG TAB PO SCH ×2 (07:59→20:01)
[2020-09-25] MEDS: INSULIN ASPART 100 UNITS/ML 3 ML PEN SC SCH ×4 (08:56→21:19)
--- NOTE | 2020-09-25 15:57 | Hospitalist Progress Note ---
Date of Service September 25, 2020 Assessment & Plan (1) Generalized weakness: per his , he has a history of these episodes and gets better in about 1-2 days will treat the brain edema with Decadron 1mg PO BID consult PT/OT - recommending [facility] for rehab again no signs of an infection that could have caused the weakness, electrolytes normal much stronger today, able to stand up independently, able to walk with his katy- walker with nurse and aide, walked into hallway have PT/OT see him again to see if he is strong enough to return home either home with home therapy or go to [facility] on Saturday if they have a bed (2) Vasogenic brain edema: more edema than past scans neurosurgery at [place] recommends dexamethasone 4mg IV on admission then 1mg PO BID will discharge on this dose continue Keppra 1500mg BID to prevent seizures (3) Type 2 diabetes mellitus: diabetic diet Novolog SS monitor sugars on Decadron, all have been < 200 (4) Hypertension: continue Norvasc and Lisinopril (5) Lymphedema of left arm: chronic issue, ever since the tumor presented with left arm weakness (6) Anxiety: mood stable continue Klonopin (7) Weakness of left upper extremity: Admission and Anticipated Discharge Date Admission Date: September 24, 2020 Subjective patient feels much stronger today, he is very happy and optimistic he is hoping to go back home but he understands he might need [facility] still discussed that he will need to be here two more midnights so the earliest he could go to [facility] would be Saturday he was able to stand up from a chair position today he ambulated in the hallway with the RN and the aide, got fatigued, brought back in a wheelchair but he walked a lot further than yesterday will have PT/OT see him again tomorrow eating well, no fever, no chest pain, no dyspnea, no GI symptoms updated his over the phone, she is pleased that he is stronger she said that in order to come home, she needs him to be able to get up out of bed from laying position and needs him to be able to stand up from a chair agreed that we will see what therapy recommends tomorrow either home with home therapy or go to [facility] on Saturday Review of Systems Review of Systems: All systems reviewed & are unremarkable except as noted in Subjective Musculoskeletal: + muscle weakness Physical Exam Constitutional: well developed, + obese, cooperative and comfortable; no acute distress Neck: trachea midline, no thyromegaly Respiratory: normal respiratory effort, lungs clear to auscultation Cardiovascular: RRR, no murmur, no edema Gastrointestinal (Abdomen): normal bowel sounds, soft, nontender, no hepatosplenomegaly Musculoskeletal: Head/Neck/Chest: normocephalic, head atraumatic and neck supple Spine: thoracic spine normal to inspection and lumbar spine normal to inspection; normal cervical ROM and normal thoraco-lumbar ROM Extremities: + abnormal strength (better, 4/5 in both legs, able to stand up and walk today) and + muscle atrophy (left arm, left arm is flaccid, moves it with his right arm); no cyanosis, no clubbing and no petechiae Skin: no rashes, warm and dry Neurologic: patellar DTR's 2+ bilat, sensation intact and PERRL, EOMI, accommodation nl, no face palsy, no dysarthria moves all extremities and + focal motor deficit (left arm, chronic) Psychiatric: A+Ox3, euthymic affect Lymphatic: no cervical or axillary lymphadenopathy Results & Data Results & Data ([facility]) Vital Signs (Past 12 Hours) Vital Signs Temp Pulse Resp BP Pulse Ox 09/25/20 14:51 36.9 C 74 16 132/80 96 09/25/20 07:34 36.7 C 73 16 143/78 H 95 Laboratory Results Laboratory Results - last 24 hr 09/24/20 09/24/20 09/25/20 17:06 20:39 08:21 POC Glucose 132 H 165 H 122 H 09/25/20 11:45 POC Glucose 197 H Medications Administered Current Inpatient Medications Acetaminophen (Acetaminophen 325 Mg Tab) 650 mg PO Q4H PRN PRN Reason: pain/fever Stop: 10/23/20 09:14 Albuterol (Albuterol Hfa 8 Gm Inhaler) 2 puffs INH Q6H PRN PRN Reason: Shortness Of Breath Stop: 10/23/20 09:30 Amlodipine Besylate (Amlodipine Besylate 5 Mg Tab) 5 mg PO DAILY MED Stop: 10/23/20 09:14 Last Admin: 09/25/20 07:59 Dose: 5 mg Documented by: Clonazepam (Clonazepam 0.25 Mg Tab) 0.25 mg PO DAILY [facility] Stop: 10/23/20 09:14 Last Admin: 09/25/20 07:59 Dose: 0.25 mg Documented by: Dexamethasone (Dexamethasone 1 Mg Tab) 1 mg PO BID MED Stop: 10/23/20 20:59 Last Admin: 09/25/20 07:59 Dose: 1 mg Documented by: Dextrose (Dextrose 50% 50 Ml Syringe) 25 - 50 ml IV UD PRN; Protocol PRN Reason: Hypoglycemia Protocol Stop: 10/23/20 09:44 Glucagon (Glucagon For Inj 1 Mg Vial) 1 mg IM UD PRN; Protocol PRN Reason: Hypoglycemia Protocol Stop: 10/23/20 09:44 Glucose (Glucose 40% Gel 15 Gm Tube) 15 - 30 gm PO UD PRN; Protocol PRN Reason: Hypoglycemia Protocol Stop: 10/23/20 09:44 Glucose (Glucose 10 Tabs/Tube) 4 - 8 tabs PO UD PRN; Protocol PRN Reason: Hypoglycemia Protocol Stop: 10/23/20 09:44 Heparin Sodium (Porcine) (Heparin Sod 5,000 Unit/0.5 Ml Vial) 5,000 units SQ Q8 MED Stop: 10/23/20 13:59 Last Admin: 09/25/20 15:15 Dose: 5,000 units Documented by: Insulin Aspart (Insulin Aspart 100 Units/Ml 3 Ml Pen) 0 units SC ACHS [facility] Stop: 10/24/20 11:29 Last Admin: 09/25/20 12:52 Dose: 8 units Documented by: Levetiracetam (Levetiracetam 500 Mg Tab) 1,500 mg PO BID [facility] Stop: 10/24/20 08:59 Last Admin: 09/25/20 07:58 Dose: 1,500 mg Documented by: Lisinopril (Lisinopril 40 Mg Tab) 40 mg PO QAM [facility] Stop: 10/23/20 09:14 Last Admin: 09/25/20 07:59 Dose: 40 mg Documented by: Lorazepam (Lorazepam 1 Mg Tab) 1 mg PO DAILY PRN PRN Reason: seizure activity Stop: 10/23/20 09:14 Miscellaneous (Carbohydrates For Hypoglycemia ) 15 - 30 gm PO UD PRN PRN Reason: Hypoglycemia Treatment Stop: 10/23/20 09:44 Nystatin/Triamcinolone Acetonide (Nystatin/Triamcin Cr 15 Gm Tube) 1 appln EXT BID PRN PRN Reason: yeast infection Stop: 10/23/20 09:14 Ondansetron HCl (Ondansetron 4 Mg Od Tab) 8 mg PO Q8H PRN PRN Reason: Nausea And Vomiting Stop: 10/23/20 09:14 Ondansetron HCl (Ondansetron Inj 2 Mg/Ml 2 Ml Vial) 4 mg IV Q6H PRN PRN Reason: Nausea Stop: 10/23/20 09:14 Polyethylene Glycol (Polyethylene (Miralax) 17 Gm Pack) 17 gm PO DAILY PRN PRN Reason: Constipation Stop: 10/23/20 09:14 Vitamin D (Cholecalciferol 1,000 Units 25 Mcg Tab) 2,000 units PO DAILY MED Stop: 10/23/20 09:44 Last Admin: 09/25/20 07:58 Dose: 2,000 units Documented by: PG Care Time/CCT Total # of Minutes Spent Total Time Spent with Patient: Total time spent is greater than 50% in coordination of care (as documented) at patient's floor/unit and/or counseling patient: Coding Level of Care Code 04687 Subseq Hosp Care Lvl 2 Diagnoses Generalized weakness R53.1 Vasogenic brain edema G93.6 Type 2 diabetes mellitus E11.9 Hypertension I10 Lymphedema of left arm I89.0 Anxiety F41.9 Weakness of left upper extremity R29.898
[2020-09-26] MEDS: HEPARIN SOD 5,000 UNIT/0.5 ML VIAL SQ SCH ×2 (05:04→13:38)
[2020-09-26] MEDS: dexAMETHasone 1 MG TAB PO SCH (07:36)
[2020-09-26] MEDS: CHOLECALCIFEROL 1,000 UNITS 25 MCG TAB PO SCH (07:36)
[2020-09-26] MEDS: levETIRAcetam 500 MG TAB PO SCH (07:37)
[2020-09-26] MEDS: amLODIPine BESYLATE 5 MG TAB PO SCH (07:37)
[2020-09-26] MEDS: lisinopril 40 MG TAB PO SCH (07:37)
[2020-09-26] MEDS: clonazePAM 0.25 MG TAB PO SCH (07:40)
--- NOTE | 2020-09-26 08:12 | Hospitalist Progress Note ---
Date of Service September 26, 2020 Assessment & Plan (1) Generalized weakness: per his , he has a history of these episodes and gets better in about 1-2 days will treat the brain edema with Decadron 1mg PO BID consult PT/OT - recommending [facility] for rehab again no signs of an infection that could have caused the weakness, electrolytes normal much stronger today, able to stand up independently, able to walk with his katy- walker with nurse and aide, walked into hallway have PT/OT see him again to see if he is strong enough to return home either home with home therapy or go to [facility] on Saturday if they have a bed (2) Vasogenic brain edema: more edema than past scans neurosurgery at [place] recommends dexamethasone 4mg IV on admission then 1mg PO BID will discharge on this dose continue Keppra 1500mg BID to prevent seizures (3) Type 2 diabetes mellitus: diabetic diet Novolog SS monitor sugars on Decadron, all have been < 200 (4) Hypertension: continue Norvasc and Lisinopril (5) Lymphedema of left arm: chronic issue, ever since the tumor presented with left arm weakness (6) Anxiety: mood stable continue Klonopin (7) Weakness of left upper extremity: Chronic -- working with [facility] at home -- has them come several times weekly along with home health Dispo: PT eval this afternoon. D/c if needs met [facility] tomorrow if unsafe for d/c home and will reach back out to . Admission and Anticipated Discharge Date Admission Date: September 24, 2020 Subjective Patient evaluated this morning. Impressed with progress he has made over a short period of time. Able to go to the bathroom three times this morning. Took a short walk with OT. Eating/drinking without difficulty and moved bowels yesterday. This is typical for him. No fever, chills, chest pain, shortness of breath, abdominal pain, nausea, vomiting or dysuria. Hopeful for discharge this afternoon but will need to see how he works with PT. If unable to meet milestones will need to re-eval for rehab at [facility] at discharge. Being eval by PT currently this afternoon at 4pm. Instructed we will continue his steroids and he is to follow up with Neurosurgery. Plans for chemo on . Updated on phone -- would like to be on speaker for discharge instructions if that occurs today. Review of Systems Review of Systems: All systems reviewed & are unremarkable except as noted in HPI & below Physical Exam Constitutional: well developed, + obese, cooperative and comfortable; no acute distress Eyes: PERRL, conjunctivae normal, anicteric sclerae ENMT: external ear and nose normal, oropharynx normal Neck: trachea midline, no thyromegaly Respiratory: normal respiratory effort, lungs clear to auscultation Cardiovascular: RRR, no murmur, no edema Gastrointestinal (Abdomen): normal bowel sounds, soft, nontender, no hepatosplenomegaly Musculoskeletal: Head/Neck/Chest: normocephalic, head atraumatic and neck supple Spine: thoracic spine normal to inspection and lumbar spine normal to inspection; normal cervical ROM and normal thoraco-lumbar ROM Extremities: + abnormal strength (better, 4/5 in both legs, able to stand up and walk today) and + muscle atrophy (left arm, left arm is flaccid, moves it with his right arm); no cyanosis, no clubbing and no petechiae Skin: no rashes, warm and dry Neurologic: patellar DTR's 2+ bilat, sensation intact and PERRL, EOMI, accommodation nl, no face palsy, no dysarthria moves all extremities and + focal motor deficit (left arm, chronic) Psychiatric: A+Ox3, euthymic affect Lymphatic: no cervical or axillary lymphadenopathy Results & Data Results & Data ([facility]) Vital Signs (Past 12 Hours) Vital Signs Temp Pulse Resp BP Pulse Ox 09/26/20 07:46 36.6 C 70 16 157/84 H 97 09/25/20 22:40 36.5 C 68 16 139/72 95 Laboratory Results 09/26/20 09/25/20 09/25/20 Range/Units 08:06 20:30 17:08 POC Glucose 126 H 162 H 142 H (70-99) mg/dl 09/25/20 09/25/20 Range/Units 11:45 08:21 POC Glucose 197 H 122 H (70-99) mg/dl PG Care Time/CCT Total # of Minutes Spent Total Time Spent with Patient: Total time spent is greater than 50% in coordination of care (as documented) at patient's floor/unit and/or counseling p atient: Coding Diagnoses Generalized weakness R53.1 Vasogenic brain edema G93.6 Type 2 diabetes mellitus E11.9 Hypertension I10 Lymphedema of left arm I89.0 Anxiety F41.9 Weakness of left upper extremity R29.898
[2020-09-26] MEDS: INSULIN ASPART 100 UNITS/ML 3 ML PEN SC SCH ×2 (08:52→12:39)
--- NOTE | 2020-09-26 16:24 | Discharge Summary ---
Date of Service September 26, 2020 Admission HPI Per Admitting Provider 70 yo male with history of glioblastoma multiforme, s/p resection, presents to the ED early this morning due to profound weakness, he could not get out of bed and then could not get out of a chair. He has had several episodes like this in the past year. He initially presented in January 2020 with a focal seizure of his left arm and hand and was found to have a right sided brain tumor. He was placed on Keppra and Decadron and he followed up with neurosurgery at [facility]. He subsequently underwent right craniotomy and had the tumor resected, biopsy confirmed GBM. He has followed with [facility] as well as oncology. Earlier this year he was started on a 5 day course of temozolomide which completely wiped him out, he required hospitalization due to weakness. He then went to [facility] for rehab and was there for a short while and came home about 3 weeks ago. He has been doing well, no falls at home, no seizure activity. He has been doing PT/OT in the home, ambulated with a quad cane. He has been eating well, moving his bowels, making urine. Just yesterday he had OT in the home and he did very well, no issues with weakness. In the evening he could not get out of bed despite his best efforts. With his 's help he was able to sit at the edge of the bed and use the urinal. Later in the evening he could not get out of bed again. They called EMS and they were able to help his stand up and got him in a chair. Prior to the EMS leaving he made sure he could stand up on his own. However, they had to call EMS back to the home a second time when he was unable to stand up early in the morning. EMS brought him to the hospital. CT of the head showed some increased edema around the prior surgical excision site. CBC and BMP and CXR were normal. UA was negative for signs of infection. Dr. Ely spoke with neurosurgery at [facility], they recommended Decadron 4mg IV now and then start 1mg BID for the swelling. Admission Exam Per Admitting Provider Constitutional: well developed, + obese, cooperative and comfortable; no acute distress Eyes: PERRL, conjunctivae normal, anicteric sclerae ENMT: external ear and nose normal, oropharynx normal Neck: trachea midline, no thyromegaly Respiratory: normal respiratory effort, lungs clear to auscultation Cardiovascular: RRR, no murmur, no edema Gastrointestinal (Abdomen): normal bowel sounds, soft, nontender, no hepatosplenomegaly Musculoskeletal: Head/Neck/Chest: normocephalic, head atraumatic and neck supple Spine: thoracic spine normal to inspection and lumbar spine normal to inspection; normal cervical ROM and normal thoraco-lumbar ROM Extremities: + abnormal strength (weakness in legs); no cyanosis, no clubbing and no petechiae Skin: no rashes, warm and dry Neurologic: patellar DTR's 2+ bilat, sensation intact and PERRL, EOMI, accommodation nl, no face palsy, no dysarthria Psychiatric: A+Ox3, euthymic affect Lymphatic: no cervical or axillary lymphadenopathy Principal Diagnosis Brain Edema, Weakness Discharge Exam Constitutional well developed, + obese, cooperative and comfortable; no acute distress Eyes PERRL, conjunctivae normal, anicteric sclerae ENMT external ear and nose normal, oropharynx normal Neck trachea midline, no thyromegaly Respiratory normal respiratory effort, lungs clear to auscultation Cardiovascular RRR, no murmur, no edema Gastrointestinal (Abdomen) normal bowel sounds, soft, nontender, no hepatosplenomegaly Musculoskeletal Head/Neck/Chest: neck supple Spine: thoracic spine normal to inspection and lumbar spine normal to inspection; normal cervical ROM and normal thoraco-lumbar ROM Extremities: + abnormal strength (better, 4/5 in both legs, able to stand up and walk today) and + muscle atrophy (left arm, left arm is flaccid, moves it with his right arm); no cyanosis, no clubbing and no petechiae Skin no rashes, warm and dry Neurologic patellar DTR's 2+ bilat, sensation intact and PERRL, EOMI, accommodation nl, no face palsy, no dysarthria moves all extremities and + focal motor deficit (left arm, chronic) Psychiatric A+Ox3, euthymic affect Lymphatic no cervical or axillary lymphadenopathy Discharge Data Allergies Allergy/AdvReac Type Severity Reaction Status Date / Time grass pollen Allergy Mild Congested Verified 09/23/20 05:47 cat dander AdvReac Intermediate Hives Verified 09/23/20 05:47 dog dander AdvReac Intermediate WELTS Verified 09/23/20 05:47 Consultations 09/23/20 07:36 ED Decision to Admit Stat Ordered Studies 09/23/20 05:02 CT head/brain wo con Urgent CXR Hospital Course (1) Generalized weakness: per his , he has a history of these episodes and gets better in about 1-2 days --> presented with inability to get up out of bed No signs of infection CT head with post-operative changes of interval right parietal craniotomy with resection of the previously noted intra-axial mass. There is encephalomalacia with increased amount of vasogenic edema surrounding the operative bed. Treated with decadron 1mg BID and continued at discharge PT/OT evals undertaken -- initially with recs for SNF at discharge and possible d/c back to [facility], however had re-evaluated day of discharge as patient wished to return home --> felt safe for d/c home with continued home health/therapy through [facility] as previously receiving. To have f/u appt with surgeon/oncolo gist for chemo Will need f/u with Dr. Wills from [facility] regarding length of time to continue decadron --sugars fairly well controlled and will continue his home metformin at discharge and follow up with PCP if remains elevated for consideration of sulfonylurea vs insulin for short term Was able to ambulate with assistive device without assistance from PT and decision made for home with services at discharge. Updated on the phone regarding plan of care. (2) Vasogenic brain edema: on admission more edema than past scans neurosurgery at [place] [facility] recommended dexamethasone 4mg IV on admission then 1mg PO BID which was continued at discharge. To f/u with neurosurgery, Dr Stanford Continued home keppara 1500mg BID for seizure prevention (3) Type 2 diabetes mellitus: diabetic diet Novolog SS monitor sugars on Decadron, all have been < 200 --> resumed home metformin at discharge (held during admission) and can f/u with PCP as above (4) Hypertension: continued Norvasc and Lisinopril (5) Lymphedema of left arm: chronic issue, ever since the tumor presented with left arm weakness (6) Anxiety: mood stable continued Klonopin (7) Weakness of left upper extremity: Chronic -- working with [facility] at home -- has them come several times weekly along with home health and to resume at discharge as above Discharged home with and home PT/OT and home health services. CM provided with new rx for continued therapy Total Time Total Time Spent Total Time Spent (In Minutes): 110 Discharge Plan Discharge Items Patient Disposition: Home - Home Health Services Reason For Visit: WEAKNESS, H/O BRAIN TUMOR Discharge Diagnosis: Weakness, Brain Edema Goals: You have been hospitalized for an acute medical problem. During your stay at [facility], we have made an effort to correct the problem that brought you to the hospital while keeping you as comfortable as possible. Medications were used to bring your condition under control and your discharge instructions will include directions for any medications you should take after leaving the hospital. Please make sure you see your Primary Care Provider as part of your follow up plan. Activity: Resume your previous activity Activity Comment: advance with therapy Non-emergency contact: Primary Care Provider, Surgeon, Neurologist and Oncologist Call non-emergency contact if: you have any medication questions, your symptoms worsen and your pain is not controlled Follow-up/Referrals: Isaac Branham MD [Primary Care Provider] - 09/29/20 8:30 am (FOLLOW UP APPT WITH MAYI WALKER IN DR COLES OFFICE.) Diet: Heart Healthy Addtl Attending Provider Instructions: You have been hospitalized for generalized weakness. Imaging showed edema in the area of recent surgery and it was felt this was cause for your weakness. You were placed on steroids and these will continue as follows: * Decadron 1mg by mouth TWICE daily You should continue this medication until seen in follow up with your neurosurgeon, Dr Stanford. Your blood sugars have been checked while on steroids and they have been controlled, but it may be a good idea to check these periodically while on steroids as they increase your blood sugars. No need for insulin at this time but you should follow up with PCP if you need to be continued on these for a longer period of time. You should continue to monitor your blood pressures at home and continue care with your chemo on as previously scheduled. Please follow up with your primary care provider and oncologist in the next week. Please return to the emergency department with any increased weakness, fever, or for any other symptoms that are concerning for you. It has been a pleasure being a part of the medical team providing for you while you have been in the hospital. Take care! Pending Studies at Discharge: No Stand-Alone Forms: My [facility] Medications and DC Order Prescriptions: New dexamethasone 1 mg Tablet 1 mg PO BID Qty: 60 RF: 0 Continued metformin 500 mg tablet 1,000 mg PO BID Qty: 360 RF: 3 lisinopril 40 mg tablet 40 mg PO QAM Qty: 90 RF: 3 albuterol sulfate [ProAir HFA] 90 mcg/actuation HFA aerosol inhaler 2 puffs INH Q6H PRN (Reason: Shortness Of Breath) RF: 0 amlodipine [Norvasc] 2.5 mg tablet 5 mg PO DAILY RF: 0 cholecalciferol (vitamin D3) 50 mcg (2,000 unit) capsule 50 mcg PO DAILY RF: 0 clonazepam 0.5 mg tablet 0.25 mg PO DAILY 30 Days Qty: 15 RF: 0 levetiracetam [Keppra] 100 mg/mL solution 1,500 mg PO BID Qty: 946 RF: 2 dexamethasone 1 mg tablet See Rx Instructions PO DAILY Qty: 20 RF: 0 ondansetron HCl 8 mg tablet 8 mg PO Q8 PRN (Reason: Nausea And Vomiting) RF: 0 nystatin-triamcinolone 100,000-0.1 unit/g-% cream 1 applic topical BID PRN (Reason: yeast infection) RF: 0 lorazepam [Ativan] 1 mg tablet 1 mg PO DAILY PRN (Reason: seizure activity) 3 Days Qty: 3 RF: 0 Discharge Orders: Discharge Order (Routine); Ordered 09/26/20 Ordered By: Anita Stroud Admission Data Admit Date/Time: 09/24/20 15:28 Attending Provider: Manuel Altamirano Admit Provider: Linwood Jackson Primary Care Provider: Isaac Branham Other Providers: Linwood Jackson ; Rachel Manuel Gladstone Coding Level of Care Code D/C Day Management >30 mins Diagnoses Generalized weakness R53.1 Vasogenic brain edema G93.6 Type 2 diabetes mellitus E11.9 Hypertension I10 Lymphedema of left arm I89.0 Anxiety F41.9 Weakness of left upper extremity R29.898
[2020-09-26 16:45] VITALS: BP 130/80; PULSE 87; TEMP 98.4; O2SAT 95
== END 2020-09-26 18:08 | DRG 81 ==
LOC: ED 04:45 → 3N 04:45 → SUATTDRO 09-24 15:28

== ENCOUNTER 2021-06-06 15:48 | Inpatient (IN) ==
[2021-06-06] MEDS ORDERED: SODIUM CHLORIDE 0.9% 500 ML IV ONE (15:54)
--- NOTE | 2021-06-06 15:58 | Emergency Department Note ---
Impression & Plan Episode of unresponsiveness, AMS (altered mental status), GBM (glioblastoma multiforme) ED Provider Note NAME: TD DAVILA AGE: 70 SEX: M : 1950 ARRIVES VIA: Ambulance INFORMANT: Patient ED PROVIDER(S): Cong Neely DO CHIEF COMPLAINT: Altered mental status with a known GBM HPI: Patient is a 70-year-old male discharged from [facility] about a month ago. He has a known GBM which is being followed by [facility]. He received chemotherapy today. He performed physical therapy and there was taken back to the room and suddenly had some right upper extremity weakness and became unresponsive. He eventually woke up was apparently confused as well. He has been having a cough was diagnosed with Covid back in March. He denies any headache or change in vision. No chest pain or shortness of breath. No nausea, vomiting, or diarrhea. No dysuria, urgency, or frequency. He admits to left- sided weakness which is unchanged from previous. No new medications. ROS: See above HPI for pertinent positives & negatives. A total of 10 systems reviewed and were otherwise negative. PAST MEDICAL HISTORY:See Below PAST SURGICAL HISTORY:See Below FAMILY HISTORY:See Below SOCIAL HISTORY:See Below HOME MEDICATIONS:See Below ALLERGIES:See Below VITALS:See Below PHYSICAL EXAMINATION: GENERAL: Sitting up in bed, alert, chronically ill-appearing, disheveled, EYE EXAM: normal conjunctiva. PERRL and EOM's intact. OROPHARYNX: no exudate, no erythema, lips, buccal mucosa, and tongue normal and mucous membranes are moist NECK: supple, no nuchal rigidity, no adenopathy, non-tender LUNGS: Clear to auscultation. Normal chest wall mechanics HEART: no murmurs, S1 normal and S2 normal ABDOMEN: abdomen soft, non-tender, normo-active bowel sounds, no masses, no rebound or guarding. BACK: Back is symmetrical on inspection and there is no deformity, no midline tenderness, no CVA tenderness. SKIN: no rashes and no bruising UPPER EXTREMITIES: upper extremities are grossly normal. LOWER EXTREMITIES: No pitting edema. NEURO EXAM: Oriented to person not place or year, cranial nerves II-XII intact, normal speech, left-sided upper extremity unable to move able to plantar and dorsiflex mildly on the left lower with mild flexion in the left hip. No w eakness on the right lower her right upper. MEDICAL DECISION MAKING: Patient is a 70-year-old male who presents ER for above-stated complaint. IV was established blood was obtained. Labs show no significant leukocytosis or anemia. BMP along with LFTs showed a mild transaminitis. Troponin was negative. Lipase is unremarkable. Covid was negative. CT head was unchanged. History was very unclear. Question if this was a seizure versus syncopal event versus cardiac. Patient was discussed with hospitalist and will be admitted for further work-up. Triage Nursing notes reviewed. Limited review of prior medical records performed Vital Signs: reviewed and remarkable for no significant abnormalities Differential diagnosis: Differential diagnoses includes but is not limited to toxic, metabolic, infectious, traumatic, cardiac, neurologic, hematologic, psychiatric and inflammatory etiologies. ER treatment provided: See below Diagnostics interpreted by me: ECG: Sinus rhythm rate of 92 Normal axis No PVCs QTC 430 Cardiac Monitoring: An order was placed for continuous cardiac monitoring. The monitor shows a rate of 90 with sinus rhythm. Laboratory studies: As stated above and show below. Imaging studies: CT head was unchanged from previous. Consultation(s): Discussed with the hospitalist for further evaluation Procedures: none Critical Care: None Past Med/Surg History Medical History Acute dehydration Asthma Dyslipidemia Focal seizure Glioblastoma multiforme of brain History of melanoma Hx of skin cancer, basal cell Hypertension Shock Superficial thrombophlebitis Tubular adenoma of colon Type 2 diabetes mellitus Vasogenic brain edema Surgical History Anal fistula H/O brain surgery History of colonoscopy History of tonsillectomy History of tooth extraction Family History Mother , age 84 of metastatic lung cancer Family history of diabetes mellitus Alzheimer disease Metastatic lung cancer (metastasis from lung to other site) Father , age 85 of "failure to thrive" Lung disease FH: deafness or hearing loss Brother Lung disease Denies family history of Ovarian cancer Prostate cancer Breast cancer Lung cancer Colorectal cancer Social History Smoking Status: Never smoker Second Hand Exposure: No; Hx Alcohol Use: Yes Alcohol type: beer Alcohol Intake Frequency: 2-4 x/Month Alcohol Intake Frequency Comment: 1-2 beers per week Hx Substance Use: No Preferred Language: Irish Communication Ability: Effective Visual Impairment: Limited Hearing Ability: Use of Hearing Aid Lacing Presser Required: No Beliefs That Will Affect Care: None marital status: Current Living Situation: Spouse Current Living Situation Comment: House current occupational status: retired 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 How many Children do You have: 0 other: retired age 60 Feels Safe at Home: Yes Childhood Exposure to Second-Hand Smoke: Yes caffeine: Yes Dental Care, Regularly: Yes Physical Activity Frequency: Does not Exercise Seatbelt Use: always Sunscreen Use: Yes Do you think of yourself as: straight/heterosexual Assistive Devices: Walker Allergies Allergies Allergy/AdvReac Type Severity Reaction Status Date / Time grass pollen Allergy Mild Congested Verified 06/06/21 17:06 temozolomide [From Temodar] AdvReac Severe septic Verified 06/06/21 17:06 shock cat dander AdvReac Intermediate Hives Verified 06/06/21 17:06 dog dander AdvReac Intermediate WELTS Verified 06/06/21 17:06 Home Meds Home Medications Medication Instructions Recorded Confirmed cholecalciferol (vitamin D3) 50 50 mcg PO QAM 02/18/20 06/06/21 mcg (2,000 unit) capsule acetaminophen 650 mg tablet 650 mg PO Q4H PRN 06/06/21 06/06/21 albuterol sulfate 90 mcg/actuation 2 puff INH Q4H PRN 06/06/21 06/06/21 aerosol inhaler (ProAir HFA) [id number] 1 namrata MUCOUS MEMBRANE Q2H 06/06/21 06/06/21 10 mg-2.5 mg lozenges bisacodyl 10 mg rectal suppository 10 mg ID DAILY 06/06/21 06/06/21 dextrose 40 % oral gel 24 g PO DAILY PRN 06/06/21 06/06/21 docusate sodium 100 mg capsule 100 mg PO BID 06/06/21 06/06/21 enoxaparin 30 mg/0.3 mL 30 mg SUBCUT BID 06/06/21 06/06/21 subcutaneous syringe famotidine 20 mg tablet 20 mg PO BID 06/06/21 06/06/21 fluoxetine 20 mg capsule 20 mg PO DAILY 06/06/21 06/06/21 insulin regular human 100 unit/mL 1 sliding scale dose SUBCUT 06/06/21 06/06/21 injection solution (Humulin R USEASDIRECTD Regular U-100 Insulin) levetiracetam 1,000 mg tablet 2,000 mg PO QAM 06/06/21 06/06/21 levetiracetam 500 mg tablet 1,500 mg PO HS 06/06/21 06/06/21 lorazepam 0.5 mg tablet 0.5 mg PO TID PRN 06/06/21 06/06/21 magnesium hydroxide 400 mg/5 mL 30 ml PO DAILY PRN 06/06/21 06/06/21 oral suspension (Milk of Magnesia) melatonin 3 mg tablet 6 mg PO HS PRN 06/06/21 06/06/21 polyethylene glycol 3350 17 17 g PO DAILY PRN 06/06/21 06/06/21 gram/dose oral powder (Miralax) sennosides 8.6 mg tablet (senna) 17.2 mg PO BID 06/06/21 06/06/21 sennosides 8.6 mg-docusate sodium 1 tab-cap PO DAILY PRN 06/06/21 06/06/21 50 mg tablet (Senna Plus) sodium phosphates 19 gram-7 0 ml ID DAILY PRN 06/06/21 06/06/21 gram/118 mL enema (Fleet Enema) tamsulosin 0.4 mg capsule 0.4 mg PO DAILY 06/06/21 06/06/21 Previous Rx's Medication Instructions Recorded metformin 500 mg tablet 1,000 mg PO BID #360 tab 04/11/20 lisinopril 40 mg tablet 40 mg PO QAM #90 tab 07/04/20 amlodipine 5 mg tablet 5 mg PO DAILY #90 tab 11/15/20 nystatin-triamcinolone 100,000 1 applic TOPICAL BID PRN #30 g 11/30/20 unit/g-0.1 % topical cream Results & Data (ED) Vital Signs Vital Signs - 24 hr 06/06/21 15:45 06/06/21 16:00 06/06/21 16:04 Temperature 37.0 C Temperature Source Oral Pulse Rate 95 H 94 H Pulse Rate from SpO2 Sensor 93 H Respiratory Rate 16 17 Respiratory Effort / Characteristics Spontaneous Blood Pressure 123/83 123/83 Blood Pressure Mean 96 96 Blood Pressure Position Lying Pulse Oximetry 97 97 97 Oxygen Delivery Method Room Air Room Air Room Air Sepsis Recent Fever Within 48 Hours No Sepsis New/Unexplained Change in Mental Status Yes Sepsis Action Taken by Nursing No Action Required 06/06/21 16:06 06/06/21 16:10 06/06/21 16:26 Temperature Temperature Source Pulse Rate 90 91 H 98 H Pulse Rate from SpO2 Sensor 89 Respiratory Rate 17 17 Respiratory Effort / Characteristics Blood Pressure Blood Pressure Mean Blood Pressure Position Pulse Oximetry 97 96 98 Oxygen Delivery Method Room Air Room Air Room Air Sepsis Recent Fever Within 48 Hours Sepsis New/Unexplained Change in Mental Status Sepsis Action Taken by Nursing 06/06/21 16:30 06/06/21 16:40 06/06/21 16:50 Temperature Temperature Source Pulse Rate 97 H 94 H 91 H Pulse Rate from SpO2 Sensor 95 H 94 H 92 H Respiratory Rate 21 22 19 Respiratory Effort / Characteristics Blood Pressure Blood Pressure Mean Blood Pressure Position Pulse Oximetry 98 96 95 Oxygen Delivery Method Room Air Room Air Sepsis Recent Fever Within 48 Hours Sepsis New/Unexplained Change in Mental Status Sepsis Action Taken by Nursing 06/06/21 17:00 06/06/21 17:10 06/06/21 17:20 Temperature Temperature Source Pulse Rate 92 H 95 H 95 H Pulse Rate from SpO2 Sensor 92 H 93 H 93 H Respiratory Rate 20 18 19 Respiratory Effort / Characteristics Blood Pressure Blood Pressure Mean Blood Pressure Position Pulse Oximetry 97 96 95 Oxygen Delivery Method Room Air Room Air Sepsis Recent Fever Within 48 Hours Sepsis New/Unexplained Change in Mental Status Sepsis Action Taken by Nursing 06/06/21 17:30 06/06/21 17:40 06/06/21 17:50 Temperature Temperature Source Pulse Rate 102 H 89 Pulse Rate from SpO2 Sensor 92 H 88 90 Respiratory Rate 14 16 12 Respiratory Effort / Characteristics Blood Pressure 101/48 L Blood Pressure Mean 65 Blood Pressure Position Pulse Oximetry 97 98 95 Oxygen Delivery Method Room Air Room Air Room Air Sepsis Recent Fever Within 48 Hours Sepsis New/Unexplained Change in Mental Status Sepsis Action Taken by Nursing 06/06/21 18:00 06/06/21 18:10 06/06/21 18:20 Temperature Temperature Source Pulse Rate 89 181 H 86 Pulse Rate from SpO2 Sensor 89 91 H 87 Respiratory Rate 14 18 16 Respiratory Effort / Characteristics Blood Pressure 124/55 L Blood Pressure Mean 78 Blood Pressure Position Pulse Oximetry 99 97 98 Oxygen Delivery Method Room Air Room Air Room Air Sepsis Recent Fever Within 48 Hours Sepsis New/Unexplained Change in Mental Status Sepsis Action Taken by Nursing 06/06/21 18:30 06/06/21 18:40 06/06/21 18:50 Temperature Temperature Source Pulse Rate 104 H 94 H Pulse Rate from SpO2 Sensor 91 H 93 H 87 Respiratory Rate 16 16 Respiratory Effort / Characteristics Blood Pressure 101/63 Blood Pressure Mean 75 Blood Pressure Position Pulse Oximetry 96 96 97 Oxygen Delivery Method Room Air Room Air Sepsis Recent Fever Within 48 Hours Sepsis New/Unexplained Change in Mental Status Sepsis Action Taken by Nursing 06/06/21 19:00 06/06/21 19:10 06/06/21 19:20 Temperature Temperature Source Pulse Rate 99 H 110 H 89 Pulse Rate from SpO2 Sensor 91 H 87 89 Respiratory Rate 18 21 19 Respiratory Effort / Characteristics Blood Pressure Blood Pressure Mean Blood Pressure Position Pulse Oximetry 97 96 97 Oxygen Delivery Method Room Air Sepsis Recent Fever Within 48 Hours Sepsis New/Unexplained Change in Mental Status Sepsis Action Taken by Nursing 06/06/21 19:30 06/06/21 19:40 06/06/21 19:50 Temperature Temperature Source Pulse Rate 95 H 89 96 H Pulse Rate from SpO2 Sensor 91 H 90 92 H Respiratory Rate 14 14 Respiratory Effort / Characteristics Blood Pressure Blood Pressure Mean Blood Pressure Position Pulse Oximetry 97 98 98 Oxygen Delivery Method Room Air Sepsis Recent Fever Within 48 Hours Sepsis New/Unexplained Change in Mental Status Sepsis Action Taken by Nursing 06/06/21 20:00 06/06/21 20:10 06/06/21 20:20 Temperature Temperature Source Pulse Rate 97 H 93 H Pulse Rate from SpO2 Sensor 86 88 89 Respiratory Rate Respiratory Effort / Characteristics Blood Pressure 101/56 L Blood Pressure Mean 71 Blood Pressure Position Pulse Oximetry 94 95 96 Oxygen Delivery Method Room Air Sepsis Recent Fever Within 48 Hours Sepsis New/Unexplained Change in Mental Status Sepsis Action Taken by Nursing Laboratory Data Result diagrams: 06/06/21 17:17 06/06/21 17:17 Lab Results 06/06/21 06/06/21 06/06/21 Range/Units 16:08 17:17 17:17 WBC 9.59 (4.8-10.8) K/uL RBC 4.31 L (4.7-6.1) M/uL Hgb 13.8 L (14.0-18.0) g/dL Hct 41.3 L (42-52) % MCV 95.8 (80-100) fL MCH 32.0 (25-34) pg MCHC 33.4 (32-36) g/dL RDW Std Deviation 49.3 H (36.4-46.3) fL RDW Coeff of Vicki 14.0 (11.5-14.5) % Plt Count 100 L (130-400) K/uL MPV 9.5 (7.4-10.4) fL Immature Gran % (Auto) 0.6 % Neut % (Auto) 79.9 % Lymph % (Auto) 16.7 % [place] % (Auto) 2.6 % Eos % (Auto) 0.1 % Baso % (Auto) 0.1 % Neut # (Auto) 7.66 H (1.4-6.5) K/uL Lymph # (Auto) 1.60 (1.2-3.4) K/uL [place] # (Auto) 0.25 (0.11-0.59) K/uL Eos # (Auto) 0.01 (0-0.5) K/uL Baso # (Auto) 0.01 (0-0.2) K/uL Immature Gran # (Auto) 0.06 H (0.00-0.02) K/uL Sodium 141 (136-145) mmol/L Potassium 3.8 (3.5-5.1) mmol/L Chloride 106 (98-107) mmol/L Carbon Dioxide 25 (21-32) mmol/L Anion Gap 10.0 (3-11) BUN 19 H (7-18) mg/dl Creatinine 0.41 L (0.6-1.4) mg/dl Est Cr Clr Drug Dosing 202.7 ml/min Est GFR ( Amer) 137.1 ml/min Est GFR (Non-Af Amer) 118.3 ml/min BUN/Creatinine Ratio 46.6 H (10-20) Glucose 119 H (70-99) mg/dl Calcium 8.8 (8.5-10.1) mg/dl Total Bilirubin 0.6 (0.2-1) mg/dl AST 45 H (15-37) U/L ALT 106 H (12-78) Alkaline Phosphatase 59 (45-117) U/L Troponin I < 0.015 (0-0.045) ng/ml Total Protein 5.5 L (6.4-8.2) gm/dl Albumin 2.7 L (3.4-5.0) gm/dl Globulin 2.8 (2.5-4.0) gm/dl Albumin/Globulin Ratio 1.0 (0.9-2) Lipase 93 (73-393) U/L SARS-CoV-2, RNA, NAAT NEGATIVE (NEGATIVE) Administered Medications Discontinued Medications Sodium Chloride (Nss) 500 mls @ 999 mls/hr IV .Q31M ONE Stop: 06/06/21 16:24 Last Infusion: 06/06/21 16:43 Dose: 0 mls/hr Documented by: [id number] Admin: 06/06/21 16:12 Dose: 999 mls/hr Documented by: [id number] Imaging Data Radiologist's Impression: Head CT 06/06/21 15:54 CT head/brain wo con CLINICAL HISTORY: 70 years-old Male with ams. Acutely altered mental status TECHNIQUE: Multiple axial CT images of the head were obtained without contrast. A dose lowering technique was utilized adhering to the principles of ALARA. CT DOSE: 788.63 mGycm COMPARISON: Brain MRI 06/02/2021, head CT 04/22/2021 FINDINGS: Postoperative changes of the right parietal calvarium redemonstrated from prior craniotomy. Linear subarachnoid hyperattenuation within the right parietal lobe on image 20 series 2 is unchanged from prior. Vasogenic edema within the right parietal lobe deep to the craniotomy site is unchanged. Calcifications of the falx cerebri. No midline shift, abnormal extra-axial collection or acute territorial infarct. The calvarium is intact. The paranasal sinuses, mastoid air cells, and middle ear cavities are clear. IMPRESSION: 1. Stable exam from 06/02/2021. Prior right parietal craniotomy with right parietal lobe vasogenic edema deep to the craniotomy site. Additionally, there is trace linear cortically-based hyperattenuation within the right parietal lobe which is unchanged from prior and may represent subarachnoid hemorrhage versus posttreatment related changes. 2. No midline shift or acute territorial infarct. ACT 112: Negative or not required by law. The above report was generated using voice recognition software. It may contain grammatical, syntax or spelling errors. Electronically signed by: Adolfo Lion M.D. 06/06/2021 4:30 PM Chest X-Ray 06/06/21 17:47 XR chest 1V portable HISTORY: Weakness. COMPARISON: None. FINDINGS: The heart is mildly enlarged. This remains unchanged. There are low lung volumes. Bibasilar linear densities favor subsegmental atelectasis. The upper lung zones are clear. No evidence for pulmonary edema. No pleural effusions. No pneumothorax. IMPRESSION: 1. Stable mild cardiomegaly. 2. Low lung volumes with bibasilar linear densities. This favors subsegmental atelectasis. ACT 112: Negative or not required by law. Electronically signed by: Matt Tran M.D. 06/06/2021 6:26 PM Discharge Plan Visit Data Chief Complaint: Confusion Stated Complaint: AMS, Syncope ED Provider: Cong Neely Discharge Problem: Episode of unresponsiveness, AMS (altered mental status), GBM (glioblastoma multiforme) Forms Stand Alone Forms: [facility] Prescriptions Prescriptions: No Action metformin 500 mg tablet 1,000 mg PO BID Qty: 360 RF: 3 lisinopril 40 mg tablet 40 mg PO QAM Qty: 90 RF: 3 amlodipine 5 mg tablet 5 mg PO DAILY Qty: 90 RF: 3 nystatin-triamcinolone 100,000-0.1 unit/g-% cream 1 applic topical BID PRN (Reason: yeast infection) Qty: 30 RF: 1 cholecalciferol (vitamin D3) 50 mcg (2,000 unit) capsule 50 mcg PO QAM RF: 0 sennosides [senna] 8.6 mg Tablet 17.2 mg PO BID RF: 0 levetiracetam 500 mg Tablet 1,500 mg PO HS RF: 0 sennosides-docusate sodium [Senna Plus] 8.6-50 mg Tablet 1 tab-cap PO DAILY PRN (Reason: Constipation) RF: 0 dextrose [Insta-Glucose (dextrose)] 40 % Gel 24 g PO DAILY PRN (Reason: Hypoglycemia) RF: 0 melatonin 3 mg Tablet 6 mg PO HS PRN (Reason: Sleep) RF: 0 acetaminophen 650 mg Tablet 650 mg PO Q4H PRN (Reason: Pain) RF: 0 famotidine 20 mg Tablet 20 mg PO BID RF: 0 lorazepam 0.5 mg Tablet 0.5 mg PO TID PRN (Reason: Anxiety) RF: 0 magnesium hydroxide [Milk of Magnesia] 400 mg/5 mL Suspension 30 ml PO DAILY PRN (Reason: Constipation) RF: 0 tamsulosin 0.4 mg Capsule 0.4 mg PO DAILY RF: 0 bisacodyl 10 mg Suppository 10 mg ID DAILY RF: 0 Humulin R Regular U-100 Insuln 100 unit/mL Solution 1 sliding scale dose SUBCUT USEASDIRECTD RF: 0 Fleet Enema 19-7 gram/118 mL Enema 0 ml ID DAILY PRN (Reason: Constipation) RF: 0 docusate sodium 100 mg Capsule 100 mg PO BID RF: 0 polyethylene glycol 3350 [Miralax] 17 gram/dose Powder 17 g PO DAILY PRN (Reason: Constipation) RF: 0 fluoxetine 20 mg Capsule 20 mg PO DAILY RF: 0 enoxaparin 30 mg/0.3 mL Syringe 30 mg SUBCUT BID RF: 0 Cepacol (with benzocain-menth) 10-2.5 mg Lozenge 1 namrata mucous membrane Q2H RF: 0 levetiracetam 1,000 mg Tablet 2,000 mg PO QAM RF: 0 albuterol sulfate [ProAir HFA] 90 mcg/actuation HFA aerosol inhaler 2 puff INH Q4H PRN (Reason: Shortness Of Breath) RF: 0 Referrals Referrals: Isaac Branham MD [Physician] - Discharge Problem: AMS (altered mental status) Qualifiers: Altered mental status type: unspecified Qualified Code(s): R41.82 - Altered mental status, unspecified
--- NOTE | 2021-06-06 16:32 | CT Scan Report ---
CT head/brain wo con CLINICAL HISTORY: 70 years-old Male with ams. Acutely altered mental status TECHNIQUE: Multiple axial CT images of the head were obtained without contrast. A dose lowering tech nique was utilized adhering to the principles of ALARA. CT DOSE: 788.63 mGycm COMPARISON: Brain MRI 06/02/2021, head CT 04/22/2021 FINDINGS: Postoperative changes of the right parietal calvarium redemonstrated from prior craniotomy. Linear garcia barachnoid hyperattenuation within the right parietal lobe on image 20 series 2 is unchanged from mayra or. Vasogenic edema within the right parietal lobe deep to the craniotomy site is unchanged. Calcific ations of the falx cerebri. No midline shift, abnormal extra-axial collection or acute territorial in farct. The calvarium is intact. The paranasal sinuses, mastoid air cells, and middle ear cavities are clear . IMPRESSION: 1. Stable exam from 06/02/2021. Prior right parietal craniotomy with right parietal lobe vasogenic ed hanny deep to the craniotomy site. Additionally, there is trace linear cortically-based hyperattenuatio n within the right parietal lobe which is unchanged from prior and may represent subarachnoid hemorrh age versus posttreatment related changes. 2. No midline shift or acute territorial infarct. ACT 112: Negative or not required by law. The above report was generated using voice recognition software. It may contain grammatical, syntax o r spelling errors. Electronically signed by: Adolfo Lion M.D. 06/06/2021 4:30 PM
[2021-06-06 17:27] LABS: Basophils # (auto) 0.01 K/uL (0-0.2); Basophils % (auto) 0.1 %; Eosinophils # (auto) 0.01 K/uL (0-0.5); Eosinophils % (auto) 0.1 %; Hematocrit (blood only) 41.3 % (42-52); Hemoglobin 13.8 g/dL (14.0-18.0); Immature Granulocytes # (auto) 0.06 K/uL (0.00-0.02); Immature Granulocytes % (auto) 0.6 %; Lymphocytes % (auto) 16.7 %; Mean Corpuscular Hgb Conc 33.4 g/dL (32-36); Mean Corpuscular Volume 95.8 fL (80-100); Mean Platelet Volume 9.5 fL (7.4-10.4); Monocytes # (auto) 0.25 K/uL (0.11-0.59); Monocytes % (auto) 2.6 %; Neutrophils # (auto) 7.66 K/uL (1.4-6.5); Neutrophils % (auto) 79.9 %; Platelet Count 100 K/uL (130-400); RDW Standard Deviation 49.3 fL (36.4-46.3); Red Blood Count 4.31 M/uL (4.7-6.1); White Blood Count 9.59 K/uL (4.8-10.8)
[2021-06-06 17:47] LABS: Alanine Aminotransferase 106 (12-78); Albumin Level 2.7 gm/dl (3.4-5.0); Aspartate Aminotransferase 45 U/L (15-37); BUN Creatinine Ratio 46.6 (10-20); Blood Urea Nitrogen 19 mg/dl (7-18); Calcium 8.8 mg/dl (8.5-10.1); Carbon Dioxide 25 mmol/L (21-32); Chloride 106 mmol/L (98-107); Creatinine Clr Calc Pharmacy 202.7 ml/min; Est GFR (African American) 137.1 ml/min; Est GFR (Non-African American) 118.3 ml/min; Glucose 119 mg/dl (70-99); Lipase 93 U/L (73-393); Potassium 3.8 mmol/L (3.5-5.1); Sodium 141 mmol/L (136-145)
[2021-06-06 17:52] LABS: Alkaline Phosphatase 59 U/L (45-117); Bilirubin,Total 0.6 mg/dl (0.2-1); Globulin 2.8 gm/dl (2.5-4.0); Total Protein 5.5 gm/dl (6.4-8.2); Troponin I < 0.015 ng/ml (0-0.045)
--- NOTE | 2021-06-06 18:27 | XRay Report ---
XR chest 1V portable HISTORY: Weakness. COMPARISON: None. FINDINGS: The heart is mildly enlarged. This remains unchanged. There are low lung volumes. Bibasilar linear densities favor subsegmental atelectasis. The upper lung zones are clear. No evidence for pul monary edema. No pleural effusions. No pneumothorax. IMPRESSION: 1. Stable mild cardiomegaly. 2. Low lung volumes with bibasilar linear densities. This favors subsegmental atelectasis. ACT 112: Negative or not required by law. Electronically signed by: Matt Tran M.D. 06/06/2021 6:26 PM
--- NOTE | 2021-06-06 20:14 | History & Physical Report ---
Date of Service June 06, 2021 Assessment & Plan (1) Altered mental status: Plan: Patient had an episode of altered mental staus. It was unwitnessed, and patient was confused. In ER, now at baseline. will monitor overnight. Reviewed images. Perhaps may be secondary to chemotherapy. Doubt this was due to prozac (started yesterda. Patient also having edma innoted in CT scan ,however it does appear to be better than before. will consult Dr Villalobos. (2) Generalized weakness: Plan: from problem 1. will consult PT OT (3) Glioblastoma multiforme of brain: Plan: consult hem/onc (4) Type 2 diabetes mellitus: Plan: consult glycemic control (5) Hypertension: Plan: resume home meds (6) Dyslipidemia: Plan: continue statin (7) Anxiety: Plan: continue prozac, code staus: Full code History of Present Illness Chief Complaint: change in mental status Primary Care Provider: [facility] 70 yo male with HISTORY OF GLIOBLASTOMA DIAGNOSED in January of 2020. Patient has been following with [facility]. Patient has been seeing a mendez of Oncology from [facility], as well as Dr. Villalobos (Locally) and Dr. Nichole for Radiation. Patient has been somewhat depressed as per his as she states he sometimes cries. She reports that she needs to call multiple times throughout the day to keep him calm. He recently started Prozac yesterday. Today he received chemotherapy. Sometime after back at [facility], patient was found to be confused and somewhat lethargic. He was brought to the hospital. Initally he was not following commands, but over time, he has returned to his baseline. (Includes left sided weakness mainly in his upper extremity) Sadly, his was not at bedside at the time patient was confused, so this is mainly from the ED provider. It appears he had some weakness in his right upper extremity when he was confused. Past medical history: DIABETES, HYPERTENSION, GLIOBLASTOMA, SP CRANIOTOMY FOR TUMOR RESECTION. Allergies Allergy/AdvReac Type Severity Reaction Status Date / Time grass pollen Allergy Mild Congested Verified 06/06/21 17:06 temozolomide [From Temodar] AdvReac Severe septic Verified 06/06/21 17:06 shock cat dander AdvReac Intermediate Hives Verified 06/06/21 17:06 dog dander AdvReac Intermediate WELTS Verified 06/06/21 17:06 Home Medications Medication Instructions Recorded Confirmed Type cholecalciferol (vitamin D3) 50 50 mcg PO QAM 02/18/20 06/06/21 History mcg (2,000 unit) capsule metformin 500 mg tablet 1,000 mg PO BID #360 tab 04/11/20 06/06/21 Rx lisinopril 40 mg tablet 40 mg PO QAM #90 tab 07/04/20 06/06/21 Rx amlodipine 5 mg tablet 5 mg PO DAILY #90 tab 11/15/20 06/06/21 Rx nystatin-triamcinolone 100,000 1 applic TOPICAL BID PRN #30 g 11/30/20 06/06/21 Rx unit/g-0.1 % topical cream acetaminophen 650 mg tablet 650 mg PO Q4H PRN 06/06/21 06/06/21 History albuterol sulfate 90 mcg/actuation 2 puff INH Q4H PRN 06/06/21 06/06/21 History aerosol inhaler (ProAir HFA) [id number] 1 namrata MUCOUS MEMBRANE Q2H 06/06/21 06/06/21 History 10 mg-2.5 mg lozenges bisacodyl 10 mg rectal suppository 10 mg [place] DAILY 06/06/21 06/06/21 History dextrose 40 % oral gel 24 g PO DAILY PRN 06/06/21 06/06/21 History docusate sodium 100 mg capsule 100 mg PO BID 06/06/21 06/06/21 History enoxaparin 30 mg/0.3 mL 30 mg SUBCUT BID 06/06/21 06/06/21 History subcutaneous syringe famotidine 20 mg tablet 20 mg PO BID 06/06/21 06/06/21 History fluoxetine 20 mg capsule 20 mg PO DAILY 06/06/21 06/06/21 History insulin regular human 100 unit/mL 1 sliding scale dose SUBCUT 06/06/21 06/06/21 History injection solution (Humulin R USEASDIRECTD Regular U-100 Insulin) levetiracetam 1,000 mg tablet 2,000 mg PO QAM 06/06/21 06/06/21 History levetiracetam 500 mg tablet 1,500 mg PO HS 06/06/21 06/06/21 History lorazepam 0.5 mg tablet 0.5 mg PO TID PRN 06/06/21 06/06/21 History magnesium hydroxide 400 mg/5 mL 30 ml PO DAILY PRN 06/06/21 06/06/21 History oral suspension (Milk of Magnesia) melatonin 3 mg tablet 6 mg PO HS PRN 06/06/21 06/06/21 History polyethylene glycol 3350 17 17 g PO DAILY PRN 06/06/21 06/06/21 History gram/dose oral powder (Miralax) sennosides 8.6 mg tablet (senna) 17.2 mg PO BID 06/06/21 06/06/21 History sennosides 8.6 mg-docusate sodium 1 tab-cap PO DAILY PRN 06/06/21 06/06/21 History 50 mg tablet (Senna Plus) sodium phosphates 19 gram-7 0 ml [place] DAILY PRN 06/06/21 06/06/21 History gram/118 mL enema (Fleet Enema) tamsulosin 0.4 mg capsule 0.4 mg PO DAILY 06/06/21 06/06/21 History Past Med/Surg History Medical History Acute dehydration Asthma Dyslipidemia Focal seizure Glioblastoma multiforme of brain History of melanoma Hx of skin cancer, basal cell Hypertension Shock Superficial thrombophlebitis Tubular adenoma of colon Type 2 diabetes mellitus Vasogenic brain edema Surgical History Anal fistula REPAIRED H/O brain surgery [place] 01/23/2020 History of colonoscopy History of tonsillectomy History of tooth extraction Family History Mother , age 84 of metastatic lung cancer Family history of diabetes mellitus Alzheimer disease Metastatic lung cancer (metastasis from lung to other site) Father , age 85 of "failure to thrive" Lung disease FH: deafness or hearing loss Brother Lung disease Denies family history of Ovarian cancer Prostate cancer Breast cancer Lung cancer Colorectal cancer Social History Smoking Status: Never smoker Second Hand Exposure: No; Hx Alcohol Use: Yes Alcohol type: beer Alcohol Intake Frequency: 2-4 x/Month Alcohol Intake Frequency Comment: 1-2 beers per week Hx Substance Use: No Preferred Language: Indonesian Communication Ability: Effective Visual Impairment: Limited Hearing Ability: Use of Hearing Aid Studio Associate Required: No Beliefs That Will Affect Care: None marital status: Current Living Situation: Spouse Current Living Situation Comment: House current occupational status: retired 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 How many Children do You have: 0 other: retired age 59 Feels Safe at Home: Yes Childhood Exposure to Second-Hand Smoke: Yes caffeine: Yes Dental Care, Regularly: Yes Physical Activity Frequency: Does not Exercise Seatbelt Use: always Sunscreen Use: Yes Do you think of yourself as: straight/heterosexual Assistive Devices: Walker Review of Systems Review of Systems: All systems reviewed & are unremarkable except as noted in HPI & below Physical Exam Constitutional: WD/WN, vitals as above Eyes: PERRL, conjunctivae normal, anicteric sclerae ENMT: external ear and nose normal, oropharynx normal Neck: trachea midline, no thyromegaly Respiratory: normal respiratory effort, lungs clear to auscultation Cardiovascular: RRR, no murmur, no edema Gastrointestinal (Abdomen): normal bowel sounds, soft, nontender, no hepatosplenomegaly Skin: no rashes, warm and dry Neurologic: awake left sided weakness. not moving upper or lower extremity on my exam. Psychiatric: Affect: euthymic affect Results & Data Results & Data ([facility]) Vital Signs (Past 12 Hours) Vital Signs Temp Pulse Resp BP Pulse Ox 06/06/21 19:50 96 H 98 06/06/21 19:40 89 14 98 06/06/21 19:30 95 H 14 97 06/06/21 19:20 89 19 97 06/06/21 19:10 110 H 21 96 06/06/21 19:00 99 H 18 97 06/06/21 18:50 94 H 16 97 06/06/21 18:40 104 H 96 06/06/21 18:30 16 101/63 96 06/06/21 18:20 86 16 98 06/06/21 18:10 181 H 18 97 06/06/21 18:00 89 14 124/55 L 99 06/06/21 17:50 12 101/48 L 95 06/06/21 17:40 89 16 98 06/06/21 17:30 102 H 14 97 06/06/21 17:20 95 H 19 95 06/06/21 17:10 95 H 18 96 06/06/21 17:00 92 H 20 97 06/06/21 16:50 91 H 19 95 06/06/21 16:40 94 H 22 96 06/06/21 16:30 97 H 21 98 06/06/21 16:26 98 H 98 06/06/21 16:10 91 H 17 96 06/06/21 16:06 90 17 97 06/06/21 16:04 97 06/06/21 16:00 94 H 17 123/83 97 06/06/21 15:45 37.0 C 95 H 16 123/83 97 PG Care Time/CCT Total # of Minutes Spent Total Time Spent with Patient: Total time spent is greater than 50% in coordination of care (as documented) at patient's floor/unit and/or counseling patient: Coding Level of Care Code 89501 Initial Inpt Care Lvl 3 Diagnoses Generalized weakness R53.1 Glioblastoma multiforme of brain C71.9 Type 2 diabetes mellitus E11.9 Hypertension I10 Dyslipidemia E78.5 Anxiety F41.9 Altered mental status R41.82
[2021-06-06] MEDS ORDERED: PHARMACY GLYCEMIC MGMT CONSULT PRN (20:34)
[2021-06-06] MEDS ORDERED: POLYETHYLENE (MIRALAX) 17 GM PACK PO PRN (20:39)
[2021-06-06] MEDS ORDERED: MAGNESIUM HYDROXIDE SUSP 30 ML UDC PO PRN (20:39)
[2021-06-06] MEDS ORDERED: DOCUSATE SODIUM/SENNA 50/8.6MG TAB PO PRN (20:39)
[2021-06-06] MEDS ORDERED: GLUCOSE 40% GEL 15 GM TUBE PO PRN ×2 (20:39→21:00)
[2021-06-06] MEDS ORDERED: ALBUTEROL HFA 8 GM INHALER INH PRN (20:46)
[2021-06-06] MEDS ORDERED: CARBOHYDRATES FOR HYPOGLYCEMIA PO PRN (21:00)
[2021-06-06] MEDS ORDERED: GLUCAGON FOR INJ 1 MG VIAL IM PRN (21:00)
[2021-06-06] MEDS ORDERED: GLUCOSE 10 TABS/TUBE PO PRN (21:00)
[2021-06-06] MEDS ORDERED: DEXTROSE 50% 50 ML SYRINGE IV PRN (21:00)
[2021-06-06] MEDS ORDERED: INSULIN ASPART PER UNIT SC ONE (21:45)
[2021-06-06] MEDS: ENOXAPARIN INJ 30 MG/0.3 ML SYR SQ SCH (22:14)
[2021-06-06] MEDS: FAMOTIDINE 20 MG TAB PO SCH (22:15)
[2021-06-06] MEDS: DOCUSATE SODIUM 100 MG CAP PO SCH (22:15)
[2021-06-06] MEDS: TAMSULOSIN HCL 0.4 MG CAP PO SCH (22:15)
[2021-06-06] MEDS: levETIRAcetam 500 MG TAB PO SCH (22:15)
[2021-06-06] MEDS: SENNA 8.6 MG TAB PO SCH (22:15)
[2021-06-07] MEDS: ACETAMINOPHEN 325 MG TAB PO PRN (03:44)
--- NOTE | 2021-06-07 08:02 | Hospitalist Progress Note ---
Date of Service June 07, 2021 Assessment & Plan (1) Episode of unresponsiveness: (2) AMS (altered mental status): (3) GBM (glioblastoma multiforme): (4) Generalized weakness: (5) Weakness of left upper extremity: (6) Partial motor seizures: (7) Type 2 diabetes mellitus: (8) Hypertension: (9) Depression with anxiety: Plan: 71-year-old male with history of glioblastoma multiform, type 2 diabetes, dyslipidemia, hypertension, depression and anxiety, reportedly the patient was receiving physical therapy and completed chemotherapy when he had an episode of unresponsiveness and lethargy. Diagnosed on the 02/23/2020 with grade 4 glioblastoma multiform, underwent a craniotomy with tumor debulking followed by chemoradiation. currently treated with maintence bevacizumab. 1. - 5 episode of unresponsiveness, altered mental status, glioblastoma multifo rm chronic history of generalized weakness with left upper extremity Patient continues to have confusion but improved from original admission. consultation to Oncology, reviewed progress note No reported changes or symptoms overnight Unclear etiology, unchanged CBC, CMP stable slight elevation and liver function test Decrease and albumin consistent the with prior lab test Negative urinalysis on admission Negative COVID testing No reported changes in medications except for starting fluoxetine Continue to monitor, repeat lab work consult PT/OT 6. no reported changes continue Keppra 7. Diabetes type 2 Pharmacy consultation Continue insulin sliding scale last A1c 6.4 8. hypertension stable no episodes of hypotension reported Continue lisinopril and amlodipine 9. Depression with anxiety started on fluoxetine Continue to monitor consider changing to another agent /discontinuing temporarily if symptoms do not improve code staus: Full code Admission and Anticipated Discharge Date Admission Date: June 07, 2021 Subjective patient continues to be confused, able to gather some history He reports no concerns today upset and hoping to talk to his . Confused on the timing of his hospitalization. Staff reports no difficulties overnight Review of Systems Constitutional: no fever and no chills Respiratory: no cough, no chest congestion, no dyspnea and no wheezing Cardiovascular: no chest pain, no palpitations and no edema Gastrointestinal: no abdominal pain, no heartburn, no nausea, no vomiting and no change in bowel habits Neurologic: + gait abnormality; no falls and no headache(s) Physical Exam Physical Exam: vital signs stable, tearful Awake and alert to person and place only, confused on timing of events, "May 1921" Respiratory: Effort normal, CTA B/L CV: RRR, no murmur, no edema Abdomen: normal bowel sounds, soft, nontender, no hepatosplenomegaly Neurologic no change Musculoskeletal: Skin: no obvious rashes Results & Data Results & Data ([facility]) Vital Signs (Past 12 Hours) Vital Signs Temp Pulse Pulse Resp BP BP Pulse Ox 06/07/21 07:56 36.4 C L 92 H 17 152/90 H 94 06/07/21 02:30 36.4 C L 99 H 18 123/71 94 06/07/21 02:00 91 H 16 94/54 L 93 06/07/21 01:00 91 H 14 93 06/07/21 00:00 92 H 17 93 06/06/21 23:00 101 H 16 106/59 L 92 06/06/21 22:20 97 H 18 103/51 L 93 06/06/21 22:10 95 H 16 93 06/06/21 22:00 99 H 17 94 06/06/21 21:50 93 H 21 92 06/06/21 21:40 97 H 20 95 06/06/21 21:30 89 15 98 06/06/21 21:20 90 23 97 06/06/21 21:10 91 H 20 97 06/06/21 21:00 93 H 16 96 06/06/21 20:50 99 H 19 94 06/06/21 20:40 96 H 18 95 06/06/21 20:37 18 94 06/06/21 20:20 101/56 L 96 06/06/21 20:10 93 H 95 Laboratory Results Laboratory Results - last 24 hr 06/06/21 06/06/21 06/06/21 16:08 17:17 17:17 WBC 9.59 RBC 4.31 L Hgb 13.8 L Hct 41.3 L MCV 95.8 MCH 32.0 MCHC 33.4 RDW Std Deviation 49.3 H RDW Coeff of Vicki 14.0 Plt Count 100 L MPV 9.5 Immature Gran % (Auto) 0.6 Neut % (Auto) 79.9 Lymph % (Auto) 16.7 Gibson % (Auto) 2.6 Eos % (Auto) 0.1 Baso % (Auto) 0.1 Neut # (Auto) 7.66 H Lymph # (Auto) 1.60 Gibson # (Auto) 0.25 Eos # (Auto) 0.01 Baso # (Auto) 0.01 Immature Gran # (Auto) 0.06 H Sodium 141 Potassium 3.8 Chloride 106 Carbon Dioxide 25 Anion Gap 10.0 BUN 19 H Creatinine 0.41 L Est Cr Clr Drug Dosing 202.7 Est GFR ( Amer) 137.1 Est GFR (Non-Af Amer) 118.3 BUN/Creatinine Ratio 46.6 H Glucose 119 H POC Glucose Calcium 8.8 Total Bilirubin 0.6 AST 45 H ALT 106 H Alkaline Phosphatase 59 Troponin I < 0.015 Total Protein 5.5 L Albumin 2.7 L Globulin 2.8 Albumin/Globulin Ratio 1.0 Lipase 93 SARS-CoV-2, RNA, NAAT NEGATIVE 06/06/21 21:53 WBC RBC Hgb Hct MCV MCH MCHC RDW Std Deviation RDW Coeff of Vicki Plt Count MPV Immature Gran % (Auto) Neut % (Auto) Lymph % (Auto) Gibson % (Auto) Eos % (Auto) Baso % (Auto) Neut # (Auto) Lymph # (Auto) Gibson # (Auto) Eos # (Auto) Baso # (Auto) Immature Gran # (Auto) Sodium Potassium Chloride Carbon Dioxide Anion Gap BUN Creatinine Est Cr Clr Drug Dosing Est GFR ( Amer) Est GFR (Non-Af Amer) BUN/Creatinine Ratio Glucose POC Glucose 114 H Calcium Total Bilirubin AST ALT Alkaline Phosphatase Troponin I Total Protein Albumin Globulin Albumin/Globulin Ratio Lipase SARS-CoV-2, RNA, NAAT Diagnostic Findings Head CT 06/06/21 15:54 CT head/brain wo con CLINICAL HISTORY: 70 years-old Male with ams. Acutely altered mental status TECHNIQUE: Multiple axial CT images of the head were obtained without contrast. A dose lowering technique was utilized adhering to the principles of ALARA. CT DOSE: 788.63 mGycm COMPARISON: Brain MRI 06/02/2021, head CT 04/22/2021 FINDINGS: Postoperative changes of the right parietal calvarium redemonstrated from prior craniotomy. Linear subarachnoid hyperattenuation within the right parietal lobe on image 20 series 2 is unchanged from prior. Vasogenic edema within the right parietal lobe deep to the craniotomy site is unchanged. Calcifications of the falx cerebri. No midline shift, abnormal extra-axial collection or acute territorial infarct. The calvarium is intact. The paranasal sinuses, mastoid air cells, and middle ear cavities are clear. IMPRESSION: 1. Stable exam from 06/02/2021. Prior right parietal craniotomy with right parietal lobe vasogenic edema deep to the craniotomy site. Additionally, there is trace linear cortically-based hyperattenuation within the right parietal lobe which is unchanged from prior and may represent subarachnoid hemorrhage versus posttreatment related changes. 2. No midline shift or acute territorial infarct. ACT 112: Negative or not required by law. The above report was generated using voice recognition software. It may contain grammatical, syntax or spelling errors. Electronically signed by: Adolfo Lion M.D. 06/06/2021 4:30 PM Chest X-Ray 06/06/21 17:47 XR chest 1V portable HISTORY: Weakness. COMPARISON: None. FINDINGS: The heart is mildly enlarged. This remains unchanged. There are low lung volumes. Bibasilar linear densities favor subsegmental atelectasis. The upper lung zones are clear. No evidence for pulmonary edema. No pleural e ffusions. No pneumothorax. IMPRESSION: 1. Stable mild cardiomegaly. 2. Low lung volumes with bibasilar linear densities. This favors subsegmental atelectasis. ACT 112: Negative or not required by law. Electronically signed by: Matt Tran M.D. 06/06/2021 6:26 PM PG Care Time/CCT Total # of Minutes Spent Total Time Spent with Patient: Total time spent is greater than 50% in coordination of care (as documented) at patient's floor/unit and/or counseling patient: Coding Level of Care Code 11612 Subseq Hosp Care Lvl 2 Diagnoses Episode of unresponsiveness R41.89 AMS (altered mental status) R41.82 Altered mental status type: unspecified GBM (glioblastoma multiforme) C71.9 Generalized weakness R53.1 Type 2 diabetes mellitus E11.9 Hypertension I10 Depression with anxiety F41.8 Partial motor seizures G40.109 Weakness of left upper extremity R29.898 (1) AMS (altered mental status) Altered mental status type: unspecified Qualified Code(s): R41.82 - Altered mental status, unspecified
--- NOTE | 2021-06-07 08:28 | Pharmacy Report ---
Pharmacy Glycemic Short Note 2 - Date of Service June 07, 2021 - Glycemic Short BSG Results (Last 24 hours): 06/06/21 06/06/21 06/07/21 17:17 21:53 08:06 Glucose 119 H POC Glucose 114 H 91 OUTPATIENT ANTIDIABETIC REGIMEN: * Metformin 1gm PO BID * Regular insulin SSI * HbA1c: pending ASSESSMENT: * Mr Montesinos is a 71yo diabetic male, admitted with confusion/weakness likely d/t chemo (for glioblastoma). * BSGs since admission: 119, 114, 91. * It does not appear as though patient will require more than some Novolog for correction/carb coverage during admission. * Pharmacy will likely sign off tomorrow if BSGs remain well-controlled. PLAN FOR INPATIENT GLYCEMIC CONTROL: * Hold outpatient oral diabetes medications * Basal insulin * none at this time * Bolus insulin * NovoLog per scale ACHS or Q6hrs while NPO * Goal Range: Low 110 mg/dL - High 140 mg/dL * Correction Factor: 25 mg/dL/unit * Nutritional / Prandial insulin per carb ratio of 1 unit per 8 grams CHO consumed PLAN FOR DISCHARGE: * pending updated A1c
--- NOTE | 2021-06-07 08:40 | Consultation Report ---
MEDICAL ONCOLOGY CONSULTATION DATE OF SERVICE: 06/07/2021 REASON FOR CONSULTATION: Altered mental status in a 71-year-old gentleman with history of glioblasto ma multiforme. HISTORY OF PRESENT ILLNESS: Mr. Rincon is a pleasant 71-year-old gentleman well known to [facility], sent to [place] originally earlier this spring for continuum of care. He was actually in the office on 06/06 t o receive a standard dose of bevacizumab. Shortly thereafter, apparently decompensated from a psycho logical perspective according to his with the reporting multiple phone calls throughout the day to keep him calm. He had started Prozac yesterday, the day before admission. Apparently, he co ntinues rehabilitating at [facility] and was found to be confused and lethargic. He was [facility], at which time he was not really following commands. I was unable to extract any fu rther information from [facility] despite verbal interaction. He acknowledged that he was not experiencing any pain, but little else. This gentleman was originally diagnosed on 02/23/2020 a WHO grade IV glio blastoma multiforme. The patient underwent a craniotomy with tumor debulking followed by chemoradiat ion and received one course of temozolomide, which was aborted because of precipitous drop in blood p ressure and septic-like presentation. Thus, thereafter was placed on maintenance bevacizumab, which he has continued at [facility]. According to the [facility] nurse taking care of Mr. Rich lewis, he was agitated and somewhat confused while receiving bevacizumab on the . PAST MEDICAL HISTORY: Significant for glioblastoma multiforme, type 2 diabetes mellitus, dyslipidemi a, hypertension, history of basal cell carcinoma of the skin and melanoma of the skin. MEDICATIONS: Include cholecalciferol 50 mcg p.o. daily, metformin 1000 mg p.o. b.i.d., lisinopril 40 mg p.o. daily, amlodipine 5 mg p.o. daily, albuterol 2 puffs inhaled q.4 hours p.r.n., bisacodyl 10 mg per rectum daily, docusate sodium 100 mg p.o. b.i.d., enoxaparin 30 mg subQ b.i.d., famotidine 20 mg p.o. b.i.d., fluoxetine 20 mg p.o. daily, insulin sliding scale, Keppra 2000 mg in the a.m. and 15 00 mg p.o. at bedtime, lorazepam 0.5 mg p.o. t.i.d. p.r.n., magnesium hydroxide 30 mL p.o. p.r.n., me latonin 6 mg p.o. at bedtime p.r.n., MiraLax 17 g p.o. daily p.r.n., tamsulosin 0.4 mg p.o. daily. ALLERGIES: DOG AND CAT DANDER WELL TEMOZOLOMIDE. FAMILY HISTORY: Mother attributable to metastatic lung cancer at age 84. Father a t age 85, failure to thrive, lung disease. He also has a brother who has pulmonary disease. SOCIAL HISTORY: The patient is retired, lives with his spouse. Negative for cigarettes. He does en juan social alcohol, particularly beer. Negative for illicit substances. REVIEW OF SYSTEMS: Unobtainable because of his current mental status. PHYSICAL EXAMINATION: GENERAL: Obtunded, confused, agitated, 71-year-old gentleman in no acute distress. VITAL SIGNS: Temperature 36.4, pulse 99, respiratory rate 18, blood pressure 123/71. SKIN: Warm, dry, noncyanotic without petechia, rash or ecchymosis. HEENT: Atraumatic, normocephalic. Ocular examination not done. Nares are patent without rhinorrhea or discharge. Throat is clear. Tongue midline. Mucous membranes are moist. NECK: Supple. HEART: Regular rate and rhythm. No clicks, rubs, murmurs or gallops. LUNGS: Clear to auscultation bilaterally. ABDOMEN: Soft, nontender, nondistended. EXTREMITIES: No clubbing, cyanosis or edema. Strength testing not carried out. NEUROLOGIC: He is awake and alert and again difficult to elicit further information at bedside. LABORATORY DATA: WBC count 9590, hemoglobin 13.8, platelet count 100. Sodium 141, potassium 3.8, ch loride 106, carbon dioxide 25, creatinine 0.41, BUN 19, AST 45, ALT 106, albumin 2.7. RADIOGRAPHIC DATA: MRI of the brain performed on 06/02 reveals interval decrease in size of previous ly identified ring-enhancing mass lesion in the right parietal area, interval decrease in the surroun ding vasogenic edema. No evidence of midline shift or mass effect. CT of the head provided no addit ional pertinent information. IMPRESSION: 1. Altered mental status. 2. Right parietal glioblastoma multiforme, status post bevacizumab. 3. Type 2 diabetes mellitus. 4. Hypertension. 5. Dyslipidemia. 6. Anxiety. PLAN: I have been asked to visit with Mr. Rincon this morning. This gentleman has history of righ t parietal glioblastoma multiforme, status post craniotomy chemoradiation, aborted adjuvant temozolom kalyn and now receives bevacizumab, which is a novel anti-VEGF agent with activity against high-grade g liomas. Radiographically, it would appear he is actually responding to treatment. There is no evide nce of vasogenic edema with marked reduction in the primary tumor bed. This gentleman is on several medications including high-dose of anticonvulsants and was recently started on Prozac. Examined his most recent chemistries and only mild elevation in liver transaminases is noted. His albumin is mode stly decreased measuring 2.7. Thus, I do not have a ready answer for this gentleman's confusion. Ob viously infectious etiology should be sought. Perhaps urine culture, blood cultures, even though he does not appear symptomatic otherwise. It is conceivable he is having a paroxysmal reaction to the P rozac, which was recently started. I cannot appreciate evidence from his most recent MRI of an acute neurologic insult. We will contact his to extract some more information, which may shed light on events over the past 24 hours. Again, the nurse taking care of him here at [facility] had mentioned, Mr. Rincon was not quite right while receiving his dose of bevacizumab on the . That said, we evie l continue to follow. Agree with current medical management otherwise. Again, we would seek out oth er etiologies for this gentleman's confusion. Job ID: [id number]
[2021-06-07 09:05] LABS: Estimated Average Glucose 137 mg/dl; Hemoglobin A1C 6.4 % (4.5-5.6)
[2021-06-07] MEDS: INSULIN ASPART PER UNIT SC SCH ×4 (09:07→21:16)
[2021-06-07] MEDS: amLODIPine BESYLATE 5 MG TAB PO SCH (09:25)
[2021-06-07] MEDS: bisacodyL 10 MG SUPP PR SCH (09:26)
[2021-06-07] MEDS: ENOXAPARIN INJ 30 MG/0.3 ML SYR SQ SCH ×2 (09:27→20:28)
[2021-06-07] MEDS: levETIRAcetam 500 MG TAB PO SCH ×2 (09:27→20:27)
[2021-06-07] MEDS: CHOLECALCIFEROL 1,000 UNITS 25 MCG TAB PO SCH (09:27)
[2021-06-07] MEDS: FLUoxetine HCL 20 MG CAP PO SCH (09:28)
[2021-06-07] MEDS: DOCUSATE SODIUM 100 MG CAP PO SCH ×2 (09:28→20:28)
[2021-06-07] MEDS: lisinopril 40 MG TAB PO SCH (09:29)
[2021-06-07] MEDS: SENNA 8.6 MG TAB PO SCH ×2 (09:29→20:27)
[2021-06-07] MEDS: FAMOTIDINE 20 MG TAB PO SCH ×2 (12:29→20:27)
[2021-06-07 13:21] LABS: Basophils # (auto) 0.01 K/uL (0-0.2); Basophils % (auto) 0.1 %; Eosinophils # (auto) 0.04 K/uL (0-0.5); Eosinophils % (auto) 0.5 %; Hematocrit (blood only) 39.1 % (42-52); Hemoglobin 13.5 g/dL (14.0-18.0); Immature Granulocytes # (auto) 0.06 K/uL (0.00-0.02); Immature Granulocytes % (auto) 0.7 %; Lymphocytes # (auto) 0.81 K/uL (1.2-3.4); Lymphocytes % (auto) 9.6 %; Mean Corpuscular Hgb Conc 34.5 g/dL (32-36); Mean Corpuscular Volume 95.6 fL (80-100); Mean Platelet Volume 9.2 fL (7.4-10.4); Monocytes # (auto) 0.72 K/uL (0.11-0.59); Monocytes % (auto) 8.5 %; Neutrophils # (auto) 6.83 K/uL (1.4-6.5); Neutrophils % (auto) 80.6 %; Nucleated RBC # (auto) 0.04 K/uL (0-0); Nucleated RBC % (auto) 0.5 %; Platelet Count 140 K/uL (130-400); RDW Coefficient of Variation 14.1 % (11.5-14.5); RDW Standard Deviation 48.6 fL (36.4-46.3); Red Blood Count 4.09 M/uL (4.7-6.1); White Blood Count 8.47 K/uL (4.8-10.8)
[2021-06-07 13:52] LABS: Albumin Level 2.6 gm/dl (3.4-5.0); Calcium 8.5 mg/dl (8.5-10.1); Est GFR (African American) 148.9 ml/min; Est GFR (Non-African American) 128.4 ml/min; Potassium 3.4 mmol/L (3.5-5.1)
[2021-06-07 14:02] LABS: Albumin Globulin Ratio 0.9 (0.9-2); Bilirubin,Total 0.8 mg/dl (0.2-1); Globulin 3.1 gm/dl (2.5-4.0); Thyroid Stimulating Hormone 2.74 uIu/ml (0.300-4.500); Total Protein 5.7 gm/dl (6.4-8.2)
[2021-06-07 15:55] LABS: Appearance Urine Clear (Clear); Bacteria Urine Automated Negative (Negative); Bilirubin Urine Negative (Negative); Blood Urine Negative (Negative); Cast Urine Automated 0 /lpf (0-5); Color Urine Dark Yellow; Glucose Urine UA Negative (Negative); Ketones Urine 1+ (Negative); Leukocyte Esterase Urine Trace (Negative); Nitrite Urine Negative (Negative); Protein Urine Negative (Negative); RBC Urine Automated 0-4 /hpf (0-4); Urobilinogen Urine Negative (Negative)
[2021-06-07] MEDS: TAMSULOSIN HCL 0.4 MG CAP PO SCH (20:28)
[2021-06-08] MEDS ORDERED: KETOROLAC TROMETHAMINE 15 MG/ML VIAL IV ONE (00:30)
[2021-06-08] MEDS: FLUoxetine HCL 20 MG CAP PO SCH (07:25)
[2021-06-08] MEDS: levETIRAcetam 500 MG TAB PO SCH ×2 (07:25→19:43)
[2021-06-08] MEDS: lisinopril 40 MG TAB PO SCH (07:26)
[2021-06-08] MEDS: SENNA 8.6 MG TAB PO SCH ×2 (07:26→19:45)
[2021-06-08] MEDS: ENOXAPARIN INJ 30 MG/0.3 ML SYR SQ SCH ×2 (07:26→19:44)
[2021-06-08] MEDS: CHOLECALCIFEROL 1,000 UNITS 25 MCG TAB PO SCH (07:26)
[2021-06-08] MEDS: amLODIPine BESYLATE 5 MG TAB PO SCH (07:26)
[2021-06-08] MEDS: bisacodyL 10 MG SUPP PR SCH (07:28)
[2021-06-08 07:32] LABS: Basophils # (auto) 0.01 K/uL (0-0.2); Basophils % (auto) 0.1 %; Eosinophils # (auto) 0.03 K/uL (0-0.5); Eosinophils % (auto) 0.4 %; Hematocrit (blood only) 38.2 % (42-52); Hemoglobin 12.9 g/dL (14.0-18.0); Immature Granulocytes # (auto) 0.06 K/uL (0.00-0.02); Immature Granulocytes % (auto) 0.9 %; Lymphocytes # (auto) 0.77 K/uL (1.2-3.4); Mean Corpuscular Hemoglobin 32.5 pg (25-34); Mean Corpuscular Hgb Conc 33.8 g/dL (32-36); Mean Corpuscular Volume 96.2 fL (80-100); Mean Platelet Volume 9.4 fL (7.4-10.4); Monocytes # (auto) 0.82 K/uL (0.11-0.59); Monocytes % (auto) 11.8 %; Neutrophils # (auto) 5.28 K/uL (1.4-6.5); Neutrophils % (auto) 75.8 %; Platelet Count 120 K/uL (130-400); RDW Coefficient of Variation 14.2 % (11.5-14.5); Red Blood Count 3.97 M/uL (4.7-6.1); White Blood Count 6.97 K/uL (4.8-10.8)
[2021-06-08] MEDS: DOCUSATE SODIUM 100 MG CAP PO SCH ×2 (07:34→19:47)
[2021-06-08] MEDS: ACETAMINOPHEN 325 MG TAB PO PRN ×2 (07:42→19:41)
[2021-06-08 08:04] LABS: Alanine Aminotransferase 73 (12-78); Albumin Level 2.5 gm/dl (3.4-5.0); Aspartate Aminotransferase 20 U/L (15-37); BUN Creatinine Ratio 51.4 (10-20); Blood Urea Nitrogen 15 mg/dl (7-18); Calcium 8.5 mg/dl (8.5-10.1); Carbon Dioxide 27 mmol/L (21-32); Chloride 107 mmol/L (98-107); Creatinine Clr Calc Pharmacy 282.2 ml/min; Est GFR (African American) > 150.0 ml/min; Est GFR (Non-African American) 135.4 ml/min; Glucose 106 mg/dl (70-99); Potassium 3.3 mmol/L (3.5-5.1); Sodium 142 mmol/L (136-145)
[2021-06-08 08:07] LABS: Albumin Globulin Ratio 0.8 (0.9-2); Alkaline Phosphatase 58 U/L (45-117); Bilirubin,Total 0.8 mg/dl (0.2-1); Total Protein 5.5 gm/dl (6.4-8.2)
[2021-06-08] MEDS: INSULIN ASPART PER UNIT SC SCH ×4 (08:58→20:58)
[2021-06-08] MEDS: FAMOTIDINE 20 MG TAB PO SCH ×2 (09:36→19:42)
[2021-06-08] MEDS: POTASSIUM CHLORIDE CRTAB 20 MEQ TABCR PO SCH (12:42)
[2021-06-08] MEDS: hydrOXYzine HCl 10 MG TAB PO PRN (13:53)
--- NOTE | 2021-06-08 14:16 | Hospitalist Progress Note ---
Date of Service June 08, 2021 Assessment & Plan (1) Encephalopathy: (2) Episode of unresponsiveness: (3) GBM (glioblastoma multiforme): (4) Partial motor seizures: (5) Weakness of left upper extremity: (6) Type 2 diabetes mellitus: (7) Hypertension: (8) Depression with anxiety: (9) Hypokalemia: Plan: 71-year-old male with history of glioblastoma multiform, type 2 diabetes, dyslipidemia, hypertension, depression and anxiety, reportedly the patient was receiving physical therapy and completed chemotherapy when he had an episode of unresponsiveness and lethargy. Diagnosed on the 02/23/2020 with grade 4 glioblastoma multiform, underwent a craniotomy with tumor debulking followed by chemoradiation. currently treated with maintenance bevacizumab. 1. - 5 episode of unresponsiveness, altered mental status, glioblastoma multiform chronic history of generalized weakness with left upper extremity Patient continues to have confusion but improved from original admission. consultation to Oncology, reviewed progress note No reported changes or symptoms overnight Unclear etiology, unchanged CBC, CMP stable slight elevation and liver function test Decrease and albumin consistent the with prior lab test Negative urinalysis on admission Negative COVID testing, history of [facility] weeks prior No reported changes in medications except for starting fluoxetine Continue to monitor, repeat lab work consult PT/OT reduction in p.o. intake difficulty with in's and out's as the patient has a condom cath. Little appetite, normal but elevated heart rate. decreasing creatinine likely related to malnutrition. Some dehydration Consultation to dietary appreciate any additional Oncology recommendations 6. no reported changes continue Keppra 7. Diabetes type 2 Pharmacy consultation Continue insulin sliding scale last A1c 6.4 8. hypertension stable no episodes of hypotension reported Continue lisinopril and amlodipine 9. Depression with anxiety started on fluoxetine Continue to monitor consider changing to another agent /discontinuing temporarily if symptoms do not improve may want to consider mirtazapine, additional help with nighttime sleep, improved in appetite Started Vistaril 10 mg b.i.d. for anxiety Hypokalemia replace with p.o. supplementation, improvement with p.o. intake code staus: Full code Admission and Anticipated Discharge Date Admission Date: June 07, 2021 Admission and Anticipated Discharge Date Admission Date: June 07, 2021 Subjective no overnight changes, the patient continues to be confused. Nursing reports difficulty with anxiety, depression, tearful. Reportedly slept well overnight patient continues to ask for his , he talked to his spouse this morning x2 On the phone. difficulty with short-term memory. Went back to see the patient this afternoon his spouse was present. No additional concerns beyond poor diet, little p.o. intake reported by spouse and nursing patient complained of back pain this a.m. this is a new complaint. Not associated with abdominal pain nausea vomiting diarrhea, no leg pain On return in the afternoon the patient did not have any specific concerns of back pain, history of arthritis per the spouse Decrease in the patient's activity since admission and with confusion Review of Systems Constitutional: no fever and no chills Respiratory: no cough, no chest congestion, no dyspnea and no wheezing Cardiovascular: no chest pain, no palpitations and no edema Gastrointestinal: no abdominal pain, no heartburn, no nausea, no vomiting and no change in bowel habits Neurologic: + gait abnormality; no falls and no headache(s) Physical Exam Physical Exam: Constitutional: WD/WN, vitals as above Respiratory: Effort normal, CTA B/L CV: RRR, no murmur, no edema Abdomen: normal bowel sounds, soft, nontender, no hepatosplenomegaly Neurologic: chronic left upper extremity weakness, known physical exam finding Musculoskeletal no obvious reproducible lumbar pain patient needs repositioning minimal movement on his own Results & Data Results & Data ([facility]) Vital Signs (Past 12 Hours) Vital Signs Temp Pulse Pulse Resp BP Pulse Ox 06/08/21 13:58 36.6 C 99 H 18 112/69 94 06/08/21 07:25 36.6 C 94 H 16 118/71 94 Laboratory Results Laboratory Results - last 24 hr 06/07/21 06/07/21 06/07/21 15:22 16:56 20:34 WBC RBC Hgb Hct MCV MCH MCHC RDW Std Deviation RDW Coeff of Vicki Plt Count MPV Immature Gran % (Auto) Neut % (Auto) Lymph % (Auto) [place] % (Auto) Eos % (Auto) Baso % (Auto) Neut # (Auto) Lymph # (Auto) [place] # (Auto) Eos # (Auto) Baso # (Auto) Immature Gran # (Auto) Sodium Potassium Chloride Carbon Dioxide Anion Gap BUN Creatinine Est Cr Clr Drug Dosing Est GFR ( Amer) Est GFR (Non-Af Amer) BUN/Creatinine Ratio Glucose POC Glucose 124 H 127 H Calcium Total Bilirubin AST ALT Alkaline Phosphatase Total Protein Albumin Globulin Albumin/Globulin Ratio Urine Color Dark Yellow Urine Appearance Clear Urine pH 5.0 Ur Specific [place] 1.020 Urine Protein Negative Urine Glucose (UA) Negative Urine Ketones 1+ H Urine Blood Negative Urine Nitrite Negative Urine Bilirubin Negative Urine Urobilinogen Negative Ur Leukocyte Esterase Trace H Urine WBC (Auto) 1-5 Urine RBC (Auto) 0-4 U Hyaline Cast (Auto) 0 U Epithel Cells (Auto) 5-10 H Urine Bacteria (Auto) Negative 06/08/21 06/08/21 06/08/21 07:23 07:23 08:06 WBC 6.97 RBC 3.97 L Hgb 12.9 L Hct 38.2 L MCV 96.2 MCH 32.5 MCHC 33.8 RDW Std Deviation 50.0 H RDW Coeff of Vicki 14.2 Plt Count 120 L MPV 9.4 Immature Gran % (Auto) 0.9 Neut % (Auto) 75.8 Lymph % (Auto) 11.0 [place] % (Auto) 11.8 Eos % (Auto) 0.4 Baso % (Auto) 0.1 Neut # (Auto) 5.28 Lymph # (Auto) 0.77 L [place] # (Auto) 0.82 H Eos # (Auto) 0.03 Baso # (Auto) 0.01 Immature Gran # (Auto) 0.06 H Sodium 142 Potassium 3.3 L Chloride 107 Carbon Dioxide 27 Anion Gap 8.0 BUN 15 Creatinine 0.29 L Est Cr Clr Drug Dosing 282.2 Est GFR ( Amer) > 150.0 Est GFR (Non-Af Amer) 135.4 BUN/Creatinine Ratio 51.4 H Glucose 106 H POC Glucose 119 H Calcium 8.5 Total Bilirubin 0.8 AST 20 ALT 73 Alkaline Phosphatase 58 Total Protein 5.5 L Albumin 2.5 L Globulin 3.0 Albumin/Globulin Ratio 0.8 L Urine Color Urine Appearance Urine pH Ur Specific [place] Urine Protein Urine Glucose (UA) Urine Ketones Urine Blood Urine Nitrite Urine Bilirubin Urine Urobilinogen Ur Leukocyte Esterase Urine WBC (Auto) Urine RBC (Auto) U Hyaline Cast (Auto) U Epithel Cells (Auto) Urine Bacteria (Auto) 06/08/21 12:04 WBC RBC Hgb Hct MCV MCH MCHC RDW Std Deviation RDW Coeff of Vicki Plt Count MPV Immature Gran % (Auto) Neut % (Auto) Lymph % (Auto) [place] % (Auto) Eos % (Auto) Baso % (Auto) Neut # (Auto) Lymph # (Auto) [place] # (Auto) Eos # (Auto) Baso # (Auto) Immature Gran # (Auto) Sodium Potassium Chloride Carbon Dioxide Anion Gap BUN Creatinine Est Cr Clr Drug Dosing Est GFR ( Amer) Est GFR (Non-Af Amer) BUN/Creatinine Ratio Glucose POC Glucose 138 H Calcium Total Bilirubin AST ALT Alkaline Phosphatase Total Protein Albumin Globulin Albumin/Globulin Ratio Urine Color Urine Appearance Urine pH Ur Specific [place] Urine Protein Urine Glucose (UA) Urine Ketones Urine Blood Urine Nitrite Urine Bilirubin Urine Urobilinogen Ur Leukocyte Esterase Urine WBC (Auto) Urine RBC (Auto) U Hyaline Cast (Auto) U Epithel Cells (Auto) Urine Bacteria (Auto) PG Care Time/CCT Total # of Minutes Spent Total Time Spent with Patient: Total time spent is greater than 50% in coordination of care (as documented) at patient's floor/unit and/or counseling patient: Coding Level of Care Code 65394 Subseq Hosp Care Lvl 2 Diagnoses Encephalopathy G93.40 Episode of unresponsiveness R41.89 GBM (glioblastoma multiforme) C71.9 Partial motor seizures G40.109 Weakness of left upper extremity R29.898 Type 2 diabetes mellitus E11.9 Hypertension I10 Depression with anxiety F41.8 Hypokalemia E87.6
[2021-06-08] MEDS: TAMSULOSIN HCL 0.4 MG CAP PO SCH (19:43)
[2021-06-09] MEDS: ACETAMINOPHEN 325 MG TAB PO PRN ×2 (05:28→20:13)
[2021-06-09 06:08] LABS: Eosinophils # (auto) 0.02 K/uL (0-0.5); Eosinophils % (auto) 0.2 %; Hemoglobin 12.8 g/dL (14.0-18.0); Immature Granulocytes # (auto) 0.04 K/uL (0.00-0.02); Immature Granulocytes % (auto) 0.5 %; Lymphocytes # (auto) 0.72 K/uL (1.2-3.4); Lymphocytes % (auto) 8.6 %; Mean Corpuscular Hemoglobin 31.8 pg (25-34); Mean Corpuscular Hgb Conc 32.8 g/dL (32-36); Mean Platelet Volume 9.8 fL (7.4-10.4); Monocytes % (auto) 14.4 %; Neutrophils # (auto) 6.35 K/uL (1.4-6.5); Neutrophils % (auto) 76.3 %; Platelet Count 141 K/uL (130-400); RDW Coefficient of Variation 14.6 % (11.5-14.5); RDW Standard Deviation 51.6 fL (36.4-46.3); Red Blood Count 4.02 M/uL (4.7-6.1); White Blood Count 8.33 K/uL (4.8-10.8)
[2021-06-09 06:36] LABS: Alanine Aminotransferase 61 (12-78); Albumin Level 2.4 gm/dl (3.4-5.0); Aspartate Aminotransferase 14 U/L (15-37); BUN Creatinine Ratio 59.6 (10-20); Blood Urea Nitrogen 18 mg/dl (7-18); Calcium 8.9 mg/dl (8.5-10.1); Carbon Dioxide 26 mmol/L (21-32); Chloride 107 mmol/L (98-107); Creatinine Clr Calc Pharmacy 272.8 ml/min; Est GFR (African American) > 150.0 ml/min; Est GFR (Non-African American) 133.6 ml/min; Glucose 113 mg/dl (70-99); Potassium 3.3 mmol/L (3.5-5.1); Sodium 140 mmol/L (136-145)
[2021-06-09 06:39] LABS: Albumin Globulin Ratio 0.7 (0.9-2); Alkaline Phosphatase 66 U/L (45-117); Bilirubin,Total 0.9 mg/dl (0.2-1); Globulin 3.3 gm/dl (2.5-4.0); Total Protein 5.7 gm/dl (6.4-8.2)
[2021-06-09] MEDS: SENNA 8.6 MG TAB PO SCH ×2 (07:25→20:13)
[2021-06-09] MEDS: CHOLECALCIFEROL 1,000 UNITS 25 MCG TAB PO SCH (07:26)
[2021-06-09] MEDS: FLUoxetine HCL 20 MG CAP PO SCH (07:26)
[2021-06-09] MEDS: FAMOTIDINE 20 MG TAB PO SCH ×2 (07:26→20:14)
[2021-06-09] MEDS: levETIRAcetam 500 MG TAB PO SCH ×2 (07:26→20:14)
[2021-06-09] MEDS: lisinopril 40 MG TAB PO SCH (07:26)
[2021-06-09] MEDS: amLODIPine BESYLATE 5 MG TAB PO SCH (07:26)
[2021-06-09] MEDS: POTASSIUM CHLORIDE CRTAB 20 MEQ TABCR PO SCH ×2 (07:27→20:15)
[2021-06-09] MEDS: ENOXAPARIN INJ 30 MG/0.3 ML SYR SQ SCH ×2 (07:27→20:12)
[2021-06-09] MEDS: bisacodyL 10 MG SUPP PR SCH (07:27)
[2021-06-09] MEDS: DOCUSATE SODIUM 100 MG CAP PO SCH ×2 (07:30→20:13)
--- NOTE | 2021-06-09 07:54 | Hospitalist Progress Note ---
Date of Service June 09, 2021 Assessment & Plan (1) Encephalopathy: (2) Episode of unresponsiveness: (3) GBM (glioblastoma multiforme): (4) Partial motor seizures: (5) Weakness of left upper extremity: (6) Type 2 diabetes mellitus: (7) Hypertension: (8) Depression with anxiety: (9) Hypokalemia: Plan: 71-year-old male with history of glioblastoma multiform, type 2 diabetes, dyslipidemia, hypertension, depression and anxiety, reportedly the patient was receiving physical therapy and completed chemotherapy when he had an episode of unresponsiveness and lethargy. Diagnosed on the 02/23/2020 with grade 4 glioblastoma multiform, underwent a craniotomy with tumor debulking followed by chemoradiation. currently treated with maintenance bevacizumab. 1. - 5 episode of unresponsiveness, altered mental status, glioblastoma multiform chronic history of generalized weakness with left upper extremity Patient continues to have confusion but improved from original admission. consultation to Oncology, reviewed progress note No reported changes or symptoms overnight Unclear etiology, unchanged CBC, CMP stable slight elevation and liver function test Decrease and albumin consistent the with prior lab test Negative urinalysis on admission Negative COVID testing, history of [facility] prior No reported changes in medications except for starting fluoxetine Continue to monitor, repeat lab work consult PT/OT continue reduction in p.o. intake Encouraged dietary increased Dietary nutrition consult Start daily boost D5 half normal saline 1 L to be run at 80 mL/hr total of 1 L 6. no reported changes continue Keppra 7. Diabetes type 2 Pharmacy consultation Continue insulin sliding scale last A1c 6.4 8. hypertension stable no episodes of hypotension reported Continue lisinopril and amlodipine 9. Depression with anxiety started on fluoxetine Continue to monitor consider changing to another agent /discontinuing temporarily if symptoms do not improve may want to consider mirtazapine, additional help with nighttime sleep, improved in appetite Started Vistaril 10 mg b.i.d. for anxiety Hypokalemia replace with p.o. supplementation, improvement with p.o. intake Repeat potassium 3.3 Increase p.o. supplementation at 20 mEq b.i.d. Additional potassium and boost Limitation with the patient is a poor dietary intake code staus: Full code Admission and Anticipated Discharge Date Admission Date: June 07, 2021 Admission and Anticipated Discharge Date Admission Date: June 07, 2021 Subjective no overnight changes, the patient continues to be confused. Nursing reports difficulty with anxiety, depression, tearful. nursing reports little fluid and oral intake Continue to encourage the patient to improved dietary intake Continues to ask for his spouse no significant changes reported Patient returns has no new complaints Review of Systems Constitutional: no fever and no chills Respiratory: no cough, no chest congestion, no dyspnea and no wheezing Cardiovascular: no chest pain, no palpitations and no edema Gastrointestinal: no abdominal pain, no heartburn, no nausea, no vomiting and no change in bowel habits Physical Exam Physical Exam: Constitutional: WD/WN, vitals as above Respiratory: Effort normal, CTA B/L CV: RRR, no murmur, no edema Abdomen: normal bowel sounds, soft, nontender, no hepatosplenomegaly Neurologic: chronic left upper extremity weakness, known physical exam finding Results & Data Results & Data ([facility]) Vital Signs (Past 12 Hours) Vital Signs Temp Pulse Resp BP Pulse Ox 06/09/21 07:17 36.6 C 97 H 18 126/79 92 06/08/21 23:20 36.4 C L 93 H 19 103/66 91 Laboratory Results Laboratory Results - last 24 hr 06/08/21 06/08/21 06/08/21 07:23 08:06 12:04 WBC RBC Hgb Hct MCV MCH MCHC RDW Std Deviation RDW Coeff of Vicki Plt Count MPV Immature Gran % (Auto) Neut % (Auto) Lymph % (Auto) [place] % (Auto) Eos % (Auto) Baso % (Auto) Neut # (Auto) Lymph # (Auto) [place] # (Auto) Eos # (Auto) Baso # (Auto) Immature Gran # (Auto) Sodium 142 Potassium 3.3 L Chloride 107 Carbon Dioxide 27 Anion Gap 8.0 BUN 15 Creatinine 0.29 L Est Cr Clr Drug Dosing 282.2 Est GFR ( Amer) > 150.0 Est GFR (Non-Af Amer) 135.4 BUN/Creatinine Ratio 51.4 H Glucose 106 H POC Glucose 119 H 138 H Calcium 8.5 Total Bilirubin 0.8 AST 20 ALT 73 Alkaline Phosphatase 58 Total Protein 5.5 L Albumin 2.5 L Globulin 3.0 Albumin/Globulin Ratio 0.8 L 06/08/21 06/08/21 06/09/21 16:59 20:23 05:24 WBC RBC Hgb Hct MCV MCH MCHC RDW Std Deviation RDW Coeff of Vicki Plt Count MPV Immature Gran % (Auto) Neut % (Auto) Lymph % (Auto) [place] % (Auto) Eos % (Auto) Baso % (Auto) Neut # (Auto) Lymph # (Auto) [place] # (Auto) Eos # (Auto) Baso # (Auto) Immature Gran # (Auto) Sodium 140 Potassium 3.3 L Chloride 107 Carbon Dioxide 26 Anion Gap 7.0 BUN 18 Creatinine 0.30 L Est Cr Clr Drug Dosing 272.8 Est GFR ( Amer) > 150.0 Est GFR (Non-Af Amer) 133.6 BUN/Creatinine Ratio 59.6 H Glucose 113 H POC Glucose 202 H 144 H Calcium 8.9 Total Bilirubin 0.9 AST 14 L ALT 61 Alkaline Phosphatase 66 Total Protein 5.7 L Albumin 2.4 L Globulin 3.3 Albumin/Globulin Ratio 0.7 L 06/09/21 05:24 WBC 8.33 RBC 4.02 L Hgb 12.8 L Hct 39.0 L MCV 97.0 MCH 31.8 MCHC 32.8 RDW Std Deviation 51.6 H RDW Coeff of Vicki 14.6 H Plt Count 141 MPV 9.8 Immature Gran % (Auto) 0.5 Neut % (Auto) 76.3 Lymph % (Auto) 8.6 [place] % (Auto) 14.4 Eos % (Auto) 0.2 Baso % (Auto) 0.0 Neut # (Auto) 6.35 Lymph # (Auto) 0.72 L [place] # (Auto) 1.20 H Eos # (Auto) 0.02 Baso # (Auto) 0.00 Immature Gran # (Auto) 0.04 H Sodium Potassium Chloride Carbon Dioxide Anion Gap BUN Creatinine Est Cr Clr Drug Dosing Est GFR ( Amer) Est GFR (Non-Af Amer) BUN/Creatinine Ratio Glucose POC Glucose Calcium Total Bilirubin AST ALT Alkaline Phosphatase Total Protein Albumin Globulin Albumin/Globulin Ratio PG Care Time/CCT Total # of Minutes Spent Total Time Spent with Patient: Total time spent is greater than 50% in coordination of care (as documented) at patient's floor/unit and/or counseling patient: Coding Level of Care Code 25717 Subseq Hosp Care Lvl 2 Diagnoses Encephalopathy G93.40 Episode of unresponsiveness R41.89 GBM (glioblastoma multiforme) C71.9 Partial motor seizures G40.109 Weakness of left upper extremity R29.898 Type 2 diabetes mellitus E11.9 Hypertension I10 Depression with anxiety F41.8 Hypokalemia E87.6
[2021-06-09] MEDS: hydrOXYzine HCl 10 MG TAB PO PRN (09:19)
[2021-06-09] MEDS: INSULIN ASPART PER UNIT SC SCH ×4 (09:19→21:18)
[2021-06-09] MEDS ORDERED: D5W AND 1/2NSS 1,000 ML IV SCH (13:00)
--- NOTE | 2021-06-09 14:45 | Pharmacy Report ---
Pharmacy Glycemic Sign Off Nt - Date of Service June 09, 2021 - Assessment & Plan ASSESSMENT: * Pharmacy was consulted by Dr Barksdale on 06/06/21 for glycemic control and to write orders per [facility] inpatient glycemic control protocol. * No major changes have been made to the antidiabetic regimen * Patient has been receiving 0-4 units of short acting insulin per day for adequate glycemic control. No basal insulin. * Do not anticipate further changes in patient status that would quickly deteriorate glycemic control (i.e. patient to be NPO for upcoming procedure, steroids tapering, starting tube feedings, etc). PLAN FOR INPATIENT GLYCEMIC CONTROL: No changes needed to current regimen. * No basal insulin * Continue NovoLog per scale ACHS/Q6hrs while NPO * Goal range = 110-140 mg/dl * CF = 25 mg/dl/unit * CR = 1 unit for ever 8 g CHO consumed * Pharmacy is signing off of glycemic consult and will no longer be making adjustments to inpatient regimen. Please feel free to re-consult if needed. Thank you.
--- NOTE | 2021-06-09 19:12 | Electrocardiogram Report ---
Test Reason : Blood Pressure : / mmHG Vent. Rate : 092 BPM Atrial Rate : 092 BPM P-R Int : 162 ms QRS Dur : 082 ms QT Int : 348 ms P-R-T Axes : 038 -03 024 degrees QTc Int : 430 ms Normal sinus rhythm Normal ECG When compared with ECG of 22-APR-2021 04:54, No significant change was found Confirmed by Thompson Morales ([id number]) on 06/09/2021 7:12:28 PM Referred By: Confirmed By:Thompson Morales
[2021-06-09] MEDS: TAMSULOSIN HCL 0.4 MG CAP PO SCH (20:14)
[2021-06-10] MEDS ORDERED: KETOROLAC TROMETHAMINE 15 MG/ML VIAL IV PRN (04:10)
[2021-06-10 07:04] LABS: Basophils # (auto) 0.01 K/uL (0-0.2); Basophils % (auto) 0.1 %; Eosinophils # (auto) 0.03 K/uL (0-0.5); Eosinophils % (auto) 0.4 %; Hematocrit (blood only) 36.1 % (42-52); Hemoglobin 11.9 g/dL (14.0-18.0); Immature Granulocytes # (auto) 0.03 K/uL (0.00-0.02); Immature Granulocytes % (auto) 0.4 %; Lymphocytes # (auto) 0.59 K/uL (1.2-3.4); Lymphocytes % (auto) 8.2 %; Mean Corpuscular Hemoglobin 32.4 pg (25-34); Mean Corpuscular Volume 98.4 fL (80-100); Mean Platelet Volume 9.4 fL (7.4-10.4); Monocytes # (auto) 1.15 K/uL (0.11-0.59); Neutrophils # (auto) 5.39 K/uL (1.4-6.5); Neutrophils % (auto) 74.9 %; Platelet Count 123 K/uL (130-400); RDW Coefficient of Variation 14.7 % (11.5-14.5); RDW Standard Deviation 52.9 fL (36.4-46.3); Red Blood Count 3.67 M/uL (4.7-6.1)
[2021-06-10 07:31] LABS: BUN Creatinine Ratio 66.1 (10-20); Blood Urea Nitrogen 20 mg/dl (7-18); Calcium 8.6 mg/dl (8.5-10.1); Carbon Dioxide 25 mmol/L (21-32); Chloride 109 mmol/L (98-107); Creatinine Clr Calc Pharmacy 272.8 ml/min; Est GFR (African American) > 150.0 ml/min; Est GFR (Non-African American) 133.6 ml/min; Glucose 136 mg/dl (70-99); Potassium 3.7 mmol/L (3.5-5.1); Sodium 141 mmol/L (136-145)
[2021-06-10] MEDS: POTASSIUM CHLORIDE CRTAB 20 MEQ TABCR PO SCH ×2 (07:43→19:49)
[2021-06-10] MEDS: CHOLECALCIFEROL 1,000 UNITS 25 MCG TAB PO SCH (07:44)
[2021-06-10] MEDS: amLODIPine BESYLATE 5 MG TAB PO SCH (07:44)
[2021-06-10] MEDS: lisinopril 40 MG TAB PO SCH (07:44)
[2021-06-10] MEDS: FAMOTIDINE 20 MG TAB PO SCH ×2 (07:44→19:50)
[2021-06-10] MEDS: FLUoxetine HCL 20 MG CAP PO SCH (07:44)
[2021-06-10] MEDS: bisacodyL 10 MG SUPP PR SCH (07:45)
[2021-06-10] MEDS: hydrOXYzine HCl 10 MG TAB PO PRN (07:45)
[2021-06-10] MEDS: DOCUSATE SODIUM 100 MG CAP PO SCH ×2 (07:45→19:49)
[2021-06-10] MEDS: ENOXAPARIN INJ 30 MG/0.3 ML SYR SQ SCH ×2 (07:46→19:51)
[2021-06-10] MEDS: SENNA 8.6 MG TAB PO SCH ×2 (07:46→19:49)
[2021-06-10] MEDS: levETIRAcetam 500 MG TAB PO SCH ×2 (07:46→19:51)
[2021-06-10] MEDS: INSULIN ASPART PER UNIT SC SCH ×4 (08:47→21:04)
[2021-06-10] MEDS ORDERED: HYDROCODONE/ACETAMOPHEN 5/325MG TAB PO PRN ×2 (10:49→10:50)
--- NOTE | 2021-06-10 15:00 | Hospitalist Progress Note ---
Date of Service June 10, 2021 Assessment & Plan (1) Encephalopathy: Plan: 71 yo WM with a pmhx of GBM who presented with episode of unresponsiveness and AMS after chemotherapy on 06/06 - Encephalopathy etiology uncertain - TSH WNL, UA unremarkable - CXR no evidence of PNA - CT head vasogenic edema, no acute changes - No blood cx collected (upon review of pt's chart) - Obtain Vitamin B12 and folate - According to Dr. Villalobos's consult note, ?paroxysmal reaction to Prozac (2) Hypokalemia: Plan: - Replaced/resolved (3) GBM (glioblastoma multiforme): Plan: - S/P craniotomy w/ tumor debulking followed by chemoradiation - On maintenance Bevacizumab - Follows w/ [facility] [place] and Dr. Villalobos locally (4) Partial motor seizures: Plan: - Continue Keppra - No witnessed seizure activity (5) Type 2 diabetes mellitus: Plan: - On SSI - No basal insulin noted (6) Hypertension: Plan: - Continue Lisinopril and Novasc - Well controlled (7) Depression with anxiety: Plan: - Recently started on Prozac Plan: Continue PT/OT when able to participate safely CM on board -- dispo: [facility] when bed available AM Labs ordered Admission and Anticipated Discharge Date Admission Date: June 07, 2021 Subjective Mr. Rincon was seen on rounds this morning. He has a known h/o stage 4 glioblastoma multiforme s/p craniotomy w/ tumor debulking followed by chemoradiation. He is currently treated with maintenance bevacizumab. Pt was brought to the ED on 06/06 due to a brief period of unresponsiveness, RUE weakness, and confusion at [facility] following PT session after chemotherapy. Work up in ED unremarkable. Pt with reported decreased oral intake. Was provided some maintenance fluids and repleted potassium on 06/09. Boost added to daily diet regimen and nutrition consult placed. This morning, pt c/o generalized pain and is requesting something. He states that he did eat some breakfast. He denies chest pain, dyspnea, cough, n/v/d, f/c. Did not participate in PT according to notes because he was too drowsy, falling asleep while therapist was attempting to work with him. She aborted the session with plans to return when he is able to more safely participate. Review of Systems Review of Systems: CONSTITUTIONAL: +generalized weakness, fatigue. Denies weight loss/gain, fever and chills, malaise. HEENT: Denies changes in vision and hearing. RESPIRATORY: Denies SOB, cough, wheezing. CV: Denies palpitations, CP, lower extremity edema, orthopnea, PND. GI: Denies abdominal pain, nausea, vomiting and diarrhea. : Denies dysuria and urinary frequency, urgency, hesitancy. MUSCULOSKELETAL: +generalized pain. SKIN: Denies rash and pruritus. NEUROLOGICAL: +drowsy. Denies headache, syncope, focal weakness, numbness, tingling. PSYCHIATRIC: +recent more depressed. Denies anxiety. Physical Exam Physical Exam: GENERAL: 71 yo Well-developed, well-nourished WM. NAD. LUNGS: Clear to auscultation bilaterally. No W/R/R. CARDIOVASCULAR: Regular rate and rhythm. No M/G/R. No JVD. ABDOMEN: Soft, non-tender and non-distended. Bowel sounds normal x 4 quad. EXTREMITIES: No edema. Non-tender. Peripheral pulses +2/4. NEUROLOGIC: Oriented to self. Disoriented to current location/time. Chronic LUE weakness. PSYCHIATRIC: Cooperative. Appropriate mood and affect. SKIN: Warm, dry, intact. No rashes or lesions. Results & Data Results & Data ([facility]) Vital Signs (Past 12 Hours) Vital Signs Temp Pulse Resp BP Pulse Ox 06/10/21 07:40 36.5 C 102 H 18 123/76 95 Laboratory Results 06/10/21 06:49 06/10/21 06:49 PG Care Time/CCT Total # of Minutes Spent Total Time Spent with Patient: Total time spent is greater than 50% in coordination of care (as documented) at patient's floor/unit and/or counseling patient: Coding Level of Care Code 29430 Subseq Hosp Care Lvl 2 Diagnoses Encephalopathy G93.40 Hypokalemia E87.6 GBM (glioblastoma multiforme) C71.9 Partial motor seizures G40.109 Type 2 diabetes mellitus E11.9 Hypertension I10 Depression with anxiety F41.8
[2021-06-10 16:59] LABS: Folate (Folic Acid) 16.5 ng/ml (>5.38)
[2021-06-10] MEDS: ACETAMINOPHEN 325 MG TAB PO PRN (19:50)
[2021-06-10] MEDS: TAMSULOSIN HCL 0.4 MG CAP PO SCH (19:51)
[2021-06-11 06:23] LABS: Basophils # (auto) 0.01 K/uL (0-0.2); Basophils % (auto) 0.1 %; Eosinophils # (auto) 0.06 K/uL (0-0.5); Eosinophils % (auto) 0.9 %; Hematocrit (blood only) 37.9 % (42-52); Hemoglobin 12.4 g/dL (14.0-18.0); Immature Granulocytes # (auto) 0.02 K/uL (0.00-0.02); Immature Granulocytes % (auto) 0.3 %; Lymphocytes % (auto) 15.9 %; Mean Corpuscular Hemoglobin 32.1 pg (25-34); Mean Corpuscular Hgb Conc 32.7 g/dL (32-36); Mean Corpuscular Volume 98.2 fL (80-100); Mean Platelet Volume 9.5 fL (7.4-10.4); Monocytes # (auto) 0.51 K/uL (0.11-0.59); Monocytes % (auto) 7.4 %; Neutrophils # (auto) 5.22 K/uL (1.4-6.5); Neutrophils % (auto) 75.4 %; Platelet Count 142 K/uL (130-400); RDW Coefficient of Variation 14.8 % (11.5-14.5); RDW Standard Deviation 52.9 fL (36.4-46.3); Red Blood Count 3.86 M/uL (4.7-6.1); White Blood Count 6.92 K/uL (4.8-10.8)
[2021-06-11 06:51] LABS: Alanine Aminotransferase 34 (12-78); Albumin Level 2.1 gm/dl (3.4-5.0); Aspartate Aminotransferase 9 U/L (15-37); BUN Creatinine Ratio 84.5 (10-20); Blood Urea Nitrogen 21 mg/dl (7-18); Calcium 8.6 mg/dl (8.5-10.1); Carbon Dioxide 24 mmol/L (21-32); Chloride 108 mmol/L (98-107); Creatinine Clr Calc Pharmacy 327.3 ml/min; Est GFR (African American) > 150.0 ml/min; Glucose 123 mg/dl (70-99); Magnesium 1.7 mg/dl (1.8-2.4); Potassium 3.6 mmol/L (3.5-5.1); Sodium 141 mmol/L (136-145)
[2021-06-11 06:54] LABS: Albumin Globulin Ratio 0.6 (0.9-2); Alkaline Phosphatase 68 U/L (45-117); Bilirubin,Total 0.8 mg/dl (0.2-1); Globulin 3.5 gm/dl (2.5-4.0); Total Protein 5.6 gm/dl (6.4-8.2)
[2021-06-11] MEDS: FLUoxetine HCL 20 MG CAP PO SCH (08:26)
[2021-06-11] MEDS: amLODIPine BESYLATE 5 MG TAB PO SCH (08:27)
[2021-06-11] MEDS: CHOLECALCIFEROL 1,000 UNITS 25 MCG TAB PO SCH (08:27)
[2021-06-11] MEDS: hydrOXYzine HCl 10 MG TAB PO PRN (08:27)
[2021-06-11] MEDS: FAMOTIDINE 20 MG TAB PO SCH ×2 (08:28→23:05)
[2021-06-11] MEDS: lisinopril 40 MG TAB PO SCH (08:28)
[2021-06-11] MEDS: SENNA 8.6 MG TAB PO SCH ×2 (08:28→23:05)
[2021-06-11] MEDS: levETIRAcetam 500 MG TAB PO SCH ×2 (08:30→23:05)
[2021-06-11] MEDS: ENOXAPARIN INJ 30 MG/0.3 ML SYR SQ SCH ×2 (08:30→22:43)
[2021-06-11] MEDS: POTASSIUM CHLORIDE CRTAB 20 MEQ TABCR PO SCH ×2 (08:30→23:05)
[2021-06-11] MEDS: DOCUSATE SODIUM 100 MG CAP PO SCH ×2 (08:31→23:05)
[2021-06-11] MEDS: bisacodyL 10 MG SUPP PR SCH (08:31)
[2021-06-11] MEDS: INSULIN ASPART PER UNIT SC SCH ×4 (08:45→22:42)
[2021-06-11] MEDS ORDERED: MAGNESIUM SULFATE / D5W 1 GM/100 ML BAG IV ONE (09:00)
--- NOTE | 2021-06-11 13:17 | Hospitalist Progress Note ---
Date of Service June 11, 2021 Assessment & Plan (1) Encephalopathy: Plan: 71 yo WM with a pmhx of GBM who presented with episode of unresponsiveness and AMS after chemotherapy on 06/06 - Encephalopathy etiology uncertain--suspect this is related to a rather rapid decline in a patient with an aggressive malignancy who also recently battled COVID - Work up at this point is unremarkable - TSH WNL, UA unremarkable - CXR no evidence of PNA - CT head vasogenic edema, no acute changes - No blood cx collected (upon review of pt's chart) - Vitamin B12 and folate normal - According to Dr. Villalobos's consult note, could be paroxysmal reaction to Prozac, but seems unlikely (2) Dehydration: Plan: - Due to poor oral intake - Initiate gentle maintenance fluids - Continue to monitor I/Os (3) Hypoalbuminemia due to protein-calorie malnutrition: Plan: - Again, due to poor oral intake - Encourage pt to eat/drink as able/willing - Boost added to his daily meal regimen (4) Hypokalemia: Plan: - Due to poor oral intake - Replaced/resolved (5) GBM (glioblastoma multiforme): Plan: - S/P craniotomy w/ tumor debulking followed by chemoradiation - On maintenance Bevacizumab - Follows w/ [facility] and Dr. Villalobos locally (6) Partial motor seizures: Plan: - Continue Keppra - No witnessed seizure activity (7) Type 2 diabetes mellitus: Plan: - On SSI - No basal insulin noted (8) Hypertension: Plan: - Continue Lisinopril and Novasc - Well controlled (9) Depression with anxiety: Plan: - Recently started on Prozac Plan: I had a lengthy discussion with patient's this afternoon regarding patient's deterioration since admission. Now with very little oral intake of food or water. Condom catheter in place draining scant amount of concentrated urine. Overall, concerned that his aggressive malignancy, recent chemotherapy, and recent james with COVID is all contributing to his profound debilitation. At this time, pt remains a full code, but his states that they do have a living will/advanced directive. At this point, she would like to review its contents before making a decision to continue his full code status or changing him to a DNR/DNI. She seems to also be teetering on considering hospice as well. Prognosis remains poor. CM is following, dispo: [facility] when bed available Admission and Anticipated Discharge Date Admission Date: June 07, 2021 Subjective Mr. Rincon was seen on rounds this morning. He has a known h/o stage 4 glioblastoma multiforme s/p craniotomy w/ tumor debulking followed by harriet moradiation. He is currently treated with maintenance bevacizumab. Pt was brought to the ED on 06/06 due to a brief period of unresponsiveness, RUE weakness, and confusion at [facility] following PT session after chemotherapy. Work up in ED unremarkable. Pt with reported decreased oral intake. Was provided some maintenance fluids and repleted potassium on 06/09. Boost added to daily diet regimen and nutrition consult placed. This morning, pt reports that he is "ok." RN notes ongoing poor oral intake of food/water. Condom catheter draining very little urine. He denies chest pain, dyspnea, cough, n/v/d, f/c. Did not participate in PT on 06/10 according to notes because he was too drowsy, falling asleep while therapist was attempting to work with him. Review of Systems Review of Systems: CONSTITUTIONAL: +generalized weakness, fatigue. Denies weight loss/gain, fever and chills, malaise. HEENT: Denies changes in vision and hearing. RESPIRATORY: Denies SOB, cough, wheezing. CV: Denies palpitations, CP, lower extremity edema, orthopnea, PND. GI: Denies abdominal pain, nausea, vomiting and diarrhea. : Denies dysuria and urinary frequency, urgency, hesitancy. MUSCULOSKELETAL: +generalized pain, mostly in back. SKIN: Denies rash and pruritus. NEUROLOGICAL: +drowsy. Denies headache, syncope, focal weakness, numbness, tingling. PSYCHIATRIC: +recent more depressed. Denies anxiety. Physical Exam Physical Exam: GENERAL: 71 yo Well-developed, well-nourished WM. NAD. ENT: Dry mucous membranes LUNGS: Clear to auscultation bilaterally. No W/R/R. CARDIOVASCULAR: Tachycardic. No M/G/R. No JVD. ABDOMEN: Soft, non-tender and non-distended. Bowel sounds normal x 4 quad. EXTREMITIES: No edema. Non-tender. Peripheral pulses +2/4. NEUROLOGIC: Oriented to self. Disoriented to current location/time. Chronic LUE weakness. PSYCHIATRIC: Cooperative. Appropriate mood and affect. SKIN: Warm, dry, intact. No rashes or lesions. Results & Data Results & Data ([facility]) Vital Signs (Past 12 Hours) Vital Signs Temp Pulse Resp BP Pulse Ox 06/11/21 08:07 36.5 C 103 H 20 117/72 93 Laboratory Results 06/11/21 06:02 06/11/21 06:02 PG Care Time/CCT Total # of Minutes Spent Total Time Spent with Patient: Total time spent is greater than 50% in coordination of care (as documented) at patient's floor/unit and/or counseling patient: Coding Level of Care Code 70258 Subseq Hosp Care Lvl 3 Diagnoses Encephalopathy G93.40 Hypokalemia E87.6 GBM (glioblastoma multiforme) C71.9 Partial motor seizures G40.109 Type 2 diabetes mellitus E11.9 Hypertension I10 Depression with anxiety F41.8 Dehydration E86.0 Hypoalbuminemia due to protein-calorie malnutrition E88.09; E46
[2021-06-11] MEDS: D5W AND 1/2NSS 1,000 ML IV SCH (13:20)
[2021-06-11 17:41] LABS: HCO3 ABG 26 mmol/L (19-24); Oxygen Saturation ABG 90.1 % (90-95); PCO2 ABG 39 mmHg (35-46); PO2 ABG 59 mmHg (80-95); pH ABG 7.45 (7.35-7.45)
[2021-06-11 17:42] LABS: Allen Test Pos (Pos)
[2021-06-11] MEDS: TAMSULOSIN HCL 0.4 MG CAP PO SCH (23:05)
--- NOTE | 2021-06-11 23:14 | Communication Note ---
Date of Service: June 11, 2021 Contacted by nursing because patient was unable to swallow crushed up medications in applesauce this evening (applesauce dribble out of mouth without any swallow). Current and prior nurse both concerned about patient's ability to tolerate PO. Patient made NPO and medications transitioned to IV as able (specifically to IV morphine for pain, famotidine IV for GERD, and IV Keppra for seizure prevention).
[2021-06-11] MEDS: levETIRAcetam 1,500 MG in 0.9 % SODIUM CHLORIDE 100 ML IV SCH (23:37)
[2021-06-12] MEDS: D5W AND 1/2NSS 1,000 ML IV SCH ×2 (00:22→13:47)
[2021-06-12 08:28] LABS: Creatinine Clr Calc Pharmacy 303.1 ml/min; Est GFR (African American) > 150.0 ml/min; Est GFR (Non-African American) 139.5 ml/min
[2021-06-12] MEDS: INSULIN ASPART PER UNIT SC SCH ×4 (08:33→21:21)
[2021-06-12] MEDS: ENOXAPARIN INJ 30 MG/0.3 ML SYR SQ SCH ×2 (08:35→21:20)
[2021-06-12] MEDS: bisacodyL 10 MG SUPP PR SCH (08:35)
[2021-06-12] MEDS: FAMOTIDINE 20 MG in SYRINGE 3 ML IV SCH ×2 (08:39→21:20)
[2021-06-12] MEDS: MoRPHine SULFATE 2 MG/ML CARP IV PRN ×2 (09:02→21:23)
[2021-06-12] MEDS ORDERED: UNIT DOSE COMPOUND PR SCH (10:30)
[2021-06-12] MEDS ORDERED: LACTULOSE 200 GM, WATER, STERILE IRRIG 700 ML, BARCODE IDENTIFIER 1 EA PR ONE (11:00)
--- NOTE | 2021-06-12 12:25 | Hospitalist Progress Note ---
Date of Service June 12, 2021 Assessment & Plan (1) Encephalopathy: Plan: 71 yo WM with a PMHx of GBM who presented with episode of unresponsiveness and AMS after chemotherapy on 06/06 - Encephalopathy etiology uncertain--suspect this is related to a rather rapid decline in a patient with an aggressive malignancy who also recently battled COVID - Work up at this point is unremarkable - TSH WNL, UA unremarkable - CXR no evidence of PNA - CT head - stable from 06/02 imaging - prior R parietal craniotomy with R parietal lobe vasogenic edema deep to the craniotomy site; trace linear cortically-based hyperattenuation within the R parietal lobe which is unchanged from prior and may represent subarachnoid hemorrhage vs post-treatment related changes; no midline shift or acute territorial infarct - No blood cx collected (upon review of pt's chart) - Vitamin B12 and folate normal - Ammonia elevated - will trial Lactulose enema and monitor response - According to Dr. Villalobos's consult note, could be paroxysmal reaction to Prozac, but seems unlikely (2) Dehydration: Plan: - Due to poor oral intake - Initiate gentle maintenance fluids - Continue to monitor I/Os (3) Hypoalbuminemia due to protein-calorie malnutrition: Plan: - Again, due to poor oral intake - Encourage pt to eat/drink as able/willing - however due to worsening mentation will be NPO - will see how he responds to Lactulose and further discussion with . Can consider [employer] consult if mentation improves - Boost added to his daily meal regimen - but currently NPO (4) Hypokalemia: Plan: - Due to poor oral intake - Replaced/resolved (5) GBM (glioblastoma multiforme): Plan: - S/P craniotomy w/ tumor debulking followed by chemoradiation - On maintenance Bevacizumab - Follows w/ [facility] and [place]. Villalobos locally (6) Partial motor seizures: Plan: - Continue Keppra - No witnessed seizure activity (7) Type 2 diabetes mellitus: Plan: - On SSI - will loosen coverage while NPO - No basal insulin noted (8) Hypertension: Plan: - Continue Lisinopril and Novasc - Well controlled (9) Depression with anxiety: Plan: - Recently started on Prozac Plan: Previous provider had lengthy discussion with patient's this afternoon regarding patient's deterioration since admission. Now with very little oral intake of food or water (and difficulty swallowing now). Condom catheter in place draining scant amount of concentrated urine. Overall, concerned that his aggressive malignancy, recent chemotherapy, and recent james with COVID is all contributing to his profound debilitation. She seems to also be teetering on considering hospice as well. Prognosis remains poor. Converted meds to IV for now CM is following, dispo[facility] when bed available however will discuss hospice Admission and Anticipated Discharge Date Admission Date: June 07, 2021 Subjective Patient is drowsy. Minimally conversant. When asked yes or no answers does somewhat answer but more mumbles then closes his eyes. Ammonia is elevated at 73 and will do lactulose to see if this will assist. He was unable to swallow pills last evening and currently NPO. Seems to be declining rapidly. Updated over the phone and she plans to be in this afternoon and will further discuss as the topic of hospice was introduced yesterday. Review of Systems Review of Systems: Unobtainable due to cognitive status Physical Exam Physical Exam: PHYSICAL EXAM General Appearance: Drowsy but NAD HEENT: Head is normocephalic/atraumatic Neck: Supple; Trachea midline; Neg JVD Heart: mildly tachy with regular rhythm with no M/G/R Lungs: CTA in all lung colon bilaterally; Respirations unlabored; Neg accessory muscle use Abdomen: Soft, non-tender, non-distended; Positive BS x 4 quadrants Extremities: Neg cyanosis or edema Psychiatric: Lethargic Skin: Normal Color; Warm/Dry Results & Data Results & Data ([facility]) Vital Signs (Past 12 Hours) Vital Signs Temp Pulse Resp BP Pulse Ox 06/12/21 07:31 36.4 C L 89 16 114/74 92 PG Care Time/CCT Total # of Minutes Spent Total Time Spent with Patient: Total time spent is greater than 50% in coordination of care (as documented) at patient's floor/unit and/or counseling patient: Coding Level of Care Code 82405 Subseq Hosp Care Lvl 3 Diagnoses Encephalopathy G93.40 Dehydration E86.0 Hypoalbuminemia due to protein-calorie malnutrition E88.09; E46 Hypokalemia E87.6 GBM (glioblastoma multiforme) C71.9 Partial motor seizures G40.109 Type 2 diabetes mellitus E11.9 Hypertension I10 Depression with anxiety F41.8
[2021-06-12] MEDS ORDERED: LACTULOSE SYRUP 20 GM/30 ML UDC PO SCH (14:00)
[2021-06-12] MEDS: levETIRAcetam 1,500 MG in 0.9 % SODIUM CHLORIDE 100 ML IV SCH (21:17)
[2021-06-13] MEDS: D5W AND 1/2NSS 1,000 ML IV SCH ×2 (00:33→13:54)
[2021-06-13] MEDS: ATROPINE SULFATE 1% OP SOLN 5 ML BTL SL PRN ×3 (06:28→17:16)
[2021-06-13 06:30] LABS: Hematocrit (blood only) 34.9 % (42-52); Hemoglobin 11.3 g/dL (14.0-18.0); Mean Corpuscular Hemoglobin 31.4 pg (25-34); Mean Corpuscular Hgb Conc 32.4 g/dL (32-36); Mean Corpuscular Volume 96.9 fL (80-100); Mean Platelet Volume 9.2 fL (7.4-10.4); Platelet Count 151 K/uL (130-400); RDW Standard Deviation 53.3 fL (36.4-46.3); White Blood Count 6.05 K/uL (4.8-10.8)
[2021-06-13 07:03] LABS: Albumin Level 1.7 gm/dl (3.4-5.0); BUN Creatinine Ratio 44.3 (10-20); Calcium 8.5 mg/dl (8.5-10.1); Creatinine Clr Calc Pharmacy 194.8 ml/min; Est GFR (African American) 134.8 ml/min; Est GFR (Non-African American) 116.3 ml/min; Potassium 3.2 mmol/L (3.5-5.1)
[2021-06-13 07:06] LABS: Albumin Globulin Ratio 0.5 (0.9-2); Bilirubin,Total 0.8 mg/dl (0.2-1); Globulin 3.6 gm/dl (2.5-4.0); Total Protein 5.3 gm/dl (6.4-8.2)
--- NOTE | 2021-06-13 07:55 | XRay Report ---
XR chest 1V portable CLINICAL HISTORY: Assess for aspiration TECHNIQUE: Single frontal radiograph of the chest was obtained. Comparison: Comparison is made to chest one view 06/06/2021 FINDINGS: No lines and tubes are seen. The aorta is tortuous. The remainder of the cardiomediastinal silhouette is unremarkable. Prominence and cephalization of the vasculature is seen. Bibasilar airspace opaciti es are seen. No evidence of pleural effusion or pneumothorax. IMPRESSION: 1. Bibasilar airspace opacities are similar in extent to prior exam and likely represent atelectasis , with or without superimposed aspiration and/or pneumonia. 2. Mild pulmonary edema, unchanged. ACT 112: Negative or not required by law. Electronically signed by: Linwood Main M.D. 06/13/2021 7:54 AM
[2021-06-13] MEDS: bisacodyL 10 MG SUPP PR SCH (08:08)
[2021-06-13] MEDS: FAMOTIDINE 20 MG in SYRINGE 3 ML IV SCH ×2 (08:11→21:54)
[2021-06-13] MEDS: ENOXAPARIN INJ 30 MG/0.3 ML SYR SQ SCH (08:11)
[2021-06-13] MEDS: INSULIN ASPART PER UNIT SC SCH ×4 (08:27→21:54)
[2021-06-13] MEDS ORDERED: LACTULOSE 200 GM, WATER, STERILE IRRIG 700 ML, BARCODE IDENTIFIER 1 EA PR ONE (08:45)
[2021-06-13] MEDS ORDERED: dexAMETHasone 4 MG in SYRINGE 0 ML IV ONE (08:45)
[2021-06-13] MEDS ORDERED: UNIT DOSE COMPOUND PR ONE (08:45)
[2021-06-13] MEDS: MoRPHine SULFATE 2 MG/ML CARP IV PRN (13:54)
[2021-06-13 15:15] VITALS: BP 118/58; TEMP 97.3
[2021-06-13] MEDS ORDERED: MoRPHine SULFATE 5 MG/0.25 ML UDP PO PRN (15:37)
--- NOTE | 2021-06-13 16:35 | Hospitalist Progress Note ---
Date of Service June 13, 2021 Assessment & Plan (1) Encephalopathy: Plan: 71 yo WM with a PMHx of GBM who presented with episode of unresponsiveness and AMS after chemotherapy on 06/06 - Encephalopathy etiology uncertain--suspect this is related to a rather rapid decline in a patient with an aggressive malignancy who also recently battled COVID -- Has had a progressive decline in oral intake and notes he has gradually talked less and mostly just yes/no answers but while admitted has become more obtunded; Ammonia was found to be elevated and lactulose enemas given x 2 with good bowel movements and initial improvement in ammonia but now climbing again. LFTs unremarkable (maybe due to lack of oral intake? does have a seizure history...contributing? but has been on Keppra, medications?) - Work up at this point is unremarkable - TSH WNL, UA unremarkable - CXR no evidence of PNA - did repeat with suggestion of atelectasis but possible superimposed aspiration vs pneumonia but is afebrile and no leukocytosis however mentation was declining prior to the secretion issues... - CT head - stable from 06/02 imaging - prior R parietal craniotomy with R parietal lobe vasogenic edema deep to the craniotomy site; trace linear cortically-based hyperattenuation within the R parietal lobe which is unchanged from prior and may represent subarachnoid hemorrhage vs post-treatment related changes; no midline shift or acute territorial infarct - No blood cx collected (upon review of pt's chart) - Vitamin B12 and folate normal - Discussed the case with Dr. Gonzalez who is the patient's neurosurgeon/neuro- oncologist - will trail Bernardo and is in agreement to trial this; will attempt to continue to reduce ammonia however limited due to not able to take orals - Suspect this may be related to his glioblastoma and more neurologically based - MRI does show an active focus and his diagnosis was made about about 18 months ago with the average life expectancy only being about 12 months -- At this time, very guarded that we will see a clinical improvement. Had a long conversation with his at bedside today and she is appropriately tearful but understands this would eventually happen but was hoping for more time. She wants to make sure he is comfortable. She would like to have Hospice Services at [facility]. They can accept tomorrow and Rxs written and given to case management. Will monitor overnight, if appearing more acute he may not be safe to transport than would keep hospitalized and this was explained to Ms. Rincon - According to Dr. Villalobos's consult note, could be paroxysmal reaction to Prozac, but seems unlikely as this is continuing (2) Dehydration: Plan: - Due to poor oral intake - Initiate gentle maintenance fluids - can maintain for now - Continue to monitor I/Os (3) Hypoalbuminemia due to protein-calorie malnutrition: Plan: - Again, due to poor oral intake - Due to worsening mentation will be NPO - Boost added to his daily meal regimen - but currently NPO (4) Hypokalemia: Plan: - Due to poor oral intake - Replaced/resolved (5) GBM (glioblastoma multiforme): Plan: - S/P craniotomy w/ tumor debulking followed by chemoradiation - On maintenance Bevacizumab - Follows w/ [facility] [place] and Dr. Villalobos locally (6) Partial motor seizures: Plan: - Continue Keppra - No witnessed seizure activity - however given ammonia in setting of normal liver function, could be having underlying seizure activity?? -- Focus on comfort (7) Type 2 diabetes mellitus: Plan: - On SSI - will loosen coverage while NPO - No basal insulin noted (8) Hypertension: Plan: - Unable to take oral meds; BP acceptable (9) Depression with anxiety: Plan: - Recently started on Prozac - on hold due to NPO Plan: Overall, concerned that his poor oral intake, aggressive malignancy, recent chemotherapy, and recent james with COVID is all contributing to his profound debilitation. She seems to also be teetering on considering hospice as well. Prognosis remains poor. Converted some meds to IV for now. CM is following, dispo: Plan for hospice at [facility]; will monitor overnight if continues to acute decline may not be safe to transport and will assess in AM Admission and Anticipated Discharge Date Admission Date: June 07, 2021 Subjective Patient has remained somnolent all day. Did open his eyes this morning but would not talk. Minimally opened eyes when was at bedside this afternoon. He is have less issues with secretions today but is requiring supplemental O2. Trial of Decadron to see if any assistance with mentation. Ammonia level did improve after lactulose yesterday and went from 70 to 50. However this AM is up to 90, LFTs were midly elevated on admission however normalized. Possibly due to poor oral intake overtime vs medications? CXR largely unchanged and more suggestive of atelectasis but was gurgling on secretions yesterday so possible some pneumonitis. WBC is WNL and afebrile. Discussed current situation with his neuro-oncologist Dr. Gonzalez this afternoon. Mrs. Rincon has decided on hospice services at [facility]. She would like to continue medications that promote comfort but is okay with stopping if medications if there is no benefit. She would like to see if the Decadron will help. But also wants to make sure he is not suffering. Review of Systems Review of Systems: Unobtainable due to reduced consciousness Physical Exam Physical Exam: PHYSICAL EXAM General Appearance: Elderly male in NAD; Obtunded HEENT: Head is normocephalic/atraumatic Neck: Supple; Trachea midline; Neg JVD Heart: mildly tachy with regular rhythm with no M/G/R Lungs: Patient is snoring making breath sounds difficult to ascertain; not gurgling on secretions or coughing; Respirations unlabored; Neg accessory muscle use Abdomen: Soft, non-tender, non-distended; Positive BS x 4 quadrants Extremities: Neg cyanosis or edema Psychiatric: Obtunded; opens eyes breifly to touch Skin: Normal Color; Warm/Dry Results & Data Results & Data ([facility]) Vital Signs (Past 12 Hours) Vital Signs Temp Pulse Pulse Resp BP Pulse Ox 06/13/21 15:39 90 06/13/21 15:11 36.3 C L 129 H 16 118/58 L 81 L 06/13/21 07:35 37.1 C 106 H 14 110/71 92 PG Care Time/CCT Total # of Minutes Spent Total Time Spent with Patient: Total time spent is greater than 50% in coordination of care (as documented) at patient's floor/unit and/or counseling patient: Coding Level of Care Code 84539 Subseq Hosp Care Lvl 3 Diagnoses Encephalopathy G93.40 Dehydration E86.0 Hypoalbuminemia due to protein-calorie malnutrition E88.09; E46 Hypokalemia E87.6 GBM (glioblastoma multiforme) C71.9 Partial motor seizures G40.109 Type 2 diabetes mellitus E11.9 Hypertension I10 Depression with anxiety F41.8
[2021-06-13] MEDS ORDERED: dexAMETHasone 4 MG in SYRINGE 0 ML IV SCH (17:00)
[2021-06-13] MEDS: levETIRAcetam 1,500 MG in 0.9 % SODIUM CHLORIDE 100 ML IV SCH (21:53)
[2021-06-14] MEDS: ATROPINE SULFATE 1% OP SOLN 5 ML BTL SL PRN ×3 (05:25→17:07)
[2021-06-14] MEDS: INSULIN ASPART PER UNIT SC SCH ×2 (09:16→14:02)
[2021-06-14] MEDS: bisacodyL 10 MG SUPP PR SCH (09:51)
[2021-06-14] MEDS: FAMOTIDINE 20 MG in SYRINGE 3 ML IV SCH (09:52)
[2021-06-14 09:59] VITALS: PULSE 131
[2021-06-14 10:02] VITALS: O2SAT 85
[2021-06-14] MEDS ORDERED: MoRPHine SULFATE 5 MG/0.25 ML UDP PO PRN (18:31)
--- NOTE | 2021-06-14 19:27 | Death Pronouncement Note ---
Date of Service June 14, 2021 Pronouncement Note Admission Date Admission Date: June 07, 2021 Date and Time of Date of : 06/14/21 Time of : 18:45 PCOD Preliminary cause of : Glioblastoma multiforme of brain Contributing Factors (1) Encephalopathy: (2) Dehydration: (3) Hypoalbuminemia due to protein-calorie malnutrition: (4) Hypokalemia: (5) GBM (glioblastoma multiforme): (6) Partial motor seizures: (7) Type 2 diabetes mellitus: (8) Hypertension: (9) Depression with anxiety: (10) Hyperammonemia: Additional Data Confirmation of : no pulse, no respirations, no heart sounds and pupils fixed and dilated Family: at bedside Attending/PCP notified?: Yes Attending physician: Linwood Jackson DO; Sydnie Fong PA-C Was code activated?: No Autopsy requested?: No Coding Level of Care Code None Diagnoses Encephalopathy G93.40 Dehydration E86.0 Hypoalbuminemia due to protein-calorie malnutrition E88.09; E46 Hypokalemia E87.6 GBM (glioblastoma multiforme) C71.9 Partial motor seizures G40.109 Type 2 diabetes mellitus E11.9 Hypertension I10 Depression with anxiety F41.8 Hyperammonemia E72.20
--- NOTE | 2021-06-14 19:30 | Discharge Summary ---
Date of Service June 14, 2021 Principal Diagnosis Metabolic Encephalopathy due to Glioblastoma Multiforme and Hyperammonemia Discharge Exam PHYSICAL EXAM Heart: No pulse; no heart tones Lungs: No spontaneous respirations Discharge Data Allergies Allergy/AdvReac Type Severity Reaction Status Date / Time grass pollen Allergy Mild Congested Verified 06/06/21 17:06 temozolomide [From Temodar] AdvReac Severe septic Verified 06/08/21 11:22 shock, severe chills/dyspnea cat dander AdvReac Intermediate Hives Verified 06/06/21 17:06 dog dander AdvReac Intermediate WELTS Verified 06/06/21 17:06 Consultations 06/06/21 19:05 ED Decision to Admit Stat 06/06/21 20:35 Consult Hematology Routine 06/08/21 15:17 Consult Nutrition Routine Ordered Studies Head CT 06/06/21 15:54 CT head/brain wo con CLINICAL HISTORY: 70 years-old Male with ams. Acutely altered mental status TECHNIQUE: Multiple axial CT images of the head were obtained without contrast. A dose lowering technique was utilized adhering to the principles of ALARA. CT DOSE: 788.63 mGycm COMPARISON: Brain MRI 06/02/2021, head CT 04/22/2021 FINDINGS: Postoperative changes of the right parietal calvarium redemonstrated from prior craniotomy. Linear subarachnoid hyperattenuation within the right parietal lobe on image 20 series 2 is unchanged from prior. Vasogenic edema within the right parietal lobe deep to the craniotomy site is unchanged. Calcifications of the falx cerebri. No midline shift, abnormal extra-axial collection or acute territorial infarct. The calvarium is intact. The paranasal sinuses, mastoid air cells, and middle ear cavities are clear. IMPRESSION: 1. Stable exam from 06/02/2021. Prior right parietal craniotomy with right parietal lobe vasogenic edema deep to the craniotomy site. Additionally, there is trace linear cortically-based hyperattenuation within the right parietal lobe which is unchanged from prior and may represent subarachnoid hemorrhage versus posttreatment related changes. 2. No midline shift or acute territorial infarct. ACT 112: Negative or not required by law. The above report was generated using voice recognition software. It may contain grammatical, syntax or spelling errors. Electronically signed by: Adolfo Lion M.D. 06/06/2021 4:30 PM Chest X-Ray 06/06/21 17:47 XR chest 1V portable HISTORY: Weakness. COMPARISON: None. FINDINGS: The heart is mildly enlarged. This remains unchanged. There are low lung volumes. Bibasilar linear densities favor subsegmental atelectasis. The upper lung zones are clear. No evidence for pulmonary edema. No pleural effusions. No pneumothorax. IMPRESSION: 1. Stable mild cardiomegaly. 2. Low lung volumes with bibasilar linear densities. This favors subsegmental atelectasis. ACT 112: Negative or not required by law. Electronically signed by: Matt Tran M.D. 06/06/2021 6:26 PM Chest X-Ray 06/13/21 08:00 XR chest 1V portable CLINICAL HISTORY: Assess for aspiration TECHNIQUE: Single frontal radiograph of the chest was obtained. Comparison: Comparison is made to chest one view 06/06/2021 FINDINGS: No lines and tubes are seen. The aorta is tortuous. The remainder of the cardiomediastinal silhouette is unremarkable. Prominence and cephalization of the vasculature is seen. Bibasilar airspace opacities are seen. No evidence of pleural effusion or pneumothorax. IMPRESSION: 1. Bibasilar airspace opacities are similar in extent to prior exam and likely represent atelectasis, with or without superimposed aspiration and/or pneumonia. 2. Mild pulmonary edema, unchanged. ACT 112: Negative or not required by law. Electronically signed by: Linwood Main M.D. 06/13/2021 7:54 AM Hospital Course (1) Encephalopathy: 71 yo WM with a PMHx of GBM who presented with episode of unresponsiveness and AMS after chemotherapy on 06/06 - Encephalopathy etiology uncertain--suspect this is related to a rather rapid decline in a patient with an aggressive malignancy who also recently battled COVID -- Has had a progressive decline in oral intake and notes he has gradually talked less and mostly just yes/no answers but while admitted has become more obtunded; Ammonia was found to be elevated and lactulose enemas given x 2 with good bowel movements and initial improvement in ammonia but no change in mentation but ammonia continued to climb. LFTs unremarkable (maybe due to lack of oral intake? does have a seizure history (having underlying seizures given mentation)...contributing? but has been on Keppra, medications?) - Work up at this point is unremarkable - TSH WNL, UA unremarkable - CXR no evidence of PNA - did repeat with suggestion of atelectasis but possible superimposed aspiration vs pneumonia but is afebrile and no leukocytosis however mentation was declining prior to the secretion issues... - CT head - stable from 06/02 imaging - prior R parietal craniotomy with R parietal lobe vasogenic edema deep to the craniotomy site; trace linear cortically-based hyperattenuation within the R parietal lobe which is unchanged from prior and may represent subarachnoid hemorrhage vs post-treatment related changes; no midline shift or acute territorial infarct - No blood cx collected (upon review of pt's chart) - Vitamin B12 and folate normal - Discussed the case with Dr. Gonzalez who is the patient's neurosurgeon/neuro- oncologist - trailed Violetaadron (no response but worsened glucose control) - Suspect this may be related to his glioblastoma and more neurologically based - MRI does show an active focus and his diagnosis was made about about 18 months ago with the average life expectancy only being about 12 months - According to Dr. Villalobos's consult note, could be paroxysmal reaction to Prozac, but seems unlikely as this is continuing - Mr. Rincon ultimately was placed on comfort measures only and passed way (2) Dehydration: - Due to poor oral intake; initially utilized IVF fluids (3) Hypoalbuminemia due to protein-calorie malnutrition: - Again, due to poor oral intake - Due to worsening mentation will be NPO and placed on comfort measures (4) Hypokalemia: - Due to poor oral intake - Replaced/resolved (5) GBM (glioblastoma multiforme): - S/P craniotomy w/ tumor debulking followed by chemoradiation - was on maintenance Bevacizumab - Followed w/ [facility] [place] and Dr. Villalobos locally (6) Partial motor seizures: - Keppra - No witnessed seizure activity - however given ammonia in setting of normal liver function, could be having underlying seizure activity?? -- Focus on comfort (7) Type 2 diabetes mellitus: - Utilized SSI while hospitilized (8) Hypertension: - Unable to take oral meds; BP acceptable (9) Depression with anxiety: - Recently started on Prozac (10) Hyperammonemia: Please see note Total Time Total Time Spent Total Time Spent (In Minutes): Spent greater than 30 minutes preparing patient for discharge. This includes discussion with patient/family, assessment, intervention, medication reconciliation, and coordination of care. Discharge Plan Discharge Items Patient Disposition: Discharge Diagnosis: Glioblastoma Multiforme of the Brain Other Date/Time: 06/14/21 18:45 Supervising Physician Co-Signing Physician Notes Attending note: I agree with summary by Sydnie CLIFTON patient well known to me from prior visits, has glioblastoma I met with his a few days prior to his passing, we discussed transitioning to hospice, she knew it was time - Glioblastoma: patient was s/p surgical resection and chemotherapy had gradual decline over the past few weeks/months he was placed on comfort measures, peacefully Coding Level of Care Code D/C DAY MANAGEMENT >30 MINS Diagnoses Encephalopathy G93.40 Dehydration E86.0 Hypoalbuminemia due to protein-calorie malnutrition E88.09; E46 Hypokalemia E87.6 GBM (glioblastoma multiforme) C71.9 Partial motor seizures G40.109 Type 2 diabetes mellitus E11.9 Hypertension I10 Depression with anxiety F41.8 Hyperammonemia E72.20
[2021-06-14] MEDS ORDERED: MoRPHine SULFATE 10 MG/0.5 ML UDP PO PRN (19:31)
== END 2021-06-14 19:26 | disposition expired | DRG 54 ==
LOC: ED 15:48 → SUATTDRO 06-07 01:51 → 3E 06-07 01:51